=== PATIENT | female | born 1950 ===

== ENCOUNTER 2020-01-08 14:31 | Outpatient (REF) | payer MEDICARE, SELFPAY ==
[2020-01-08 15:23] LABS: Hematocrit 37.5 % (37-47); Hemoglobin 12.3 g/dl (12.0-16.0); Mean Corpuscular HGB Conc 32.8 g/dl (31.0-35.0); Mean Corpuscular Hemoglobin 30.1 pg (27.0-33.0); Mean Corpuscular Volume 91.7 fL (80-98); Mean Platelet Volume 9.2 fL (9.4-12.3); Platelet Count 333 X10*3/uL (160-400); Red Blood Count 4.09 X10*6/uL (4.20-5.50); Red Cell Distribution Width 14.6 % (11.0-16.0); White Blood Count 6.4 X10*3/uL (4.8-10.8)
[2020-01-08 15:57] LABS: Iron 125 mcg/dL (30-160); Percent Iron Saturation 33 % (15-50); Total Iron Binding Capacity 376 mcg/dL (228-428); Unsaturated Iron Binding 251 ug/dL
[2020-01-08 16:17] LABS: Thyroid Stimulating Hormone 1.57 mIU/mL (0.32-4.0)
== END 2020-01-08 14:32 | disposition home or self-care (01) ==
LOC: HO.LAB 14:31
PROVIDERS: PCP Physician Assistant; Visit Provider Physician Assistant
DX: R31.0 Gross hematuria (principal); E07.9 Disorder of thyroid, unspecified
CPT/HCPCS: 36415; 83540; 84443; 85027

== ENCOUNTER 2020-02-23 11:13 | Outpatient (REF) | payer MEDICARE, SELFPAY ==
[2020-02-23 12:36] LABS: Anion Gap 14 (12-20); Blood Urea Nitrogen 10 mg/dL (9-16); Calcium 9.3 mg/dL (8.4-10.2); Carbon Dioxide 24 mmol/L (22-29); Chloride 107 mmol/L (96-108); Estimated Glomerular Filt Rate > 60; Glucose Random 126 mg/dL (60-115); Potassium 4.1 mmol/l (3.3-5.1); Sodium 141 mmol/L (135-145)
== END 2020-02-23 11:14 | disposition home or self-care (01) ==
LOC: HO.LAB 11:13
PROVIDERS: PCP Physician Assistant; Visit Provider Physician Assistant
DX: I10 Essential (primary) hypertension (principal)
CPT/HCPCS: 80048

== ENCOUNTER 2020-09-15 13:32 | Outpatient (REF) | payer MEDICARE, SELFPAY ==
[2020-09-15 14:18] LABS: Estimated Average Glucose 123 mg/dL; Hemoglobin A1c % 5.9 %
[2020-09-15 14:44] LABS: Creatinine Urine 221.05 mg/dL; Microalbum/Creatinine Ratio Ur 8.1 ug/mg cr
[2020-09-15 14:47] LABS: Anion Gap 12 (12-20); Blood Urea Nitrogen 11 mg/dL (9-16); Calcium 9.2 mg/dL (8.4-10.2); Carbon Dioxide 21 mmol/L (22-29); Chloride 111 mmol/L (96-108); Cholesterol 230 mg/dL; Estimated Glomerular Filt Rate > 60; Glucose Random 119 mg/dL (60-115); HDL Cholesterol 56 mg/dL; LDL Cholesterol Calculated 143 mg/dl; Potassium 4.3 mmol/L (3.3-5.1); Sodium 140 mmol/L (135-145); Triglycerides 156 mg/dL
[2020-09-15 14:59] LABS: Thyroid Stimulating Hormone 1.09 uIU/mL (0.32-4.0)
== END 2020-09-15 13:33 | disposition home or self-care (01) ==
LOC: HO.LABR 13:32
PROVIDERS: PCP Physician Assistant; Visit Provider Physician Assistant
DX: E11.9 Type 2 diabetes mellitus without complications (principal); E03.9 Hypothyroidism, unspecified
CPT/HCPCS: 36415; 80048; 80061; 82043; 83036; 84443

== ENCOUNTER → 2020-11-10 07:48 | Outpatient (REF) | payer MEDICARE, SELFPAY ==
--- NOTE | 2020-11-10 07:52 | CA_ITS ---
Acquisition Time: 2020-11-10 07:58:08 Total Exercise Time: 00:03:14 Test Indications: Chest Pain Medications: ASA CLONAZAPAM CLOPIDOGREL EZITIMIBE METFORMIN LAMOTRIGINE PROPANOLOL IRON VENLAFAXINE Protocol: KENYON Max HR: 150 BPM 98% of Pred: 152 BPM Max BP: 162/080 mmHG Max Work Load: 4.7 METS Exercise stress test with exercise 3 min 14 sec of Kenyon protocol, without moderate shortness of breath, anterior chest tightness and report of dizziness, without arrythmia, with normotensive response to exercise, without EKG changes meeting criteria for ischemia however suboptimal exerise time, goal 5 min. In recovery her symptoms, improved and resolved. There was borderline ST changes inferiorly and V6 noted during recovery. Test reviewed with Dr Reyes Call placed to [facility] office, report given and recommended pharm nuclear stress test for further evaluation. Referred By: Lexy Betancur Overread By: JEISON LACEY
== END ==
LOC: HO.CARD 07:48
PROVIDERS: PCP Physician Assistant; Visit Provider Physician Assistant
DX: R06.09 Other forms of dyspnea (principal)
CPT/HCPCS: 93017

== ENCOUNTER → 2020-11-24 08:43 | Outpatient (REF) | payer MEDICARE, SELFPAY ==
--- NOTE | ~2020-11-24 | NM_ITS ---
Myocardial perfusion study Indication: Shortness of breath evaluate for myocardial ischemia Technique: The patient was brought in for a Lexiscan perfusion study on 11/24/2020. Patient performed low-level exercise and was injected 0.4 mg of Lexiscan intravenously. Within a minute of injection, 30 mCi of sestamibi was given intravenously. Images were obtained using the SPECT gamma camera interlaced with the gating device. Images were obtained in supine position. Resting perfusion study was performed on 11/25/2020. Patient was administered 30 mCi of sestamibi intravenously at rest. Images were then obtained in supine position. Images obtained with and without CT attenuation. Total DLP 111 mGy-cm. Images were processed with the software and compared side to side in short axis, horizontal long axis and vertical long axis views. Findings: The stress perfusion study showed nonattenuated images show minimal thinning of the distal lateral wall of the LV myocardium otherwise normal uptake in all other segments. Attenuation corrected images show normal uptake of radiotracer in all segments of LV myocardium.. The gated study shows normal LV systolic function with calculated LVEF of greater than 70 %. LV cavity is normal in size. The gated study shows normal systolic wall thickening and contraction of segments. Resting study shows no change in perfusion pattern compared to stress perfusion study. Gating at rest reveals normal systolic wall motion with ejection fraction at 58%. The findings are consistent with normal myocardial perfusion. NM/NM sawyer perf SPECT rest & str Impression: 1. Myocardial perfusion imaging study shows normal myocardial perfusion 2. Gated LVEF is greater than 70% 3. Transient ischemic dilatation not present EKG is nondiagnostic for ischemia
--- NOTE | 2020-11-24 09:00 | CA_ITS ---
Acquisition Time: 2020-11-24 08:54:35 Total Exercise Time: 00:02:00 Test Indications: Abnormal Treadmill Test Medications: PRAVASTATIN ASA CLONAZAPAM LAMOTRIGNE PROPANOLOL VENLAFAXINE Protocol: LEXISCAN Max HR: 109 BPM 71% of Pred: 152 BPM Max BP: 128/082 mmHG Max Work Load: 1.0 METS Pharmacological stress test with Lexiscan injection, while sitting and kicking her legs, without anginal symptoms, without arrythmia, with normotensive response to injection, with nondiagnostic EKG for ischemia. Nuclear images pending. Test reviewed with Dr Reyes. Referred By: Caitlin Carl Overread By: JEISON LACEY
== END ==
LOC: HO.CARD 08:43
PROVIDERS: Visit Provider Nurse Practitioner Family
DX: R06.09 Other forms of dyspnea (principal)
CPT/HCPCS: 78452; 93017; A9500; J0280; J2785

== ENCOUNTER → 2020-12-12 19:15 | Outpatient (REF) | payer MEDICARE, SELFPAY | LOC: HO.SL 19:15 | PROVIDERS: PCP Physician Assistant; Visit Provider Physician Assistant | DX: G47.00 Insomnia, unspecified (principal) | CPT/HCPCS: 95810 ==

== ENCOUNTER → 2021-03-13 08:21 | Outpatient (BNVA) | payer MEDICARE, SELFPAY | PROVIDERS: PCP Physician Assistant; Visit Provider Hospitalist | DX: G47.33 Obstructive sleep apnea (adult) (pediatric) (principal); R91.8 Other nonspecific abnormal finding of lung field; G47.00 Insomnia, unspecified; R06.00 Dyspnea, unspecified; J43.9 Emphysema, unspecified | CPT/HCPCS: 99202 ==

== ENCOUNTER 2021-05-02 13:24 | Outpatient (REF) | payer MEDICARE, SELFPAY ==
[2021-05-02 14:33] LABS: Estimated Average Glucose 126 mg/dL; Hemoglobin A1C 149.0958 umol/L
[2021-05-02 14:40] LABS: Anion Gap 14 (12-20); Blood Urea Nitrogen 14 mg/dL (9-16); Calcium 9.9 mg/dL (8.4-10.2); Carbon Dioxide 25 mmol/L (22-29); Chloride 109 mmol/L (96-108); Cholesterol 246 mg/dL; Estimated Glomerular Filt Rate > 60; Glucose Random 123 mg/dL (60-115); HDL Cholesterol 55 mg/dL; LDL Cholesterol Calculated 158 mg/dl; Potassium 4.5 mmol/L (3.3-5.1); Sodium 143 mmol/L (135-145); Triglycerides 167 mg/dL
[2021-05-02 15:02] LABS: Thyroid Stimulating Hormone 1.67 uIU/mL (0.32-4.0)
[2021-05-02 16:03] LABS: Creatinine Urine 269.17 mg/dL; Microalbum/Creatinine Ratio Ur 41.2 ug/mg cr
== END 2021-05-02 13:25 | disposition home or self-care (01) ==
LOC: HO.LAB 13:24
PROVIDERS: PCP Physician Assistant; Visit Provider Physician Assistant
DX: E11.9 Type 2 diabetes mellitus without complications (principal); E03.9 Hypothyroidism, unspecified
CPT/HCPCS: 36415; 80048; 80061; 82043; 83036; 84443

== ENCOUNTER 2021-05-31 13:21 | Outpatient (REF) | payer MEDICARE, SELFPAY ==
--- NOTE | ~2021-05-31 | MM_ITS ---
EXAMINATION: BONE DENSITOMETRY CLINICAL INDICATION: Osteoporosis. COMPARISON: Baseline BD dated 05/31/2006. TECHNIQUE: Using a TopLog DXA System (software version: 13.1) manufactured by [employer], dual-energy x-ray absorptiometry was performed of the lumbar spine and left hip. The images are of good technical quality. Summary results are attached. FINDINGS: AP SPINE L1-L2 (excluding L3 and L4): The data of L1-L4 has been changed to exclude the L3 and L4 vertebral bodies, because degenerative changes at these levels may cause overestimation of lumbar spine density. Current: BMD 1.095 g/cm2, Z-score 0.4, T-score -0.6, normal, 6.4% decrease from baseline (<5% change is not significant). Baseline: BMD 1.170 g/cm2. LEFT FEMUR, NECK: Current: BMD 0.845 g/cm2, Z-score -0.2, T-score -1.4, osteopenia. Baseline: BMD 0.979 g/cm2. LEFT FEMUR, TOTAL: Current: BMD 0.878 g/cm2, Z-score -0.1, T-score -1.0, normal, 11.9% decrease from baseline (<5% change is not significant). Baseline: BMD 0.997 g/cm2. IDENTIFIED RISK FACTORS: Height loss, low calcium intake, menopause, hysterectomy, bilateral oophorectomy. HISTORY OF FRACTURE: None listed. MEDICATIONS: Calcium supplements or multivitamin, vitamin D. MM/XR DEXA axial skeleton IMPRESSION: 1. DIAGNOSIS: Osteopenia based on the lowest T-score value of -1.4 in the femoral neck applying World Health Organization criteria. 2. 10-YEAR FRACTURE RISK PREDICTION, FRAX: Major osteoporotic fracture (clinical spine, forearm, hip or shoulder) 9.2%. Hip fracture 1.1%. 3. Treatment Recommendations: NOF guidelines recommend consideration for treatment in postmenopausal women and men age 50 and older presenting with the following: -A hip or vertebral (clinical or morphometric) fracture. -T-score less than or equal to -2.5 at the femoral neck or spine after appropriate evaluation to exclude secondary causes. -Low bone mass at the hip or spine and a 10-year fracture probability by FRAX of greater than or equal to 3% for hip fracture or greater than or equal to 20% for major osteoporotic fracture based on the [place] adapted WHO algorithm. 4. Other Recommendations: All treatment decisions require clinical judgment and consideration of individual patient factors, including patient preferences, comorbidities, previous drug use, risk factors not captured in the FRAX model (e.g. frailty, falls, vitamin D deficiency, increased bone turnover, interval significant decline in bone density) and possible under or overestimation of fracture risk by FRAX. Additional medical evaluation for secondary cause of low bone mineral density may be appropriate. FUTURE SCAN RECOMMENDATION: People with diagnosed cases of osteoporosis or at high risk for fracture should have regular bone mineral density tests. For patients eligible for Medicare, routine testing is allowed once every 2 years. The testing frequency can be increased to one year for patients who have rapidly progressing disease, those who are receiving or discontinuing medical therapy to restore bone mass, or have additional risk factors.
== END 2021-05-31 13:22 | disposition home or self-care (01) ==
LOC: HO.MAMMO 13:21
PROVIDERS: Visit Provider Physician Assistant
DX: Z13.820 Encounter for screening for osteoporosis (principal); R29.890 Loss of height; Z90.710 Acquired absence of both cervix and uterus; Z90.722 Acquired absence of ovaries, bilateral; Z78.0 Asymptomatic menopausal state
CPT/HCPCS: 77080

== ENCOUNTER → 2021-06-12 13:36 | Outpatient (BNVA) | payer MEDICARE, SELFPAY | PROVIDERS: PCP Physician Assistant; Visit Provider Hospitalist | DX: R91.8 Other nonspecific abnormal finding of lung field (principal); J43.9 Emphysema, unspecified; G47.33 Obstructive sleep apnea (adult) (pediatric); G47.00 Insomnia, unspecified; R06.00 Dyspnea, unspecified | CPT/HCPCS: 99212 ==

== ENCOUNTER 2021-09-26 12:14 | Outpatient (REF) | payer MEDICARE, SELFPAY ==
[2021-09-26 13:33] LABS: MANUAL DIFF FLAG NO
[2021-09-26 13:43] LABS: Basophils Percent Auto 0.3 % (0-2); Eosinophils Absolute Auto 0.3 X10*3/uL (0.0-0.4); Eosinophils Percent Auto 4.3 % (0-4); Hematocrit 45.9 % (37.0-47.0); Hemoglobin 15.4 g/dl (12.0-16.0); Imm Gran Abs Auto 0.02 X10*3/uL (0.00-0.03); Imm Gran Pct Auto 0.3 % (0.0-0.4); Lymphocytes Percent Auto 28.8 % (20-40); Mean Corpuscular HGB Conc 33.6 g/dl (31.0-35.0); Mean Corpuscular Volume 92.4 fL (80.0-98.0); Mean Platelet Volume 9.4 fL (9.4-12.3); Monocytes Absolute Auto 0.6 X10*3/uL (0.1-1.2); Monocytes Percent Auto 8.7 % (2-11); Neutrophils Absolute Auto 3.9 x10*3/uL (2.0-8.3); Neutrophils Percent Auto 57.6 % (45-73); Platelet Count 375 X10*3/uL (160-400); Red Blood Count 4.97 X10*6/uL (4.20-5.50); Red Cell Distribution Width 13.5 % (11.0-16.0); White Blood Count 6.8 X10*3/uL (4.8-10.8)
[2021-09-26 14:08] LABS: Creatinine Urine 151.04 mg/dL; Microalbum/Creatinine Ratio Ur 13.9 ug/mg cr
[2021-09-26 14:11] LABS: Alanine Aminotransferase 42 U/L (0-31); Anion Gap 14 (12-20); Aspartate Amino Transferase 30 U/L (5-31); Blood Urea Nitrogen 18 mg/dL (9-16); Calcium 10.5 mg/dL (8.4-10.2); Carbon Dioxide 25 mmol/L (22-29); Chloride 105 mmol/L (96-108); Cholesterol 238 mg/dL; Estimated Glomerular Filt Rate > 60; Glucose Fasting 120 mg/dL (60-99); HDL Cholesterol 47 mg/dL; LDL Cholesterol Calculated 168 mg/dl; Potassium 4.4 mmol/L (3.3-5.1); Sodium 140 mmol/L (135-145); Triglycerides 116 mg/dL
[2021-09-26 14:19] LABS: Estimated Average Glucose 120 mg/dL; Hemoglobin A1c % 5.8 %
[2021-09-26 14:34] LABS: Free T4 (Free Thyroxine) 0.89 ng/dL (0.71-1.85); Vitamin D 25-OH Total 112.4 ng/mL (>30)
== END 2021-09-26 12:15 | disposition home or self-care (01) ==
LOC: HO.HMGCLDS 12:14
PROVIDERS: PCP Internal Medicine; Visit Provider Internal Medicine
DX: D32.9 Benign neoplasm of meninges, unspecified (principal); E03.9 Hypothyroidism, unspecified; E11.9 Type 2 diabetes mellitus without complications; E78.2 Mixed hyperlipidemia; I10 Essential (primary) hypertension; Z78.0 Asymptomatic menopausal state
CPT/HCPCS: 36415; 80048; 80061; 82043; 82306; 83036; 84439; 84443; 84450; 84460; 85025

== ENCOUNTER 2021-09-28 16:03 | Outpatient (REF) | payer MEDICARE, SELFPAY ==
[2021-10-04 16:30] LABS: Lamotrigine Lamictal 3.5 mcg/mL (4.0-18.0)
== END 2021-09-28 16:04 | disposition home or self-care (01) ==
LOC: HO.LAB 16:03
PROVIDERS: Absent Provider Psychiatry & Neurology Neurology; PCP Internal Medicine; Visit Provider Psychiatry & Neurology Psychiatry
DX: F31.9 Bipolar disorder, unspecified (principal); Z79.899 Other long term (current) drug therapy
CPT/HCPCS: 36415; 80175

== ENCOUNTER 2021-10-05 16:15 | Emergency (ER) | payer MEDICARE, SELFPAY ==
--- NOTE | ~2021-10-05 | CT_ITS ---
EXAMINATION: CT LUMBAR SPINE WITHOUT CONTRAST CLINICAL INFORMATION: Lower back pain. COMPARISON: None available. TECHNIQUE: Multidetector helical imaging of the lumbar spine was obtained without intravenous contrast. Multiple axial reformats and coronal/sagittal reconstructions were created the technologist workstation for review. This CT examination was performed using dose optimization techniques as appropriate, variously including the following: *Automated exposure control. *Adjustment of mA and/or kV according to patient size (this includes techniques or standardized protocols for targeted exams where dose is matched to indication/reason for exam; i.e. extremities or head). *Use of iterative reconstruction technique. DLP: 607 mGy-cm FINDINGS: Minimal left convex curvature of the lumbar spine. Minimal degenerative retrolisthesis of L4 on L5. Otherwise, normal anatomic alignment. Normal anatomic alignment. No evidence of acute fracture or traumatic subluxation. Advanced degenerative disc disease at L4-L5 and L5-S1. Moderate degenerative disc disease at L3-L4. Mild degenerative disc disease at all additional levels. Small Schmorl's nodes at L4-L5 and L5-S1. Otherwise, the vertebral body heights are well-maintained. No suspicious lytic or sclerotic osseous lesions. No significant abnormalities of the paraspinal musculature. Limited evaluation of the intra-abdominal structures without significant abnormalities. The abdominal aorta is of normal contour and caliber with moderate calcific atherosclerotic disease. AXIAL SPINAL LEVELS: L1-L2: Normal annular contour. There is moderate right and mild left facet joint arthropathy. There is no neural foraminal stenosis. There is no demonstrated spinal canal stenosis. L2-L3: Moderate diffuse disc bulge. There is severe right worse than left facet joint arthropathy. There is moderate bilateral neural foraminal stenosis. There appears to be severe spinal canal stenosis. L3-L4: Moderate diffuse disc bulge. There is severe left worse than right facet joint arthropathy. There is moderate to severe bilateral neural foraminal stenosis. There appears to be moderate to severe spinal canal stenosis. L4-L5: Moderate diffuse disc bulge with posterior osseous ridging. There appears to be a superimposed, partially calcified right subarticular disc extrusion with inferior migration. There is severe right and moderate left facet joint arthropathy. There is severe bilateral neural foraminal stenosis. There appears to be moderate to severe spinal canal stenosis. L5-S1: Moderate diffuse disc bulge. There is moderate bilateral facet joint arthropathy. There is severe bilateral neural foraminal stenosis. There is no demonstrated spinal canal stenosis. CT/CT lumbar spine wo con IMPRESSION: 1. No evidence of acute fracture or traumatic subluxation of the lumbar spine. 2. 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 Most notably, there appears to be moderate to severe spinal canal stenosis from L2-L5. Moderate to severe neural foraminal stenoses from L2-S1.
[2021-10-05 16:44] VITALS: BP 164/68; PULSE 78; RESP 22; TEMP 36.4; O2SAT 96; BMI 31.1
--- NOTE | 2021-10-05 19:34 | ED_ITS ---
HPI - Back Pain/Injury General Chief Complaint: Back Pain/Injury Stated Complaint: doc sent over to do CT scan Time Seen by Provider: 10/05/21 18:57 Source: patient Mode of arrival: ambulatory Limitations: no limitations History of Present Illness HPI Narrative: This is a 71-year-old past medical history significant for chronic back pain, currently being followed by her PCP and chiropractor for this presenting to the emergency department with bilateral lower back pain that radiates to above both knees, pain is worse with ambulation. Patient tells me that this pain has been going on for 3 and half months, She tells me that pain has been worsening over the past week. However, patient tells me the quality the pain is the same. Patient has not had any previous imaging. Denies weakness, urinary/bowel incontinence/ retention, nausea, vomiting, loss of sensation, numbness, tingling, fevers, chills, chest pain, shortness of breath. No history of IV drug abuse or back surgeries. Patient has not had imaging on her back before however she was told by her PCP that she has a history of a bulging disc. Patient tells me that her PCP is requesting a CT of the lower back. MD elicited complaint: back pain Pertinent past history: prior back pain Onset (ago): month(s) (3) Timing: intermittent Severity: moderate Similar Symptoms Previously: Yes Quality: aching Location: lumbar spine Radiation: none Exacerbating factors: none Relieving factors: none Associated symptoms: denies other symptoms Related Data Home Medications Medication Instructions Recorded Confirmed cholecalciferol (vitamin D3) 50 50 mcg PO DAILY 03/13/21 09/29/21 mcg (2,000 unit) capsule clopidogrel 75 mg tablet 75 mg PO DAILY 03/13/21 09/29/21 coenzyme Q10 75 mg capsule 75 mg PO DAILY 03/13/21 09/29/21 lamotrigine 200 mg tablet 200 mg PO DAILY 03/13/21 09/29/21 propranolol 60 mg capsule,24 60 mg PO DAILY 03/13/21 09/29/21 hr,extended release vit C 250 mg-vit E 90 mg-zinc 40 1 tab PO BID 03/13/21 09/29/21 mg-copper 1 [id number] capsule (PreserVision AREDS-2) nicotine (polacrilex) 4 mg buccal mg PO 06/12/21 09/29/21 mini lozenge ascorbic acid (vitamin C) 500 mg 500 mg PO DAILY 09/26/21 09/29/21 tablet ferrous fumarate 325 mg (106 mg 325 mg PO DAILY 09/26/21 09/29/21 iron) tablet omega-3-dha 120 mg-epa 180 mg-fish cap PO 09/26/21 09/29/21 oil-vitamin D3 1,000 unit capsule venlafaxine 37.5 mg 37.5 mg PO DAILY 09/26/21 09/29/21 capsule,extended release 24 hr Previous Rx's Medication Instructions Recorded aspirin 81 mg tablet,delayed 81 mg PO DAILY #90 tabs 09/29/21 release clotrimazole 1 % topical cream 1 appl topical BID #45 grams 09/29/21 estradiol 10 mcg vaginal tablet 10 mcg vaginal 2XW 90 days #26 tabs 09/29/21 (Yuvafem) ezetimibe 10 mg tablet 10 mg PO DAILY #90 tabs 09/29/21 metformin 500 mg tablet,extended 500 mg PO DAILY #90 tabs 09/29/21 release 24 hr pravastatin 40 mg tablet 40 mg PO DAILY #90 tabs 09/29/21 cyclobenzaprine 5 mg tablet 5 mg PO BEDTIME PRN muscle spasm 10/05/21 #10 tabs lidocaine 5 % topical patch 1 patch topical DAILY PRN pain #15 10/05/21 ea Allergies Allergy/AdvReac Type Severity Reaction Status Date / Time bee pollen [BEE STINGS] Allergy Severe ANAPHYLAXIS Unverified 10/05/21 10:18 Review of Systems Review of Systems: Constitutional : No Weight loss, No Fever, No Chills, No Fatigue, No Malaise ENT/Mouth : No sore throat, No Rhinorrhea Eyes: No Eye Pain, No Swelling, No Redness Cardiovascular : No Chest Pain, No SOB, No Dyspnea on Exertion, No Orthopnea, No Edema, No Palpitations Respiratory : No Cough, No Sputum, No Wheezing Gastrointestinal : No Nausea, No Vomiting, No Diarrhea, No Constipation, No abdominal Pain, No Hematochezia, No Melena Genitourinary : No Dysuria, No Urinary Frequency, No Hematuria, Musculoskeletal : + joint pain, No Myalgias, No Joint Swelling Skin : No Skin Lesions, No rash Neuro : No Weakness, No Numbness, No Dizziness, No Headache All other systems reviewed and are negative Yes all other systems are reviewed and are negative [facility] Past Medical History Attestation statement: The following information was validated with the patient. Source: old records reviewed and nursing notes reviewed Medical History Acquired hypothyroidism Bipolar disorder Carotid artery stenosis Dyspnea Emphysema of lung Essential hypertension Insomnia Meningioma Mixed hyperlipidemia MACIEJ (obstructive sleep apnea) Pulmonary nodules Type 2 diabetes mellitus without complication, with no history of insulin use Surgical History History of thyroid surgery Family History Family History Father Substance use disorder Brother Mental health disorder Maternal Grandmother Mental health disorder Paternal Aunt No problems noted. Mother Mental health disorder Social History [facility] Patient Tobacco Use Status: Former Tobacco user Tobacco use type: Cigarette Years Smoked: 20 years e-Cigarette/Vaping Use: Never Used Advance Directives: No Advance Directives Information Provided: No service: No Current occupational status: retired Cognitive needs: No Hearing needs: No Vision needs: Yes Physical Exam Vital Signs: Vital Signs: Last Vital Signs Temp 97.3 F 10/05/21 20:25 Pulse 74 10/05/21 20:25 Resp 18 10/05/21 20:25 BP 149/63 H 10/05/21 20:25 Pulse Ox 96 10/05/21 20:25 O2 Del Method 10/05/21 20:25 BMI result Body Mass Index 31.1 vital signs stable Appearance: Alert.? Oriented X3.? No acute distress.? Head: Normocephalic, atraumatic, no step-offs or deformities Eyes: Pupils equal, round and reactive to light.? CVS: Normal heart rate and rhythm.? Pulses normal.? Respiratory: No respiratory distress.? Breath sounds normal.? Abdomen: Soft and nontender.? Skin: Skin warm and dry.? Normal skin color.? Normal skin turgor.? Extremities: No lower extremity edema.? No calf ttp. 5/5 strength to bilateral upper and lower extremities Back: No midline tenderness, no C-spine tenderness, full range of motion, no CVA tenderness bilaterally + back pain that radiates to knees bilaterally with ambulation. 2+ patellar reflexes equal bilateral. Neuro: Oriented X 3.? No motor deficit.? No sensory deficit. CN 2-12 intact Ambulating with steady gait. No saddle paresthesias. Course Reevaluation(s) Reevaluation #1: Patient is ambulating to the bathroom, complaining of pain however does not want anything for pain. Patient tells me she lot patches from the pharmacy that have been helping a little. Patient is upset that there was a long wait however a took the time to explain to patient that we are very busy and the emergency department is based off of acuity. CT scan results were attached to patient's discharge. Advised her to follow up with her PCP and fine and sport. This time patient will be discharged home with prompt PCP and Spine and Sport follow-up. Comfortable discharge home. I will start patient on cyclobenzaprine 5 mg p.o. at bedtime, advised her to not drive while taking this as this can make her drowsy. Patient verbalized understanding, questions were answered. Time: 21:32 MDM - Back Pain/Injury MDM Narrative Medical decision making narrative: 1897 71-year-old female presents with atraumatic back pain x3 months, currently being followed by her PCP for this as well as a chiropractor, patient states that the pain has been increasing and her PCP advised her to come in today to be evaluated. No red flag symptoms. Physical examination with normal strength upper and lower extremities, no midline tenderness, back pain is not reproducible with palpation. Patient ambulating with steady gait however she tells me that her back hurts and it radiates to bilateral knees with ambulation. 2+ patellar reflexes equal bilateral. No saddle paresthesias. Sensory and motor intact. Neuro exam nonfocal. Regular rate and rhythm. Lungs clear. Abdomen soft nontender nondistended. Vital signs stable Likely sciatica, unlikely epidural abscess, cauda equina. patient telling me that her PCP requested a CT scan of the lumbar spine. For this reason a CT has been ordered. Medical Records Attestation: I reviewed the patient's medical records. Lab Data Attestation: I reviewed the patient's lab results. Critical Care Time Critical Care Time Critical Care Time: No Discharge Plan Discharge Clinical Impression: Low back pain potentially associated with radiculopathy Patient Disposition: Home, Self-Care Instructions: Sciatica (ED), Acute Low Back Pain (ED), Back Pain (ED) Additional Instructions: Take your medications as prescribed. If you were prescribed antibiotics today, it is important that you take your medication to their entirety, do not skip any doses, do not finish them early. Follow-up with your primary care provider this week. Return to the emergency department with new or worsening symptoms. Such as fevers, chills, chest pain, shortness of breath, nausea, vomiting, dizziness, headache, vision changes, lethargy, urinary/ bowel incontinence / retention, weakness In case of emergency call 911 ?CT/CT lumbar spine wo con IMPRESSION: 1. No evidence of acute fracture or traumatic subluxation of the lumbar spine. ? 2. 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 Most notably, there appears to be moderate to severe spinal canal stenosis from L2-L5. Moderate to severe neural foraminal stenoses from L2-S1. ? Prescriptions: New lidocaine 5 % adhesive patch,medicated 1 patch topical DAILY PRN (Reason: pain) Qty: 15 0RF Rx Instructions: leave on most painful area for up to 12 hrs cyclobenzaprine 5 mg tablet 5 mg PO BEDTIME PRN (Reason: muscle spasm) Qty: 10 0RF No Action aspirin 81 mg tablet,delayed release (DR/EC) 81 mg PO DAILY Qty: 90 0RF clotrimazole 1 % cream 1 appl topical BID Qty: 45 0RF estradiol [Yuvafem] 10 mcg tablet 10 mcg vaginal 2XW 90 Days Qty: 26 0RF ezetimibe 10 mg tablet 10 mg PO DAILY Qty: 90 0RF metformin 500 mg tablet extended release 24 hr 500 mg PO DAILY Qty: 90 1RF pravastatin 40 mg tablet 40 mg PO DAILY Qty: 90 1RF venlafaxine 37.5 mg capsule,extended release 24hr 37.5 mg PO DAILY [id number] oil-vit D3 120 mg-180 mg -1,000 unit capsule PO ferrous fumarate 325 mg (106 mg iron) tablet 325 mg PO DAILY ascorbic acid (vitamin C) 500 mg tablet 500 mg PO DAILY nicotine (polacrilex) 4 mg mini lozenge PO propranolol 60 mg capsule,extended release 24 hr 60 mg PO DAILY lamotrigine 200 mg tablet 200 mg PO DAILY clopidogrel 75 mg tablet 75 mg PO DAILY PreserVision AREDS-2 250-90-40-1 mg capsule 1 tab PO BID cholecalciferol (vitamin D3) 50 mcg (2,000 unit) capsule 50 mcg PO DAILY coenzyme Q10 75 mg capsule 75 mg PO DAILY Referrals: [facility] [Provider Group] - 1 week Darlene Negro MD [Primary Care Provider] - 2 days Stand Alone Forms: Work/School Release
[2021-10-05 20:25] VITALS: BP 149/63; PULSE 74; RESP 18; TEMP 36.3; O2SAT 96
== END 2021-10-05 21:42 | disposition home or self-care (01) ==
PROVIDERS: Emergency Provider Internal Medicine; PCP Internal Medicine
DX: M54.16 Radiculopathy, lumbar region (principal); M54.50 Low back pain, unspecified; Z87.891 Personal history of nicotine dependence; Z79.899 Other long term (current) drug therapy
CPT/HCPCS: 72131; 99283

== ENCOUNTER 2021-10-16 12:56 | Outpatient (REF) | payer MEDICARE, SELFPAY ==
--- NOTE | ~2021-10-16 | MM_ITS ---
EXAMINATION: MM SCREENING DIGITAL BREAST TOMOSYNTHESIS, BILATERAL CLINICAL INFORMATION: Screening. Asymptomatic. Remote prior mammography 2007 purged. The lifetime risk of breast cancer based on the Tyrer-Cuzick Model is 6%. COMPARISON: None (current study represents new baseline exam). TECHNIQUE: Digital breast tomosynthesis is performed in both the craniocaudal and mediolateral oblique views along with computer-aided detection (CAD). Synthesized 2D images are generated from the tomosynthesis. FINDINGS: There are scattered areas of fibroglandular density (ACR BI-RADS breast composition Category b). There are no significant masses, abnormal calcifications, or other abnormalities. Incidental small low right axillary tail node present on right MLO view. The axilla are unremarkable. The skin contours are smooth. MM/MM tomosynthesis screening BI IMPRESSION: No mammographic evidence of malignancy. ASSESSMENT: BI-RADS 2: Benign RECOMMENDATION: Routine annual mammography screening. This patient's information was entered into a reminder system with a target due date for their next mammogram.
== END 2021-10-16 12:57 | disposition home or self-care (01) ==
LOC: HO.MAMMO 12:56
PROVIDERS: Visit Provider Internal Medicine
DX: Z12.31 Encounter for screening mammogram for malignant neoplasm of breast (principal)
CPT/HCPCS: 77063; 77067

== ENCOUNTER → 2021-12-12 13:29 | Outpatient (BNVA) | payer MEDICARE, SELFPAY | PROVIDERS: PCP Internal Medicine; Visit Provider Hospitalist | DX: R06.09 Other forms of dyspnea (principal); R91.8 Other nonspecific abnormal finding of lung field; G47.33 Obstructive sleep apnea (adult) (pediatric); J43.2 Centrilobular emphysema; F51.01 Primary insomnia | CPT/HCPCS: 99212 ==

== ENCOUNTER → 2022-01-01 12:27 | Outpatient (BNVA) | payer MEDICARE, SELFPAY | PROVIDERS: PCP Internal Medicine; Visit Provider Psychiatry & Neurology Psychiatry | DX: F31.81 Bipolar II disorder (principal); E11.9 Type 2 diabetes mellitus without complications; G47.33 Obstructive sleep apnea (adult) (pediatric); D32.9 Benign neoplasm of meninges, unspecified | CPT/HCPCS: 90833; 99212 ==

== ENCOUNTER 2022-04-17 10:32 | Outpatient (REF) | payer MEDICARE, SELFPAY ==
[2022-04-17 14:35] LABS: Creatinine Urine 84.75 mg/dL; Microalbum/Creatinine Ratio Ur 81.4 ug/mg cr
[2022-04-17 14:46] LABS: Alanine Aminotransferase 73 U/L (0-31); Anion Gap 15 (12-20); Aspartate Amino Transferase 34 U/L (5-31); Blood Urea Nitrogen 12 mg/dL (9-16); Calcium 9.4 mg/dL (8.4-10.2); Carbon Dioxide 23 mmol/L (22-29); Chloride 109 mmol/L (96-108); Cholesterol 229 mg/dL; Estimated Glomerular Filt Rate > 60; Glucose Fasting 163 mg/dL (60-99); HDL Cholesterol 53 mg/dL; LDL Cholesterol Calculated 150 mg/dl; Sodium 143 mmol/L (135-145); Triglycerides 132 mg/dL
[2022-04-17 14:48] LABS: Free T4 (Free Thyroxine) 0.78 ng/dL (0.71-1.85); Thyroid Stimulating Hormone 2.47 uIU/mL (0.32-4.0); Vitamin D 25-OH Total 75.6 ng/mL (>30)
[2022-04-17 15:14] LABS: Estimated Average Glucose 143 mg/dL; Hemoglobin A1c % 6.6 %
[2022-04-18 11:39] LABS: Calcium (PTHI) 9.7 mg/dL (8.6-10.4); PTHI 44 pg/mL (16-77)
[2022-04-19 14:48] LABS: Calcium, Ionized 5.1 mg/dL (4.8-5.6)
== END 2022-04-17 10:33 | disposition home or self-care (01) ==
LOC: HO.HMGCLDS 10:32
PROVIDERS: PCP Internal Medicine; Visit Provider Internal Medicine
DX: E03.9 Hypothyroidism, unspecified (principal); E11.9 Type 2 diabetes mellitus without complications; E83.52 Hypercalcemia; N95.9 Unspecified menopausal and perimenopausal disorder; E78.2 Mixed hyperlipidemia
CPT/HCPCS: 36415; 80048; 80061; 82043; 82306; 82330; 83036; 83970; 84439; 84443; 84450; 84460

== ENCOUNTER → 2022-06-14 14:19 | Outpatient (BNVA) | payer MEDICARE, SELFPAY | PROVIDERS: PCP Internal Medicine; Visit Provider Hospitalist | DX: J43.2 Centrilobular emphysema (principal); R06.09 Other forms of dyspnea; R91.8 Other nonspecific abnormal finding of lung field; G47.33 Obstructive sleep apnea (adult) (pediatric); F51.01 Primary insomnia; Z99.89 Dependence on other enabling machines and devices | CPT/HCPCS: 99212 ==

== ENCOUNTER → 2022-06-21 13:50 | Outpatient (BNVA) | payer MEDICARE, SELFPAY | PROVIDERS: PCP Internal Medicine; Visit Provider Psychiatry & Neurology Psychiatry | DX: F43.10 Post-traumatic stress disorder, unspecified (principal); F31.81 Bipolar II disorder; E11.9 Type 2 diabetes mellitus without complications; D32.9 Benign neoplasm of meninges, unspecified | CPT/HCPCS: 99212 ==

== ENCOUNTER 2022-10-09 13:57 | Outpatient (REF) | payer MEDICARE, SELFPAY ==
[2022-10-09 18:30] LABS: TSH reflex Free T4 2.24 uIU/mL (0.32-4.0)
[2022-10-09 19:08] LABS: Vitamin B12 1077 pg/mL (200-900)
[2022-10-19 01:44] LABS: Lamotrigine Lamictal 2.6 mcg/mL (2.5-15.0)
== END 2022-10-09 13:58 | disposition home or self-care (01) ==
LOC: HO.LAB 13:57
PROVIDERS: PCP Internal Medicine; Visit Provider Psychiatry & Neurology Psychiatry
DX: F31.81 Bipolar II disorder (principal); F43.10 Post-traumatic stress disorder, unspecified; D32.9 Benign neoplasm of meninges, unspecified; I10 Essential (primary) hypertension; E11.9 Type 2 diabetes mellitus without complications; G47.33 Obstructive sleep apnea (adult) (pediatric)
CPT/HCPCS: 36415; 80175; 82607; 82746; 84443

== ENCOUNTER 2022-10-09 13:57 | Outpatient (AMB) | payer OTHER, SELFPAY ==
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
== END 2022-10-09 14:55 | disposition home or self-care (01) ==
LOC: HO.HOP 13:57
PROVIDERS: PCP Internal Medicine; Visit Provider Psychiatry & Neurology Psychiatry
DX: F31.81 Bipolar II disorder (principal); F43.10 Post-traumatic stress disorder, unspecified; D32.9 Benign neoplasm of meninges, unspecified; I10 Essential (primary) hypertension; E11.9 Type 2 diabetes mellitus without complications; G47.33 Obstructive sleep apnea (adult) (pediatric)
CPT/HCPCS: 90833; 99213

== ENCOUNTER 2022-10-22 12:32 | Outpatient (REF) | payer MEDICARE, SELFPAY ==
--- NOTE | ~2022-10-22 | MM_ITS ---
EXAMINATION: MM SCREENING DIGITAL BREAST TOMOSYNTHESIS, BILATERAL CLINICAL INFORMATION: Screening. Asymptomatic. The lifetime risk of breast cancer based on the Tyrer-Cuzick Model is 5.6%. COMPARISON: Mammography: This study is compared with prior exams dating back to 2021. TECHNIQUE: Digital breast tomosynthesis is performed in both the craniocaudal and mediolateral oblique views along with computer-aided detection (CAD). Synthesized 2D images are generated from the tomosynthesis. FINDINGS: There are scattered areas of fibroglandular density (ACR BI-RADS breast composition Category b). There are no significant masses, abnormal calcifications, or other abnormalities. MM/MM tomosynthesis screening BI IMPRESSION: No mammographic evidence of malignancy. ASSESSMENT: BI-RADS BI-RADS 1 - Negative RECOMMENDATION: Routine annual mammography screening. 1 year F/U This examination should not preclude the clinical evaluation of a suspicious palpable abnormality. This patient's information was entered into a reminder system with a target due date for their next mammogram.
== END 2022-10-22 12:33 | disposition home or self-care (01) ==
LOC: HO.MAMMO 12:32
PROVIDERS: PCP Internal Medicine; Visit Provider Internal Medicine
DX: Z12.31 Encounter for screening mammogram for malignant neoplasm of breast (principal)
CPT/HCPCS: 77063; 77067

== ENCOUNTER → 2022-10-22 13:00 | Outpatient (BNV) | payer MEDICARE, SELFPAY | PROVIDERS: PCP Internal Medicine; Visit Provider Radiology Diagnostic Radiology | DX: Z12.31 Encounter for screening mammogram for malignant neoplasm of breast (principal) | CPT/HCPCS: 77063; 77067 ==

== ENCOUNTER 2022-10-23 12:49 | Outpatient (REF) | payer MEDICARE, SELFPAY ==
[2022-10-23 16:31] LABS: Estimated Average Glucose 108 mg/dL; Hemoglobin A1C 130.9305 umol/L; Hemoglobin A1c % 5.4 %
[2022-10-23 16:57] LABS: Alanine Aminotransferase 47 U/L (0-31); Anion Gap 13 (12-20); Aspartate Amino Transferase 30 U/L (5-31); Blood Urea Nitrogen 11 mg/dL (9-16); Calcium 9.7 mg/dL (8.4-10.2); Carbon Dioxide 24 mmol/L (22-29); Chloride 110 mmol/L (96-108); Cholesterol 179 mg/dL; Estimated Glomerular Filt Rate > 60; Glucose Fasting 127 mg/dL (60-99); HDL Cholesterol 51 mg/dL; LDL Cholesterol Calculated 104 mg/dl; Potassium 4.1 mmol/L (3.3-5.1); Sodium 143 mmol/L (135-145); Triglycerides 123 mg/dL
[2022-10-23 17:15] LABS: Vitamin D 25-OH Total 123.5 ng/mL (>30)
[2022-10-26 14:17] LABS: Calcium, Ionized 5.1 mg/dL (4.7-5.5)
== END 2022-10-23 12:50 | disposition home or self-care (01) ==
LOC: HO.HMGCLDS 12:49
PROVIDERS: PCP Internal Medicine; Visit Provider Internal Medicine
DX: E03.9 Hypothyroidism, unspecified (principal); E11.9 Type 2 diabetes mellitus without complications; N95.9 Unspecified menopausal and perimenopausal disorder; E83.52 Hypercalcemia; E78.2 Mixed hyperlipidemia
CPT/HCPCS: 36415; 80048; 80061; 82306; 82330; 82550; 83036; 84450; 84460

== ENCOUNTER 2022-10-30 11:31 | Outpatient (AMB) | payer MEDICARE, SELFPAY ==
--- NOTE | 2022-10-30 11:58 | A.OFFPC_ITS ---
Vital Signs 10/30/22 12:00 Height 5 ft 6 in Weight 183 lb BMI 29.5 BP 140/70 H Blood Pressure Location Rt brachial Position Sitting Pulse 79 Pulse Source Pulse Oximeter Pulse Oximetry (%) 97 Oxygen Delivery Method Room Air Intake Visit Reasons: 6 months f/u Intake Note: Pt is here today for her 6 months f/u Allergies bee pollen [BEE STINGS] Allergy (Severe, Unverified 10/30/22 12:22) ANAPHYLAXIS Medication List - Last Reconciled 10/30/22 by Darlene Negro MD ascorbic acid (vitamin C) 500 mg PO DAILY aspirin 81 mg PO DAILY cholecalciferol (vitamin D3) 50 mcg PO DAILY clotrimazole 1% 1 appl topical BID coenzyme Q10 75 mg PO DAILY epinephrine 0.3 mL IM ONCE PRN estradiol 0.01%(0.1mg/gram) 1 g vaginal 2XW ezetimibe 10 mg PO DAILY ferrous fumarate 325 mg PO DAILY FreeStyle Lite Meter (blood-glucose meter) As directed NS FreeStyle Lite Strips (blood sugar diagnostic) check fasting blood sugar once a day NS lamotrigine 150 mg PO DAILY 90 days lancets (FreeStyle Lancets) As directed once a day metformin ER 500 mg PO DAILY gi-0-pcy-epa-fish oil-vit D3 120 mg-180 mg -1,000 unit caps PO propranolol ER 60 mg PO DAILY rosuvastatin 5 mg PO DAILY venlafaxine ER 75 mg PO DAILY vit C,I-Yi-njhkh-lutein-zeaxan 250-90-40-1 mg (PreserVision AREDS-2) 1 tab PO BID zolpidem (Ambien) 10 mg PO BEDTIME 30 days Tobacco use date assessed: 10/30/22 Fall risk assessment: No Falls in past year Last assessed Fall Risk: 10/30/22 Dental Screening Dental Screen Date: 10/30/22 Did you have a dental visit in the last 12 months?: Yes Did you have a dental problem in the last 6 months where you did not have access to dental care?: No Was dental information given to patient?: Patient has dentist HPI 6 months f/u HPI Details 72-year-old lady with history of obstruc tive sleep apnea on CPAP, with pulmonary nodules followed by instructional technology specialist, has insomnia, osteopenia and history of bipolar disorder in full remission, here today for follow-up on her diabetes mellitus, dyslipidemia, acquired hypothyroidism and hypertension. She has been fully compliant taking medications and has been trying to follow recommended diet. Has been feeling well with no complaints at present time [facility] Medical History Osteopenia Postmenopausal Personal history of nicotine dependence Stenosis of right carotid artery greater than 50% Post traumatic stress disorder (PTSD) Bipolar II disorder in full remission Essential hypertension Mixed hyperlipidemia Type 2 diabetes mellitus without complication, with no history of insulin use Acquired hypothyroidism Insomnia Meningioma (~2019) Emphysema of lung Pulmonary nodules MACIEJ (obstructive sleep apnea) Surgical History History of partial thyroidectomy History of hysterectomy History of appendectomy History of tonsillectomy History of colonoscopy Family History Father Substance use disorder Lung cancer Brother Mental health disorder Maternal Grandmother Mental health disorder Paternal Aunt No problems noted. Mother Mental health disorder Social History [facility] Patient Tobacco Use Status: Former Tobacco user Quit Date: 2016 Tobacco use type: Cigarette Years Smoked: (onset 15yo, 1ppd x 51yrs, 40+PYH - quit 2017) e-Cigarette/Vaping Use: Never Used service: No Current occupational status: retired Cognitive needs: No Hearing needs: No Vision needs: Yes Questionnaire PHQ-9 Over the last 2 weeks, how often have you been bothered by any of the following problems? 1. Little interest or pleasure in doing things: not at all 2. Feeling down, depressed, or hopeless: not at all 3. Trouble falling or staying asleep, or sleeping too much: several days 4. Feeling tired or having little energy: several days 5. Poor appetite or overeating: not at all 6. Feeling bad about yourself - or that you are a failure or have let yourself or your family down: not at all 7. Trouble concentrating on things, such as reading the newspaper or watching television: not at all 8. Moving or speaking so slowly that other people could have noticed. Or the opposite - being so fidgety or restless that you have been moving around a lot more than usual: not at all 9. Thoughts that you would be better off or of hurting yourself in some way: not at all Total score: 2 Depression Screening Interpretation: Negative 95757 - PHQ-9 Billing: Yes Source: Developed by Drs. Tyshawn Fajardo, Rahel Rdz, Jose Sparrow and colleagues, with an educational aguilar from [employer]. Thrive Questionnaire Date Thrive assessed: 09/26/21 AUDIT C Alcohol Use Questionnaire (AUDIT-C) 1. How often do you have a drink containing alcohol?: Never Total Score: 0 IDALIA-7 AMB Questionnaire IDALIA-7 Date IDALIA - 7 assessed: 09/26/21 Source: Developed by Drs. Tyshawn Fajardo, Rahel Rdz, Jose Sparrow and colleagues, with an educational aguilar from [employer]. Review of Systems Const Denies fatigue, Denies headache(s) and Reports weight loss Eyes Details: She sees Dr. Booker for her routine eye exam currently up-to-date Reports no additional complaints ENT Denies dizziness, Denies headache(s), Denies mouth pain, Denies nasal congestion, Denies disequilibrium and Denies post nasal drip Card Denies chest pain, Denies rapid heart rate, Denies irregular heart rhythm and Denies lightheadedness Resp Denies chest congestion, Denies cough and Denies pain on inspiration GI Denies abdominal pain, Denies melena, Denies bloating, Denies hematochezia and Denies change in stool character Denies urinary frequency, Denies urinary incontinence and Denies urinary urgency Musc Denies no additional complaints Skin/Breast Reports rash (Recurrent under breasts and inguinal areas) Neuro Denies Neuro-related abnormal movements, Denies dizziness, Denies headache(s) and Denies disequilibrium Psych Details: Currently being followed by Dr. Sosa Denies no additional complaints Endo Denies fatigue, Denies polyphagia, Denies polydipsia and Denies polyuria Ez/Lymph Denies easy bleeding and Denies lymphadenopathy Aller/Immun Reports no additional complaints Physical exam (Primary Care) Vital Signs: Last Vital Signs Pulse 79 10/30/22 12:00 BP 140/70 H 10/30/22 12:00 Pulse Ox 97 10/30/22 12:00 Oxygen Delivery Method Room Air 10/30/22 12:00 BMI result Body Mass Index 29.5 BMI Assessment/Plan discussion: High BMI High, discussed plan: lifestyle, weight reduction and dietary Tobacco/Smoking Status: Tobacco use Status Tobacco use date assessed 10/30/22 10/30/22 12:04 Patient Tobacco Use Status Former Tobacco user 10/30/22 12:04 Tobacco use type Cigarette 10/30/22 12:04 e-Cigarette/Vaping Use Never Used 10/30/22 12:04 Depression Screening Interpretation: Negative Thrive Assessment: Date of Thrive Assessment Date Thrive assessed 09/26/21 10/30/22 12:04 Const Other: Alert oriented x3, no acute distress, ambulatory with normal gait Orientation/consciousness: patient oriented x3 HENMT Head: Yes atraumatic Ears: TM's normal bilaterally and EAC's normal General nose exam: Normal external nose present and No nasal discharge present Mouth: Normal oral and palatal mucosa present and moist mucous membranes Eyes General: appearance normal, both eyes and all related structures Neck Neck: Yes full ROM, Yes no lymphadenopathy and Yes supple Thyroid: Thyroid normal Resp Effort & Inspection: normal respiratory effort and able to speak in complete sentences Auscultation: clear to auscultation bilaterally Cardio Other: S1-S2 present regular rate and rhythm GI Other: Normal, bowel sounds, soft, nontender, no mass palpated Back/Spine/Pelvis Back: No back tenderness Neuro General: patient oriented x3, moves all extremities, no focal motor deficits and CN's II-XI intact bilaterally Extrem General: Yes full ROM, Yes no joint enlargement, Yes no pedal edema and Yes no calf tenderness Psych Appearance: grossly normal and well kempt Mental Status: mental status grossly normal Speech and movement: Normal speech and movement present Affect: normal affect Attitude: cooperative Immunizations pneumoc 20-jude conj-dip cr(PF) 0.5 mL IM syringe Performing Provider: Darlene Negro MD Performing Location: [facility] Administered by: Stephy Pineda CMA on 10/30/22 12:52 Dose Route Admin Location Dispensed Lot Number Expiration Date [employer] Att[employer] 0.5 mL IM Right Deltoid 0.5 mL [id number] 12/30/23 [employer] VIS Given Date VIS Provided VIS Publication Date 10/30/22 Single Vaccine 21 Eligibility Eligibility Date Funding Source Not VFC Eligible 10/30/22 Private Results Reviewed Results Reviewed: ENTERED: 10/23/22-1253 AHMET BELL: ORDERED: Met Prof Fast, AST, ALT, CK Total, Lipid Panel, Vitamin D 25-OH Test Result Flag Reference Site Sodium 143 135-145 mmol/L Potassium 4.1 3.3-5.1 mmol/L CL 110 H 96-108 mmol/L CO2 24 22-29 mmol/L Gap 13 12-20 BUN 11 9-16 mg/dL Creat 0.80 0.5-1.4 mg/dL EGFR > 60 NOTE: For [place] individuals, multiply the result by 1.210. Chronic Kidney Disease: Estimated GFR < 60 mL/min/1 .73m2 Severe Kidney Disease: Estimated GFR < 15 mL/min/1.73m2 FBS 127 H 60-99 mg/dL A fasting glucose of 126 mg/dl or greater on more than one occasion is considered diagnostic of diabetes. CA 9.7 8.4-10.2 mg/dL AST (GOT) 30 5-31 U/L ALT (GPT) 47 H 0-31 U/L CK Total 250 H 26-140 U/L Triglyceride 123 mg/dL Desirable Triglyceride: less than 150 mg/dL Borderline High Triglyceride 150-199 mg/dL High Triglyceride: 200-499 mg/dL Very High Triglyceride: greater than or equal to 5OO mg/dL Chol 179 mg/dL Desirable Cholesterol: less than 200 mg/dL Borderline High Cholesterol: 200-239 mg/dL High Cholesterol: greater than 239 mg/dL LDL Calculated 104 mg/dl Desirable LDL: less than 100 mg/dL Near Optimal/Above Optimal LDL: 110-129 mg/dL Borderline High LDL: 130-159 mg/dL High LDL: 160-189 mg/dL Very High LDL: greater than or equal to 190 mg/dL HDL 51 mg/dL Desirable HDL: greater than 40 mg/dL Note: This HDL assay may give artificially low results in patients with liver disease. Vit D 25-OH Tot 123.5 >30 ng/mL Health Based Reference Values* < 20 ng/mL Deficient 20-30 ng/mL Insufficient > 30 ng/mL Sufficient Laboratory Tests 10/23/22 12:55 Estimat Average Glucose 108 Hemoglobin A1c % 5.4 ENTERED: 10/09/22-[address]: Darlene Negro MD ORDERED: TSH Rflx Test Result Flag Reference Site TSH 2.24 0.32-4.0 uIU/mL Assessment and Plan Assessment & Plan (1) Essential hypertension: Code(s): I10 - Essential (primary) hypertension Plan: Blood pressure at goal of less than 130/80. Continue with current medication. Reinforced importance of following a low sodium diet, getting regular exercise, and lowering stress levels. (2) Mixed hyperlipidemia: Code(s): E78.2 - Mixed hyperlipidemia Plan: Reviewed recent fasting lipid profile with patient with levels within normal limits except for LDL cholesterol still mildly elevated at 104 mg/dL . Continue with rosuvastatin 5 mg daily , in addition to adherence to low-cholesterol diet and regular exercise, at least 30 minutes 3 to 4 times a week. Advised patient to make healthy food choices, eat more fruits, vegetables, whole grains, wild caught fish and low-fat dairy. Limit amount of meat and fried or fatty food products, as well as processed foods and fast foods. Follow-up scheduled with repeat fasting lipid panel in 6 months. (3) Type 2 diabetes mellitus without complication, with no history of insulin use: Code(s): E11.9 - Type 2 diabetes mellitus without complications Plan: Recent lab results reviewed with patient, with sugar and hemoglobin A1c stable and at goal continue to check fasting blood sugar at home, maintain log and bring to next appointment for review. Reinforced diabetic diet and regular exercise with patient. Counseled regarding importance of yearly diabetes retinopathy screening, see [facility] in [place]. Patient advised to inspect feet daily, for any signs of injury, callus or infection. Compliance with diet and regular exercise again stressed. Blood pressure goal is less than 130/80, goal LDL is less than 100 and goal hemoglobin A1c is less than 7% follow-up appointment made in-6-months, after fasting labs done. Declines to get COVID booster, gets yearly flu shots, Prevnar 20 given today (4) Acquired hypothyroidism: Comment: (s/p partial thyroidectomy for Graves) Code(s): E03.9 - Hypothyroidism, unspecified Plan: Thyroid levels currently stable controlled without any medication at present time Orders: Orders Pneumococcal 20 Immunization 10/30/22 Z23 - Encounter for immunization Lipid Panel 6 Months I10 - Essential (primary) hypertension, E78.2 - Mixed hyperlipidemia, E11.9 - Type 2 diabetes mellitus without complications, E03.9 - Hypothyroidism, unspecified, E67.3 - Hypervitaminosis D Alanine Aminotransferase 6 Months I10 - Essential (primary) hypertension, E78.2 - Mixed hyperlipidemia, E11.9 - Type 2 diabetes mellitus without complications, E03.9 - Hypothyroidism, unspecified, E67.3 - Hypervitaminosis D Aspartate Amino Transferase 6 Months I10 - Essential (primary) hypertension, E78.2 - Mixed hyperlipidemia, E11.9 - Type 2 diabetes mellitus without complications, E03.9 - Hypothyroidism, unspecified, E67.3 - Hypervitaminosis D Vitamin B12 and Folate 6 Months I10 - Essential (primary) hypertension, E78.2 - Mixed hyperlipidemia, E11.9 - Type 2 diabetes mellitus without complications, E03.9 - Hypothyroidism, unspecified, E67.3 - Hypervitaminosis D Basic Metabolic Panel Fasting 6 Months I10 - Essential (primary) hypertension, E78.2 - Mixed hyperlipidemia, E11.9 - Type 2 diabetes mellitus without complications, E03.9 - Hypothyroidism, unspecified, E67.3 - Hypervitaminosis D Thyroid Stimulating Hormone 6 Months I10 - Essential (primary) hypertension, E78.2 - Mixed hyperlipidemia, E11.9 - Type 2 diabetes mellitus without complications, E03.9 - Hypothyroidism, unspecified, E67.3 - Hypervitaminosis D Free T4 (Free Thyroxine) 6 Months E03.9 - Hypothyroidism, unspecified, I10 - Essential (primary) hypertension, E78.2 - Mixed hyperlipidemia, E11.9 - Type 2 diabetes mellitus without complications, E67.3 - Hypervitaminosis D Hemoglobin A1c 6 Months I10 - Essential (primary) hypertension, E78.2 - Mixed hyperlipidemia, E11.9 - Type 2 diabetes mellitus without complications, E03.9 - Hypothyroidism, unspecified, E67.3 - Hypervitaminosis D Microalbumin, Random (w Creat) 6 Months I10 - Essential (primary) hypertension, E78.2 - Mixed hyperlipidemia, E11.9 - Type 2 diabetes mellitus without complications, E03.9 - Hypothyroidism, unspecified, E67.3 - Hypervitaminosis D Vitamin D 25-OH Total 6 Months I10 - Essential (primary) hypertension, E78.2 - Mixed hyperlipidemia, E11.9 - Type 2 diabetes mellitus without complications, E03.9 - Hypothyroidism, unspecified, E67.3 - Hypervitaminosis D Coding Level of Care Code Est Pt Level 4 (61475) Diagnoses Essential hypertension I10 Mixed hyperlipidemia E78.2 Type 2 diabetes mellitus without complication, with no history of insulin use E11.9 Acquired hypothyroidism E03.9
[2022-10-30 12:00] VITALS: BP 140/70; PULSE 79; O2SAT 97; BMI 29.5
== END 2022-10-30 12:59 | disposition home or self-care (01) ==
PROVIDERS: Visit Provider Internal Medicine
DX: I10 Essential (primary) hypertension (principal); E78.2 Mixed hyperlipidemia; E11.9 Type 2 diabetes mellitus without complications; E03.9 Hypothyroidism, unspecified
CPT/HCPCS: 90471; 90677; 99214

== ENCOUNTER 2022-11-23 13:03 | Outpatient (AMB) | payer MEDICARE, SELFPAY ==
--- NOTE | 2022-11-23 09:40 | MHC.OFFVIS ---
Intake Intake Visit Reasons: LDCT SD Allergies bee pollen [BEE STINGS] Allergy (Severe, Unverified 10/30/22 12:22) ANAPHYLAXIS HPI LDCT SD HPI Details Initial visit for this 72yo former smoker with a 40+PYH. Patient has been smoking since age 15 for 51 years at 1ppd. She quit 6 years ago in 2017. . Denies marijuana use. Denies second hand smoke exposure. Denies exposure to chemicals or substances like asbestos. . Reports family history of lung cancer. Dad passed at 60yo. Denies personal history of cancers. Did undergo brain radiation in 2019 for mengioma. . Denies chest CT in last year. She has had prior LDCT screening at [facility] 10/31/21 LDCT was a Lung RADS 2. . Denies recent travel outside the [place]. Has been to [place]. Denies recent respiratory illness or recent hospitalization for respiratory issues. Denies testing positive for COVID. Admits receiving COVID Vaccine. x 4. . She has MACIEJ on cpap. Denies fever, chills, new/worsening cough, hemoptysis, hoarseness or dysphagia. Denies significant chest pain, significant dyspnea or unintentional weight loss. Patient Lung Cancer Screening Questionnaire reviewed with patient by provider. . Shared Decision Making Completed. Patient meets criteria. Discussed in detail with patient, the risk vs benefit of LDCT screening. Patient consents to proceed with scan. Discussed and encouraged continued smoking cessation. [facility] Medical History (Updated 11/23/22 @ 13:25 by Jovanna Renteria PA-C) Acquired hypothyroidism Bipolar II disorder in full remission Emphysema of lung Essential hypertension Insomnia Meningioma (~2019) Mixed hyperlipidemia MACIEJ (obstructive sleep apnea) Osteopenia Personal history of nicotine dependence Post traumatic stress disorder (PTSD) Postmenopausal Pulmonary nodules Stenosis of right carotid artery greater than 50% Type 2 diabetes mellitus without complication, with no history of insulin use Surgical History (Updated 11/23/22 @ 13:24 by Jovanna Renteria PA-C) History of appendectomy History of colonoscopy History of hysterectomy History of partial thyroidectomy History of tonsillectomy Family History (Updated 11/23/22 @ 13:22 by Jovanna Renteria PA-C) Father Substance use disorder Lung cancer Brother Mental health disorder Maternal Grandmother Mental health disorder Paternal Aunt No problems noted. Mother Mental health disorder Social History (Updated 11/23/22 @ 13:22 by Jovanna Renteria PA-C) Housing: Condominium Patient Tobacco Use Status: Former Tobacco user Quit Date: 2016 Tobacco use type: Cigarette Years Smoked: (onset 15yo, 1ppd x 51yrs, 40+PYH - quit 2017) e-Cigarette/Vaping Use: Never Used service: No Current occupational status: retired Cognitive needs: No Hearing needs: No Vision needs: Yes Assessment & Plan Assessment & Plan (1) Personal history of nicotine dependence: Comment: (former smoker - onset 15yo, 1ppd x 51yrs, 40+PYH - quit 2017, +fam hx lung ca) Code(s): Z87.891 - Personal history of nicotine dependence Plan: - SDM visit completed today in office. - Patient meets criteria for LDCT for lung cancer screening purposes and is asymptomatic. - Smoking cessation counseling offered. Patients can always call [phone]. - Will arrange for a LDCT scan of the chest for screening purposes at [facility]. - Risks, benefits, and alternatives were discussed in detail and the patient agrees to proceed. - Risks discussed include but are not limited to: radiation exposure, anxiety during testing and while awaiting results, false negatives, false positives and possibility of additional intervention such as further imaging or surgical procedures for benign disease. - Benefits are obviously detection of lung cancer at an early stage which can lead to improved outcomes. - Discussed the importance of screening program compliance with adherence to yearly LDCT scan as scheduled - or sooner interval scans for personalized screening regimen. - Discussed follow up plan. Our office will send a letter discussing results and if needed set up phone call and office visit based on CT findings. - Patient educated on results categorization and the management decisions for suspicious findings potentially found on the screening LDCT scan. Any patient with a Lung RADS score of 3 or 4 will be reviewed by a multidisciplinary team at [facility] to form a plan of action in regards to scan findings. - If further work up is warranted for a suspicious lung finding this will be followed by the Lung Cancer Screening program in conjunction with the Thoracic Surgery Department at [facility]. - A copy of the office note and LDCT will be sent to the patient's PCP - as well as documentation on any associated further plans of care. - Incidental findings on LDCT are the PCP's responsibility. These findings are indicated with an S finding on the LDCT Assessment. A note discussing the findings will be sent to the PCP who is then responsible for further management. - All questions answered.? Coding Level of Care Code Lung Cancer Screening G0296 Diagnoses Personal history of nicotine dependence Z87.891
== END 2022-11-23 13:20 | disposition home or self-care (01) ==
PROVIDERS: PCP Internal Medicine; Visit Provider Physician Assistant Medical
DX: Z87.891 Personal history of nicotine dependence (principal)
CPT/HCPCS: G0296

== ENCOUNTER 2022-11-23 13:22 | Outpatient (REF) | payer MEDICARE, SELFPAY ==
--- NOTE | ~2022-11-23 | CT_ITS ---
EXAMINATION: CT CHEST SCREENING CLINICAL INFORMATION: 50 pack year smoking history; former smoker. COMPARISON: Chest radiographs dated 03/19/2007. TECHNIQUE: Multidetector volumetric CT imaging of the chest is performed without contrast using low dose technique. Additional 2D coronal and sagittal reformatted images and axial 3D maximum intensity projection (MIP) images are generated on the CT workstation. This CT examination was performed using dose optimization techniques as appropriate, variously including the following: *Automated exposure control *Adjustment of mA and/or kV according to patient size (this includes techniques or standardized protocols for targeted exams where dose is matched to indication/reason for exam; i.e. extremities or head) *Use of iterative reconstruction technique DLP: 96 mGy-cm FINDINGS: LUNGS: There is mild biapical paraseptal emphysematous change. At the anterior right apex (4:86), an 8 mm groundglass nodule is seen. At the medial left apex (4:91), a tiny benign, calcified granuloma is seen. Abutting the upper left major fissure (4:103), a 4 mm benign fissural lymph node is seen. Within the apicoposterior segment of the left upper lobe (4:160), a 9 mm groundglass nodule is seen. Within the anteromedial basal segment of the left lower lobe (4:259), a benign, calcified granuloma is seen. At the medial left base (4:342), an 8 mm noncalcified nodule is seen. There is no mass or infiltrate. No small airways thickening is seen. The central airways appear patent. MEDIASTINUM: The left thyroid lobe is diminutive or surgically absent. There is no mediastinal or hilar lymphadenopathy. No thoracic aortic aneurysm is seen. There are atherosclerotic calcifications of the great vessel origins and thoracic aorta. CORONARY ARTERY CALCIFICATION: Very mild. PLEURA: There is no pleural effusion. No pleural mass or thickening. AXILLA: No lymphadenopathy. UPPER ABDOMEN: Unremarkable OSSEOUS STRUCTURES: There is multi-level thoracic degenerative disc disease and spondylosis. No acute or aggressive osseous abnormality is seen. CT/CT lung screening IMPRESSION: 1. An 8 mm groundglass nodule seen at the anterior right apex, and a 9 mm groundglass nodule is seen within the apicoposterior segment of the left upper lobe. 2. At the medial left base, an 8 mm noncalcified solid nodule is seen. 3. There is no thoracic lymphadenopathy or pleural effusion. 4. There are degenerative changes of the spine. No aggressive osseous lesion is seen. ASSESSMENT: Lung-RADS category 4A: Suspicious RECOMMENDATION: Short interval 3 month follow up low dose CT chest.
== END 2022-11-23 13:23 | disposition home or self-care (01) ==
LOC: HO.CT 13:22
PROVIDERS: PCP Internal Medicine; Visit Provider Physician Assistant Medical
DX: Z12.2 Encounter for screening for malignant neoplasm of respiratory organs (principal); Z87.891 Personal history of nicotine dependence
CPT/HCPCS: 71271; G0296

== ENCOUNTER 2023-01-17 12:50 | Outpatient (AMB) | payer MEDICARE, SELFPAY ==
[2023-01-17 12:59] VITALS: BP 118/60; PULSE 78; O2SAT 95; BMI 28.1
--- NOTE | 2023-01-17 12:59 | A.OFFVIS_ITS ---
Intake Vital Signs 01/17/23 12:59 Height 5 ft 6 in Weight 174 lb BMI 28.1 BP 118/60 Blood Pressure Location Rt brachial Position Sitting Pulse 78 Pulse Source Pulse Oximeter Pulse Oximetry (%) 95 Oxygen Delivery Method Room Air Intake Visit Reasons: dyspnea Shading Painter Required: No Allergies bee pollen [BEE STINGS] Allergy (Severe, Unverified 01/17/23 13:02) ANAPHYLAXIS HPI HPI Comments History of Present Illness Details The patient is a 73-year-old woman with a history of pulmonary nodules and sleep apnea. The patient had CPAP many years ago, however, she could not tolerate it and she returned the machine. She ultimately was diagnosed with meningioma which she received brain radiation. Afterwards, she continued to have significant difficulties with concentration and brain fog. She has also had difficulty with her sleep. She has significant insomnia. When she does sleep she still wakes up very tired. Her R[place]el score is elevated 16/24. The patient did have a repeat sleep study which I personally reviewed demonstrating severe sleep apnea with an AHI greater than a 38 events per hour. We did talk about the findings the patient understands she needs to start PAP at this time. Will make arrangements for her to start APAP with local [employer] company. In the meantime she also has history of dyspnea on exertion over the summer. At this point is gotten better. She does not use any rescue or respiratory therapy. The patient has not had pulmonary function studies. The patient also is taking part of the lung cancer screening program. She has multiple pulmonary nodules. She is scheduled for repeat CT scan in September 2021. 06/12/2021 the patient is here for a pulmonary follow-up visit. She did get her APAP. She did bring it in. The therapy has been affecting beneficial. She does use it for more than 4 hours a night. The current APAP settings are 4 to 16. Her average pressure is around 7 and with a maximum pressure of 12 cm. She does have a nasal mass which appears to be helpful although she does not like the fact that it pressures her nose. I did have some nasal pillows available that I did provide her she will try to see if this is more effective for her. p10. If it is a helpful I will send a script to [facility] with the new mask request. In the meantime she is scheduled to have a CT scan of the chest as part of the lung cancer screening program in September 2021 at [facility]. Hopefully after that plan to transfer her over to our program. The patient also needs to undergo pulmonary function studies. However, will hold off until after her CT scan specially since she is doing well this time. 12/12/2021 the patient is here for a pulmonary follow-up visit. Overall the patient appears to be doing well. She still struggling with her sleep. She did start the CPAP therapy. The CPAP therapy has been affecting beneficial. She does use it more than 4 hours a night. Sometimes however she goes to bed at 23:00 and she states to wait till about 2 or 03:00 o'clock in the morning to she finally falls asleep. the patient is not interested in taking any medication or prescribed sleep aids. I did talk to her about holistic approaches or natural approaches with the use of velarian root and melatonin. the patient also underwent a CT scan of the chest likely [place] as part of the lung cancer screening program. This is done over the summer 2021. She has multiple pulmonary nodules some other consider ground-glass. For the most part most of the nodules were stable without any increase in solid component. Although, there was a small 2 mm ground-glass nodular density that appeared to be slightly increased to 3 mm. She should get a repeat CT scan in a year's time. Closer to the day will schedule her to with the lung cancer screening program at [facility]. 06/15/2022 the patient is here for a pulm onary follow-up visit. Overall she is doing about the same. Still struggling with her sleep. Her circadian rhythm is very off. She typically falls asleep around 03:00 o'clock in the morning and then gets up in the late morning early afternoon. She typically sleeps about 8 hours a night. She did try the [id number] herbal therapies including melatonin and valerian root along with other herbal therapies. No significant improving however. She has been reluctant to use medications but at this point between her behavioral sleep therapies and her herbal therapies the only other option is to try medication. I did recommend she can try Ambien just for approximately 2-4 weeks to try to get her circadian rhythm back at an earlier time. When she does sleep she does use her CPAP in the CPAP therapy has been affecting beneficial. She does use it for more than 4 hours a night. In addition to that the patient is a former smoker and she is participating in the lung cancer screening program. She was that at another hospital. Now she is going to be switching over to our hospital and her next CT scan should be in louise of this year. I will go ahead and put a referral in to the program now in order for her to be status in the lung cancer screening program. 01/17/2023 the patient is here for a pulmonary follow-up visit. Overall the patient has been doing well. She has been using her CPAP at nighttime which has been affecting beneficial. She does use it for more than 4 hours a night. The patient has been using the Ambien which has been helpful. We did talk about making sure she has medication holidays where she does not take the medication and also monitoring closely for any adverse effects. We did talk about amnesia. She does have some episodes of in nature but will continue to monitor closely. If she does have any worsening amnesia then need to consider stopping hypnotic. The patient also had a CT scan of the chest. We did personally reviewed in the office. The patient be part of the lung cancer screening program. Initially was read as of rad 3 but then after the [facility] CT scan was reviewed it appeared that a lot of the nodular densities were actually stable. Therefore it was changed to a rads 2 and the patient will have a repeat CT scan in 1 year's time. COUNTS INCLUDE 234 BEDS AT THE [facility] Medical History Osteopenia Postmenopausal Personal history of nicotine dependence Stenosis of right carotid artery greater than 50% Post traumatic stress disorder (PTSD) Bipolar II disorder in full remission Essential hypertension Mixed hyperlipidemia Type 2 diabetes mellitus without complication, with no history of insulin use Acquired hypothyroidism Insomnia Meningioma (~2019) Emphysema of lung Pulmonary nodules MACIEJ (obstructive sleep apnea) Surgical History History of partial thyroidectomy History of hysterectomy History of appendectomy History of tonsillectomy History of colonoscopy Family History Father Substance use disorder Lung cancer Brother Mental health disorder Maternal Grandmother Mental health disorder Paternal Aunt No problems noted. Mother Mental health disorder Social History Housing: Condominium Patient Tobacco Use Status: Former Tobacco user Quit Date: 2016 Tobacco use type: Cigarette Years Smoked: (onset 15yo, 1ppd x 51yrs, 40+PYH - quit 2017) e-Cigarette/Vaping Use: Never Used service: No Current occupational status: retired Cognitive needs: No Hearing needs: No Vision needs: Yes Review of Systems Const Reports daytime sleepiness, Reports difficulty sleeping, Denies headache(s) and Denies night sweats ENT Denies change in voice, Denies headache(s), Denies lip swelling, Denies mouth pain, Reports nasal congestion, Reports nasal discharge and Denies tongue swelling Card Denies chest pain and Reports dyspnea on exertion Resp Reports cough and Reports dyspnea on exertion GI Denies abdominal pain Musc Denies no additional complaints Neuro Denies Neuro-related abnormal movements and Denies headache(s) Psych Denies no additional complaints Ez/Lymph Denies easy bleeding and Denies lymphadenopathy Aller/Immun Denies lip swelling and Denies tongue swelling Physical Exam Vital Signs: Last Vital Signs Pulse 78 01/17/23 12:59 BP 118/60 01/17/23 12:59 Pulse Ox 95 01/17/23 12:59 Oxygen Delivery Method Room Air 01/17/23 12:59 BMI result Body Mass Index 28.1 Const General: alert Neck Neck: Yes normal visual inspection, Yes full ROM and Yes no lymphadenopathy Chest Chest palpation & inspection: normal inspection of the chest Resp Auscultation: diminished lung sounds Cardio Rate: regular rate Rhythm: regular rhythm Heart sounds: S1 normal heart sound present and S2 normal heart sound present GI Palpation (GI): Soft to palpation and nontender Auscultation: normal bowel sounds Skin General skin exam: rashes and/or lesions noted Assessment & Plan Assessment & Plan (1) MACIEJ (obstructive sleep apnea): Comment: (MACIEJ on CPAP) Code(s): G47.33 - Obstructive sleep apnea (adult) (pediatric) (2) Dyspnea: Code(s): R06.00 - Dyspnea, unspecified Qualifiers: Dyspnea type: dyspnea on exertion Qualified Code(s): R06.09 - Other forms of dyspnea (3) Pulmonary nodules: Code(s): R91.8 - Other nonspecific abnormal finding of lung field (4) Emphysema of lung: Code(s): J43.9 - Emphysema, unspecified Qualifiers: Emphysema type: centrilobular Qualified Code(s): J43.2 - Centrilobular emphysema (5) Insomnia: Code(s): G47.00 - Insomnia, unspecified Qualifiers: Insomnia type: primary Qualified Code(s): F51.01 - Primary insomnia Plan Continue CPAP therapy. continue ambien continue with behavioral sleep therapies lung cancer screening program in the summer F/U 6 months Medications: Changed From zolpidem (Ambien) 10 mg PO BEDTIME 30 days 30 tabs 3RF To zolpidem (Ambien) 10 mg PO BEDTIME 90 days 90 tabs 0RF Coding Level of Care Code Est Pt Level 4 (23454) Diagnoses MACIEJ (obstructive sleep apnea) G47.33 Dyspnea on exertion R06.09 Dyspnea type: dyspnea on exertion Pulmonary nodules R91.8 Centrilobular emphysema J43.2 Emphysema type: centrilobular Primary insomnia F51.01 Insomnia type: primary Time Spent (min) 17
== END 2023-01-17 13:15 | disposition home or self-care (01) ==
PROVIDERS: PCP Internal Medicine; Visit Provider Hospitalist
DX: G47.33 Obstructive sleep apnea (adult) (pediatric) (principal); R06.09 Other forms of dyspnea; R91.8 Other nonspecific abnormal finding of lung field; J43.2 Centrilobular emphysema; F51.01 Primary insomnia
CPT/HCPCS: 99214

== ENCOUNTER → 2023-01-17 12:50 | Outpatient (BNVA) | payer MEDICARE, SELFPAY | PROVIDERS: Visit Provider Hospitalist | DX: R06.09 Other forms of dyspnea (principal); G47.33 Obstructive sleep apnea (adult) (pediatric); R91.8 Other nonspecific abnormal finding of lung field; J43.2 Centrilobular emphysema; F51.01 Primary insomnia | CPT/HCPCS: 99212 ==

== ENCOUNTER 2023-01-21 11:57 | Outpatient (AMB) | payer OTHER, SELFPAY ==
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
== END 2023-01-21 13:52 | disposition home or self-care (01) ==
LOC: HO.HOP 11:57
PROVIDERS: PCP Internal Medicine; Visit Provider Psychiatry & Neurology Psychiatry
DX: G47.19 Other hypersomnia (principal); D32.9 Benign neoplasm of meninges, unspecified; E11.9 Type 2 diabetes mellitus without complications; G47.33 Obstructive sleep apnea (adult) (pediatric); F31.81 Bipolar II disorder; F41.1 Generalized anxiety disorder
CPT/HCPCS: 99214

== ENCOUNTER → 2023-01-21 11:57 | Outpatient (REF) | payer MEDICARE, SELFPAY ==
--- NOTE | 2023-01-21 13:04 | ECG_ITS ---
Test Reason : htn Blood Pressure : / mmHG Vent. Rate : 076 BPM Atrial Rate : 076 BPM P-R Int : 166 ms QRS Dur : 082 ms QT Int : 372 ms P-R-T Axes : 073 057 060 degrees QTc Int : 418 ms Normal sinus rhythm Normal ECG When compared with ECG of 22-OCT-2017 18:59, Minimal criteria for Anterior infarct are no longer Present Referred By: Marko Sosa Electronically Signed By:ERWIN ARELLANO MD
== END ==
LOC: HO.CARD 11:57
PROVIDERS: PCP Internal Medicine; Visit Provider Psychiatry & Neurology Psychiatry
DX: I10 Essential (primary) hypertension (principal)
CPT/HCPCS: 93005

== ENCOUNTER 2023-02-25 13:28 | Outpatient (AMB) | payer OTHER, SELFPAY ==
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
== END 2023-02-25 15:44 | disposition home or self-care (01) ==
LOC: HO.HOP 13:28
PROVIDERS: PCP Internal Medicine; Visit Provider Psychiatry & Neurology Psychiatry
DX: F41.1 Generalized anxiety disorder (principal); G47.19 Other hypersomnia; D32.9 Benign neoplasm of meninges, unspecified
CPT/HCPCS: 90833; 99213

== ENCOUNTER → 2023-02-25 13:28 | Outpatient (BNVA) | payer MEDICARE, SELFPAY | PROVIDERS: PCP Internal Medicine; Visit Provider Psychiatry & Neurology Psychiatry ==

== ENCOUNTER 2023-04-29 11:25 | Outpatient (REF) | payer OTHER, SELFPAY ==
[2023-04-29 13:44] LABS: Estimated Average Glucose 114 mg/dL; Hemoglobin A1c % 5.6 % (<6.0)
[2023-04-29 14:04] LABS: Creatinine Urine 50.08 mg/dL; Microalbum/Creatinine Ratio Ur 29.9 ug/mg cr (<30)
[2023-04-29 14:12] LABS: Alanine Aminotransferase 37 U/L (0-31); Anion Gap 13 (12-20); Aspartate Amino Transferase 29 U/L (5-31); Blood Urea Nitrogen 12 mg/dL (9-16); Calcium 9.6 mg/dL (8.4-10.2); Carbon Dioxide 26 mmol/L (22-29); Chloride 110 mmol/L (96-108); Cholesterol 196 mg/dL (<200); Estimated Glomerular Filt Rate > 60; Glucose Fasting 138 mg/dL (60-99); HDL Cholesterol 64 mg/dL (>40); LDL Cholesterol Calculated 115 mg/dL (<100); Potassium 4.6 mmol/L (3.3-5.1); Sodium 144 mmol/L (135-145); Triglycerides 88 mg/dL (<150)
[2023-04-29 14:20] LABS: Free T4 (Free Thyroxine) 0.72 ng/dL (0.71-1.85); Thyroid Stimulating Hormone 2.47 uIU/mL (0.32-4.0); Vitamin D 25-OH Total 94.9 ng/mL (>30)
[2023-04-29 14:27] LABS: Folate 14.9 ng/mL (> or = 4.0); Vitamin B12 792 pg/mL (200-900)
== END 2023-04-29 11:26 | disposition home or self-care (01) ==
LOC: HO.HMGCLDS 11:25
PROVIDERS: PCP Internal Medicine; Visit Provider Internal Medicine
DX: E78.2 Mixed hyperlipidemia (principal); E11.9 Type 2 diabetes mellitus without complications; E03.9 Hypothyroidism, unspecified; E67.3 Hypervitaminosis D; R74.8 Abnormal levels of other serum enzymes; I10 Essential (primary) hypertension
CPT/HCPCS: 36415; 80048; 80061; 82043; 82306; 82570; 82607; 82746; 83036; 84439; 84443; 84450; 84460

== ENCOUNTER 2023-05-02 17:04 | Outpatient (AMB) | payer OTHER, SELFPAY ==
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
== END 2023-05-02 17:04 | disposition home or self-care (01) ==
LOC: HO.HOP 17:04
PROVIDERS: PCP Internal Medicine; Visit Provider Psychiatry & Neurology Psychiatry
DX: F41.1 Generalized anxiety disorder (principal); G47.19 Other hypersomnia; D32.9 Benign neoplasm of meninges, unspecified; I10 Essential (primary) hypertension; G47.33 Obstructive sleep apnea (adult) (pediatric)
CPT/HCPCS: 90833; 99213

== ENCOUNTER → 2023-05-02 17:04 | Outpatient (BNVA) | payer OTHER, SELFPAY | PROVIDERS: PCP Internal Medicine; Visit Provider Psychiatry & Neurology Psychiatry | DX: F41.1 Generalized anxiety disorder (principal); G47.19 Other hypersomnia; D32.9 Benign neoplasm of meninges, unspecified; I10 Essential (primary) hypertension; G47.33 Obstructive sleep apnea (adult) (pediatric) ==

== ENCOUNTER 2023-05-07 13:13 | Outpatient (AMB) | payer MEDICARE, SELFPAY ==
[2023-05-07 13:24] VITALS: BP 128/68; PULSE 76; O2SAT 97; BMI 29.0
--- NOTE | 2023-05-07 13:24 | A.OFFPC_ITS ---
Vital Signs 05/07/23 13:24 Height 5 ft 6 in Weight 180 lb BMI 29.0 BP 128/68 Blood Pressure Location Rt brachial Position Sitting Pulse 76 Pulse Source Pulse Oximeter Pulse Oximetry (%) 97 Oxygen Delivery Method Room Air Intake Visit Reasons: Annual PE/overdue Intake Note: Pt is here today for her PE: Last mammogram 10/22/22, bone density scan 05/31/21 Allergies bee pollen [BEE STINGS] Allergy (Severe, Unverified 05/07/23 14:01) ANAPHYLAXIS Medication List - Last Reconciled 05/07/23 by Darlene Negro MD armodafinil 150 mg PO QAM ascorbic acid (vitamin C) 500 mg PO DAILY aspirin 81 mg PO DAILY cholecalciferol (vitamin D3) 50 mcg PO DAILY clotrimazole 1% 1 appl topical BID coenzyme Q10 75 mg PO DAILY epinephrine 0.3 mL IM ONCE PRN estradiol 0.01%(0.1mg/gram) 1 g vaginal 2XW ezetimibe 10 mg PO DAILY ferrous fumarate 325 mg PO DAILY FreeStyle Lite Meter (blood-glucose meter) As directed NS FreeStyle Lite Strips (blood sugar diagnostic) check fasting blood sugar once a day NS lamotrigine 150 mg PO DAILY 90 days lancets (FreeStyle Lancets) As directed once a day metformin ER 500 mg PO DAILY ig-8-vvv-epa-fish oil-vit D3 120 mg-180 mg -1,000 unit caps PO propranolol ER 60 mg PO DAILY rosuvastatin 5 mg PO DAILY venlafaxine ER 75 mg PO DAILY vit C,E-Gg-nofat-lutein-zeaxan 250-90-40-1 mg (PreserVision AREDS-2) 1 tab PO BID Tobacco use date assessed: 05/07/23 Fall risk assessment: 2 + Falls in past year Last assessed Fall Risk: 05/07/23 Dental Screening Dental Screen Date: 05/07/23 Did you have a dental visit in the last 12 months?: Yes Did you have a dental problem in the last 6 months where you did not have access to dental care?: No Was dental information given to patient?: Patient has dentist HPI Annual PE/overdue HPI Details 73-year-old lady here today for her phys ical exam. She is up-to-date with her screening mammogram done September 2022 with negative findings, and had a bone density scan which showed presence of beginning osteopenia in left femoral neck, normal in left femur and lumbar spine done in 2021. She is a former smoker , has Emphysema and pulmonary nodule being followed by Dr. Long and gets LDCT . Has hx of Grave's disease s/p partial thyroidectomy, now has hypothyroidism, has type 2 diabetes mellitus, controlled on metformin ER. She has carotid artery stenosis, hypertension, mixed hyperlipidemia, stable controlled present treatmen Has obstructive sleep apnea on CPAP. She has a meningioma diagnosed in 2019 status post radiation, inoperable, followed by Dr. Poon and Dr. Portillo. Currently sees Dr. Klever Sosa for treatment of bipolar disorder and PTSD. Has had colonoscopy in the past by Dr. Govea, negative per patient, does not want to do further testing Complains of recurrent pruritic rash under both breasts and vulvar area, treated with clotrimazole in the past , which has not afforded much improvement. She would like a referral to see an OBGYN, as she also has been feeling a mass inside vaginal canal , nontender with no abnormal vaginal discharge, which she would like to checked. [facility] Medical History (Updated 05/08/23 @ 06:33 by Darlene Negro MD) Benign essential tremor Macular degeneration Vulvar rash Osteopenia Postmenopausal Personal history of nicotine dependence Stenosis of right carotid artery greater than 50% Post traumatic stress disorder (PTSD) Bipolar II disorder in full remission Essential hypertension Mixed hyperlipidemia Type 2 diabetes mellitus without complication, with no history of insulin use Acquired hypothyroidism Insomnia Meningioma (~2018) Emphysema of lung Pulmonary nodules MACIEJ (obstructive sleep apnea) Surgical History History of partial thyroidectomy History of hysterectomy History of appendectomy History of tonsillectomy History of colonoscopy Family History Father Substance use disorder Lung cancer Brother Mental health disorder Maternal Grandmother Mental health disorder Paternal Aunt No problems noted. Mother Mental health disorder Social History Housing: Condominium Patient Tobacco Use Status: Former Tobacco user Quit Date: 2016 Tobacco use type: Cigarette Years Smoked: (onset 15yo, 1ppd x 51yrs, 40+PYH - quit 2017) e-Cigarette/Vaping Use: Never Used service: No Current occupational status: retired Cognitive needs: No Hearing needs: No Vision needs: Yes Questionnaire PHQ-9 Over the last 2 weeks, how often have you been bothered by any of the following problems? 1. Little interest or pleasure in doing things: not at all 2. Feeling down, depressed, or hopeless: not at all 3. Trouble falling or staying asleep, or sleeping too much: nearly every day 4. Feeling tired or having little energy: not at all 5. Poor appetite or overeating: not at all 6. Feeling bad about yourself - or that you are a failure or have let yourself or your family down: not at all 7. Trouble concentrating on things, such as reading the newspaper or watching television: not at all 8. Moving or speaking so slowly that other people could have noticed. Or the opposite - being so fidgety or restless that you have been moving around a lot more than usual: not at all 9. Thoughts that you would be better off or of hurting yourself in some way: not at all Total score: 3 Depression Screening Interpretation: Positive Depression Screening Follow-up: Existing condition and In treatment (Currently sees Dr. Sosa) Depression Screening Done: Yes 02871 - PHQ-9 Billing: Yes Source: Developed by Drs. Tyshawn Fajardo, Rahel Rdz, Jose Sparrow and colleagues, with an educational aguilar from [employer]. Thrive Questionnaire Date Thrive assessed: 09/26/21 AUDIT C Alcohol Use Questionnaire (AUDIT-C) 1. How often do you have a drink containing alcohol?: Never Total Score: 0 IDALIA-7 AMB Questionnaire IDALIA-7 Date IDALIA - 7 assessed: 05/07/23 Feeling nervous, anxious, or on edge: 1 = Several days Not being able to stop or control worryin = Several days Worrying too much about different things: 1 = Several days Trouble relaxin = Not at all Being so restless that it is hard to sit still: 0 = Not at all Becoming easily annoyed or irritable: 0 = Not at all Feeling afraid as if something awful might happen: 1 = Several days Total IDALIA-7 score (0-4 normal; 5-9 mild; 10-14 moderate; 15-21 severe): 4 Source: Developed by Drs. Tyshawn Fajardo, Rahel Rdz, Jose Sparrow and colleagues, with an educational aguilar from [employer]. IDALIA-7 Assessment Billing IDALIA-7 Assessment Tool: IDALIA-7 Assessment 13455 Review of Systems Const Reports difficulty sleeping, Denies frequent falls, Denies headache(s) and Denies night sweats Eyes Denies change in vision and Reports requires corrective lenses ENT Denies change in voice, Denies dizziness, Denies headache(s), Denies mouth pain and Denies disequilibrium Card Denies chest pain, Denies rapid heart rate, Denies irregular heart rhythm, Denies lightheadedness and Denies dyspnea Resp Denies cough, Denies dyspnea and Denies wheezing GI Denies abdominal pain, Denies melena, Denies hematochezia, Denies change in stool character, Denies heartburn and Denies nausea Reports no additional complaints and Reports as per HPI Musc Denies no additional complaints Skin/Breast Reports as per HPI Neuro Denies dizziness, Denies frequent falls, Denies headache(s) and Denies disequilibrium Psych Denies no additional complaints Endo Reports no additional complaints Ez/Lymph Denies easy bleeding and Denies lymphadenopathy Aller/Immun Denies seasonal rhinorrhea and Denies wheezing Physical exam (Primary Care) Vital Signs: Last Vital Signs Pulse 76 05/07/23 13:24 BP 128/68 05/07/23 13:24 Pulse Ox 97 05/07/23 13:24 Oxygen Delivery Method Room Air 05/07/23 13:24 BMI result Body Mass Index 29.0 BMI Assessment/Plan discussion: High BMI High, discussed plan: lifestyle, weight reduction and dietary Tobacco/Smoking Status: Tobacco use Status Tobacco use date assessed 05/07/23 05/07/23 13:33 Patient Tobacco Use Status Former Tobacco user 05/07/23 13:25 Tobacco use type Cigarette 05/07/23 13:25 e-Cigarette/Vaping Use Never Used 05/07/23 13:25 PHQ-9: PHQ-9 Score PHQ-9: Total score 3 05/08/23 06:34 Depression Screening Interpretation: Positive Depression Screening Follow-up: Existing condition and In treatment (Currently sees Dr. Sosa) Thrive Assessment: Date of Thrive Assessment Date Thrive assessed 09/26/21 05/07/23 13:25 Const Other: Alert oriented x3, no acute distress, ambulatory with normal gait Orientation/consciousness: patient oriented x3 HENAZ Head: Yes atraumatic Ears: TM's normal bilaterally and EAC's normal General nose exam: Normal external nose present and No nasal discharge present Mouth: Normal oral and palatal mucosa present and moist mucous membranes Eyes General: appearance normal, both eyes and all related structures Neck Neck: Yes full ROM, Yes no lymphadenopathy and Yes supple Chest Breast/axilla palpation: normal palpation of the breasts Resp Effort & Inspection: normal respiratory effort and able to speak in complete sentences Auscultation: clear to auscultation bilaterally Cardio Other: S1-S2 present regular rate and rhythm GI Other: Normal, bowel sounds, soft, nontender, no mass palpated Other: Dry vaginal mucosa, ill-defined mass palpated inside vaginal canal External Female Exam: other (Mild erythematous patch on vulvar area) Back/Spine/Pelvis Back: No back tenderness Skin Other: No rash noted under breasts Neuro General: patient oriented x3, gait normal, tone normal, moves all extremities, no focal motor deficits, CN's II-XI intact bilaterally and other (mild tremors in hands) Extrem General: Yes full ROM, Yes no joint enlargement and Yes no pedal edema Psych Appearance: grossly normal and well kempt Mental Status: mental status grossly normal Speech and movement: Normal speech and movement present Affect: normal affect Attitude: cooperative Results Reviewed Results Reviewed: Laboratory Tests 04/29/23 11:29 Estimat Average Glucose 114 Hemoglobin A1c % 5.6 Name: Ritu Nicholson Age/Sex: 73/F : 1950 Unit#: [id number] Attend Dr: Darlene Negro MD Re04/29/23 Status: DEP [facility] Disch: SPEC : [id number] BARBARA: 04/29/23 STATUS: COMP REQ : [id number] RECD: 04/29/23-[address]: Darlene Negro MD COMP: 04/29/23 ENTERED: 04/29/[address] [facility] [address]: ORDERED: Met Prof Fast, AST, ALT, Lipid Panel, Vitamin D 25-OH, Free T4, TSH Test Result Flag Reference Sodium 144 135-145 mmol/L Potassium 4.6 3.3-5.1 mmol/L CL 110 H 96-108 mmol/L CO2 26 22-29 mmol/L Gap 13 12-20 BUN 12 9-16 mg/dL Creat 0.84 0.5-1.4 mg/dL EGFR > 60 NOTE: For -Honduran individuals, multiply the result by 1.210. Chronic Kidney Disease: Estimated GFR < 60 mL/min/1.73m2 Severe Kidney Disease: Estimated GFR < 15 mL/min/1.73m2 FBS 138 H 60-99 mg/dL A fasting glucose of 126 mg/dl or greater on more than one occasion is considered diagnostic of diabetes. CA 9.6 8.4-10.2 mg/dL AST (GOT) 29 5-31 U/L ALT (GPT) 37 H 0-31 U/L Triglyceride 88 <150 mg/dL Desirable Triglyceride: less than 150 mg/dL Borderline High Triglyceride 150-199 mg/dL High Triglyceride: 200-499 mg/dL Very High Triglyceride: greater than or equal to 5OO mg/dL Cholesterol 196 <200 mg/dL Desirable Cholesterol: less than 200 mg/dL Borderline High Cholesterol: 200-239 mg/dL High Cholesterol: greater than 239 mg/dL LDL Calculated 115 H <100 mg/dL Desirable LDL: less than 100 mg/dL Near Optimal/Above Optimal LDL: 110-129 mg/dL Borderline High LDL: 130-159 mg/dL High LDL: 160-189 mg/dL Very High LDL: greater than or equal to 190 mg/dL HDL 64 >40 mg/dL Desirable HDL: greater than 40 mg/dL Note: This HDL assay may give artificially low results in patients with liver disease. Vit D 25-OH Tot 94.9 >30 ng/mL Health Based Reference Values* < 20 ng/mL Deficient 20-30 ng/mL Insufficient > 30 ng/mL Sufficient *Candida TORO. N Engl J Med. 2007;357:266-280 Care must be taken in interpreting Vitamin D results from different laboratories and methodologies. Published data demonstrated that results from patients undergoing hemodialysis may show a negative bias when tested with various automated 25-OH vitamin D assays when compared to LC-MS/MS. When testing samples from patients whose predominant form of Vitamin D is Vitamin D2, such as patients receiving Vitamin D2 supplementation, results that are subtherapeutic should be confirmed with another method such as LC-MS/MS. Free T4 0.72 0.71-1.85 ng/dL TSH 3rd Gen. 2.47 0.32-4.0 uIU/mL Assessment and Plan Assessment & Plan (1) Annual visit for general adult medical examination with abnormal findings: Code(s): Z00.01 - Encounter for general adult medical examination with abnormal findings Plan: Discuss recent fasting lab results with patient. s. Recommended dental visit every 6 months and regular eye exams, goes to [facility] yearly.. Take adequate calcium in diet and vitamin-D 3 at 2000 IU per cap once a day, in addition to weight-bearing exercises to help maintain good muscle tone and weight control. Instructed to do self-breast exam, and continue with yearly mammogram, patient is due now for her bone density scan, but would like to have it done next year together with next year's mammogram. Up-to-date with all her vaccines. Has had colonoscopies in the past which were benign per patient, done by Dr. Govea, does not want to get any further testing (2) Vaginal mass: Code(s): N89.8 - Other specified noninflammatory disorders of vagina Plan: referred to [facility] for further evaluation (3) Essential hypertension: Code(s): I10 - Essential (primary) hypertension Plan: Blood pressure at goal of less than 130/80. Continue with current medication. Reinforced importance of following a low sodium diet, getting regular exercise, and lowering stress levels. (4) Mixed hyperlipidemia: Code(s): E78.2 - Mixed hyperlipidemia Plan: Reviewed recent fasting labs with patient, LDL not at goal of less than 100 mg/dL. Will continue on rosuvastatin 5 mg daily and ezetimibe 10 mg daily, continue with adherence to healthy eating habits and getting regular exercise, will repeat another fasting lipid panel and six-month (5) Type 2 diabetes mellitus without complication, with no history of insulin use: Code(s): E11.9 - Type 2 diabetes mellitus without complications Plan: Diabetes mellitus stable controlled on current dose of metformin ER 500 mg once a day. Sees [facility] for her routine eye exam and follow-up on her macular degeneration (6) Osteopenia: Comment: (Bone Dexa Femoral T-score: -1.4 on 05/31/21) Code(s): M85.80 - Other specified disorders of bone density and structure, unspecified site Qualifiers: Laterality: left Osteopenia location: femoral neck Qualified Code(s): M85.852 - Other specified disorders of bone density and structure, left thigh Plan: Continue with regular exercise, taking adequate calcium from dietary sources and take vitamin-D 3 supplements at least 2000 units daily (7) Macular degeneration: Code(s): H35.30 - Unspecified macular degeneration Qualifiers: Eye laterality: unspecified Macular degeneration type: unspecified type Qualified Code(s): H35.30 - Unspecified macular degeneration Plan: Currently on PreserVision, followed by [facility] (8) Bipolar II disorder in full remission: Code(s): F31.81 - Bipolar II disorder Plan: Stable controlled present treatment, sees Dr. Sosa (9) Post traumatic stress disorder (PTSD): Code(s): F43.10 - Post-traumatic stress disorder, unspecified Plan: Followed by psych (10) Pulmonary nodules: Code(s): R91.8 - Other nonspecific abnormal finding of lung field Plan: Gets yearly LDCT, followed by thoracic surgery (11) MACIEJ (obstructive sleep apnea): Comment: (MACIEJ on CPAP) Code(s): G47.33 - Obstructive sleep apnea (adult) (pediatric) Plan: Currently on CPAP (12) Meningioma: Onset Date: ~2018 Comment: (onset 10/08/2018 - s/p brain radiation) Code(s): D32.9 - Benign neoplasm of meninges, unspecified Plan: Followed by Dr. Poon and Dr. Portillo (13) Vulvar rash: Code(s): R21 - Rash and other nonspecific skin eruption Plan: Prescription sent for clotrimazole-betamethasone to use as directed, referred to [facility] (14) Emphysema of lung: Code(s): J43.9 - Emphysema, unspecified Qualifiers: Emphysema type: centrilobular Qualified Code(s): J43.2 - Centrilobular emphysema Plan: Followed by Pulmonary (15) Benign essential tremor: Code(s): G25.0 - Essential tremor Plan: Currently on propranolol , followed by Dr. Poon (16) Acquired hypothyroidism: Comment: (s/p partial thyroidectomy for Graves) Code(s): E03.9 - Hypothyroidism, unspecified Plan: Thyroid levels are within normal limits,, will repeat another TSH and free T4 on next visit Orders: Orders Aspartate Amino Transferase 09/30/23 E11.9 - Type 2 diabetes mellitus without complications, E78.2 - Mixed hyperlipidemia, I10 - Essential (primary) hypertension, M85.80 - Other specified disorders of bone density and structure, unspecified site, Z78.0 - Asymptomatic menopausal state Basic Metabolic Panel Fasting 09/30/23 E11.9 - Type 2 diabetes mellitus without complications, E78.2 - Mixed hyperlipidemia, I10 - Essential (primary) hypertension, M85.80 - Other specified disorders of bone density and structure, unspecified site, Z78.0 - Asymptomatic menopausal state Microalbumin, Random (w Creat) 09/30/23 E11.9 - Type 2 diabetes mellitus without complications, E78.2 - Mixed hyperlipidemia, I10 - Essential (primary) hypertension, M85.80 - Other specified disorders of bone density and structure, unspecified site, Z78.0 - Asymptomatic menopausal state Thyroid Stimulating Hormone 09/30/23 E03.9 - Hypothyroidism, unspecified Hemoglobin A1c 09/30/23 E11.9 - Type 2 diabetes mellitus without complications, E78.2 - Mixed hyperlipidemia, I10 - Essential (primary) hypertension, M85.80 - Other specified disorders of bone density and structure, unspecified site, Z78.0 - Asymptomatic menopausal state Lipid Panel 09/30/23 E11.9 - Type 2 diabetes mellitus without complications, E78.2 - Mixed hyperlipidemia, I10 - Essential (primary) hypertension, M85.80 - Other specified disorders of bone density and structure, unspecified site, Z78.0 - Asymptomatic menopausal state Alanine Aminotransferase 09/30/23 E11.9 - Type 2 diabetes mellitus without complications, E78.2 - Mixed hyperlipidemia, I10 - Essential (primary) hypertension, M85.80 - Other specified disorders of bone density and structure, unspecified site, Z78.0 - Asymptomatic menopausal state Vitamin D 25-OH Total 09/30/23 E11.9 - Type 2 diabetes mellitus without complications, E78.2 - Mixed hyperlipidemia, I10 - Essential (primary) hypertension, M85.80 - Other specified disorders of bone density and structure, unspecified site, Z78.0 - Asymptomatic menopausal state Free T4 (Free Thyroxine) 09/30/23 E03.9 - Hypothyroidism, unspecified Referrals PAPER CONTROL CLERK Referral N89.8 - Other specified noninflammatory disorders of vagina, R21 - Rash and other nonspecific skin eruption Medications: New clotrimazole-betamethasone 1-0.05 % 1 appl topical BID 10 days 45 grams 0RF Discontinued clotrimazole 1% Discontinued Reason: Doctor's Order 1 appl topical BID 45 grams 0RF Coding Level of Care Code Est Pt Prev Care >65y(70880) Diagnoses Annual visit for general adult medical examination with abnormal findings Z00.01 Vaginal mass N89.8 Essential hypertension I10 Mixed hyperlipidemia E78.2 Type 2 diabetes mellitus without complication, with no history of insulin use E11.9 Osteopenia of neck of left femur M85.852 Laterality: left Osteopenia location: femoral neck Macular degeneration, unspecified laterality, unspecified type H35.30 Eye laterality: unspecified Macular degeneration type: unspecified type Bipolar II disorder in full remission F31.81 Post traumatic stress disorder (PTSD) F43.10 Pulmonary nodules R91.8 MACIEJ (obstructive sleep apnea) G47.33 Meningioma D32.9 Vulvar rash R21 Centrilobular emphysema J43.2 Emphysema type: centrilobular Benign essential tremor G25.0 Acquired hypothyroidism E03.9 Additional Codes IDALIA-7 Assessment Billing - IDALIA-7 Assessment Tool: IDALIA-7 Assessment 99242 ([id number])
== END 2023-05-07 14:40 | disposition home or self-care (01) ==
PROVIDERS: PCP Internal Medicine; Visit Provider Internal Medicine
DX: Z00.01 Encounter for general adult medical examination with abnormal findings (principal); E11.9 Type 2 diabetes mellitus without complications; F31.81 Bipolar II disorder; D32.9 Benign neoplasm of meninges, unspecified; J43.2 Centrilobular emphysema; N89.8 Other specified noninflammatory disorders of vagina; I10 Essential (primary) hypertension; E78.2 Mixed hyperlipidemia; M85.852 Other specified disorders of bone density and structure, left thigh; H35.30 Unspecified macular degeneration; F43.10 Post-traumatic stress disorder, unspecified; R91.8 Other nonspecific abnormal finding of lung field
CPT/HCPCS: 99213; 99397

== ENCOUNTER 2023-06-13 14:06 | Outpatient (AMB) | payer OTHER, SELFPAY ==
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
== END 2023-06-13 14:47 | disposition home or self-care (01) ==
LOC: HO.HOP 14:06
PROVIDERS: PCP Internal Medicine; Visit Provider Psychiatry & Neurology Psychiatry
DX: G25.0 Essential tremor (principal); F41.1 Generalized anxiety disorder; D32.9 Benign neoplasm of meninges, unspecified
CPT/HCPCS: 90833; 99213

== ENCOUNTER → 2023-06-13 14:06 | Outpatient (BNVA) | payer OTHER, SELFPAY | PROVIDERS: PCP Internal Medicine; Visit Provider Psychiatry & Neurology Psychiatry ==

== ENCOUNTER 2023-07-25 14:40 | Outpatient (AMB) | payer MEDICARE, SELFPAY ==
[2023-07-25 14:46] VITALS: BP 132/70; PULSE 87; O2SAT 97; BMI 29.5
--- NOTE | 2023-07-25 14:46 | A.OFFVIS_ITS ---
Vital Signs 07/25/23 14:46 Height 5 ft 6 in Weight 182 lb 15.739 oz BMI 29.5 BP 132/70 Blood Pressure Location Lt brachial Position Sitting Pulse 87 Pulse Source Pulse Oximeter Pulse Oximetry (%) 97 Oxygen Delivery Method Room Air Intake Visit Reasons: dyspnea Clinical Research Nurse Required: No Allergies bee pollen [BEE STINGS] Allergy (Severe, Unverified 07/25/23 14:49) ANAPHYLAXIS HPI Comments Details: The patient is a 73-year-old woman with a history of pulmonary nodules and sleep apnea. The patient had CPAP many years ago, however, she could not tolerate it and she returned the machine. She ultimately was diagnosed with meningioma which she received brain radiation. Afterwards, she continued to have significant difficulties with concentration and brain fog. She has also had difficulty with her sleep. She has significant insomnia. When she does sleep she still wakes up very tired. Her [place] score is elevated 16/24. The patient did have a repeat sleep study which I personally reviewed demonstrating severe sleep apnea with an AHI greater than a 38 events per hour. We did talk a bout the findings the patient understands she needs to start PAP at this time. Will make arrangements for her to start APAP with local [employer] company. In the meantime she also has history of dyspnea on exertion over the summer. At this point is gotten better. She does not use any rescue or respiratory therapy. The patient has not had pulmonary function studies. The patient also is taking part of the lung cancer screening program. She has multiple pulmonary nodules. She is scheduled for repeat CT scan in September 2021. 01/17/2023 the patient is here for a pulmonary follow-up visit. Overall the patient has been doing well. She has been using her CPAP at nighttime which has been affecting beneficial. She does use it for more than 4 hours a night. The patient has been using the Ambien which has been helpful. We did talk about making sure she has medication holidays where she does not take the medication and also monitoring closely for any adverse effects. We did talk about amnesia. She does have some episodes of in nature but will continue to monitor closely. If she does have any worsening amnesia then need to consider stopping hypnotic. The patient also had a CT scan of the chest. We did personally reviewed in the office. The patient be part of the lung cancer screening program. Initially was read as of rad 3 but then after the [facility] scan was reviewed it appeared that a lot of the nodular densities were actually stable. Therefore it was changed to a rads 2 and the patient will have a repeat CT scan in 1 year's time. 07/25/2023 the patient is here for a pulmonary follow-up visit. She has been doing very well. She has been using the CPAP every night. CPAP therapy continues to be affecting beneficial. She does use it for more than 4 hours a night. She started using the visual prescribed by her psychiatrist and appears to have improved her sleep-wake cycle significantly. She feels a lot better. In addition to that the patient is participating in the lung cancer screening program. Her last CT scan was back in October 2023. It was read as a rads 4. However, we did compared to her previous CT scans from [facility] it was reassuring. Therefore her next CT scans scheduled for October 2023. The patient also has been followed closely by Oncology regarding her brain tumor. Overall though she is doing very good from a respiratory status and overall health. The patient will plan to follow-up in a year's time. [facility] Medical History (Updated 05/08/23 @ 06:33 by Darlene Negro MD) Benign essential tremor Macular degeneration Vulvar rash Osteopenia Postmenopausal Personal history of nicotine dependence Stenosis of right carotid artery greater than 50% Post traumatic stress disorder (PTSD) Bipolar II disorder in full remission Essential hypertension Mixed hyperlipidemia Type 2 diabetes mellitus without complication, with no history of insulin use Acquired hypothyroidism Insomnia Meningioma (~2019) Emphysema of lung Pulmonary nodules MACIEJ (obstructive sleep apnea) Surgical History History of partial thyroidectomy History of hysterectomy History of appendectomy History of tonsillectomy History of colonoscopy Family History Father Substance use disorder Lung cancer Brother Mental health disorder Maternal Grandmother Mental health disorder Paternal Aunt No problems noted. Mother Mental health disorder [facility] Patient Tobacco Use Status: Former Tobacco user Quit Date: 2016 Tobacco use type: Cigarette Years Smoked: (onset 15yo, 1ppd x 51yrs, 40+PYH - quit 2017) e-Cigarette/Vaping Use: Never Used service: No Current occupational status: retired Cognitive needs: No Hearing needs: No Vision needs: Yes Review of Systems Const Denies daytime sleepiness, Reports difficulty sleeping, Denies headache(s) and Denies night sweats ENT Denies change in voice, Denies headache(s), Denies lip swelling, Denies mouth pain, Reports nasal congestion, Reports nasal discharge and Denies tongue swelling Card Denies chest pain and Reports dyspnea on exertion Resp Reports cough and Reports dyspnea on exertion GI Denies abdominal pain Musc Denies no additional complaints Neuro Denies Neuro-related abnormal movements and Denies headache(s) Psych Denies no additional complaints Ez/Lymph Denies easy bleeding and Denies lymphadenopathy Aller/Immun Denies lip swelling and Denies tongue swelling Physical Exam Vital Signs: Last Vital Signs Pulse 87 07/25/23 14:46 BP 132/70 07/25/23 14:46 Pulse Ox 97 07/25/23 14:46 Oxygen Delivery Method Room Air 07/25/23 14:46 BMI result Body Mass Index 29.5 Const General: alert Neck Neck: Yes normal visual inspection, Yes full ROM and Yes no lymphadenopathy Chest Chest palpation & inspection: normal inspection of the chest Resp Auscultation: diminished lung sounds Cardio Rate: regular rate Rhythm: regular rhythm Heart sounds: S1 normal heart sound present and S2 normal heart sound present GI Palpation (GI): Soft to palpation and nontender Auscultation: normal bowel sounds Skin General skin exam: rashes and/or lesions noted Assessment & Plan Assessment & Plan (1) MACIEJ (obstructive sleep apnea): Comment: (MACIEJ on CPAP) Code(s): G47.33 - Obstructive sleep apnea (adult) (pediatric) Category: Medical (2) Dyspnea: Code(s): R06.00 - Dyspnea, unspecified Category: Medical Qualifiers: Dyspnea type: dyspnea on exertion Qualified Code(s): R06.09 - Other forms of dyspnea (3) Pulmonary nodules: Code(s): R91.8 - Other nonspecific abnormal finding of lung field Category: Medical (4) Emphysema of lung: Code(s): J43.9 - Emphysema, unspecified Category: Medical Qualifiers: Emphysema type: centrilobular Qualified Code(s): J43.2 - Centrilobular emphysema (5) Insomnia: Code(s): G47.00 - Insomnia, unspecified Category: Medical Qualifiers: Insomnia type: primary Qualified Code(s): F51.01 - Primary insomnia Plan Continue CPAP therapy. continue with behavioral sleep therapies lung cancer screening program in the summer F/U 10-12 months Coding Level of Care Code Est Pt Level 4 (81504) Diagnoses MACIEJ (obstructive sleep apnea) G47.33 Dyspnea on exertion R06.09 Dyspnea type: dyspnea on exertion Pulmonary nodules R91.8 Centrilobular emphysema J43.2 Emphysema type: centrilobular Primary insomnia F51.01 Insomnia type: primary Time Spent (min) 17
== END 2023-07-25 15:04 | disposition home or self-care (01) ==
PROVIDERS: PCP Internal Medicine; Visit Provider Hospitalist
DX: G47.33 Obstructive sleep apnea (adult) (pediatric) (principal); R06.09 Other forms of dyspnea; R91.8 Other nonspecific abnormal finding of lung field; J43.2 Centrilobular emphysema; F51.01 Primary insomnia
CPT/HCPCS: 99214

== ENCOUNTER → 2023-07-25 14:40 | Outpatient (BNVA) | payer MEDICARE, SELFPAY | PROVIDERS: PCP Internal Medicine; Visit Provider Hospitalist | DX: G47.33 Obstructive sleep apnea (adult) (pediatric) (principal); R06.09 Other forms of dyspnea; R91.8 Other nonspecific abnormal finding of lung field; J43.2 Centrilobular emphysema; F51.01 Primary insomnia; Z99.89 Dependence on other enabling machines and devices | CPT/HCPCS: 99212 ==

== ENCOUNTER 2023-08-28 13:19 | Outpatient (AMB) | payer MEDICARE, SELFPAY ==
--- NOTE | 2023-08-28 13:35 | MHC.OFFVIS ---
Vital Signs 08/28/23 13:38 Height 5 ft 6 in Weight 185 lb BMI 29.9 BP 150/78 H Intake Visit Reasons: noninflammatory disorders of vagina/PCP referral Intake Note: found a cyst on her labia and now it's gone. Was having blood in her urine but was told that it was from her vaginal piña and has been having some itching Building Insulation Installer Required: No Information Interpreted: non-clinical & clinical Retail Merchandiser: Retail Merchandiser Present (Jaydon) Allergies bee pollen [BEE STINGS] Allergy (Severe, Verified 08/28/23 13:43) ANAPHYLAXIS Is last menstrual period known: No Post menopausal: Yes Patient : No HPI Comments Details: Patient is here today with concerns that she had a nodule on the labia at the time of referral but has since resolved. Also chronic itching of the vulvar area from the clitoris down to the perianal region, uses a topical antifungal anti-itch cream prescribed by her PCP she said it does help and has used it several times a week. She reports at times she will have yeast under the breast and navel region also, more so in warmer weather. She uses topical estrogen in the vulvar area externally only. She has not intimate with her , and has no plans to be at this time. She denies any vaginal odors or abnormal discharge. She reports using a mild soap. [facility] Medical History Benign essential tremor Macular degeneration Vulvar rash Osteopenia Postmenopausal Personal history of nicotine dependence Stenosis of right carotid artery greater than 50% Post traumatic stress disorder (PTSD) Bipolar II disorder in full remission Essential hypertension Mixed hyperlipidemia Type 2 diabetes mellitus without complication, with no history of insulin use Acquired hypothyroidism Insomnia Meningioma (~2019) Emphysema of lung Pulmonary nodules MACIEJ (obstructive sleep apnea) Surgical History (Updated 08/28/23 @ 13:56 by Juana Sanchez CNM) Hx of endoscopy History of partial thyroidectomy History of hysterectomy History of appendectomy History of tonsillectomy History of colonoscopy Family History Father Substance use disorder Lung cancer Brother Mental health disorder Maternal Grandmother Mental health disorder Paternal Aunt No problems noted. Mother Mental health disorder Social History Housing: Condominium Patient Tobacco Use Status: Former Tobacco user Quit Date: 2016 Tobacco use type: Cigarette Years Smoked: (onset 15yo, 1ppd x 51yrs, 40+PYH - quit 2017) e-Cigarette/Vaping Use: Never Used service: No Current occupational status: retired Cognitive needs: No Hearing needs: No Vision needs: Yes Female Reproductive History Menstrual Age of Menarche: 12 control method: permanent sterilization Total pregnancies: 1 Ab induced: 1 Date of last pap smear: 09/03/07 (negative) Date of Mammogram: 10/22/22 Review of Systems Const All systems reviewed & are unremarkable except as noted in HPI and below Physical Exam Vital Signs: Last Vital Signs BP 150/78 H 08/28/23 13:38 BMI result Body Mass Index 29.9 Const General: cooperative, healthy appearing and no acute distress Orientation/consciousness: patient oriented x3 GI Inspection: Yes normal to inspection Palpation (GI): Soft to palpation and Other GI palpation findings present (Nontender) Rectal Exam - Female: visual inspection normal (No lesions, erythema, rashes, fissures or other unusual findings) Other: No erythema, lesions, fissures, rashes, erythema, or other unusual findings General: Yes bladder normal to palpation External Female Exam: normal appearance of the urethra Speculum Exam - Vagina: normal appearance of the vagina, normal palpation, normal vaginal discharge and vagina atrophic Speculum Exam - Cervix: normal appearance of the cervix and normal palpation Bimanual exam- vagina & uterus: normal bimanual exam, normal palpation, uterine size normal, bladder normal to palpation, normal palpation, uterine shape normal and non-tender Bimanual Exam- Adnexa, other: normal adnexae Neuro General: patient oriented x3 Results AMB Urinalysis, Automated UA Leukoctes 0.5 Ketan/uL Last Edit by DEEDEE Roldan on 08/28/23 13:53 UA Nitrite Negative Last Edit by DEEDEE Roldan on 08/28/23 13:53 UA Urobilinogen 0 mg/dL Last Edit by DEEDEE Roldan on 08/28/23 13:53 UA Protein 0 mg/dL Last Edit by DEEDEE Roldan on 08/28/23 13:53 UA pH 8 Last Edit by Jaydon Riversdro DEEDEE on 08/28/23 13:53 UA Blood 0 Juvencio/uL Last Edit by Jaydon Riversdro DEEDEE on 08/28/23 13:53 UA Specific [place] 1.010 Last Edit by Jaydon Miller EFRAÍNA on 08/28/23 13:53 UA Ketone Negative Last Edit by Jaydon Riversdro EFRAÍNCande on 08/28/23 13:53 UA Bilirubin 0 mg/dL Last Edit by Jaydon Riversdro A on 08/28/23 13:53 UA Glucose 0 mg/dL Last Edit by Jaydon Riverscorrina EFRAÍNA on 08/28/23 13:53 Results Reviewed Results Reviewed: Laboratory Last Values Urine pH (Auto) 8 08/28/23 13:52 Specific [place] (Auto) 1.010 08/28/23 13:52 Urine Protein (Auto) 0 mg/dL 08/28/23 13:52 Glucose (UA)(Auto) 0 mg/dL 08/28/23 13:52 Urine Ketones (Auto) Negative 08/28/23 13:52 Urine Blood (Auto) 0 Juvencio/uL 08/28/23 13:52 Urine Nitrite (Auto) Negative 08/28/23 13:52 Urine Bilirubin (Auto) 0 mg/dL 08/28/23 13:52 Urine Urobilinogen (Auto) 0 mg/dL 08/28/23 13:52 Leukocyte Esterase (Auto) 0.5 Ketan/uL 08/28/23 13:52 Assessment & Plan Assessment & Plan (1) Vulvar itching: Code(s): L29.2 - Pruritus vulvae (2) Vaginal atrophy: Code(s): N95.2 - Postmenopausal atrophic vaginitis Plan Discussed: Physical findings today were normal appearing healthy tissue externally, internally atrophic changes consistent with aging. Continuing using intermittent topical cream as needed and avoiding overuse. If she were to become sexually active she could use or consider treating vaginal tissue at this time it is not a concern. Reviewed use for topical Estrace with a diagram picture. Reviewed skin care try switching her soap to a baby soap unscented, continue use of cotton underwear, loose closing, cleaning practices for undergarments particularly bras, use of an alternative treatment free fungal infections or preventative in the summertime heat considered. If any further changes, rashes, or other concerns that she needs to be evaluated she may call and request an appointment. Plan annual exam to be scheduled. All of her questions and concerns were addressed to the best of my ability and shared decision making. She is agreeable to the plan of care. This note is constructed using voice recognition software. While every effort has been made to ensure accuracy, cash shortage investigator errors may have been included. Orders: Orders AMB Urinalysis Automated Today N93.9 - Abnormal uterine and vaginal bleeding, unspecified Coding Level of Care Code New Pt Level 4 (16546) Diagnoses Vulvar itching L29.2 Vaginal atrophy N95.2
[2023-08-28 13:38] VITALS: BP 150/78; BMI 29.9
== END 2023-08-28 14:26 | disposition home or self-care (01) ==
PROVIDERS: PCP Internal Medicine; Visit Provider Advanced Practice Midwife
DX: L29.2 Pruritus vulvae (principal); N95.2 Postmenopausal atrophic vaginitis; N93.9 Abnormal uterine and vaginal bleeding, unspecified
CPT/HCPCS: 99204

== ENCOUNTER → 2023-08-28 13:19 | Outpatient (BNVA) | payer OTHER, SELFPAY | PROVIDERS: PCP Internal Medicine; Visit Provider Advanced Practice Midwife | DX: L29.2 Pruritus vulvae (principal); N95.2 Postmenopausal atrophic vaginitis; N93.9 Abnormal uterine and vaginal bleeding, unspecified | CPT/HCPCS: 81003; 99202 ==

== ENCOUNTER 2023-09-16 14:34 | Outpatient (AMB) | payer OTHER, SELFPAY ==
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
== END 2023-09-16 18:45 | disposition home or self-care (01) ==
LOC: HO.HOP 14:34
PROVIDERS: PCP Internal Medicine; Visit Provider Psychiatry & Neurology Psychiatry
DX: F41.1 Generalized anxiety disorder (principal); F43.10 Post-traumatic stress disorder, unspecified; F31.81 Bipolar II disorder; G47.11 Idiopathic hypersomnia with long sleep time
CPT/HCPCS: 90833; 99213

== ENCOUNTER → 2023-09-16 14:34 | Outpatient (BNVA) | payer MEDICARE, SELFPAY | PROVIDERS: PCP Internal Medicine; Visit Provider Psychiatry & Neurology Psychiatry ==

== ENCOUNTER 2023-11-25 12:46 | Outpatient (REF) | payer MEDICARE, SELFPAY ==
--- NOTE | ~2023-11-25 | CT_ITS ---
EXAMINATION: CT CHEST LOW-DOSE SCREENING WITHOUT CONTRAST CLINICAL INFORMATION: Asymptomatic patient meeting criteria for lung screening. Personal history of nicotine dependence. PATIENT PACK-YEAR HISTORY: 52. Current Smoker: Yes. If former smoker, years since quitting: Not applicable. COMPARISON: CT lung screening 11/23/2022. TECHNIQUE: Multidetector volumetric non-contrast CT imaging of the chest was obtained on a [employer] Perspective scanner using low-dose screening CT technique. Axial thin section 0.625 mm reformations in soft tissue and lung windows were obtained. Sagittal and coronal reformations were obtained. Axial MIP images were also created and reviewed. RECONSTRUCTED WIDTH: 1.25 mm x 1.[address] examination was performed using dose optimization techniques as appropriate, variously including the following: *Automated exposure control. *Adjustment of mA and/or kV according to patient size (this includes techniques or standardized protocols for targeted exams where dose is matched to indication/reason for exam; i.e. extremities or head). *Use of iterative reconstruction technique. TOTAL EXAM DLP: 105 mGy-cm CTDIvol: 2.63 mGy FINDINGS: PULMONARY NODULES: Right upper lobe ground-glass nodule has increased from 8 to 9 mm (5:81 compare prior 4:86). 4 mm left upper lobe perifissural posterior nodule unchanged (5:90 compare prior 4:102). 9 mm ground-glass left upper lobe nodule is unchanged in size but there is a new 2 mm peripheral solid nodular component (5:144 and 5:146 compare prior 4:160). 7 mm right upper lobe ground-glass nodule has increased from 6 mm (5:151 compare prior 4:151). 8 mm solid nodule left lower lobe is unchanged (5:335 compare prior 4:343). LUNGS: Lungs bilaterally symmetrically expanded. Mild emphysematous changes along with diffuse bronchial thickening without bronchiectasis. No effusion or pneumothorax. Central airways patent. LYMPHATIC STRUCTURES: No mediastinal, hilar or axillary adenopathy or free fluid collection. THYROID GLAND: Unremarkable to the extent seen. CARDIOVASCULAR STRUCTURES: Aortic and heart size normal. Mild coronary artery calcifications. No pericardial effusion. UPPER ABDOMEN: There is a tiny hiatal hernia. There is a coarse calcification seen in the medial limb of the left adrenal gland with a small 6.7 mm rim-calcified nodule. Included portions of the solid organs in the upper abdomen unremarkable on noncontrast imaging. OSSEOUS STRUCTURES: No suspicious focal findings. Degenerative changes are noted throughout the thoracic spine. SPINAL COMPRESSION: Absent. CT/CT lung screening IMPRESSION: The 8 mm left lower lobe solid nodule is stable for one year. Some ground-glass opacities have increased in size minimally but are well under 30 mm in size. One ground-glass opacity has developed a 2 mm peripheral solid nodular component. This latter finding is probably benign. LUNG-RADS CATEGORY ASSESSMENT: 3: Probably Benign. INCIDENTAL FINDINGS (S CATEGORY): Finding: No incidental findings. Significance Category: Normal or normal variant. RECOMMENDATION: Low dose lung CT. overall in 6 months. Visual estimate of coronary calcified plaque burden: Mild. However, this exam cannot replace a dedicated cardiac CT calcium score for accurate assessment. Electronically signed by: Scar Hernandez MD 12/21/2023 02:58 PM EDT
== END 2023-11-25 12:47 | disposition home or self-care (01) ==
LOC: HO.CT 12:46
PROVIDERS: PCP Internal Medicine; Visit Provider Physician Assistant Medical
DX: Z12.2 Encounter for screening for malignant neoplasm of respiratory organs (principal); Z87.891 Personal history of nicotine dependence
CPT/HCPCS: 71271

== ENCOUNTER 2023-12-06 10:40 | Outpatient (REF) | payer MEDICARE, SELFPAY ==
[2023-12-06 14:25] LABS: Estimated Average Glucose 120 mg/dL; Hemoglobin A1c % 5.8 % (<6.0)
[2023-12-06 14:34] LABS: Alanine Aminotransferase 40 U/L (0-31); Anion Gap 12 (12-20); Aspartate Amino Transferase 28 U/L (5-31); Blood Urea Nitrogen 10 mg/dL (9-16); Calcium 9.2 mg/dL (8.4-10.2); Carbon Dioxide 23 mmol/L (22-29); Chloride 109 mmol/L (96-108); Cholesterol 194 mg/dL (<200); Estimated Glomerular Filt Rate > 60; Free T4 (Free Thyroxine) 0.56 ng/dL (0.71-1.85); Glucose Fasting 154 mg/dL (60-99); HDL Cholesterol 56 mg/dL (>40); LDL Cholesterol Calculated 107 mg/dL (<100); Sodium 140 mmol/L (135-145); Thyroid Stimulating Hormone 2.42 uIU/mL (0.32-4.0); Triglycerides 155 mg/dL (<150)
[2023-12-06 14:37] LABS: Creatinine Urine 70.23 mg/dL; Microalbum/Creatinine Ratio Ur 38.4 ug/mg cr (<30)
== END 2023-12-06 10:41 | disposition home or self-care (01) ==
LOC: HO.HMGCLDS 10:40
PROVIDERS: PCP Internal Medicine; Visit Provider Internal Medicine
DX: I10 Essential (primary) hypertension (principal); E78.2 Mixed hyperlipidemia; E11.9 Type 2 diabetes mellitus without complications; Z78.0 Asymptomatic menopausal state; M85.80 Other specified disorders of bone density and structure, unspecified site; E03.9 Hypothyroidism, unspecified
CPT/HCPCS: 36415; 80048; 80061; 82043; 82306; 82570; 83036; 84439; 84443; 84450; 84460

== ENCOUNTER 2023-12-13 10:36 | Outpatient (AMB) | payer MEDICARE, SELFPAY ==
--- NOTE | 2023-12-13 10:34 | A.OFFPC_ITS ---
Intake Visit Reasons: f/u labs Iphone [phone] Allergies bee pollen [BEE STINGS] Allergy (Severe, Verified 12/13/23 10:40) ANAPHYLAXIS Medication List - Last Reconciled 12/13/23 by Darlene Negro MD armodafinil 150 mg PO QAM ascorbic acid (vitamin C) 500 mg PO DAILY aspirin 81 mg PO DAILY cholecalciferol (vitamin D3) 50 mcg PO DAILY clotrimazole-betamethasone 1-0.05 % 1 appl topical BID 10 days coenzyme Q10 75 mg PO DAILY estradiol 0.01%(0.1mg/gram) 1 g vaginal 2XW ezetimibe 10 mg PO DAILY ferrous fumarate 325 mg PO DAILY FreeStyle Lite Meter (blood-glucose meter) As directed NS FreeStyle Lite Strips (blood sugar diagnostic) check fasting blood sugar once a day NS lamotrigine 150 mg PO DAILY 90 days lancets (FreeStyle Lancets) As directed once a day metformin ER 500 mg PO DAILY cd-2-zvb-epa-fish oil-vit D3 120 mg-180 mg -1,000 unit caps PO pravastatin 20 mg PO BEDTIME propranolol ER 60 mg PO DAILY rosuvastatin 5 mg PO DAILY venlafaxine ER 75 mg PO DAILY vit C,E-Ru-eshzw-lutein-zeaxan 250-90-40-1 mg (PreserVision AREDS-2) 1 tab PO BID Tobacco use date assessed: 12/13/23 Fall risk assessment: No Falls in past year Last assessed Fall Risk: 12/13/23 Dental Screening Dental Screen Date: 12/13/23 Did you have a dental visit in the last 12 months?: Yes Did you have a dental problem in the last 6 months where you did not have access to dental care?: No Was dental information given to patient?: Patient has dentist HPI f/u labs Iphone [phone] HPI Details 73-year-old lady with past medical histo ry of Emphysema and pulmonary nodule being followed by Dr. Long and gets LDCT, has hx of Grave's disease s/p partial thyroidectomy, now has hypothyroidism, has type 2 diabetes mellitus, controlled on metformin ER, has carotid artery stenosis, hypertension, mixed hyperlipidemia, obstructive sleep apnea on CPAP, has a meningioma diagnosed in 2019 status post radiation, inoperable, followed by Dr. Poon and Dr. Portillo, sees Dr. Klever Sosa for treatment of bipolar disorder and PTSD, here today via telehealth for follow-up on her diabetes mellitus and mixed hyperlipidemia. She has been compliant with her taking her medications and has been following recommended diet. Has been feeling well with no complaints at present time. Had recent fasting labs done showed normal electrolytes, renal function, lipids, thyroid levels, and vitamin D level, with hemoglobin A1c now at 5.6% [facility] Medical History Benign essential tremor Macular degeneration Vulvar rash Osteopenia Postmenopausal Personal history of nicotine dependence Stenosis of right carotid artery greater than 50% Post traumatic stress disorder (PTSD) Bipolar II disorder in full remission Essential hypertension Mixed hyperlipidemia Type 2 diabetes mellitus without complication, with no history of insulin use Acquired hypothyroidism Insomnia Meningioma (~2019) Emphysema of lung Pulmonary nodules MACIEJ (obstructive sleep apnea) Surgical History Hx of endoscopy History of partial thyroidectomy History of hysterectomy History of appendectomy History of tonsillectomy History of colonoscopy Family History Father Substance use disorder Lung cancer Brother Mental health disorder Maternal Grandmother Mental health disorder Paternal Aunt No problems noted. Mother Mental health disorder Social History Housing: Condominium Patient Tobacco Use Status: Former Tobacco user Tobacco use type: Cigarette Years Smoked: (onset 15yo, 1ppd x 51yrs, 40+PYH - quit 2017) e-Cigarette/Vaping Use: Never Used service: No Current occupational status: retired Cognitive needs: No Hearing needs: No Vision needs: Yes Female Reproductive History Menstrual Age of Menarche: 12 Questionnaire Thrive Questionnaire Date Thrive assessed: 09/26/21 AUDIT C Alcohol Use Questionnaire (AUDIT-C) 3. How often do you have six or more drinks on one occasion?: Never Total Score: 0 IDALIA-7 AMB Questionnaire IDALIA-7 Date IDALIA - 7 assessed: 05/07/23 Source: Developed by Drs. Tyshawn Fajardo, Rahel Rdz, Jose Sparrow and colleagues, with an educational aguilar from [employer]. Review of Systems Const Denies frequent falls, Denies headache(s) and Denies night sweats Eyes Denies change in vision and Reports requires corrective lenses ENT Denies change in voice, Denies dizziness, Denies headache(s), Denies mouth pain and Denies disequilibrium Card Denies chest pain, Denies rapid heart rate, Denies irregular heart rhythm, Denies lightheadedness and Denies dyspnea Resp Denies cough, Denies dyspnea and Denies wheezing GI Denies abdominal pain, Denies melena, Denies hematochezia, Denies heartburn and Denies nausea Reports no additional complaints Musc Denies no additional complaints Neuro Denies dizziness, Denies frequent falls, Denies headache(s) and Denies disequilibrium Psych Denies no additional complaints Endo Reports no additional complaints Ez/Lymph Denies easy bleeding and Denies lymphadenopathy Aller/Immun Denies seasonal rhinorrhea and Denies wheezing Physical exam (Primary Care) Tobacco/Smoking Status: Tobacco use Status Tobacco use date assessed 12/13/23 12/13/23 10:36 Patient Tobacco Use Status Former Tobacco user 12/13/23 10:36 Tobacco use type Cigarette 12/13/23 10:36 e-Cigarette/Vaping Use Never Used 12/13/23 10:36 Thrive Assessment: Date of Thrive Assessment Date Thrive assessed 09/26/21 12/13/23 10:36 Telehealth Telehealth Telehealth Platform: [facility] Location of provider rendering services: practice address Location of patient: address on file Patient Identification confirmed using: Name, : Yes Telehealth method: video Patient verbally consented to treatment: Yes Patient verbally consented to billing insurance company: Yes Patient informed of any privacy concerns related to visit: Yes Minutes spent on Phone/Video with Pt.: 15 Results Reviewed Results Reviewed: Name: Ritu Nicholson Age/Sex: 73/F : 1950 Unit#: [id number] Attend Dr: Darlene Negro MD Re12/06/23 Status: DEP REF Location: [facility] Disch: SPEC : [id number] BARBARA: 12/06/23-1049 STATUS: COMP REQ : [id number] RECD: 12/06/23-[address]: Darlene Negro MD COMP: 12/06/23-1434 ENTERED: 12/06/23-1049 [facility] DR: ORDERED: Met Prof Fast, AST, ALT, Lipid Panel, Vitamin D 25-OH, Free T4, TSH Test Result Flag Reference Sodium 140 135-145 mmol/L Potassium 4.0 3.3-5.1 mmol/L CL 109 H 96-108 mmol/L CO2 23 22-29 mmol/L Gap 12 12-20 BUN 10 9-16 mg/dL Creat 0.79 0.5-1.4 mg/dL EGFR > 60 NOTE: For -[place]ij[place] individuals, multiply the result by 1.210. Chronic Kidney Disease: Estimated GFR < 60 mL/min/1.73m2 Severe Kidney Disease: Estimated GFR < 15 mL/min/1.73m2 FBS 154 H 60-99 mg/dL A fasting glucose of 126 mg/dl or greater on more than one occasion is considered diagnostic of diabetes. CA 9.2 8.4-10.2 mg/dL AST (GOT) 28 5-31 U/L ALT (GPT) 40 H 0-31 U/L Triglyceride 155 H <150 mg/dL Desirable Triglyceride: less than 150 mg/dL Borderline High Triglyceride 150-199 mg/dL High Triglyceride: 200-499 mg/dL Very High Triglyceride: greater than or equal to 5OO mg/dL Cholesterol 194 <200 mg/dL Desirable Cholesterol: less than 200 mg/dL Borderline High Cholesterol: 200-239 mg/dL High Cholesterol: greater than 239 mg/dL LDL Calculated 107 H <100 mg/dL Desirable LDL: less than 100 mg/dL Near Optimal/Above Optimal LDL: 110-129 mg/dL Borderline High LDL: 130-159 mg/dL High LDL: 160-189 mg/dL Very High LDL: greater than or equal to 190 mg/dL HDL 56 >40 mg/dL Desirable HDL: greater than 40 mg/dL Note: This HDL assay may give artificially low results in patients with liver disease. Vit D 25-OH Tot 75.0 >30 ng/mL Health Based Reference Values* < 20 ng/mL Deficient 20-30 ng/mL Insufficient > 30 ng/mL Sufficient *Candida TORO. N Engl J Med. 2007;357:266-280 Care must be taken in interpreting Vitamin D results from different laboratories and methodologies. Published data demonstrated that results from patients undergoing hemodialysis may show a negative bias when tested with various automated 25-OH vitamin D assays when compared to LC-MS/MS. When testing samples from patients whose predominant form of Vitamin D is Vitamin D2, such as patients receiving Vitamin D2 supplementation, results that are subtherapeutic should be confirmed with another method such as LC-MS/MS. Free T4 0.56 L 0.71-1.85 ng/dL TSH 3rd Gen. 2.42 0.32-4.0 uIU/mL TSH 3rd Generation ([facility]) Laboratory Tests 12/06/23 12/06/23 10:50 10:55 Estimat Average Glucose 120 Hemoglobin A1c % 5.8 Urine Creatinine 70.23 Urine Microalbumin 27.0 Microalb/Creat Ratio 38.4 H Assessment and Plan Assessment & Plan (1) Type 2 diabetes mellitus without complication, with no history of insulin use: Code(s): E11.9 - Type 2 diabetes mellitus without complications Plan: Diabetes well controlled with hemoglobin A1c now at 5.6%, continue with metformin ER 500 mg once a day, in addition to adhering to healthy eating habits and regular exercise. (2) Mixed hyperlipidemia: Code(s): E78.2 - Mixed hyperlipidemia Plan: Reviewed recent fasting lipid profile with patient with levels at acceptable range . Continue pravastatin 20 mg at bedtime together with ezetimibe 10 mg daily , in addition to adherence to low-cholesterol diet and regular exercise, at least 30 minutes 3 to 4 times a week. Advised patient to make healthy food choices, eat more fruits, vegetables, whole grains, wild caught fish and low- fat dairy. Limit amount of meat and fried or fatty food products, as well as processed foods and fast foods. Follow-up scheduled with repeat fasting lipid panel in 5 months. Orders: Orders Complete Blood Count Auto Diff 05/02/24 E11.9 - Type 2 diabetes mellitus without complications, E78.2 - Mixed hyperlipidemia, I10 - Essential (primary) hypertension, M85.852 - Other specified disorders of bone density and structure, left thigh, Z78.0 - Asymptomatic menopausal state IRON PROFILE 05/02/24 E11.9 - Type 2 diabetes mellitus without complications, E78.2 - Mixed hyperlipidemia, I10 - Essential (primary) hypertension, M85.852 - Other specified disorders of bone density and structure, left thigh, Z78.0 - Asymptomatic menopausal state Lipid Panel 05/02/24 E11.9 - Type 2 diabetes mellitus without complications, E78.2 - Mixed hyperlipidemia, I10 - Essential (primary) hypertension, M85.852 - Other specified disorders of bone density and structure, left thigh, Z78.0 - As ymptomatic menopausal state Aspartate Amino Transferase 05/02/24 E11.9 - Type 2 diabetes mellitus without complications, E78.2 - Mixed hyperlipidemia, I10 - Essential (primary) hypertension, M85.852 - Other specified disorders of bone density and structure, left thigh, Z78.0 - Asymptomatic menopausal state Hemoglobin A1c 05/02/24 E11.9 - Type 2 diabetes mellitus without complications, E78.2 - Mixed hyperlipidemia, I10 - Essential (primary) hypertension, M85.852 - Other specified disorders of bone density and structure, left thigh, Z78.0 - A symptomatic menopausal state Alanine Aminotransferase 05/02/24 E11.9 - Type 2 diabetes mellitus without complications, E78.2 - Mixed hyperlipidemia, I10 - Essential (primary) hypertension, M85.852 - Other specified disorders of bone density and structure, left thigh, Z78.0 - Asymptomatic menopausal state Vitamin D 25-OH Total 05/02/24 E11.9 - Type 2 diabetes mellitus without complications, E78.2 - Mixed hyperlipidemia, I10 - Essential (primary) hypertension, M85.852 - Other specified disorders of bone density and structure, left thigh, Z78.0 - Asymptomatic menopausal state Basic Metabolic Panel Fasting 05/02/24 E11.9 - Type 2 diabetes mellitus without complications, E78.2 - Mixed hyperlipidemia, I10 - Essential (primary) hypertension, M85.852 - Other specified disorders of bone density and structure, left thigh, Z78.0 - Asymptomatic menopausal state Coding Level of Care Code Tele Est Pt Level 4 (68815) Complex EM visit Add On G2211 Diagnoses Type 2 diabetes mellitus without complication, with no history of insulin use E11.9 Mixed hyperlipidemia E78.2
== END 2023-12-13 12:23 | disposition home or self-care (01) ==
LOC: HO.HMGC 10:36
PROVIDERS: PCP Internal Medicine; Visit Provider Internal Medicine
DX: E11.9 Type 2 diabetes mellitus without complications (principal); E78.2 Mixed hyperlipidemia
CPT/HCPCS: 99214; G2211

== ENCOUNTER 2023-12-19 13:51 | Outpatient (AMB) | payer OTHER, SELFPAY ==
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
== END 2023-12-19 15:37 | disposition home or self-care (01) ==
LOC: HO.HOP 13:51
PROVIDERS: PCP Internal Medicine; Visit Provider Clinical Nurse Specialist Psychiatric/Mental Health
DX: F41.1 Generalized anxiety disorder (principal); F31.81 Bipolar II disorder
CPT/HCPCS: 99214

== ENCOUNTER → 2023-12-19 13:51 | Outpatient (BNVA) | payer MEDICARE, SELFPAY | PROVIDERS: PCP Internal Medicine; Visit Provider Clinical Nurse Specialist Psychiatric/Mental Health ==

== ENCOUNTER 2024-01-28 14:13 | Outpatient (AMB) | payer OTHER, SELFPAY ==
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
== END 2024-01-28 15:00 | disposition home or self-care (01) ==
LOC: HO.HOP 14:13
PROVIDERS: PCP Internal Medicine; Visit Provider Psychiatry & Neurology Psychiatry
DX: F31.81 Bipolar II disorder (principal); F41.1 Generalized anxiety disorder; F43.10 Post-traumatic stress disorder, unspecified
CPT/HCPCS: 99214

== ENCOUNTER → 2024-01-28 14:13 | Outpatient (BNVA) | payer OTHER, SELFPAY | PROVIDERS: PCP Internal Medicine; Visit Provider Psychiatry & Neurology Psychiatry ==

== ENCOUNTER 2024-02-10 11:48 | Outpatient (AMB) | payer MEDICARE, SELFPAY ==
--- NOTE | 2024-02-10 11:50 | MHC.OFFWIV ---
Intake Vital Signs 02/10/24 11:55 Height 5 ft 6 in Weight 185 lb BMI 29.9 BP 138/70 Blood Pressure Location Rt brachial Position Sitting Pulse 80 Pulse Source Pulse Oximeter Pulse Oximetry (%) 97 Oxygen Delivery Method Room Air Intake Visit Reasons: EP BP high (140/88) no symptoms Intake Note: Patient here for elevated BP for the past two days. Patient Tobacco Use Status: Former Tobacco user Allergies bee pollen [BEE STINGS] Allergy (Severe, Verified 02/10/24 11:52) ANAPHYLAXIS Do you need a note to return to daycare/school/sports/work: No HPI EP BP high (140/88) no symptoms HPI Details This note is constructed using voice recognition software. While every effort has been made to ensure accuracy, receptionist nurse errors may have been included. The patient is a 74 year old female who presents to the clinic today with concern for elevated blood pressure. She notes that she decided to check her blood pressure yesterday as she saw the wrist cuff that she owns sitting on the table. She was not having any symptoms including no chest pain, palpitations, headaches, or any other feelings of unwell. When she checked her blood pressure they initial number was 180/110, which concerned her. She then checked her blood pressure with an arm cuff, which reflected a number in the 140s over 80s. When she looked online at what to do about the blood pressure, it advised that she be seen in the emergency room. She decided to come to the walk-in clinic as she is asymptomatic. She is treated on propanolol for essential tremors. [facility] Medical History Benign essential tremor Macular degeneration Vulvar rash Osteopenia Postmenopausal Personal history of nicotine dependence Stenosis of right carotid artery greater than 50% Post traumatic stress disorder (PTSD) Bipolar II disorder in full remission Essential hypertension Mixed hyperlipidemia Type 2 diabetes mellitus without complication, with no history of insulin use Acquired hypothyroidism Insomnia Meningioma (~2019) Emphysema of lung Pulmonary nodules MACIEJ (obstructive sleep apnea) Surgical History Hx of endoscopy History of partial thyroidectomy History of hysterectomy History of appendectomy History of tonsillectomy History of colonoscopy Family History Father Substance use disorder Lung cancer Brother Mental health disorder Maternal Grandmother Mental health disorder Paternal Aunt No problems noted. Mother Mental health disorder Social History Housing: Condominium Patient Tobacco Use Status: Former Tobacco user Tobacco use type: Cigarette Years Smoked: (onset 15yo, 1ppd x 51yrs, 40+PYH - quit 2017) e-Cigarette/Vaping Use: Never Used service: No Current occupational status: retired Cognitive needs: No Hearing needs: No Vision needs: Yes Female Reproductive History Menstrual Age of Menarche: 12 Review of Systems Const All systems reviewed & are unremarkable except as noted in HPI and below Physical Exam Vital Signs: Last Vital Signs Pulse 80 02/10/24 11:55 BP 138/70 02/10/24 11:55 Pulse Ox 97 02/10/24 11:55 Oxygen Delivery Method Room Air 02/10/24 11:55 BMI result Body Mass Index 29.9 Const General: cooperative, healthy appearing, comfortable, no acute distress and well developed Orientation/consciousness: patient oriented x3 Limitations: no limitations Resp Effort & Inspection: normal respiratory effort and able to speak in complete sentences Auscultation: clear to auscultation bilaterally Cardio Rate: regular rate Rhythm: regular rhythm Heart sounds: normal S1 and S2 Skin General skin exam: no rashes or lesions noted Neuro General: patient oriented x3 Extrem General: Yes normal to inspection Assessment & Plan Assessment & Plan (1) Essential hypertension: Code(s): I10 - Essential (primary) hypertension Plan: Stable in office readings. Advised patient to continue to monitor these readings periodically, but reviewed appropriate cuffed selection. It is likely that her isolated number when she was asymptomatic was not a true reflexion of her blood pressure. Advised follow up as needed with ongoing elevation. Advised ER with chest pain, palpitations, or new onset headaches. Coding Level of Care Code Est Pt Level 3 (79838) Diagnoses Essential hypertension I10
[2024-02-10 11:55] VITALS: BP 138/70; PULSE 80; O2SAT 97; BMI 29.9
== END 2024-02-10 12:34 | disposition home or self-care (01) ==
PROVIDERS: PCP Internal Medicine; Visit Provider Registered Nurse
DX: I10 Essential (primary) hypertension (principal)

== ENCOUNTER → 2024-02-10 11:48 | Outpatient (BNVA) | payer OTHER, SELFPAY | PROVIDERS: PCP Internal Medicine; Visit Provider Registered Nurse | DX: I10 Essential (primary) hypertension (principal) | CPT/HCPCS: 99212 ==

== ENCOUNTER 2024-05-11 13:20 | Outpatient (REF) | payer MEDICARE, SELFPAY ==
[2024-05-11 16:09] LABS: MANUAL DIFF FLAG NO
[2024-05-11 16:14] LABS: Basophils Percent Auto 0.4 % (0-2); Eosinophils Absolute Auto 0.3 X10*3/uL (0.0-0.4); Eosinophils Percent Auto 5.8 % (0-4); Hemoglobin 14.5 g/dl (12.0-16.0); Imm Gran Abs Auto 0.02 X10*3/uL (0.00-0.03); Imm Gran Pct Auto 0.4 % (0.0-0.4); Lymphocytes Absolute Auto 1.7 X10*3/uL (1.2-4.9); Lymphocytes Percent Auto 29.9 % (20-40); Mean Corpuscular HGB Conc 33.7 g/dl (31.0-35.0); Mean Corpuscular Hemoglobin 31.7 pg (27.0-33.0); Mean Corpuscular Volume 93.9 fL (80.0-98.0); Mean Platelet Volume 9.2 fL (9.4-12.3); Monocytes Absolute Auto 0.5 X10*3/uL (0.1-1.2); Monocytes Percent Auto 8.1 % (2-11); Neutrophils Absolute Auto 3.1 x10*3/uL (2.0-8.3); Neutrophils Percent Auto 55.4 % (45-73); Platelet Count 344 X10*3/uL (160-400); Red Blood Count 4.58 X10*6/uL (4.20-5.50); Red Cell Distribution Width 13.6 % (11.0-16.0); White Blood Count 5.6 X10*3/uL (4.8-10.8)
[2024-05-11 16:30] LABS: Estimated Average Glucose 126 mg/dL; Hemoglobin A1C 159.4279 umol/L; Total Hemoglobin (HGBA1C) 3830.2115 umol/L
[2024-05-11 16:45] LABS: Anion Gap 15 (12-20); Aspartate Amino Transferase 40 U/L (5-31); Blood Urea Nitrogen 9 mg/dL (9-16); Calcium 9.4 mg/dL (8.4-10.2); Carbon Dioxide 22 mmol/L (22-29); Chloride 108 mmol/L (96-108); Cholesterol 384 mg/dL (<200); Estimated Glomerular Filt Rate > 60; Glucose Fasting 153 mg/dL (60-99); HDL Cholesterol 61 mg/dL (>40); Iron 109 mcg/dL (30-160); LDL Cholesterol Calculated 286 mg/dL (<100); Percent Iron Saturation 38 % (15-50); Potassium 4.2 mmol/L (3.3-5.1); Sodium 141 mmol/L (135-145); Total Iron Binding Capacity 290 mcg/dL (228-428); Triglycerides 186 mg/dL (<150); Unsaturated Iron Binding 181 ug/dL
[2024-05-11 16:58] LABS: Vitamin D 25-OH Total 114.3 ng/mL (>30)
[2024-05-11 17:24] LABS: Alanine Aminotransferase 57 U/L (0-31)
== END 2024-05-11 13:21 | disposition home or self-care (01) ==
LOC: HO.HMGCLDS 13:20
PROVIDERS: PCP Internal Medicine; Visit Provider Internal Medicine
DX: I10 Essential (primary) hypertension (principal); E78.2 Mixed hyperlipidemia; E11.9 Type 2 diabetes mellitus without complications; M85.852 Other specified disorders of bone density and structure, left thigh; Z78.0 Asymptomatic menopausal state
CPT/HCPCS: 36415; 80048; 80061; 82306; 83036; 83540; 84450; 84460; 85025

== ENCOUNTER 2024-05-13 13:51 | Outpatient (AMB) | payer OTHER, SELFPAY ==
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
--- OUTSIDE RECORDS SUMMARY | 2024-05-13 15:14 | XMS_ITS | Data Portability ---
Author Organization [facility], [facility] Address [address] [place] [address] Care Team Providers Care Stamp Machine Servicer Name Role Phone JOMAR BETANCUR Primary Care Provider SAMMIE PATEL Foreman Or Supervisor And Operator HAZEL BRENNAN Radiation Oncologist [phone] JASMINE CASTILLO Brass Buffer [phone] DAYLIN CHEN Foreman Or Supervisor And Operator KORIN SHARPE Vascular Surgeon CORY HUGO Tariff Supervisor Assessment Encounter Date Assessment Date Assessment LastModified by Organization Details LastModified Time 01/04/2020 01/04/2020 Patient agreed t o this visit via phone due to the COVID -19 pandemic. Patient understands this is a scheduled visit and the usual procedures with regard to billing and confidentiality apply. Patient was notified that the provider location is . Patient location: home During the visit the patient? s medical history and medical record were reviewed. The patient was notified to call our office for worsening or urgent symptoms. magaly Not available 01/04/2020 13:52:44 03/02/2020 03/02/2020 Patient agreed t o this visit via phone due to the COVID -19 pandemic. Patient understands this is a scheduled visit and the usual procedures with regard to billing and confidentiality apply. Patient was notified that the provider location is . Patient location: home During the visit the patient? s medical history and medical record were reviewed. The patient was notified to call our office for worsening or urgent symptoms. The patient's COPD Assessment score is . The patient feels COPD is . Patient is currently as gold stage . [email or web address] Not available 03/02/2020 16:16:16 Plan of Treatment Reminders Order Date Submit Date Provider Last Modified By Organization Details Last Modified Time Details Appointments None recorded. Lab TSH, serum or plasma 2019 [facility], [address] [place] [address], [address], 0 08:21:04 CBC 2019 [facility], [address] [place] [address], [address], 0 08:21:04 iron, serum 2019 [facility], [address] [place] [address], [address], 0 08:21:04 Referral urologist referral - hematuria x 2 in pmh, cytologies x 3 attached 2019 [facility], [address] [place] [address], [address], 0 12:54:43 Procedures None recorded. Surgeries None recorded. Imaging XR, chest - 70 yo ex smoker- dyspnea x 6 months- [address] (Imaging), [address], [place], [address], 1 11:36:51 electrocard iogram [address], [address] [place], [address], 1 11:36:52 MAMMO, screening, tomosynthes is, bilateral 2021 022 [facility] (Imaging), [address], [place], [address], 3 15:14:05 bone density 2021 022 [facility], [address] [facility], [place], [address], 2 08:00:43 LDCT, chest, for lung cancer screening - due in 10/20, last scan 10/26/2020, former smoker, 30+ pack years 2021 022 [email or web address] [facility], [address] [place], [address], 2 11:52:09 Medication Orders nystatin 100,000 unit/gram topical cream 2019 020 [id number], [address] [place], [address], 1 14:17:53 nystatin 100,000 unit/gram topical cream 2020 021 [facility] #[id number], [address] [place], [address], 1 18:50:22 pravastatin 40 mg tablet 2020 021 [facility]acy #[id number], [address] [place], [address], 1 15:01:19 fluconazole 150 mg tablet 2021 022 magaly [facility]/Pharmacy #[id number], [address] [place], [address], 2 11:53:04 estradiol 0.01% (0.1 mg/gram) vaginal cream 2021 022 [facility], [address] [facility], [place], [address], 2 12:20:13 aspirin 81 mg tablet,nicol yed release 2021 022 [facility] [facility], [address] [facility] [place], [address], 12:20:14 clotrimazol e 1 % topical cream 2021 022 PAULA [employer] [facility], [facility] [place], [address], 12:24:36 Patient TargetsNo targets recorded. Patient Instructions Encounter Date Encounter Id Patient Instructions Last Modified By Organization Details Last Modified Time 01/04/2020 [id number] After a discussion of treatment options, which included consideration of best practices, patient preferences, and the patient? s individual lifestyle and treatment goals, as well as consideration and attempted mitigation of any barriers to meeting the patient? s goals, the following treatment plan and objectives were adopted: as above [email or web address] Not available 01/05/2020 20:19:54 03/02/2020 [id number] advance directives: care instructions [email or web address] Not available 03/02/2020 16:20:20 preventing falls : care instructions aesrick Not available 03/02/2020 16:20:20 hearing loss: care instructions aesrick Not available 03/02/2020 16:20:20 well visit, over 65: care instructions aesrick Not available 03/02/2020 16:20:20 After a discussion of treatment options, which included consideration of best practices and patient preferences, the following treatment plan and objectives were adopted: Vitamin D 1000 IUs, Calcium rich diet, exercise daily, resistance training twice per week, Mediterranean diet reviewed. aesrick Not available 03/02/2020 16:20:31 Counseling done {{Patient not ready to quit Contemplatin g quitting Tapering Cigarettes signed up for support prescript ion for stop smoking medication given}} {{Patient not ready to quit Contemplatin g quitting Tapering Cigarettes signed up for support prescript ion for stop smoking medication given}} Goal for follow up visit {{adding exercise regular meals stress management improv ing sleep therapist identifying sponsor}} {{adding exercise regular meals stress management improv ing sleep therapist identifying sponsor}} {{adding exercise regular meals stress management improv ing sleep therapist identifying sponsor}}My Health To Do List {{go to [address] [employer] www[employer] or call si gn up for shilo text 2 quit or other stop smoking shilo contact [employer]}} {{go to [employer] or call si gn up for shilo text 2 quit or other stop smoking shilo contact [employer]}} {{go to [employer] or call si gn up for shilo text 2 quit or other stop smoking shilo contact [employer]}} madison Not available 03/02/2020 12:04:38 09/22/2020 [id number] After a discussion of treatment options, which included consideration of best practices, patient preferences, and the patient? s individual lifestyle and treatment goals, as well as consideration and attempted mitigation of any barriers to meeting the patient? s goals, the following treatment plan and objectives were adopted: as above [email or web address] Not available 10/09/2020 18:54:34 05/08/2021 [id number] high cholesterol lifestyle changes aesrick Not available 05/08/2021 11:27:31 advance directives: care instructions aesrick Not available 05/08/2021 11:27:31 preventing falls : care instructions aesrick Not available 05/08/2021 11:27:32 hearing loss: care instructions aesrick Not available 05/08/2021 11:27:31 well visit, over 65: care instructions aesrick Not available 05/08/2021 11:27:32 After a discussion of treatment options, which included consideration of best practices and patient preferences, the following treatment plan and objectives were adopted: Vitamin D 1000 IUs, Calcium rich diet, exercise daily, resistance training twice per week, Mediterranean diet reviewed. aesrick Not available 05/08/2021 11:27:41 06/21/2021 [id number] After a discussion of treatment options, which included consideration of best practices, patient preferences, and the patient? s individual lifestyle and treatment goals, as well as consideration and attempted mitigation of any barriers to meeting the patient? s goals, the following treatment plan and objectives were adopted: as above aesrick Not available 06/30/2021 20:23:54 Reason for Referral Urologist Referral for Salo hematuria hematuria x 2 in pmh, cytologies x 3 attached Referring Physician: Jomar Hallsophia, Family Medicine, Encounter Date: 01/04/2020 Results Created Date Observation Date Name Description Value Unit Range Abnormal Flag Note LastModifiedBy Organization Detail LastModifiedTime 09/23/19 21 09/23/2020 elect rocar diogr am No observ ation record ed. [facility] [address] [facility], [place], [address], 10/12/2020 20:10:24 09/23/19 21 elect rocar diogr am No observ ation record ed. devante Not Available 2020 19:38:18 09/24/19 21 09/23/2020 XR, chest OBSERV ATION: CLINIC AL HISTOR Y: Cough. TECHNI QUE: Fronta l view and latera l view of the chest obtain ed. COMPAR KIRBY: 018, 018, 2010, 2010 FINDIN GS: The heart is normal in size and config uratio n.Ther e is no hilar or medias tinal enlarg ement. There is no focal lung consol idatio n or infilt rate. The bony thorax is intact . IMPRES RUPESH: No acute diseas e. Electr onical ly signed Readlorene g Physic miguel angel: Jason Hampton ms [facility] (Imaging) [address], [place], [address], 09/24/2020 16:26:26 10/27/19 21 10/26/2020 CT chest lung cance r scree nathan siddiqi TECHNI QUE: Diagno stic CT CHEST LUNG CANCER SCREEN ING ANNUAL COMPAR KIRBY: Chest CT on Dece er 2018 FINDIN GS: Lines/ tubes: None. Lungs and Airway s: Centra l airway s are patent . Minima l periph eral bulla or parase ptal emphys ashley in bilate ral upper lobes are unchan ged. Pulmon jermain nodule s as follow s: -Right upper lobe anteri or 0.9 cm ground glass nodule (4:68) , unchan ged -Left upper lobe along the fissur e 0.4 cm (4:69) , unchan ged -Left upper lobe ground glass nodule 0.2 cm (4:128 ), new -Right middle lobe along the fissur e 0.2 cm (4:176 ), new -Left lower lobe medial 0.8 x 0.6 cm (4:203 ), unchan ged Pleura : The pleura l spaces are clear. Heart and medias tinum: The thyroi d gland is normal . No signif icant medias tinal, hilar or axilla ry lympha denopa thy is seen. The heart and perica rdium are within normal limits . Scatte red calcif icatio ns along the normal calibe r thorac ic aorta. Soft tissue s: Normal . Abdome n: This study was perfor med withou t contra st and with lower than standa rd dose. These factor s reduce the sensit ivity for detect ion of small lesion s in the upper abdome n. Given these techni erick limita tions, no focal lesion is seen within the visual ized liver, spleen , pancre as, kidney s and right adrena l gland. Calcif icatio n of the left adrena l gland is unchan ged. Bones: The visual ized bony thorax is within normal limits . IMPRES RUPESH: Pulmon jermain nodule s as above, includ ing new nodule s. Benign appear ance or behavi or. Contin ue annual screen ing with LDCT in 12 months Lung-R ADS Catego ry: 2 Explan ation of the Lung-R ADS catego dat can be found at: https: //www. acr.or g/Qual ity-Sa fety/R [facility]/Luis gRADS This report has been forwar ded to an automa [employer] icatio n system which will electr onical ly notify approp riate provid ers of potent ially import ant findin gs. Electr onical ly Signed by: Hang garcia on 021 3:04 PM Interp reted by: Hang garcia MD Signed by: Hang garcia MD 1 CC Recipi ents: Jomar Betancur , [place] - Fax Final result JOMAR BETANCUR [facility] [address] [facility], [place], [address], 10/26/2020 19:23:20 10/27/19 21 10/26/2020 CT, chest No observ ation record ed. [facility] [address], [place], [address], 10/26/2020 18:11:57 11/11/19 21 11/10/2020 exerc ise stres s test No observ ation record ed. [facility] (Medical Records) [address] [place], [address], 11/19/2020 11:02:13 11/25/19 21 11/24/2020 exerc ise stres s test No observ ation record ed. [facility] (Medical Records) [address] [place], [address], 11/30/2020 13:52:10 11/26/19 21 11/24/2020 NM, myoca rdial perfu rupesh scan, w/ stres s No observ ation record ed. [facility] (Medical Records) [address] [place], [address], 11/30/2020 13:52:10 01/17/20 21 12/12/2020 polys omnog kathy * No observ ation record ed. [facility] [address] [place], [address], 01/22/2021 14:55:12 06/02/19 22 05/31/2021 bone densi ty No observ ation record ed. [facility] [address] [place], [address], 06/04/2021 15:15:01 11/01/19 22 10/30/2021 CT chest lung josé luis siddiqi CT CHEST LUNG CANCER SCREEN ING ANNUAL TECHNI QUE: Low dose multid etecto r CT of the chest was perfor med withou t intrav enous contra st using tailor ed dose modula tion techni ques. COMPAR KIRBY: CT lung cancer screen ing 021 FINDIN GS: Device s/Tube s/Line s: None. Lungs: Simila r 8 mm right upper lobe ground glass nodule (image 67). Simila r fermín-f issura l nodule at the left upper lobe (image 62) with decrea sed conspi cuity of the previo usly demons trated right middle lobe. Fissur al nodule . Left lower lobe calcif ied granul omas. Redemo nstrat ion of a 7 mm left lower lobe pulmon jermain nodule (image 213). Minima l interv al increa se in size of the previo usly demons trated left upper lobe ground glass nodule now measur ing 3 mm (2 mm previo usly) (image 126). No defini te new pulmon jermain nodule s demons trated . The centra l airway s are clear. Pleura : No pleura l effusi on or pneumo thorax . Medias tinum: Athero sclero tic calcif icatio n of the aorta and major aortic branch vessel s. No thyroi d nodule s. The heart is normal in size. There is no perica rdial effusi on. Mild amount of rust ry calcif icatio ns. Lymph Nodes: Normal . No enlarg ed suprac lavicu lar, axilla ry, medias tinal, or hilar lymph nodes. Upper Abdome n: Absenc e of intrav enous contra st and low dose techni que limits sensit ivity for detect ing small lesion s, solid organ and vascul ar findin gs. Small hiatal hernia . Redemo nstrat ion of left adrena l gland calcif icatio n. Chest Wall: No chest wall mass. Bones: Multil evel degene rative change s of the thorac ic spine. No suspic ious lytic or blasti c lesion s. IMPRES RUPESH: Multip le pulmon jermain nodule s are simila r, as above. Minima l interv al increa se in size of a ground glass nodule of the left upper lobe now measur ing 3 mm. Lung-R ADS Catego ry: 2. Multip le pulmon jermain nodule s. The catego ry-det ermini ng non-so lid nodule has a very low likeli lim of becomi ng a clinic ally active cancer , due to size or lack of growth . RECOMM ENDATI ONS: Contin ue CT Chest Lung Screen ing Annual exam if patien t meets eligib ility criter ia. To order, please type CT CHEST SCREEN ING (CT.TH .CHEST SCR) and select ANNUAL for patien t progra m status . Explan ation of the Lung-R ADS catego dat can be found at: [email or web address]/ rads.[email or web address] df Electr onical ly Signed by: Amparo Crawley on 11/01/19 3:52 PM Interp reted by: Amparo Crawley MD Signed by: Amparo Crawley MD 10/31/21 Final result JOMAR BETANCUR [facility] [address] [place] [address], [address], 11/03/2021 22:04:11 11/01/19 22 10/30/2021 CT, chest No observ ation record ed. [facility] (Mammo) [address] [place] [address], [address], 11/03/2021 22:04:11 Result Notes None recorded. Problems Name Problem SNOMED Code Status Onset Date Resolution Date Notes Provider Name and Address Organization Details Recorded Time Mixed hyperlip idemia 244765993 Active Not Available [employer] 12:15:30 Essentia l hyperten rupesh 96381670 Active Not Available [employer] 12:15:30 Chest swelling 800300254 Completed 02/18/2013 Not Available [employer] 3 02:04:24 Disorder of carbohyd rate metaboli sm 38441363 Completed 11/04/2020 Removal Reason: end AL Tian [address] [place] [address], [phone] , [facility] 16:31:34 On examinat ion - a rash Completed 02/18/2013 Not Available [employer] 3 02:00:50 Benign essentia l hyperten rupesh 3357671 Active Not Available [employer] 12:15:30 Hyperlip idemia 55229566 Active Not Available [employer] 12:15:30 Flatulen ce, eructati on and gas pain 746817632 Completed 02/18/2013 Not Available [facility] 3 02:04:10 Tobacco user 028954279 Completed 11/04/2020 Removal Reason: stopped AL Tian [address] [place] [address], [phone] , [facility] 16:30:18 Impaired fasting glycemia 649542935 Completed 11/04/2020 Removal Reason: end AL Tian [address] [place] [address], [phone] , [facility] 16:30:46 Glucose level outside referenc e range 997163712 Active Not Available [facility] 12:15:30 Malaise and fatigue 856764977 Completed 02/18/2013 Not Available [facility] 3 02:00:21 Diabetes mellitus 09137461 Active Not Available [facility] 12:15:30 Depressi ve disorder 65637004 Active 2018 Not Available [facility] 12:15:30 Bipolar disorder 35621688 Active 2018 Not Available [employer] 12:15:30 Carotid artery stenosis 35814283 Active 2018 Not Available [facility] 12:15:30 Intracra nial meningio fl 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 Procedures Surgical History Date Name Laterality Status Provider Name and Address Organization Details Recorded Time 05/08/19 Medicare Wellness Visit completed Guillaume Abad MA [facility] 05/08/2021 10:25:13 02/07/20 22 Alcohol use screening completed Guillaume Abad MA [facility] 05/08/2021 10:25:13 05/08/19 22 Cardiovascular disease risk reduction counseling completed Guillaume Abad MA [facility] 05/08/2021 10:25:13 03/02/20 20 Medicare Wellness Visit completed Nhi Stanton MA [facility] 03/02/2020 12:02:02 03/02/20 20 COPD Screening completed AL Tian [address] [place] [address], [phone], [facility] 03/02/2020 16:17:24 03/02/20 20 prevention-cardiov ascular risk reduction counseling completed Nhi Stanton MA [facility] 03/02/2020 12:02:02 03/02/20 20 prevention-annual alcohol misuse screening completed Nhi Stanton MA [facility] 03/02/2020 12:02:02 03/02/20 20 Telephonic Visit completed Nhi Stanton MA [facility] 03/02/2020 15:43:39 01/04/20 20 Telephonic Visit completed Erinn Modi MA [facility] 01/04/2020 13:52:44 02/19/20 19 Medicare Wellness Visit completed DEEDEE Nichole [facility] 02/18/2019 10:08:48 02/19/20 19 POC Urinalysis Testing completed DEEDEE Nichole [facility] 02/18/2019 11:01:50 02/19/20 19 Hearing Test completed DEEDEE Nichole [facility] 02/18/2019 11:20:58 10/09/19 19 POC Urinalysis Testing completed Meagan Mayorga [facility] 10/08/2018 11:53:49 01/17/20 18 Medicare Wellness Visit completed Erinn Modi MA [facility] 01/16/2018 14:31:16 01/15/20 17 Smoking cessation counseling completed Erinn Modi MA [facility] 01/14/2017 11:47:46 01/15/20 17 Medicare Wellness Visit completed Erinn Modi MA [facility] 01/14/2017 11:46:37 01/15/20 17 Carbon Monoxide Testing completed Erinn Modi MA [facility] 01/14/2017 11:47:46 09/11/19 17 Smoking cessation counseling completed Maryanne Tanner MA [facility] 09/10/2016 13:24:35 09/11/19 17 Carbon Monoxide Testing completed Maryanne Tanner MA [facility] 09/10/2016 13:24:35 07/31/19 17 Smoking cessation counseling completed Erinn Modi [facility] 07/30/2016 16:26:53 01/11/20 16 Smoking cessation counseling completed Erinn Modi [facility] 01/11/2016 15:50:31 01/11/20 16 Carbon Monoxide Testing completed Erinnluís Modi [facility] 01/11/2016 16:02:44 09/09/19 15 Smoking cessation counseling completed Erinnluís Mdoi [facility] 09/08/2014 16:33:45 01/22/20 14 Smoking cessation counseling completed Guillaume Abad [facility] 01/21/2014 16:34:19 07/03/19 14 Smoking cessation counseling completed Nicki Dumont [facility] 07/02/2013 14:53:13 06/27/19 13 Smoking cessation counseling completed AL Tian [address] [place] [address], [phone], [facility] 06/27/2012 23:20:37 04/08/19 13 Smoking cessation counseling completed AL Tian [address] [place] [address], [phone], [facility] 04/08/2012 19:17:40 Imaging Results Imaging Date Name Status LastModified by Organization Details LastModified Time 09/23/[address] [facility] [address] [place], [address], 10/12/2020 20:10:24 09/22/2020 electrocardiogram completed devante dumont not available 09/23/2020 19:38:18 09/23/2020 XR, chest completed [facility] (Imaging) [address], [place], [address], 09/24/2020 16:26:26 10/26/2020 CT chest lung cancer screening annual completed [facility] [address] [place], [address], 10/26/2020 19:23:20 10/26/2020 CT, chest completed [facility] [address] [place], [address], 10/26/2020 18:11:57 11/10/2020 exercise stress test completed [facility] (Medical Records) [address] [place], [address], 11/19/2020 11:02:13 11/24/2020 exercise stress test completed [facility] (Medical Records) [address] [place], [address], 11/30/2020 13:52:10 11/24/2020 NM, myocardial perfusion scan, w/ stress completed [facility] (Medical Records) [address] [place], [address], 11/30/2020 13:52:10 12/12/2020 polysomnography* completed [facility] [address] [place] [address], [address], 01/22/2021 14:55:12 05/31/2021 bone density completed [facility] [address] [place] [address] [place], [address], 06/04/2021 15:15:01 10/30/2021 CT chest lung cancer screening annual completed [facility] [address] [place], [address], 11/03/2021 22:04:11 10/30/2021 CT, chest completed [facility] (Mammo) [address] [place], [address], 11/03/2021 22:04:11 Procedure Notes None recorded. Medical Equipment None Reported. Allergies Allergen ID Allergen Name Allergen Category Reaction Reaction Severity Criticality Documentation Date Start Date Code Code System Note Provider Name and Address Organization Details Recorded Time 165436 atorvasta tin medicatio n Not available Not available Not available 06/26/2012 20836 RxNorm muscl e aches AL Tian [address] [place], [place] [address], [phone], [facility] 3 16:49:53 067599 wasp venoms environme nt Not available Not available Not available 07/02/[address] [facility] 4 14:53:13 802514 pravastat in medicatio n arthralgi a (joint pain) Not available Not available 05/08/2021 46835 RxNorm AL Tian [address] [place], [place] [address] [place], [address], [facility] 2 11:04:56 3956 codeine medicatio n Not available Not available Not available 05/27/2008 2670 RxNorm Not Available [facility] 1 06:05:20 Medications Name Sig Start Date Stop Date Status Note LastModified by Organization Details LastModified Time amoxicill in 500 mg capsule TAKE 1 CAPSULE BY MOUTH 3 TIMES A DAY 06/21 completed Not Available Not Available Not Available lamotrigi ne 150 mg tablet Take one tablet daily active Not Available Not Available No t Available atorvasta tin 80 mg tablet 01/16 completed Not Available Not Available Not Available venlafaxi ne ER 37.5 mg capsule,e xtended release 24 hr take 1 tab daily 06/21 completed dose increase d Not Available Not Available Not Available acetamino phen 325 mg tablet TAKE 2 TABLETS BY MOUTH EVERY 4 HOURS NEEDED FOR PAIN 02/18 completed not taking 02/18/19 MS Not Available Not Available Not Available venlafaxi ne ER 75 mg capsule,e xtended release 24 hr take 1 tab daily active Not Available Not Available No t Available lamotrigi ne 200 mg tablet Take 1 tablet every day by oral route as directed for 90 days. active Not Available Not Available No t Available clindamyc in HCl 300 mg capsule TAKE 1 CAPSULE( S) EVERY 6 HOURS BY ORAL ROUTE. 12/13 completed Not Available Not Available Not Available atorvasta tin 10 mg tablet Take 1 tablet every day by oral route. 10/08 completed Not taking 4.1.19 AAS Not Available Not Available Not Available Stool Softener 100 mg capsule TAKE 1 CAPSULE BY MOUTH TWO TIMES A DAY FOR 10 DAYS NEEDED FOR CONSTIPA TION 05/28 completed not taking 02/18/19 MS Not Available Not Available Not Available azithromy velma 250 mg tablet Take 2 tablets (500 mg) by oral route once daily for 1 day then 1 tablet (250 mg) by oral route once daily for 4 days 07/15 completed Not Available Not Available Not Available pravastat in 40 mg tablet TAKE 1 TABLET BY MOUTH EVERY DAY active Not Available Not Available No t Available ibuprofen 800 mg tablet 02/18 completed Not Available Not Available Not Available fluconazo le 150 mg tablet TAKE 1 TABLET BY MOUTH NOW AND THEN REPEAT IN 1 WEEK 06/21 completed Not Available Not Available Not Available liothyron ine 25 mcg tablet Take 1 tablet every day by oral route. active Not Available Not Available No t Available valacyclo vir 1 gram tablet TAKE 1 TABLET BY MOUTH 3 TIMES A DAY FOR 7 DAYS 01/10 completed Not Available Not Available Not Available senna 8.6 mg tablet TAKE 2 TABLETS BY MOUTH EVERY DAY AT BEDTIME NEEDED FOR CONSTIPA TION 05/28 completed not taking 02/18/19 MS Not Available Not Available Not Available lisinopri l 20 mg tablet TAKE 1 TABLET DAILY 06/30 completed On hold 3. AAS Not Available Not Available Not Available prednison e 20 mg tablet active Not Available Not Available Not Available clonazepa m 0.5 mg tablet Take 1 tablet every day by oral route as needed for 90 days. active PRN Not Available Not Available No t Available propranol ol ER 60 mg capsule,2 4 hr,extend ed release 1 tab daily active Not Available Not Available No t Available simvastat in 10 mg tablet Take 1 tablet every day by oral route for 90 days. 2009 active Not Available Not Available Not Avai lable clopidogr el 75 mg tablet TAKE 1 TABLET DAILY active Not Available Not Available No t Available doxepin 10 mg capsule 06/21 completed 05/08/21- pt is no longer taking Not Available Not Available Not Available aspirin 81 mg tablet,de layed release TAKE 1 TABLET BY MOUTH EVERY DAY active Not Available Not Available No t Available Wellbutri n SR 100 mg tablet, 12 hr sustained -release Take 1 tablet every day by oral route. active Not Available Not Available No t Available Nicotrol 10 mg inhalatio n cartridge USE DIRECTED EVERY 1 TO 2 HOURS NEEDED 06/18 completed Not Available Not Available Not Available triamcino lone acetonide 0.1 % topical cream active Not Available Not Available Not Available simvastat in 40 mg tablet TAKE 1 TABLET DAILY 2012 active Not Available Not Available Not Avai lable pravastat in 80 mg tablet 01/10 completed Not Available Not Available Not Available prednisol one acetate 1 % eye drops,maria ines pension INSTILL 1 DROP INTO THE AFFECTED EYE THREE TIMES A DAY 01/14 completed Not Available Not Available Not Available cephalexi n 500 mg capsule TAKE ONE CAPSULE BY MOUTH 3 TIMES A DAY FOR 7 DAYS 07/30 completed Not Available Not Available Not Available simvastat in 20 mg tablet Take 1 tablet every day by oral route. 02/25 completed Not Available Not Available Not Available nystatin 100,000 unit/gram topical cream APPLY TO THE AFFECTED AREA TOPICALL Y 2 TIMES PER DAY FOR 3 WEEKS active Not Available Not Available No t Available Lamictal 100 mg tablet active 2 daily Not Available Not Available Not Available indometha velma 25 mg capsule TAKE ONE CAPSULE BY MOUTH 3 TIMES A DAY NEEDED FOR PAIN FOR 5 DAYS 07/30 completed Not Available Not Available Not Available nicotine 21 mg/24 hr daily transderm al patch APPLY 1 PATCH(ES ) EVERY DAY BY TRANSDER MAL ROUTE FOR 30 DAYS. 06/18 completed Not Available Not Available Not Available simethico ne 125 mg chewable tablet CHEW 1 TABLET BY MOUTH THREE TIMES A DAY AFTER MEALS FOR 10 DAYS NEEDED FOR GAS 02/18 completed Not Available Not Available Not Available bisacodyl 5 mg tablet,de layed release 10/08 completed Not Available Not Available Not Available pravastat in 20 mg tablet TAKE 1 TABLET DAILY 12/15 completed Not Available Not Available Not Available zolpidem 5 mg tablet take 1 tab at bedtime active PRN Not Available Not Available No t Available nystatin 100,000 unit/gram topical powder APPLY TO AFFECTED AREAS ON GROIN AND BREASTS ONCE DAILY OR NEEDED FOR MAINTENA NCE. active Not Available Not Available No t Available epinephri ne 0.3 mg/0.3 mL injection , auto-inje ctor INJECT 0.3 ML INTRAMUS CULARLY ONCE NEEDED FOR ANAPHYLA XIS active Not Available Not Available No t Available estradiol 0.01% (0.1 mg/gram) vaginal cream INSERT/A PPLY 1 GRAM TO VAGINAL AREA 2 X A WK active Not Available Not Available No t Available propranol ol 20 mg tablet Take one tablet BID 11/04 completed taking 60 mg 09/22/20 am Not Available Not Available Not Available metformin ER 500 mg tablet,ex tended release 24 hr TAKE 1 TABLET DAILY active Not Available Not Available No t Available clotrimaz ole 1 % topical cream APPLY TO THE AFFECTED AND SURROUND ING AREAS OF SKIN TOPICALL Y TWICE A DAY IN THE MORNING AND IN THE EVENING FOR 2 WEEKS 2021 active Not Available Not Available Not Avai lable oxycodone 5 mg tablet 05/28 completed not taking 02/18/19 MS Not Available Not Available Not Available ezetimibe 10 mg tablet TAKE 1 TABLET DAILY active Not Available Not Available No t Available nicotine (polacril ex) 4 mg buccal lozenge USE 1 LOZENGE EVERY 2 HOURS NEEDED DIRECTED active Not Available Not Available No t Available Vigamox 0.5 % eye drops INSTILL 1 DROP 3 TIMES A DAY FOR 2 DAYS PRIOR TO SURGERY IN SURGICAL EYE,TAPE R DIRECTED 01/14 completed Not Available Not Available Not Available Crestor 20 mg tablet 1 tab qd with evening meal active Not Available Not Available No t Available bupropion HCl XL 300 mg 24 hr tablet, extended release 12/13 completed Not Available Not Available Not Available bupropion HCl XL 150 mg 24 hr tablet, extended release Take 1 tablet every day by oral route as directed for 90 days. 06/04 completed Not taking 05/21/18 Not Available Not Available Not Available metformin ER 500 mg 24 hr tablet,ex tended release (gastric retention ) 1 tab in am x 5-7 days, then 2 tabs in AM x 5-7 days, then 3 tabs in AM x 5-7 days then 4 tabs continui ng 05/27 completed Taking four tablets daily 5.1.17 Not Available Not Available Not Available Athlete's Foot (terbinaf ine) 1 % topical cream APPLY TOPICALL Y TO THE AFFFECTE D AREA TWICE A DAY FOR 14 DAYS 07/30 completed Not Available Not Available Not Available GaviLyte- G 236 gram-22.7 4 gram-6.74 gram-5.86 gram oral solution USE DIRECTED 10/08 completed Not Available Not Available Not Available doxepin 3 mg tablet TAKE 1 TABLET BY MOUTH EVERYDAY AT BEDTIME 04/12 completed PULMONOL OGIST CONSULT NOTE 03/13/[address] ALEX Buck Not Available Not Available Not Available Slow Release Iron 168 mg (50 mg iron) tablet,ex tended release Take 1 tablet twice a day by oral route. 11/04 completed taking once daily 01/04/20 AAS Not Available Not Available Not Available Ilevro 0.3 % eye drops,maria ines pension INSTILL 1 DROP INTO THE SURGICAL EYE ONCE DAILY 2 DAYS PRIOR TO SURGERY. THEN TAPER DIRECTED 01/14 completed Not Available Not Available Not Available Yuvafem 10 mcg vaginal tablet INSERT 1 TABLET VAGINALL Y 2 TIMES A WEEK active Not using 06/21/21 AAS Not Available Not Available Not Available nicotine (polacril ex) 4 mg buccal mini lozenge USE 1 LOZENGE EVERY 2 HOURS NEEDED DIRECTED active Not Available Not Available No t Available Shingrix (PF) 50 mcg/0.5 mL intramusc ular suspensio n, kit INJECT 0.5 ML BY INTRAMUS CULAR ROUTE 06/04 completed Not Available Not Available Not Available COVID-19 test specimen collectio n TEST DIRECTED 09/22 completed Not Available Not Available Not Available Fluzone High-Dose Quad 2020- (PF) 240 mcg/0.7 mL IM syringe PHARMACY ADMINIST ERED 03/02 completed Not Available Not Available Not Available Vitals Date Recorded Body height Heart rate Body mass index (BMI) Body weight Systolic blood pressure Diastolic blood pressure Provider Name and Address Organization Details Last Updated DateTime 0 167.64 cm 80 /min 30.3 kg/m2 30312.3 7 g 129 mm[Hg] 80 mm[Hg] Erinn Modi [facility] 0 13:47:11 Date Recorded Body height Body mass index (BMI) Body weight Provider Name and Address Organization Details Last Updated DateTime 03/02/2020 167.64 cm 30.3 kg/m2 67493.37 g Nhi Stanton [facility] 03/02/2020 15:46:14 Date Recorded Heart rate Systolic blood pressure Diastolic blood pressure Provider Name and Address Organization Details Last Updated DateTime 03/02/2020 82 /min 130 mm[Hg] 86 mm[Hg] AL Tian [address] [place] [address], [phone] 03/02/2020 16:12:37 Date Recorded Body height Body mass index (BMI) Body weight Heart rate Systolic blood pressure Diastolic blood pressure Provider Name and Address Organization Details Last Updated DateTime 1 167.64 cm 30.5 kg/m2 01250.9 6 g 84 /min 144 mm[Hg] 70 mm[Hg] Tiana Lynn [facility] 1 14:11:27 Date Recorded Systolic blood pressure Diastolic blood pressure Provider Name and Address Organization Details Last Updated DateTime 09/22/2020 130 mm[Hg] 59 mm[Hg] AL Tian [address] [place] [address], [phone], [facility] 09/22/2020 15:27:35 Date Recorded Body height Body mass index (BMI) Body weight Systolic blood pressure Diastolic blood pressure Systolic blood pressure Diastolic blood pressure Provider Name and Address Organization Details Last Updated DateTime 2 165.1 cm 31.7 kg/m2 13648.9 5 g 140 mm[Hg] 68 mm[Hg] 129 mm[Hg] 70 mm[Hg] Guillaume Abad [facility] 2 11:36:06 Date Recorded Systolic blood pressure Diastolic blood pressure Provider Name and Address Organization Details Last Updated DateTime 05/08/2021 130 mm[Hg] 80 mm[Hg] AL Tian [address] [place] [address], [phone], [facility] 05/08/2021 11:14:28 Date Recorded Body height Heart rate Body temperature Body mass index (BMI) Body weight Systolic blood pressure Diastolic blood pressure Provider Name and Address Organization Details Last Updated DateTime 2 165.1 cm 84 /min 97.8 [degF] 32 kg/m2 91324.7 4 g 126 mm[Hg] 84 mm[Hg] [facility] 11:56:56 Social History Question Answer Notes LastModified by Organizat ion Details LastModified Time Tobacco Smoking Status Former Smoker 3/ ppd, Smoking 1/2 ppd 12/14/15 , 1 PPD 10.12.16 , 04/04 ppd 07/30/16 , Quit- 2 days since last cigg 01/14/17 , States last cigg was October 2016 2.26.18 , Still not smoking- since October 2016 07/15/17 AAS, Still not smoking 8.17.18 AAS. Not smoking 06/04/18 AAS, Not smoking 3.20.19 AAS, quit 3 years ago 02/18/19MS Not Available [employer] 08/24/2010 02:07:31 Do You Have An Advance Directive? No Information not available 03/13/2011 What Is Your Level Of Alcohol Consumption? None ETOH DEPENDENCY IN REMISSION X 11 YRS- CONTS PROGRAMS. Information not available 05/28/2008 What Is Your Level Of Caffeine Consumption? Occasional 1 Cups Daily Information not available 05/08/2021 How Much Tobacco Do You Chew? None Information not available 01/03/2015 Are You Currently Employed? No Information not available 05/08/2021 What Type Of Diet Are You Following? REGULAR Low Sugar Intake Information not available 05/08/2021 Which Illicit Or Recreational Drugs Have You Used? No [email or web address] Information not available 05/21/2018 Do You Or Have You Ever Used E-cigarettes Or Vape? Never Used Electronic Cigarettes Information not available 02/18/2019 Education 4 Year College Information not available 01/03/2015 What Is The Highest Grade Or Level Of School You Have Completed Or The Highest Degree You Have Received? 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 No Information not available 05/08/2021 When Did You Quit Smoking? 6-10yearssinc elastcigarett e Information not available 05/08/2021 Are There Any Guns Present In Your Home? No Information not available 03/13/2011 Do You Use Insect Repellent Routinely? Yes Information not available 05/08/2021 Live Alone Or With Others? With Others [email or web address] Information not available 02/15/2011 CCM Consent Discussion 07/15/2017 Information not available 07/15/2017 Marital Status Informatio n not available 01/14/2017 Mosquito Repellent Used Routinely Yes Information not available 03/13/2011 What Was The Date Of Your Most Recent Tobacco Screening? 06/21/2021 Information not available 06/21/2021 How Many Children Do You Have? 0 [email or web address] Information not available 02/15/2011 What Is Your Current Pack Years? 30ormorepacky ears 37.5 Pack Yrs Information not available 01/03/2015 What Is Your Relationship Status? Information not available 05/08/2021 Do You Use Your Seat Belt Or Car Seat Routinely? Yes Information not available 05/08/2021 Seat Belts Used Routinely Yes Information not available 03/09/2011 Smoke Alarm In Home Yes Information not available 03/09/2011 At What Age Did You Start Smoking Tobacco? 14 Information not available 05/08/2021 Are You Passively Exposed To Smoke? No Information not available 05/08/2021 Do You Or Have You Ever Used Smokeless Tobacco? Never Used Smokeless Tobacco Information not available 02/18/2019 How Much Tobacco Do You Smoke? No Information not available 05/28/2019 General Stress Level Low Information not available 02/18/2019 Do You Use Any Illicit Or Recreational Drugs? No Information not available 05/08/2021 Do You Use Sunscreen Routinely? Yes Not In Sun Much Information not available 05/08/2021 Do You Or Have You Ever Used Any Other Forms Of Tobacco Or Nicotine? No Information not available 05/08/2021 Sex: Unknown Functional Status Question Answer Note LastModified by Organization D etails LastModified Time What is your exercise level? None Information not available 05/08/2021 Mental Status None recorded. Family History Relationship Description Onset Age of this Age Resolved Age Notes LastModified by Organization Details LastModified Time Brother Diabetes mellitus previo usly record ed as Diabet es aesrick Not available 01/03/2015 16:15:47 Mother Disorder of thyroid gland previo usly record ed as Thyroi d Diseas e aesrick Not available 01/03/2015 16:15:47 Medical History Condition Response Diabetes Type II Hyperlipidemia Y Macular Degeneration Y Bipolar Disorder Y NEUROLOGIC Y Hypertension Y Alcoholism Y Gynecological History Statement/Question Response Menses Monthly N History of Abnormal Pap Y Obstetrics History GPAL:G 0 P 0 0 0 0 Immunizations Vaccine Type Date Status Note Provider Nam e and Address Organization Details Recorded Time Influenza, split virus, trivalent, preservative 1 completed Not Available [facility] 04/18/2019 02:31:14 Influenza, split virus, trivalent, PF 4 completed Not Available [facility] 04/18/2019 02:19:21 Influenza, split virus, quadrivalent, PF 5 completed Not Available [facility] 04/18/2019 02:19:49 pneumococcal polysaccharide PPV23 5 completed Not Available [facility] 04/18/2019 02:26:43 Tdap 5 completed Not Available [facility] 04/18/2019 02:38:05 Influenza, split virus, quadrivalent, PF 6 completed Not Available [facility] 04/18/2019 02:21:03 Influenza, high-dose, trivalent, PF 7 completed Not Available [facility] 04/18/2019 02:22:05 Pneumococcal conjugate PCV 13 8 completed Not Available [facility] 04/18/2019 02:22:34 zoster recombinant 8 completed Not Available [facility] 04/18/2019 02:29:21 Influenza, high-dose, trivalent, PF 8 completed Not Available [facility] 04/18/2019 02:39:36 Influenza, high-dose, trivalent, PF 9 completed Not Available [facility] 04/18/2019 02:39:37 influenza, unspecified formulation 0 [facility] 16:31:55 COVID-19, mRNA, LNP-S, PF, 30 mcg/0.3 mL dose 1 [facility] 14:09:35 COVID-19, mRNA, LNP-S, PF, 30 mcg/0.3 mL dose 1 completed [facility]/22/2020 14:22:24 COVID-19, mRNA, LNP-S, PF, 30 mcg/0.3 mL dose 1 completed [facility] 01/16/2021 09:58:41 Influenza, high-dose, quadrivalent, PF 1 [facility] 05/08/2021 10:32:06 Influenza, split virus, trivalent, preservative 0 completed Not Available [facility] 04/18/2019 02:17:50 Past Encounters Encounter ID Performer Location Encounter Start Date Encounter Closed Date Diagnosis/Indication Diagnosis SNOMED-CT Code Diagnosis ICD10 Code Diagnosis Note [id number] [facility], [address] [place] [address] 05/27/2008 14:44:39 05/31/2008 14:47:22 [id number] [facility], [address] [place] [address] 06/24/2008 16:44:33 06/28/2008 10:22:53 [id number] [facility], [address] [place] [address] 12/22/2009 15:33:16 12/26/2009 07:59:01 [id number] FP, [facility], [address] [place] [address] 03/02/2010 16:00:54 03/06/2010 13:45:04 [id number] Radiology , [facility] [address] [place] [address] 03/20/2010 15:01:45 03/21/2010 11:20:58 [id number] , [facility], [address] [place] [address] 01/26/2011 10:05:07 01/29/2011 13:22:46 [id number] Radiology , [facility] [address] [place] [address] 01/26/2011 10:35:57 01/30/2011 08:45:03 [id number] , [facility], [address] [place] [address] 02/09/2011 15:09:01 02/12/2011 12:03:49 [id number] , [facility], [address] [place] [address] 03/13/2011 15:05:21 03/13/2011 17:15:06 [id number] Radiology , [facility] [address] [place] [address] 03/13/2011 16:35:35 03/15/2011 12:04:48 [id number] Radiology , [facility] [address] [place] [address] 04/19/2011 15:26:55 04/20/2011 14:58:30 [id number] , [facility], [address] [place] [address] 05/15/2011 16:12:06 05/15/2011 17:15:12 [id number] FP, [facility], [address] [place] [address] 07/03/2011 15:00:30 07/06/2011 08:10:51 [id number] , [facility], [address] [place] [address] 08/09/2011 16:03:19 08/13/2011 09:42:10 [id number] Radiology , [facility] [address] [place] [address] 08/09/2011 17:09:51 08/09/2011 17:22:53 [id number] [facility], [address] [place] [address] 08/21/2011 16:35:18 08/21/2011 17:29:43 [id number] AL Tian , [facility], [address] [place] [address] 04/08/2012 15:09:46 04/08/2012 17:16:15 [id number] AL Tian , [facility], [address] [place] [address] 06/26/2012 16:21:08 06/26/2012 17:21:18 [id number] [facility], [address] [place] [address] 07/02/2013 14:07:11 07/03/2013 09:00:18 Benign essential hypertension 6207059 Blood pressure at goal . Mixed hyperlipidemia 809753917 Cholestero l is at goal Cholestero l is not at goal Continue to work on diet and exercise as discussed [facility] [id number] see Risk Assessment and Lifestyle Change Counseling section above Tobacco user [id number] d iscussed that smoking - nicotin and other chemicals adversely effect BH illnesses and do not support efforts of recovery- reiiterate d that pt is in charge of her health decisions- moving to new house- stress mgt reviewed [id number] Erinn Modi MA , [facility], [address] [place] [address] 01/21/2014 16:20:29 01/21/2014 17:19:26 Tobacco user 183608737 reviewed adv's of nicotine patch/loze nge along with wellbutrti n to decrease smoking. Hyperlipidemia 73940375 Influenza vaccine needed [id number] 106 Benign ess ential hypertension 8026476 Blood pressure at goal . Diabetes mellitus 35576086 [id number] Ignacia Valerio , [facility], [address] [place] [address] 09/08/2014 16:21:01 09/08/2014 17:29:57 Benign essential hypertension 7036833 Blood pressure at goal Blood pressure NOT at goal. Tobacco user [id number] r eviewed adv's of nicotine patch/loze nge along with wellbutrti n to decrease smoking. Hyperlipidemia 33358622 [id number] Veronica Kim , [facility], [address] [place] [address] 01/03/2015 15:18:42 01/04/2015 10:44:00 Adult health examination 213661555 Z00.00 see Risk Assessment and Lifestyle Change Counseling section above Screening for disorder 030290738 Z72.89 Screening for malignant neoplasm of colon 215756887 Z12.11 Tobacco user 795271249 Z 72.0 reviewed adv's of nicotine patch/loze nge along with wellbutrti n to decrease smoking. Influenza vaccine needed 7820158139 106 Z28.3 Administra tion of pneumococcal vaccine 63063054 Z23 Administra tion of diphtheria, pertussis, and tetanus vaccine 260826324 Z23 Diabetes mellitus 442135 09 E13.9 controlled with diet Hyperlipidemia 17664092 E78.5 not at goal- intolerant of all statins, taking natruopath - thinks red rice yeast- high fiber- recheck in 3 -6 months Benign ess ential hypertension 4189069 I10 Blood pressure at goal Injury of mouth 13686097 S09.93XA by hx due to extreme temp change in mouth- hx has ramos in past and resolves- f/u if not resolving in coming month- sooner any worse [id number] Chacha Macdonald , [facility], [address] [place] [address] 01/13/2015 16:35:04 01/18/2015 15:08:13 Gingival disease 52135704 K06.9 buchal infection , [id number] Stefanie Sanchez NP , [facility], [address] [place] [address] 12/14/2015 09:37:51 12/15/2015 14:54:34 Herpes zoster 1509863 B02.9 Left uper breast with one small area of tiny vesicular lesions, and one satellite lesion on her back. Pt not experienci ng pain, but has some itchiness. Recommende d calamine lotion [id number] LA Tian , [facility], [address] [place] [address] 01/11/2016 15:16:09 01/11/2016 17:02:20 Adult health examination 236434881 Z00.00 see Risk Assessment and Lifestyle Change Counseling section above Cigarette smoker 0958078 7 F17.210 Tobacco user 451683318 Z 72.0 reviewed adv's of nicotine patch/loze nge along with wellbutrti n to decrease smoking. Screening for malignant neoplasm of cervix 739639864 Z12.4 Screening for malignant neoplasm of respiratory tract 682239451 Z12.2 Diabetes mellitus 764398 09 E13.9 controlled with diet Essential hypertension 67772206 I10 increase today, patient reports bp's < 140/90 in the grocery store- increase stressors now with up coming move.= recheck in 3 months when able Hyperlipidemia 64322629 E78.5 not at goal- intolerant of all statins, taking natruopath - thinks red rice yeast- high fiber- recheck in 3 -6 months Active or passive immunization 568086101 Z23 [id number] AL Tian, [facility], [address] [place] [address] 07/30/2016 16:18:45 07/30/2016 17:21:16 Benign essential hypertension 1844038 I10 Blood pressure at goal Mixed hyperlipidemia 267 802762 E78.2 not at goal- had s/e stain- consider red yeast rice Cigarette smoker 8425395 7 F17.210 Tobacco user 229726732 Z 72.0 reviewed adv's of nicotine patch/loze nge along with wellbutrti n to decrease smoking. Screening for malignant neoplasm of lung 657215719 Z12.2 Hip pain 95990149 M25.55 2 [id number] AL Tian, [facility], [address] [place] [address] 09/10/2016 13:04:28 09/10/2016 13:49:16 Cigarette smoker 21303385 F17.210 plan to d/c smoking prior to surgery Tobacco user 943755057 Z 72.0 will be stopping smoking prior to surgery - iusing stop smoking aides Pre-surger y evaluation [id number] Z01.818 pt cleared for surgery Cataract 223505268 H26.9 [id number] AL Tian, [facility], [address] [place] [address] 01/14/2017 11:32:34 01/14/2017 13:11:03 Adult health examination 908471269 Z00.00 see Risk Assessment and Lifestyle Change Counseling section above Counseling 833617838 Z71 .9 Mixed hyperlipidemia 267 043172 E78.2 Cholestero l is not at goal Continue to work on diet and exercise as discussed- ADD [employer]YLLIUM- intolerant to statins Benign ess ential hypertension 7880937 I10 Blood pressure at goal , continue present mgtm Cigarette smoker 4889592 7 F17.210 Tobacco user 793749962 Z 72.0 reviewed adv's of nicotine patch/loze nge along with wellbutrti n to decrease smoking. Active or passive immunization 546315277 Z23 Imaging of lung abnormal 191405650 R91.8 DUE IN 03/17 Hearing loss 60936004 H9 1.93 audioogy referral [id number] AL Tian, [facility], [address] [place] [address] 05/27/2017 13:02:35 05/27/2017 15:38:58 Acute upper respiratory infection 14466132 J06.9 Educated patient that URI is a viral illness of the upper airways. It is not bacterial and does not benefit from antibiotic s. Average duration of URI is 7-10 days but in a recent trial, treatment at 7-10 days of illness with antibiotic s, intranasal steroids, or placebo did not alter natural history at 3 weeks. Recommende d symptomati c treatments including NSAIDS, semi-uprig ht sleep position, antihistam dylon at HS, limited course of nasal sympathomi metics and/or cough syrups, and nasal saline rinses with soft squeeze bottle or Neti pot. Return for fevers > 101 for 3 days, worsening sinus pain, or failure to resolve in 2-4 weeks. Cough 82827473 R05 Pneumonia 856109242 J18. 9 Type 2 monik betes mellitus without complication 196233922 E13.9 controlled with diet and exercise [id number] AL Tian, [facility], [address] [place] [address] 07/15/2017 10:27:21 07/15/2017 11:38:34 Benign essential hypertension 8309399 I10 Blood pressure at goal Mixed hyperlipidemia 267 321704 E78.2 Cholestero l is not at goal Continue to work on diet and exercise as discussed- increase [employer]IUM- intolerant to statins Active or passive immunization 548323049 Z23 Nicotine dependence 5629 4008 F17.200 Allergy to bee venom 424 764083 Z91.030 Pneumonia 039547782 J18. 9 Diabetes mellitus 706973 09 E11.9 well COntrolled with diet and exercise, restart ASA 81 MG [id number] AL Tian, [facility], [address] [place] [address] 11/15/2017 11:47:27 11/15/2017 13:01:54 Mixed hyperlipidemia 090078736 E78.2 Cholestero l is not at goal TRIAL WITH ATORVASTAT IN 80 TRY QOD FIRST. Intracrani al meningioma 173109562 D32.0 to schedule neuro surgery Carotid ar dayana occlusion 556212093 I65.29 vascular surgeon referral bree wilson [id number] AL Tian , [facility], [address] [place] [address] 01/16/2018 14:03:24 01/16/2018 16:18:57 Adult health examination 374901885 Z00.00 see Risk Assessment and Lifestyle Change Counseling section above Counseling 340420415 Z71 .9 Depression screening 171 808675 Z13.89 depression screening tool administer ed, entered into emr, scored and discussed, time greater than 7.5 minutes Mixed hyperlipidemia 267 366884 E78.2 Cholestero l is not at goal TRIAL WITH ATORVASTAT IN 80 TRY QOD FIRST. Benign ess ential hypertension 5668136 I10 Blood pressure at goal Postmenopausal state 764 05708 Z78.0 Active or passive immunization 549028657 Z23 Solitary n odule of lung 744968045 R91.1 Dizziness 840948848 R42 [id number] Marti Abreu MD , [facility], [address] [place] [address] 05/21/2018 14:29:33 05/21/2018 15:54:19 Tachycardia 1524618 R00.0 mildly tachyshaki ng, SOB with exertion? 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 Dizziness 447998159 R42 worsening sx over weeksassoc iated with shaking and exertional SOBtachy on exampeak flows okay, VS Other espinoza stableenc hydrationt aram it easylab work up and close f/u [id number] Marti Abreu MD FP, [facility], [address] [place] [address] 05/28/2018 10:07:19 05/29/2018 11:41:11 Microcytic anemia 721988100 D50.9 she is going to GI nowshe likely needs to go to hospital for labs and txshe is quite sx with her anemiashe is normotensi ve, but low for hershe is only tachy to 104 on ascultatio nshe is paleDr Henson called to inform of sxclose f/u plan/ hospitaliz ation if necessary [id number] AL Tian, [facility], [address] [place] [address] 06/04/2018 08:10:39 06/04/2018 10:02:50 Dyspnea 568229561 R06.00 with dizziness- overtx HTN- stop lisinopril , check cbc- f/u 1 wk Anemia 278652641 D64.9 Diabetes mellitus 759166 09 E11.9 well COntrolled with diet and exercise, restart ASA 81 MG [id number] AL Tian, [facility], [address] [place] [address] 06/18/2018 16:18:46 06/19/2018 08:14:54 Benign essential hypertension 9776245 I10 stopped lisinopril - hypotensiv e- TO ER Diabetes mellitus 253894 09 E11.9 over controlled . Taper metformin down to 2 tablets daily Anemia 546428955 D64.9 Bipolar disorder 2582722 4 F31.9 Gastrointe stinal hemorrhage 66173728 K92.2 heme pos stool, hypotensiv e, tachycardi c- to ER Hypotensive episode 6776 3001 I95.9 [id number] AL Tian, [facility], [address] [place] [address] 06/30/2018 12:03:52 07/01/2018 09:19:30 Mixed hyperlipidemia 851872193 E78.2 Cholestero l is not at goal TRIAL WITH ATORVASTAT IN 80 TRY QOD FIRST. Carotid ar dayana stenosis 10657159 I65.29 cont plavix Bipolar disorder 8445449 4 F31.9 continue f/u with Dr Cintron Anemia 466845555 D64.9 GI eval in progress [id number] Imani Torres , [facility], [address] [place] [address] 10/08/2018 11:24:54 10/08/2018 15:32:55 Cigarette smoker 43603546 F17.210 Abnormal v aginal bleeding 237791034 N93.9 Fatigue 30541149 R53.83 Screening for malignant neoplasm of cervix 293230149 Z12.4 [id number] AL Tian, [facility], [address] [place] [address] 10/29/2018 13:53:42 10/29/2018 14:58:48 Pre-surgery evaluation 354513060 Z01.818 pt cleared for surgery Carotid ar dayana stenosis 82265223 I65.29 R carotid artery stenosed 50-79%, LEFT CAROTID < 50%, will hold asa and plavix 5 days prior to surgery. consulted with pts vascular surgeon, Dr Sharpe and agrees with plan Mass of ovary 277440879 R19.09 cleared for surgery Intracrani al meningioma 985661873 D32.0 pmh- Bipolar disorder 8118858 4 F31.9 stable, continue f/u with Dr Ward Diabetes mellitus 445510 09 E11.9 stable- tx with diet and exercise. Hypothyroidism 63073171 E03.9 stable Hyperlipidemia 22693191 E78.5 [id number] DEEDEE Cook , [facility], [address] [place] [address] 01/21/2019 14:04:56 01/23/2019 09:29:41 Active or passive immunization 721694957 Z23 [id number] AL Tian, [facility], [address] [place] [address] 02/18/2019 09:39:42 02/18/2019 11:40:30 Adult health examination 300491886 Z00.00 see Risk Assessment and Lifestyle Change Counseling section above Counseling 931242649 Z71 .9 Depression screening 171 136758 Z13.89 depression screening tool administer ed, entered into emr, scored and discussed, time greater than 7.5 minutes Mixed hyperlipidemia 267 578756 E78.2 Ex-smoker 1205827 Z87.89 1 Screening mammography 24 340070 Z12.31 Fatigue 53300213 R53.83 Hearing loss 03298258 H9 1.93 reviewed test- showing b/l hearing loss- prefers to not f/u with audiologis t at this time Salo hematuria 35843567 5 R31.0 suspecting /hx- UA negative today- f/u ctologies. - [employer] f/u planned [id number] AL Tian, [facility], [address] [place] [address] 05/28/2019 15:16:46 05/28/2019 16:45:07 Diabetes mellitus 20111997 E11.9 may decrease metfomin 1tab/day Essential hypertension 20689277 I10 At goal, continue current medication s. Mixed hyperlipidemia 267 335294 E78.2 Increase pravastati n to 20mg BID, Recheck lipids in 1 month Postmenopausal state 764 55086 Z78.0 declined despite knowing risk of contractin g disease and potential from disease, would like to discuss at next visit [id number] AL Tian, [facility], [address] [place] [address] 03/02/2020 15:28:56 03/02/2020 16:22:35 Bipolar disorder 94634405 F31.9 stable, continue f/u with [facility] examination 224746729 Z00.00 see Risk Assessment and Lifestyle Change Counseling section above Counseling 113137110 Z71 .9 including cardiovasc ular risk reduction counseling Depression screening 171 641740 Z13.89 depression screening tool administer ed, entered into emr, scored and discussed, time greater than 7.5 minutes Screening for alcohol abuse 467601311 Z13.39 Essential hypertension 56340945 I10 At goal, continue current medication s. Hyperlipidemia 12765656 E78.5 Hypothyroidism 96641272 E03.9 stable Eruption 807025456 R21 skin lesion- unchanged since summer- derm referral [id number] AL Tian, [facility], [address] [place] [address] 11/18/2019 13:48:59 11/19/2019 12:52:31 Essential hypertension 43722802 I10 At goal, continue current medication s. Mixed hyperlipidemia 267 978205 E78.2 continue Increase pravastati n to 20mg BID, - condider increase to 40 mg- has had muscle aches with statin use in past Dizziness 909160859 R42 check labs, keep diary- f/u with results in coming 1-2 wks Intracrani al meningioma 680711418 D32.0 continue f/u withoncolo gist [id number] AL Tian, [facility], [address] [place] [address] 01/04/2020 13:42:55 01/07/2020 13:31:01 Salo hematuria 830785426 R31.0 suspecting /hx- UA negative today-cyto logies neg.- urology f/u for hematuria Disorder o f thyroid gland 55583363 E07.9 [id number] AL Tian, [facility], [address] [place] [address] 09/22/2020 13:47:01 10/10/2020 11:36:51 Essential hypertension 03466195 I10 At goal, continue current medication s. Hyperlipidemia 09469410 E78.5 LDL- 140's with vascular disease- goal is 70, intolerant to atorvastat in- will increase to 40 mg pravastati n. Peripheral vascular disease 003828910 I73.9 Carotid ar dayana stenosis 74096286 I65.29 R carotid artery stenosed 50-79%, LEFT CAROTID < 50%, Dyspnea 661597970 R06.00 chest xray , ekg negative- further eval- stress test- tcx 2 to reach pt- PFT/pulmon jermain to do with smoking hx, left message to make f/u appt/call back . Eruption 192015042 R21 skin lesion- unchanged since summer- derm referral [id number] AL Tian, [facility], [address] [place] [address] 05/08/2021 10:08:25 05/08/2021 11:37:52 Adult health examination 694054492 Z00.00 see Risk Assessment and Lifestyle Change Counseling section above Counseling 052881731 Z71 .9 including cardiovasc ular risk reduction counseling Depression screening 171 656328 Z13.31 depression screening tool administer ed, entered into emr, scored and discussed, time greater than 7.5 minutes Screening for alcohol abuse 011653947 Z13.39 Hyperthyroidism 82857788 E05.90 Essential hypertension 32247848 I10 not At goal, continue current medication s. Mixed hyperlipidemia 267 076449 E78.2 Cholestero l is at goalContin ue to work on diet and exercise as discussed Screening mammography 24 614158 Z12.31 Screening for osteoporosis 600927890 Z13.820 Candidiasis of vagina 72 533831 B37.3 Multiple n odules of lung 529623781 R91.8 Diabetes mellitus 199735 09 E11.9 cont decrease metfomin 1tab/day- well cotnrolled with nutrition and exercise Bipolar disorder 8696246 4 F31.9 stable, continue f/u with Dr Ward Peripheral vascular disease 750433816 I73.9 carotid vascular disease- LDL- decreasing , asa and clopidogre l daily [id number] AL Tian FP, [facility], [address] [place] [address] 06/21/2021 11:45:12 07/11/2021 13:10:57 Mixed hyperlipidemia 128942146 E78.2 Cholestero l is at goalContin ue to work on diet and exercise as discussed Atrophic vaginitis 39952 000 N95.2 Candidiasis of skin 4988 3006 B37.2 rash localized- no signs of bacterial infection, puritus is localized to areas where rash is and not generalize d- if itching worsening- further eval- checking labs and allergies indicated Health Concerns Section Related Observation LastModified by Organization Detai ls LastModified Time None Recorded Concern Status LastModified by Organization Details LastModified Time None Recorded Advance Directives Directive N: Payers Encounter Date Sequence Insurance Name Policy Number Policy Georges Covered Member ID Georges Member ID Guarantor Name 01/04/[address] [facility] (MEDICARE REPLACEMENT/A DVANTAGE - PPO) [id number] Ritu Nicholson [id number] Ritu Nicholson 03/02/[address] [facility] (MEDICARE REPLACEMENT/A DVANTAGE - PPO) [id number] Ritu Nicholson [id number] Ritu Nicholson 09/22/[address] [facility] (MEDICARE REPLACEMENT/A DVANTAGE - PPO) [id number] Ritu Nicholson [id number] Ritu Nicholson 05/08/[address] [facility] (MEDICARE REPLACEMENT/A DVANTAGE - PPO) [id number] Ritu Nicholson [id number] Ritu Nicholson 06/21/[address] [facility] (MEDICARE REPLACEMENT/A DVANTAGE - PPO) [id number] Ritu Nicholson [id number] Ritu Nicholson Notes Date Note Type Note Provider Name and Address Organization Details Recorded Time 0 text/html F/U labs- specifically microalbumin. States levels were elevated and is concerned that this may be the reason why she's had blood in her urine in the past. Pt reports no current sx other than feeling fatigued. Would like to discuss possibility of being anemic due to extreme fatigue. pt has had episodes of blood with urinating. fatigue- continues Declined video chat- requesting c/b at Time for intake: {{1 2 3 4 5 6 7 8* 9 10 11 12 13 14 15 16 17 18 19 20 21 22 23 24 25}} minutes. AL Tian [address] [place] [address], [address], [facility] 01/05/2020 20:20:32 0 text/html Physical Exam/FemaleReported bypatient.PHAPatient is here for a Wellness Visit. She describes her health status as good. Patient's health is the same as last year.Risk Assessment and Lifestyle Change Counseling 50-64Reported bypatient.Coronary Artery Disease Risk Assessment:No Family history of coronary artery disease;Personal history of diabetes; No history of peripheral vascular disease, AAA, or carotid disease; No personal history of coronary artery disease Breast Cancer Risk Assessment:No family history of breast cancer Colon Cancer Risk Assessment:No family history of colon polyps or cancer Lung Cancer Risk Assessment:Has used cigarettes; No asbestos exposure Fracture Risk Assessment:No unexplained fracture Cognitive/Behavioral Risk Assessment:Personal history of mental illnes;Family history of mental illness Safety Risk Assessment:No evidence of abuse/neglect Diet:Counseled about appropriate portion size; Counseled about eating a diet low in trans and saturated fats and high in fiber, fruits and vegetables; Counseled about appropriate calcium intake and good dietary sources of calcium.; Counseled about the importance of maintaining a positive calcium balance and taking 1000 iu Vitamin D daily.; Counseled about decreasing carbohydrates; Counseled about decreasing salt in diet; Discussed the value of a Mediterranean diet , and eating more fruits and vegetables Exercise counseling:Discussed the importance of daily physical activity; Discussed the importance of weight bearing exercise Safety:Counseled about protecting skin from the sun and lowering the risk of skin cancerRisk Assessment and Lifestyle Change Counseling 65+ (Medicare)Reported bypatient.Coronary Artery Disease Risk Assessment:Family History of Coronary Artery Disease;Personal history of diabetes; No history of peripheral vascular disease, AAA, or carotid disease; No personal history of coronary artery disease Breast Cancer Risk Assessment:No family history of breast cancer; No history of breast cancer or dcis Colon Cancer Risk Assessment:No family history of pre cancerous colon polyps or cancer Lung Cancer Risk Assessment:Current smoker Fracture Risk Assessment:No unexplained fracture; No use of corticosteroids; No anti-seizure medication; Normal bone density; Has adequate calcium intake; Taking Vitamin D supplement; No chronic use of proton pump inhibitors Cognitive/Behavioral Risk Assessment:Personal history of mental illness Safety Risk Assessment:Has grab bars in bathroom; Has rails on steps;History of falls; No evidence of abuse/neglect Functional Status:Patient has trouble hearing the television or radio when others do not.;Patient has to strain or struggle to hear/understand conversations.; Patient does not need help with preparing meals, transportation, shopping, taking medicine, managing finances, or other activities of daily living.; Patient does not have visual loss that interferes with daily activities; Does not live alone; Patient was not unsteady and did not take longer than 30 seconds during the timed get up and go test. Exercise counseling:Discussed the importance of daily physical activity; Discussed the importance of weight bearing exerciseRisk Assessment and Lifestyle Change Counseling-female 60-64Reported bypatient.Coronary Artery Disease Risk Assesment:No Family history of coronary artery disease;Does not participate in regular exercise program; Eats a diet low in fats and high in fiber;Personal history of hypertension;Lipids in undesirable range Breast Cancer Risk Assessment:No family history of breast cancer Colon Cancer Risk Assessment:No family history of colon polyps or cancer Fracture Risk Assessment:No falls; No use of corticosteroids; No anti-seizure medication;Does not have adequate calcium intake;Not taking Vitamin D Risk for Sexually transmitted disease Assessment:No history of sexually transmitted disease Cognitive/Behavioral Risk Assessment:Personal history of depression Safety Risk Assessment:uses seat belts; Concerns about abuse/neglect (not presently) Diet:Counseled about appropriate portion size; Counseled about eating a diet low in trans and saturated fats and high in fiber, fruits and vegetables; Counseled about appropriate calcium intake and good dietary sources of calcium.; Counseled about the importance of maintaining a positive calcium balance and taking 1000 iu Vitamin D daily.; Counseled about decreasing carbohydrates; Counceled about decreasing salt in diet; Discussed the value of a Mediterranean diet , and eating more fruits and vegetables Exercise counseling:Discussed the importance of daily physical activity; Discussed the importance of weight bearing exercise Safety:Counseled about protecting skin from the sun and lowering the risk of skin cancer Advanced DirectivesDiscussed the importance of a health care proxy and advanced directives Emergerncy Department and Urgent Care:Counseled about appropriate use of the emergency room and availability of urgent care at [facility] HyperlipidemiaReported bypatient.Duration:chronic Control:poorly controlled Barriers to CareAllergy/intolerance to statinsG HypertensionReported bypatient.Context:No ischemic heart disease; No kidney disease; No history of CVA; No congestive heart failure; No history of transient ischemic attacks; No peripheral vascular disease; No history of diabetes Compliance:Compliant with medications; Compliant with diet;Noncompliant with exercise(taking yoga) Associated Symptoms:No shortness of breath; No edema; No fatigue; No palpitations; No decline in exercise capacity; No snoring;Chest pain(assoc with anxiety- no assoc with exercise)a/[facility] [place]-Smoking CessationReported bypatient.Readiness to quit smokingPatient is not considering stopping smoking in the next 6 months. Duration:Currently smoking 20 cigarettes per day Barriers to Quittingunder stress Patient is here for wellness visit, Patient reports saw bleeding from urethra saturday, hadnt had that before. Had hysterectomy on November. C/o fatigue. Reports eating good . sleeping till 1 in noon. Using nicotine 4 mg buccal lozenge regularly. Reports feeling anxious when skip dosage. Reports sensitive to statin. 50-70 % blockage or artery per specialist. SOB when walk for long Time for intake: {{1 2 3 4 5 6 7 8 9 10 11 1 2 13 14 15 16 17 18 19 20 2 1 22 23 24 25}} minutes. AL Tian [address] [place], [address], [facility] 03/02/2020 16:22:33 1 text/html VMG DiabetesReported bypatient.Duration:chronic Control:Hemoglobin A1C has been less than 7; Hemoglobin A1C goal is less than 7; Moderate dose statin; BP goal is less than 120/80 Compliance:compliant with medications; Patient understands medications are to reduce blood sugar and control diabetesVMG HyperlipidemiaReported bypatient.Duration:chronic Control:poorly controlled Barriers to CareAllergy/intolerance to statinsVMG HypertensionReported bypatient.Context:No ischemic heart disease; No kidney disease; No history of CVA; No congestive heart failure; No history of transient ischemic attacks; No peripheral vascular disease; No history of diabetes Compliance:Compliant with medications; Compliant with diet;Noncompliant with exercise(taking yoga) Associated Symptoms:No shortness of breath; No edema; No fatigue; No palpitations; No decline in exercise capacity; No snoring;Chest pain(assoc with anxiety- no assoc with exercise)a/[facility]-Smoking CessationReported bypatient.Readiness to quit smokingPatient is not considering stopping smoking in the next 6 months. Duration:Currently smoking 20 cigarettes per day Barriers to Quittingunder stress pt c/o dyspnea x months- no chest pain, palpitations. agg with acitivity PMH > 30 pack yr- AL Tian [address] [place], [address], [facility] 11/02/2020 11:08:29 2 text/html Physical Exam/FemaleReported bypatient.PHAPatient is here for a Wellness Visit. She describes her health status as fair. Patient's health is the same as last year.Risk Assessment and Lifestyle Change Counseling 50-64Reported bypatient.Coronary Artery Disease Risk Assessment:No Family history of coronary artery disease;Personal history of diabetes; No history of peripheral vascular disease, AAA, or carotid disease; No personal history of coronary artery disease Breast Cancer Risk Assessment:No family history of breast cancer Colon Cancer Risk Assessment:No family history of colon polyps or cancer Lung Cancer Risk Assessment:Has used cigarettes; No asbestos exposure Fracture Risk Assessment:No unexplained fracture Cognitive/Behavioral Risk Assessment:Personal history of mental illnes;Family history of mental illness Safety Risk Assessment:No evidence of abuse/neglect Diet:Counseled about appropriate portion size; Counseled about eating a diet low in trans and saturated fats and high in fiber, fruits and vegetables; Counseled about appropriate calcium intake and good dietary sources of calcium.; Counseled about the importance of maintaining a positive calcium balance and taking 1000 iu Vitamin D daily.; Counseled about decreasing carbohydrates; Counseled about decreasing salt in diet; Discussed the value of a Mediterranean diet , and eating more fruits and vegetables Exercise counseling:Discussed the importance of daily physical activity; Discussed the importance of weight bearing exercise Safety:Counseled about protecting skin from the sun and lowering the risk of skin cancerRisk Assessment and Lifestyle Change Counseling 65+ (Medicare)Reported bypatient.Coronary Artery Disease Risk Assessment:Family History of Coronary Artery Disease;Personal history of diabetes; No history of peripheral vascular disease, AAA, or carotid disease; No personal history of coronary artery disease Breast Cancer Risk Assessment:No family history of breast cancer; No history of breast cancer or dcis Colon Cancer Risk Assessment:No family history of pre cancerous colon polyps or cancer Lung Cancer Risk Assessment:Current smoker Fracture Risk Assessment:No unexplained fracture; No use of corticosteroids; No anti-seizure medication; Normal bone density; Has adequate calcium intake; Taking Vitamin D supplement; No chronic use of proton pump inhibitors Cognitive/Behavioral Risk Assessment:Personal history of mental illness Safety Risk Assessment:Has grab bars in bathroom; Has rails on steps (no stairs in the home); No falls; No evidence of abuse/neglect Functional Status:Patient has trouble hearing the television or radio when others do not.;Patient has to strain or struggle to hear/understand conversations.; Patient does not need help with preparing meals, transportation, shopping, taking medicine, managing finances, or other activities of daily living.;Patient has visual loss that interfers with daily activities(hard time reading small print & eyes get blurry); Does not live alone; Patient was not unsteady and did not take longer than 30 seconds during the timed get up and go test. Exercise counseling:Discussed the importance of daily physical activity; Discussed the importance of weight bearing exerciseRisk Assessment and Lifestyle Change Counseling-female 60-64Reported bypatient.Coronary Artery Disease Risk Assesment:No Family history of coronary artery disease;Does not participate in regular exercise program; Eats a diet low in fats and high in fiber;Personal history of hypertension;Lipids in undesirable range Breast Cancer Risk Assessment:No family history of breast cancer Colon Cancer Risk Assessment:No family history of colon polyps or cancer Fracture Risk Assessment:No falls; No use of corticosteroids; No anti-seizure medication;Does not have adequate calcium intake;Not taking Vitamin D Risk for Sexually transmitted disease Assessment:No history of sexually transmitted disease Cognitive/Behavioral Risk Assessment:Personal history of depression Safety Risk Assessment:uses seat belts; Concerns about abuse/neglect (not presently) Diet:Counseled about appropriate portion size; Counseled about eating a diet low in trans and saturated fats and high in fiber, fruits and vegetables; Counseled about appropriate calcium intake and good dietary sources of calcium.; Counseled about the importance of maintaining a positive calcium balance and taking 1000 iu Vitamin D daily.; Counseled about decreasing carbohydrates; Counceled about decreasing salt in diet; Discussed the value of a Mediterranean diet , and eating more fruits and vegetables Exercise counseling:Discussed the importance of daily physical activity; Discussed the importance of weight bearing exercise Safety:Counseled about protecting skin from the sun and lowering the risk of skin cancer Advanced DirectivesDiscussed the importance of a health care proxy and advanced directives Emergerncy Department and Urgent Care:Counseled about appropriate use of the emergency room and availability of urgent care at [facility] HyperlipidemiaReported bypatient.Duration:chronic Control:poorly controlled Barriers to CareAllergy/intolerance to statinsG HypertensionReported bypatient.Context:No ischemic heart disease; No kidney disease; No history of CVA; No congestive heart failure; No history of transient ischemic attacks; No peripheral vascular disease; No history of diabetes Compliance:Compliant with medications; Compliant with diet;Noncompliant with exercise(taking yoga) Associated Symptoms:No shortness of breath; No edema; No fatigue; No palpitations; No decline in exercise capacity; No snoring;Chest pain(assoc with anxiety- no assoc with exercise)a/[facility] [place]-Smoking CessationReported bypatient.Readiness to quit smokingPatient is not considering stopping smoking in the next 6 months. Duration:Currently smoking 20 cigarettes per day Barriers to Quittingunder stress Patient is here today for Annual WellnessFatigue- was put on a Cpap & feeling betterHas been having rashes under her breast, vaginal area, buttock & belly button. doing yrly neurology- Dr Poon- neuropsych. Patient is here for wellness visit, Patient reports saw bleeding from urethra saturday, hadnt had that before. Had hysterectomy on November. C/o fatigue. Reports eating good . sleeping till 1 in noon. Using nicotine 4 mg buccal lozenge regularly. Reports feeling anxious when skip dosage. Reports sensitive to statin. 50-70 % blockage or artery per specialist. SOB when walk for long AL Tian [address] [place] [address], [id number], [facility] 05/14/2021 19:56:41 2 text/html Pt reports rash all over body ongoing since summer time- started under breasts. Fluconazole has not helped. Rash is painful and itching and worsening over time- rash on axilla, labia, under breasts. . no fever or nausea. AL Tian [address] [place] [address], [phone], [facility] 06/30/2021 20:25:49 OBGyn Episode No OBEpisode recorded.
== END 2024-05-13 15:16 | disposition home or self-care (01) ==
LOC: HO.HOP 13:51
PROVIDERS: PCP Internal Medicine; Visit Provider Psychiatry & Neurology Psychiatry
DX: F31.81 Bipolar II disorder (principal); F43.10 Post-traumatic stress disorder, unspecified; F41.1 Generalized anxiety disorder
CPT/HCPCS: 90833; 99213

== ENCOUNTER → 2024-05-13 13:51 | Outpatient (BNVA) | payer MEDICARE, SELFPAY | PROVIDERS: PCP Internal Medicine; Visit Provider Psychiatry & Neurology Psychiatry ==

== ENCOUNTER 2024-05-28 15:12 | Outpatient (REF) | payer MEDICARE, SELFPAY ==
--- NOTE | ~2024-05-28 | CT_ITS ---
CLINICAL HISTORY: Z87.891 - Personal history of nicotine dependence CT lung cancer screening (LDCT) Comparison: 11/25/2023 Technique: Axial CT images of the chest using low-dose technique. Referring provider counseled the patient on shared decision-making for LDCT screening. Additional counseling was provided on smoking cessation. Effective radiation dose total: DLP 50 mGycm, CTDIvol 1.4 mGy. Findings: Lung: Solid left lower lobe lesion measures 0.8 x 0.6 cm, previously 0.6 x 0.6 cm. No new solid or semi solid lesion Coronary artery calcifications: Moderate Limited upper abdomen: Unremarkable Other: None Impression: Category 3: Probably benign, and six-month CT recommended Category 1: Normal; continue annual screening Category 2: Benign appearance or behavior, continue annual screening Category 3: Probably benign, [address] recommended Category 4A: Suspicious, [address] recommended; may consider PET/CT Category 4B: Suspicious, Additional diagnostics and/or tissue sampling recommended Category 4X: Suspicious, Additional diagnostics and/or tissue sampling recommended Category 0: Recalls (incomplete screen due to Incomplete coverage, Noise, Respiratory motion, Expiration, Obscured by acute abnormality) This document has been electronically signed by: Hernan Salter MD on 05/29/2024 08:40:54
--- OUTSIDE RECORDS SUMMARY | 2024-05-28 18:34 | XMS_ITS | Data Portability ---
Author Organization [facility], [facility] Address [address] [place] [address] Care Team Providers Care Customer Trainer Name Role Phone JOMAR BETANCUR Primary Care Provider [phone] SAMMIE PATEL Ambulatory Analyst HAZEL BRENNAN Radiation Oncologist JASMINE CASTILLO Merry Go Round Operator DAYLIN CHEN Ambulatory Analyst KORIN SHARPE Vascular Surgeon CORY HUGO Complaint Analyst Assessment Encounter Date Assessment Date Assessment LastModified [...] recorded. Lab TSH, serum or plasma 2019 [facility], [address] [place] [address], [address], 0 08:21:04 CBC 2019 [facility], [address] [place] [address], [address], 0 08:21:04 iron, serum 2019 [facility], [address] [place] [address], [address], 0 08:21:04 Referral urologist referral - hematuria x 2 in pmh, cytologies x 3 attached 2019 [facility], [address] [facility], [place], [address], 0 12:54:43 Procedures None recorded. Surgeries None recorded. Imaging MAMMO, screening, tomosynthes is, bilateral 2021 [facility] (Imaging), [address], [place], [address], 3 15:14:05 bone density 2021 [facility] Central Scheduling, [address] [place], [address], 2 08:00:43 LDCT, chest, for lung cancer screening - due in 10/20, last scan 10/26/2020, former smoker, 30+ pack years 2021 [email or web address] [facility], [address] [place], [address], 11:52:09 XR, chest - 70 yo ex smoker- dyspnea x 6 months- [address] (Imaging), [address] , [place], [address], 11:36:51 electrocard iogram [address], [address] [place] [address], [place], [address], 11:36:52 Medication Orders estradiol 0.01% (0.1 mg/gram) vaginal cream 2021 [facility], [address] [place] [address], [address], 12:20:13 aspirin 81 mg tablet,nicol yed release 2021 [facility], [address] [place] [address], [address], 12:20:14 clotrimazol e 1 % topical cream 2021 [facility], [address] [place] [address], [address], 12:24:36 fluconazole 150 mg tablet 2021 022 magaly [facility]/Pharmacy #[id number], [address] [place], [address], 11:53:04 nystatin 100,000 unit/gram topical cream 2020 021 [facility]Pharmacy #[id number], [address] [place], [address], 18:50:22 pravastatin 40 mg tablet 2020 021 [facility]/Pharmacy #[id number], [address] [place], [address], 1 15:01:19 nystatin 100,000 unit/gram topical cream 2019 020 [email or web address] [facility]/Pharmacy #[id number], [address] [place], [address], 14:17:53 Patient TargetsNo targets recorded. Patient Instructions Encounter Date Encounter Id Patient Instructions Last Modified By Organization Details Last Modified Time 01/04/2020 [id number] After a discussion of treatment options, which included consideration of best practices, patient preferences, and the patient? s individual lifestyle and treatment goals, as well as consideration and attempted mitigation of any barriers to meeting the patient? s goals, the following treatment plan and objectives were adopted: as above aesrick Not available 01/05/2020 20:19:54 03/02/2020 [id number] advance directives: care instructions aesrick Not available [...] sponsor}}My Health To Do List {{go to [employer] [email or web address].[email or web address] or call si gn up for shilo text 2 quit or other stop smoking shilo contact [employer]}} {{go to [employer] or call si gn up for shilo text 2 quit or other stop smoking shilo contact [employer]}} {{go to [employer] or call si gn up for shilo text 2 quit or other stop smoking shilo contact [employer]}} madison Not available 03/02/2020 12:04:38 09/22/2020 [id number] After a discussion of treatment options, which included consideration of best practices, patient preferences, and the patient? s individual lifestyle and treatment goals, as well as consideration and attempted mitigation of any barriers to meeting the patient? s goals, the following treatment plan and objectives were adopted: as above aesrick Not available 10/09/2020 18:54:34 05/08/2021 [id number] high cholesterol lifestyle changes aesrick Not available [...] reviewed. aesrick Not available 05/08/2021 11:27:41 06/21/2021 [id number] After a discussion of treatment options, which [...] diogr am No observ ation record ed. [facility] [address] [facility], [place], [address], 10/12/2020 20:10:24 09/23/19 21 elect rocar diogr [...] g Physic miguel angel: Jason Hampton ms [facility] (Imaging) [address], [place], [address], 09/24/2020 16:26:26 10/27/19 21 10/26/2020 CT chest [...] at: https: //[email or web address]. [email or web address] g/Qual ity-Sa fety/[facility] es/Luis gRADS This report has been forwar ded to an automa All[employer] icatio n system which will electr onical ly notify approp riate provid ers of potent ially import ant findin gs. Electr onical ly Signed by: Hang garcia on 021 3:04 PM Interp reted by: Hang garcia MD Signed by: Hang garcia MD 1 CC Recipi ents: Jomar Betancur , [place] - Fax Final result JOMAR BETANCUR [facility] [address] [facility], [place], [address], 10/26/2020 19:23:20 10/27/19 21 10/26/2020 CT, chest No observ ation record ed. [facility] [address], [place], [address], 10/26/2020 18:11:57 11/11/19 21 11/10/2020 exerc ise stres s test No observ ation record ed. [facility] (Medical Records) [address] [place], [address], 11/19/2020 11:02:13 11/25/19 21 11/24/2020 exerc ise stres s test No observ ation record ed. [facility] (Medical Records) [address] [place], [address], 11/30/2020 13:52:10 11/26/19 21 11/24/2020 NM, myoca rdial perfu rupesh scan, w/ stres s No observ ation record ed. [facility] (Medical Records) [address] [place], [address], 11/30/2020 13:52:10 01/17/20 21 12/12/2020 polys omnog kathy * No observ ation record ed. [facility] [address] [place], [address], 01/22/2021 14:55:12 06/02/19 22 05/31/2021 bone densi ty No observ ation record ed. [facility] [address] [place], [address], 06/04/2021 15:15:01 11/01/19 22 10/30/2021 CT chest [...] Crawley MD 10/31/21 Final result JOMAR BETANCUR [facility] [address] [place] [address], [address], 11/03/2021 22:04:11 11/01/19 22 10/30/2021 CT, chest No observ ation record ed. [facility] (Mammo) [address] [place] [address], [address], 11/03/2021 22:04:11 Result Notes None recorded. Problems Name Problem SNOMED Code Status Onset Date Resolution Date Notes Provider Name and Address Organization Details Recorded Time Mixed hyperlip idemia 291732441 Active Not Available [employer] 12:15:30 Essentia l hyperten rupesh 38740459 Active Not Available [facility] 12:15:30 Chest swelling 782409521 Completed 02/18/2013 Not Available [facility] 3 02:04:24 Disorder of carbohyd rate metaboli sm 83203067 Completed 11/04/2020 Removal Reason: end AL Tian [address] [place] [address], [address] , [facility] 16:31:34 On examinat ion - a rash Completed 02/18/2013 Not Available [facility] 3 02:00:50 Benign essentia l hyperten rupesh 2876579 Active Not Available [facility] 12:15:30 Hyperlip idemia 66909334 Active Not Available [facility] 12:15:30 Flatulen ce, eructati on and gas pain 912075455 Completed 02/18/2013 Not Available [facility] 3 02:04:10 Tobacco user 849334522 Completed 11/04/2020 Removal Reason: stopped AL Tian [address] [place] [address], [address] , [facility] 16:30:18 Impaired fasting glycemia 852700377 Completed 11/04/2020 Removal Reason: end AL Tian [address] [place] [address], [address] , [facility] 16:30:46 Glucose level outside referenc e range 232456933 Active Not Available [facility] 12:15:30 Malaise and fatigue 747259272 Completed 02/18/2013 Not Available [facility] 3 02:00:21 Diabetes mellitus 24041672 Active Not Available [facility] 12:15:30 Depressi ve disorder 16289530 Active 2018 Not Available [facility] 12:15:30 Bipolar disorder 03167789 Active 2018 Not Available [facility] 12:15:30 Carotid artery stenosis 07268394 Active 2018 Not Available [facility] 12:15:30 Intracra nial meningio wy 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 Procedures Surgical History Date Name Laterality Status Provider Name and Address Organization Details Recorded Time 05/08/19 Medicare Wellness Visit completed Guillaume Abad MA [facility] 05/08/2021 10:25:13 02/07/20 22 Alcohol use screening completed Guillaume Abad MA [facility] 05/08/2021 10:25:13 05/08/19 22 Cardiovascular disease risk reduction counseling completed Guillaume Abad MA [facility] 05/08/2021 10:25:13 03/02/20 20 Medicare Wellness Visit completed Nhi Satnton MA [facility] 03/02/2020 12:02:02 03/02/20 20 COPD Screening completed AL Tian [address] [place] [address], [address], [facility] 03/02/2020 16:17:24 03/02/20 20 prevention-cardiov ascular risk reduction counseling completed Nhi Stanton MA [facility] 03/02/2020 12:02:02 03/02/20 20 prevention-annual alcohol misuse screening completed Nhi Stanton MA [facility] 03/02/2020 12:02:02 03/02/20 20 Telephonic Visit completed Nhi Stanton MA [facility] 03/02/2020 15:43:39 01/04/20 20 Telephonic Visit completed Erinn Modi MA [facility] 01/04/2020 13:52:44 02/19/20 19 Medicare Wellness Visit completed DEEDEE Nichole [facility] 02/18/2019 10:08:48 02/19/20 19 POC Urinalysis Testing completed DEEDEE Nichole [facility] 02/18/2019 11:01:50 02/19/20 19 Hearing Test completed DEEDEE Nichole [facility] 02/18/2019 11:20:58 10/09/19 19 POC Urinalysis Testing completed Meagan Mayorga [facility] 10/08/2018 11:53:49 01/17/20 18 Medicare Wellness Visit completed Erinn Modi MA [facility] 01/16/2018 14:31:16 01/15/20 17 Smoking cessation counseling completed Erinn Modi MA [facility] 01/14/2017 11:47:46 01/15/20 17 Medicare Wellness Visit completed Erinn Modi MA [facility] 01/14/2017 11:46:37 01/15/20 17 Carbon Monoxide Testing completed Erinn Modi MA [facility] 01/14/2017 11:47:46 09/11/19 17 Smoking cessation counseling completed Maryanne Tanner MA [facility] 09/10/2016 13:24:35 09/11/19 17 Carbon Monoxide Testing completed Maryanne Tanner MA [facility] 09/10/2016 13:24:35 07/31/19 17 Smoking cessation counseling completed Erinn Modi [facility] 07/30/2016 16:26:53 01/11/20 16 Smoking cessation counseling completed Erinn Modi [facility] 01/11/2016 15:50:31 01/11/20 16 Carbon Monoxide Testing completed Erinnluís Modi [facility] 01/11/2016 16:02:44 09/09/19 15 Smoking cessation counseling completed Erinnluís Modi [facility] 09/08/2014 16:33:45 01/22/20 14 Smoking cessation counseling completed Guillaume Abad [facility] 01/21/2014 16:34:19 07/03/19 14 Smoking cessation counseling completed Nicki Dumont [facility] 07/02/2013 14:53:13 06/27/19 13 Smoking cessation counseling completed AL Tian [address] [place] [address], [address], [facility] 06/27/2012 23:20:37 04/08/19 13 Smoking cessation counseling completed AL Tian [address] [place] [address], [address], [facility] 04/08/2012 19:17:40 Imaging Results Imaging Date Name Status LastModified by Organization Details LastModified Time 09/23/2020 electrocardiogram completed [facility] [address] [place], [address], 10/12/2020 20:10:24 09/22/2020 electrocardiogram completed devante dumont not available 09/23/2020 19:38:18 09/23/2020 XR, chest completed [facility] (Imaging) [address], [place], [address], 09/24/2020 16:26:26 10/26/2020 CT chest lung cancer screening annual completed [facility] [address] [place], [address], 10/26/2020 19:23:20 10/26/2020 CT, chest completed [facility] [address] [place], [address], 10/26/2020 18:11:57 11/10/2020 exercise stress test completed [facility] (Medical Records) [address] [place], [address], 11/19/2020 11:02:13 11/24/2020 exercise stress test completed [facility] (Medical Records) [address] [place], [address], 11/30/2020 13:52:10 11/24/2020 NM, myocardial perfusion scan, w/ stress completed [facility] (Medical Records) [address] [place], [address], 11/30/2020 13:52:10 12/12/2020 polysomnography* completed [facility] [address] [place] [address], [address], 01/22/2021 14:55:12 05/31/2021 bone density completed [facility] [address] [place] [address] [place], [address], 06/04/2021 15:15:01 10/30/2021 CT chest lung cancer screening annual completed [facility] [address] [place], [address], 11/03/2021 22:04:11 10/30/2021 CT, chest completed [facility] (Mammo) [address] [place], [address], 11/03/2021 22:04:11 Procedure Notes None recorded. Medical Equipment None Reported. Allergies Allergen ID Allergen Name Allergen Category Reaction Reaction Severity Criticality Documentation Date Start Date Code Code System Note Provider Name and Address Organization Details Recorded Time 725276 atorvasta tin medicatio n Not available Not available Not available 06/26/2012 96158 RxNorm muscl e aches AL Tian [address] [place], [place] [address] [place], [address], [facility] 3 16:49:53 041442 wasp venoms environme nt Not available Not available Not available 07/02/2013 30857 RxNorm Nicki Dumont [facility] 4 14:53:13 975358 pravastat in medicatio n arthralgi a (joint pain) Not available Not available 05/08/2021 17509 RxNorm AL Tian [address] [place], [place] [address] [place], [address], [facility] 2 11:04:56 3956 codeine medicatio n Not available Not available Not available 05/27/2008 2670 RxNorm Not Available [facility] 1 06:05:20 Medications Name Sig Start Date [...] 0 167.64 cm 80 /min 30.3 kg/m2 38846.3 7 g 129 mm[Hg] 80 mm[Hg] Erinn Modi [facility] 0 13:47:11 Date Recorded Body height Body mass index (BMI) Body weight Provider Name and Address Organization Details Last Updated DateTime 03/02/2020 167.64 cm 30.3 kg/m2 55050.37 g Nhi Stanton [facility] 03/02/2020 15:46:14 Date Recorded Heart rate Systolic blood pressure Diastolic blood pressure Provider Name and Address Organization Details Last Updated DateTime 03/02/2020 82 /min 130 mm[Hg] 86 mm[Hg] AL Tian [address] [place] [address], [address] 03/02/2020 16:12:37 Date Recorded Body height Body mass index (BMI) Body weight Heart rate Systolic blood pressure Diastolic blood pressure Provider Name and Address Organization Details Last Updated DateTime 1 167.64 cm 30.5 kg/m2 77891.9 6 g 84 /min 144 mm[Hg] 70 mm[Hg] Tiana Lynn [facility] 1 14:11:27 Date Recorded Systolic blood pressure Diastolic blood pressure Provider Name and Address Organization Details Last Updated DateTime 09/22/2020 130 mm[Hg] 59 mm[Hg] LA Tian [address] [place] [address], [address], [facility] 09/22/2020 15:27:35 Date Recorded Body height Body mass index (BMI) Body weight Systolic blood pressure Diastolic blood pressure Systolic blood pressure Diastolic blood pressure Provider Name and Address Organization Details Last Updated DateTime 2 165.1 cm 31.7 kg/m2 25994.9 5 g 140 mm[Hg] 68 mm[Hg] 129 mm[Hg] 70 mm[Hg] Guillaume Abad [facility] 2 11:36:06 Date Recorded Systolic blood pressure Diastolic blood pressure Provider Name and Address Organization Details Last Updated DateTime 05/08/2021 130 mm[Hg] 80 mm[Hg] AL Tian [address] [place] [address], [address], [facility] 05/08/2021 11:14:28 Date Recorded Body height Heart rate Body temperature Body mass index (BMI) Body weight Systolic blood pressure Diastolic blood pressure Provider Name and Address Organization Details Last Updated DateTime 2 165.1 cm 84 /min 97.8 [degF] 32 kg/m2 47585.7 4 g 126 mm[Hg] 84 mm[Hg] [facility] 2 11:56:56 Social History Question Answer Notes [...] Or The Highest Degree You Have Received? 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 04/18/2019 02:38:05 Influenza, split virus, quadrivalent, PF 6 completed Not Available [facility] 04/18/2019 02:21:03 Influenza, high-dose, trivalent, PF 7 completed Not Available [facility] 04/18/2019 02:22:05 Pneumococcal conjugate PCV 13 8 completed Not Available [facility] 04/18/2019 02:22:34 zoster recombinant 8 completed Not Available [facility] 04/18/2019 02:29:21 Influenza, high-dose, trivalent, PF 8 completed Not Available [facility] 04/18/2019 02:39:36 Influenza, high-dose, trivalent, PF 9 completed Not Available [facility] 04/18/2019 02:39:37 influenza, unspecified formulation 0 [facility] 01/06/2020 16:31:55 COVID-19, mRNA, LNP-S, PF, 30 mcg/0.3 mL dose 1 completed [facility] 09/22/2020 14:09:35 COVID-19, mRNA, LNP-S, PF, 30 mcg/0.3 mL dose 1 completed [facility] 09/22/2020 14:22:24 COVID-19, mRNA, LNP-S, PF, 30 mcg/0.3 mL dose 1 completed [facility] 01/16/2021 09:58:41 Influenza, high-dose, quadrivalent, PF 1 completed [facility] 05/08/2021 10:32:06 Influenza, split virus, trivalent, preservative 0 completed Not Available [facility] 04/18/2019 02:17:50 Past Encounters Encounter ID Performer Location Encounter Start Date Encounter Closed Date Diagnosis/Indication Diagnosis SNOMED-CT Code Diagnosis ICD10 Code Diagnosis Note [id number] [facility], OFFICE [address] [place] [address] 05/27/2008 14:44:39 05/31/2008 14:47:22 [id number] [facility], OFFICE [address] [place] [address] 06/24/2008 16:44:33 06/28/2008 10:22:53 [id number] [facility], OFFICE [address] [place] [address] 12/22/2009 15:33:16 12/26/2009 07:59:01 [id number] FP, [facility], OFFICE [address] [place] [address] 03/02/2010 16:00:54 03/06/2010 13:45:04 [id number] Radiology , [facility] [address] [place] [address] 03/20/2010 15:01:45 03/21/2010 11:20:58 [id number] , [facility], OFFICE [address] [place] [address] 01/26/2011 10:05:07 01/29/2011 13:22:46 [id number] Radiology , [facility] [address] [place] [address] 01/26/2011 10:35:57 01/30/2011 08:45:03 [id number] , [facility], OFFICE [address] [place] [address] 02/09/2011 15:09:01 02/12/2011 12:03:49 [id number] , [facility], OFFICE [address] [place] [address] 03/13/2011 15:05:21 03/13/2011 17:15:06 [id number] Radiology , [facility] [address] [place] [address] 03/13/2011 16:35:35 03/15/2011 12:04:48 [id number] Radiology , [facility] [address] [place] [address] 04/19/2011 15:26:55 04/20/2011 14:58:30 [id number] , [facility], OFFICE [address] [place] [address] 05/15/2011 16:12:06 05/15/2011 17:15:12 [id number] FP, [facility], OFF[address] [place] [address] 07/03/2011 15:00:30 07/06/2011 08:10:51 [id number] , [facility], OFF[address] [place] [address] 08/09/2011 16:03:19 08/13/2011 09:42:10 [id number] Radiology , [facility] [address] [place] [address] 08/09/2011 17:09:51 08/09/2011 17:22:53 [id number] [facility], OFF[address] [place] [address] 08/21/2011 16:35:18 08/21/2011 17:29:43 [id number] AL Tian , [facility], OFF[address] [place] [address] 04/08/2012 15:09:46 04/08/2012 17:16:15 [id number] AL Tian , [facility], OFF[address] [place] [address] 06/26/2012 16:21:08 06/26/2012 17:21:18 [id number] [facility], OFF[address] [place] [address] 07/02/2013 14:07:11 07/03/2013 09:00:18 Benign essential hypertension 9087197 Blood pressure at goal . Mixed hyperlipidemia 726157095 Cholestero l is at goal Cholestero l is not at goal Continue to work on diet and exercise as discussed Adult [facility] th examination 896805641 see Risk Assessment and Lifestyle Change Counseling section above Tobacco user 409635724 d iscussed that smoking - nicotin and other chemicals adversely effect BH illnesses and do not support efforts of recovery- reiiterate d that pt is in charge of her health decisions- moving to new house- stress mgt reviewed [id number] Erinn Modi MA , [facility], OFFICE [address] [place] [address] 01/21/2014 16:20:29 01/21/2014 17:19:26 Tobacco user 893108639 reviewed adv's of nicotine patch/loze nge along with wellbutrti n to decrease smoking. Hyperlipidemia 39092902 Influenza vaccine needed 8049600490 106 Benign ess ential hypertension 2632670 Blood pressure at goal . Diabetes mellitus 38702117 [id number] Ignacia Valerio , [facility], OFF[address] [place] [address] 09/08/2014 16:21:01 09/08/2014 17:29:57 Benign essential hypertension 1867851 Blood pressure at goal Blood pressure NOT at goal. Tobacco user 809873476 r eviewed adv's of nicotine patch/loze nge along with wellbutrti n to decrease smoking. Hyperlipidemia 92204293 [id number] Veronica Kim , [facility], OFF[address] [place] [address] 01/03/2015 15:18:42 01/04/2015 10:44:00 Adult health examination 609324501 Z00.00 see Risk Assessment and Lifestyle Change Counseling section above Screening for disorder 358170561 Z72.89 Screening for malignant neoplasm of colon 611415606 Z12.11 Tobacco user 304484821 Z 72.0 reviewed adv's of nicotine patch/loze nge along with wellbutrti n to decrease smoking. Influenza vaccine needed 8524214724 106 Z28.3 Administra tion of pneumococcal vaccine 78049400 Z23 Administra tion of diphtheria, pertussis, and tetanus vaccine 611482704 Z23 Diabetes mellitus 468516 09 E13.9 controlled with diet Hyperlipidemia 96904566 E78.5 not at goal- intolerant of all statins, taking natruopath - thinks red rice yeast- high fiber- recheck in 3 -6 months Benign ess ential hypertension 9786469 I10 Blood pressure at goal Injury of mouth 97361330 S09.93XA by hx due to extreme temp change in mouth- hx has ramos in past and resolves- f/u if not resolving in coming month- sooner any worse [id number] Chacha Macdonald , [facility], [address] [place] [address] 01/13/2015 16:35:04 01/18/2015 15:08:13 Gingival disease 84147856 K06.9 buchal infection , [id number] Stefanie Sanchez NP , [facility], [address] [place] [address] 12/14/2015 09:37:51 12/15/2015 14:54:34 Herpes zoster 4950342 B02.9 Left uper breast with one small area of tiny vesicular lesions, and one satellite lesion on her back. Pt not experienci ng pain, but has some itchiness. Recommende d calamine lotion [id number] AL Tian , [facility], [address] [place] [address] 01/11/2016 15:16:09 01/11/2016 17:02:20 Adult health examination 399998058 Z00.00 see Risk Assessment and Lifestyle Change Counseling section above Cigarette smoker 5904754 7 F17.210 Tobacco user 859421670 Z 72.0 reviewed adv's of nicotine patch/loze nge along with wellbutrti n to decrease smoking. Screening for malignant neoplasm of cervix 663974905 Z12.4 Screening for malignant neoplasm of respiratory tract 370825319 Z12.2 Diabetes mellitus 992029 09 E13.9 controlled with diet Essential hypertension 28473726 I10 increase today, patient reports bp's < 140/90 in the grocery store- increase stressors now with up coming move.= recheck in 3 months when able Hyperlipidemia 07603959 E78.5 not at goal- intolerant of all statins, taking natruopath - thinks red rice yeast- high fiber- recheck in 3 -6 months Active or passive immunization 615685438 Z23 [id number] AL Tian, [facility], [address] [place] [address] 07/30/2016 16:18:45 07/30/2016 17:21:16 Benign essential hypertension 1326418 I10 Blood pressure at goal Mixed hyperlipidemia 267 207357 E78.2 not at goal- had s/e stain- consider red yeast rice Cigarette smoker 2089511 7 F17.210 Tobacco user 479474278 Z 72.0 reviewed adv's of nicotine patch/loze nge along with wellbutrti n to decrease smoking. Screening for malignant neoplasm of lung 310570474 Z12.2 Hip pain 22412770 M25.55 2 [id number] AL Tian, [facility], [address] [place] [address] 09/10/2016 13:04:28 09/10/2016 13:49:16 Cigarette smoker 50027028 F17.210 plan to d/c smoking prior to surgery Tobacco user 032016654 Z 72.0 will be stopping smoking prior to surgery - iusing stop smoking aides Pre-surger y evaluation 161583227 Z01.818 pt cleared for surgery Cataract 172423620 H26.9 [id number] AL Tian, [facility], [address] [place] [address] 01/14/2017 11:32:34 01/14/2017 13:11:03 Adult health examination 672361068 Z00.00 see Risk Assessment and Lifestyle Change Counseling section above Counseling 247435231 Z71 .9 Mixed hyperlipidemia 267 849827 E78.2 Cholestero l is not at goal Continue to work on diet and exercise as discussed- ADD [employer] PSYLLIUM- intolerant to statins Benign ess ential hypertension 7604309 I10 Blood pressure at goal , continue present mgtm Cigarette smoker 5637910 7 F17.210 Tobacco user 484331553 Z 72.0 reviewed adv's of nicotine patch/loze nge along with wellbutrti n to decrease smoking. Active or passive immunization 520412398 Z23 Imaging of lung abnormal 580442030 R91.8 DUE IN 03/17 Hearing loss 82424560 H9 1.93 audioogy referral [id number] AL Tian, [facility], [address] [place] [address] 05/27/2017 13:02:35 05/27/2017 15:38:58 Acute upper respiratory infection 44011610 J06.9 Educated patient that URI is a [...] failure to resolve in 2-4 weeks. Cough 34412749 R05 Pneumonia 880617227 J18. 9 Type 2 monik betes mellitus without complication 797367813 E13.9 controlled with diet and exercise [id number] AL Tian, [facility], [address] [place] [address] 07/15/2017 10:27:21 07/15/2017 11:38:34 Benign essential hypertension 8287724 I10 Blood pressure at goal Mixed hyperlipidemia 267 079213 E78.2 Cholestero l is not at goal Continue to work on diet and exercise as discussed- increase [employer]IUM- intolerant to statins Active or passive immunization 795652200 Z23 Nicotine dependence 5629 4008 F17.200 Allergy to bee venom 424 412333 Z91.030 Pneumonia 358014181 J18. 9 Diabetes mellitus 238918 09 E11.9 well COntrolled with diet and exercise, restart ASA 81 MG [id number] AL Tian, [facility], [address] [place] [address] 11/15/2017 11:47:27 11/15/2017 13:01:54 Mixed hyperlipidemia 070363279 E78.2 Cholestero l is not at goal TRIAL WITH ATORVASTAT IN 80 TRY QOD FIRST. Intracrani al meningioma 521355515 D32.0 to schedule neuro surgery Carotid ar dayana occlusion 007845356 I65.29 vascular surgeon referral bree wilson [id number] AL Tian , [facility], [address] [place] [address] 01/16/2018 14:03:24 01/16/2018 16:18:57 Adult health examination 716727013 Z00.00 see Risk Assessment and Lifestyle Change Counseling section above Counseling 503932650 Z71 .9 Depression screening 171 200053 Z13.89 depression screening tool administer ed, entered into emr, scored and discussed, time greater than 7.5 minutes Mixed hyperlipidemia 267 960402 E78.2 Cholestero l is not at goal TRIAL WITH ATORVASTAT IN 80 TRY QOD FIRST. Benign ess ential hypertension 9630340 I10 Blood pressure at goal Postmenopausal state 764 20535 Z78.0 Active or passive immunization 967239299 Z23 Solitary n odule of lung 073300181 R91.1 Dizziness 757375056 R42 [id number] Marti Abreu MD , [facility], [address] [place] [address] 05/21/2018 14:29:33 05/21/2018 15:54:19 Tachycardia 3287403 R00.0 mildly tachyshaki ng, SOB with exertion? anemicrece nt meningioma txhas f/u oncology tomorrowsx ECG overall reassuring check labshydrat ionclose f/u Intracrani al meningioma 646535004 D32.0 Dizziness 388989506 R42 worsening sx over weeksassoc iated with shaking and exertional SOBtachy on exampeak flows okay, VS Other espinoza stableenc hydrationt aram it easylab work up and close f/u [id number] Marti Abreu MD FP, [facility], [address] [place] [address] 05/28/2018 10:07:19 05/29/2018 11:41:11 Microcytic anemia 290738873 D50.9 she is going to GI nowshe likely needs to go to hospital for labs and txshe is quite sx with her anemiashe is normotensi ve, but low for hershe is only tachy to 104 on ascultatio nshe is paleDr Henson called to inform of sxclose f/u plan/ hospitaliz ation if necessary [id number] AL Tian, [facility], [address] [place] [address] 06/04/2018 08:10:39 06/04/2018 10:02:50 Dyspnea 274166393 R06.00 with dizziness- overtx HTN- stop lisinopril , check cbc- f/u 1 wk Anemia 217771376 D64.9 Diabetes mellitus 868772 09 E11.9 well COntrolled with diet and exercise, restart ASA 81 MG [id number] AL Tian, [facility], [address] [place] [address] 06/18/2018 16:18:46 06/19/2018 08:14:54 Benign essential hypertension 7712391 I10 stopped lisinopril - hypotensiv e- TO ER Diabetes mellitus 879665 09 E11.9 over controlled . Taper metformin down to 2 tablets daily Anemia 367878960 D64.9 Bipolar disorder 4932207 4 F31.9 Gastrointe stinal hemorrhage 78393233 K92.2 heme pos stool, hypotensiv e, tachycardi c- to ER Hypotensive episode 6776 3001 I95.9 [id number] AL Tian, [facility], [address] [place] [address] 06/30/2018 12:03:52 07/01/2018 09:19:30 Mixed hyperlipidemia 424581679 E78.2 Cholestero l is not at goal TRIAL WITH ATORVASTAT IN 80 TRY QOD FIRST. Carotid ar dayana stenosis 08054343 I65.29 cont plavix Bipolar disorder 0318576 4 F31.9 continue f/u with Dr Cintron Anemia 326883147 D64.9 GI eval in progress [id number] Imani Torres , [facility], [address] [place] [address] 10/08/2018 11:24:54 10/08/2018 15:32:55 Cigarette smoker 12043567 F17.210 Abnormal v aginal bleeding 564480222 N93.9 Fatigue 66200650 R53.83 Screening for malignant neoplasm of cervix 571319391 Z12.4 [id number] AL Tian, [facility], [address] [place] [address] 10/29/2018 13:53:42 10/29/2018 14:58:48 Pre-surgery evaluation 635691906 Z01.818 pt cleared for surgery Carotid ar dayana stenosis 08375686 I65.29 R carotid artery stenosed 50-79%, LEFT CAROTID < 50%, will hold asa and plavix 5 days prior to surgery. consulted with pts vascular surgeon, Dr Sharpe and agrees with plan Mass of ovary 815642639 R19.09 cleared for surgery Intracrani al meningioma 499256983 D32.0 pmh- Bipolar disorder 1709931 4 F31.9 stable, continue f/u with Dr Ward Diabetes mellitus 602195 09 E11.9 stable- tx with diet and exercise. Hypothyroidism 69528150 E03.9 stable Hyperlipidemia 71254490 E78.5 [id number] DEEDEE Cook , [facility], [address] [place] [address] 01/21/2019 14:04:56 01/23/2019 09:29:41 Active or passive immunization 234670781 Z23 [id number] AL Tian, [facility], [address] [place] [address] 02/18/2019 09:39:42 02/18/2019 11:40:30 Adult health examination 279522794 Z00.00 see Risk Assessment and Lifestyle Change Counseling section above Counseling 915559075 Z71 .9 Depression screening 171 446344 Z13.89 depression screening tool administer ed, entered into emr, scored and discussed, time greater than 7.5 minutes Mixed hyperlipidemia 267 635986 E78.2 Ex-smoker 5660758 Z87.89 1 Screening mammography 24 377070 Z12.31 Fatigue 98578601 R53.83 Hearing loss 60955795 H9 1.93 reviewed test- showing b/l hearing loss- prefers to not f/u with audiologis t at this time Salo hematuria 96536957 5 R31.0 suspecting /hx- UA negative today- f/u ctologies. - MANAGER OB f/u planned [id number] AL Tian, [facility], [address] [place] [address] 05/28/2019 15:16:46 05/28/2019 16:45:07 Diabetes mellitus 69449146 E11.9 may decrease metfomin 1tab/day Essential hypertension 38784246 I10 At goal, continue current medication s. Mixed hyperlipidemia 267 705960 E78.2 Increase pravastati n to 20mg BID, Recheck lipids in 1 month Postmenopausal state 764 77519 Z78.0 declined despite knowing risk of contractin g disease and potential from disease, would like to discuss at next visit [id number] AL Tian, [facility], [address] [place] [address] 03/02/2020 15:28:56 03/02/2020 16:22:35 Bipolar disorder 27676584 F31.9 stable, continue f/u with Dr Ward Adult [facility] th examination 047974620 Z00.00 see Risk Assessment and Lifestyle Change Counseling section above Counseling 503924316 Z71 .9 including cardiovasc ular risk reduction counseling Depression screening 171 089992 Z13.89 depression screening tool administer ed, entered into emr, scored and discussed, time greater than 7.5 minutes Screening for alcohol abuse 176822476 Z13.39 Essential hypertension 32633919 I10 At goal, continue current medication s. Hyperlipidemia 75884160 E78.5 Hypothyroidism 84055259 E03.9 stable Eruption 270359452 R21 skin lesion- unchanged since summer- derm referral [id number] AL iTan, [facility], [address] [place] [address] 11/18/2019 13:48:59 11/19/2019 12:52:31 Essential hypertension 52291055 I10 At goal, continue current medication s. Mixed hyperlipidemia 267 787632 E78.2 continue Increase pravastati n to 20mg BID, - condider increase to 40 mg- has had muscle aches with statin use in past Dizziness 278968095 R42 check labs, keep diary- f/u with results in coming 1-2 wks Intracrani al meningioma 074550363 D32.0 continue f/u withoncolo gist [id number] AL Tian, [facility], [address] [place] [address] 01/04/2020 13:42:55 01/07/2020 13:31:01 Salo hematuria 924816941 R31.0 suspecting /hx- UA negative today-cyto logies neg.- urology f/u for hematuria Disorder o f thyroid gland 37013629 E07.9 [id number] AL Tian, [facility], [address] [place] [address] 09/22/2020 13:47:01 10/10/2020 11:36:51 Essential hypertension 21707109 I10 At goal, continue current medication s. Hyperlipidemia 03807733 E78.5 LDL- 140's with vascular disease- goal is 70, intolerant to atorvastat in- will increase to 40 mg pravastati n. Peripheral vascular disease 037659896 I73.9 Carotid ar dayana stenosis 64811089 I65.29 R carotid artery stenosed 50-79%, LEFT CAROTID < 50%, Dyspnea 511166308 R06.00 chest xray , ekg negative- further eval- stress test- tcx 2 to reach pt- PFT/pulmon jermain to do with smoking hx, left message to make f/u appt/call back . Eruption 546053220 R21 skin lesion- unchanged since summer- derm referral [id number] AL Tian, [facility], [address] [place] [address] 05/08/2021 10:08:25 05/08/2021 11:37:52 Adult health examination 505696185 Z00.00 see Risk Assessment and Lifestyle Change Counseling section above Counseling 901025096 Z71 .9 including cardiovasc ular risk reduction counseling Depression screening 171 446046 Z13.31 depression screening tool administer ed, entered into emr, scored and discussed, time greater than 7.5 minutes Screening for alcohol abuse 253356799 Z13.39 Hyperthyroidism 05843545 E05.90 Essential hypertension 14449346 I10 not At goal, continue current medication s. Mixed hyperlipidemia 267 151714 E78.2 Cholestero l is at goalContin ue to work on diet and exercise as discussed Screening mammography 24 438674 Z12.31 Screening for osteoporosis 641746292 Z13.820 Candidiasis of vagina 72 526128 B37.3 Multiple n odules of lung 194649028 R91.8 Diabetes mellitus 843684 09 E11.9 cont decrease metfomin 1tab/day- well cotnrolled with nutrition and exercise Bipolar disorder 4805588 4 F31.9 stable, continue f/u with Dr Ward Peripheral vascular disease 208939011 I73.9 carotid vascular disease- LDL- decreasing , asa and clopidogre l daily [id number] AL Tian FP, [facility], [address] [place] [address] 06/21/2021 11:45:12 07/11/2021 13:10:57 Mixed hyperlipidemia 037410387 E78.2 Cholestero l is at goalContin ue to work on diet and exercise as discussed Atrophic vaginitis 71248 000 N95.2 Candidiasis of skin 4988 3006 [...] Georges Member ID Guarantor Name 01/04/2020 1 [facility] (MEDICARE REPLACEMENT/A DVANTAGE - PPO) [id number] Ritu Nicholson [id number] Ritu Nicholson 03/02/2020 1 [facility] (MEDICARE REPLACEMENT/A DVANTAGE - PPO) [id number] Ritu Nicholson [id number] Ritu Nicholson 09/22/2020 1 [facility] (MEDICARE REPLACEMENT/A DVANTAGE - PPO) [id number] Ritu Nicholson [id number] Ritu Nicholson 05/08/2021 1 [facility] (MEDICARE REPLACEMENT/A DVANTAGE - PPO) [id number] Ritu Nicholson [id number] Ritu Nicholson 06/21/2021 1 [facility] (MEDICARE REPLACEMENT/A DVANTAGE - PPO) [id number] Ritu Nicholson [id number] Ritu Nicholson Notes Date Note Type Note [...] 22 23 24 25}} minutes. AL Tian [address] [place] [address], [phone], [facility] 01/05/2020 20:20:32 0 text/html Physical Exam/FemaleReported bypatient.PHAPatient [...] room and availability of urgent care at [facility] HyperlipidemiaReported bypatient.Duration:chronic Control:poorly controlled Barriers to CareAllergy/intolerance [...] snoring;Chest pain(assoc with anxiety- no assoc with exercise)a/[facility]-Smoking CessationReported bypatient.Readiness to quit smokingPatient is not [...] 23 24 25}} minutes. AL Tian [address] [place], [address], [facility] 03/02/2020 16:22:33 1 text/html VMG DiabetesReported bypatient.Duration:chronic [...] > 30 pack yr- AL Tian [address] [place], [address], [facility] 11/02/2020 11:08:29 2 text/html Physical Exam/FemaleReported bypatient.PHAPatient [...] room and availability of urgent care at [facility] HyperlipidemiaReported bypatient.Duration:chronic Control:poorly controlled Barriers to CareAllergy/intolerance [...] snoring;Chest pain(assoc with anxiety- no assoc with exercise)a/[facility]-Smoking CessationReported bypatient.Readiness to quit smokingPatient is not [...] SOB when walk for long AL Tian [address] [place] [address], [address], [facility] 05/14/2021 19:56:41 2 text/html Pt reports rash all over body ongoing since summer time- started under breasts. Fluconazole has not helped. Rash is painful and itching and worsening over time- rash on axilla, labia, under breasts. . no fever or nausea. AL Tian [address] [place] [address], [phone], [facility] 06/30/2021 20:25:49 OBGyn Episode No OBEpisode recorded.
== END 2024-05-28 15:13 | disposition home or self-care (01) ==
LOC: HO.CT 15:12
PROVIDERS: PCP Internal Medicine; Visit Provider Physician Assistant Medical
DX: R91.8 Other nonspecific abnormal finding of lung field (principal); Z87.891 Personal history of nicotine dependence
CPT/HCPCS: 71250

== ENCOUNTER → 2024-05-28 15:14 | Outpatient (BNV) | payer MEDICARE, SELFPAY | PROVIDERS: PCP Internal Medicine; Visit Provider Specialist | DX: Z12.2 Encounter for screening for malignant neoplasm of respiratory organs (principal); Z87.891 Personal history of nicotine dependence | CPT/HCPCS: 71250 ==

== ENCOUNTER 2024-07-29 10:13 | Outpatient (AMB) | payer MEDICARE, SELFPAY ==
--- OUTSIDE RECORDS SUMMARY | 2024-07-29 11:24 | XMS_ITS | Data Portability ---
Author Organization [facility], [facility] Address [address] [place] [address] Care Team Providers Care Corporate Lawyer Name Role Phone PRABHU JOMAR Primary Care Provider SAMMIE PATEL Agent [employer] HAZEL BRENNAN Radiation Oncologist DAYLIN CHEN Agent [employer] KORIN SHARPE Vascular Surgeon CORY HUGO President [employer] [phone] Assessment Encounter Date Assessment Date Assessment LastModified [...] recorded. Lab TSH, serum or plasma 2019 [facility], [address] [place] [address], [address], 0 08:21:04 CBC 2019 [facility], [address] [place] [address], [address], 0 08:21:04 iron, serum 2019 [facility], [address] [place] [address], [address], 0 08:21:04 Referral urologist referral - hematuria x 2 in h, cytologies x 3 attached 2019 [facility], [address] [place], [address], 0 12:54:43 Procedures None recorded. Surgeries None recorded. Imaging MAMMO, screening, tomosynthes is, bilateral 2021 [facility] (Imaging), [address], [place], [address], 3 15:14:05 bone density 2021 022 [facility], [address] [place] [address], [address], 2 08:00:43 LDCT, chest, for lung cancer screening - due in 10/20, last scan 10/26/2020, former smoker, 30+ pack years 2021 022 [email or web address] [facility], [address] [place], [address], 2 11:52:09 XR, chest - 70 yo ex smoker- dyspnea x 6 months- [address] (Imaging), [address] [place], [address], 11:36:51 electrocard iogram [address], [address] [facility], [place], [address], 11:36:52 Medication Orders estradiol 0.01% (0.1 mg/gram) vaginal cream 2021 [facility], [address] [place] [address], [address], 2 12:20:13 aspirin 81 mg tablet,nicol yed release 2021 [facility], [address] [place] [address], [address], 2 12:20:14 clotrimazol e 1 % topical cream 2021 [facility], [address] [place] [address], [address], 2 12:24:36 fluconazole 150 mg tablet 2021 022 magaly [id number], [address] [place], [address], 2 11:53:04 nystatin 100,000 unit/gram topical cream 2020 021 [facility][id number], [address] [place], [address], 18:50:22 pravastatin 40 mg tablet 2020 021 [id number], [address] [place], [address], 1 15:01:19 nystatin 100,000 unit/gram topical cream 2019 020 [email or web address] [facility][id number], [address] [facility] [place], [address], 1 14:17:53 Patient TargetsNo targets recorded. Patient Instructions Encounter Date Encounter Id Patient Instructions Last Modified By Organization Details Last Modified Time 01/04/2020 [id number] After a discussion of treatment options, which included consideration of best practices, patient preferences, and the patient? s individual lifestyle and treatment goals, as well as consideration and attempted mitigation of any barriers to meeting the patient? s goals, the following treatment plan and objectives were adopted: as above aesrick Not available 01/05/2020 20:19:54 03/02/2020 [id number] advance directives: care instructions aesrick Not available [...] sponsor}}My Health To Do List {{go to [facility] www.Stukent or call si gn up for shilo text 2 quit or other stop smoking shilo contact Eko.gov}} {{go to placespourtous.com or call si gn up for shilo text 2 quit or other stop smoking shilo contact Eko.Welocalize}} {{go to placespourtous.com or call si gn up for shilo text 2 quit or other stop smoking shilo contact Eko.Welocalize}} madison Not available 03/02/2020 12:04:38 09/22/2020 [id number] After a discussion of treatment options, which included consideration of best practices, patient preferences, and the patient? s individual lifestyle and treatment goals, as well as consideration and attempted mitigation of any barriers to meeting the patient? s goals, the following treatment plan and objectives were adopted: as above aesrick Not available 10/09/2020 18:54:34 05/08/2021 [id number] high cholesterol lifestyle changes aesrick Not available [...] reviewed. aesrick Not available 05/08/2021 11:27:41 06/21/2021 [id number] After a discussion of treatment options, which [...] cytologies x 3 attached Referring Physician: Jomar Betancur, Family Medicine, Encounter Date: 01/04/2020 Results Created Date Observation Date Name Description Value Unit Range Abnormal Flag Note LastModifiedBy Organization Detail LastModifiedTime 09/23/19 21 09/23/2020 elect rocgerald diogr am No observ ation record ed. [facility] [address] [facility], [place], [address], 10/12/2020 20:10:24 09/23/19 21 elect rocar diogr [...] acute diseas e. Electr onical ly signed Janel jaimes Physic miguel angel: Jason Hampton [facility] ([facility]) [address], [place], [address], 09/24/2020 16:26:26 10/27/19 21 10/26/2020 CT chest lung cance r andressa siddiqi TECHNI QUE: Diagno stic CT CHEST [...] at: https: //www. acr.or g/Qual ity-Sa fety/R esour es/Luis gRADS This report has been forwar ded to an automa nathaniel commun icatio n system which will electr onical ly notify approp riate provid ers of potent ially import ant findin gs. Electr onical ly Signed by: Hang garcia on 021 3:04 PM Interp reted by: Hang garcia MD Signed by: Hang garcia MD 1 CC Recipi ents: Jomar Betancur , [place] - Fax Final result JOMAR BETANCUR [facility] [address] [place], [address], 10/26/2020 19:23:20 10/27/19 21 10/26/2020 CT, chest No observ ation record ed. [facility] [address], [place], [address], 10/26/2020 18:11:57 11/11/19 21 11/10/2020 exerc ise stres s test No observ ation record ed. [facility] ([facility] Records) [address] [place], [address], 11/19/2020 11:02:13 11/25/19 21 11/24/2020 exerc ise stres s test No observ ation record ed. [facility] (Medical Records) [address] [place], [address], 11/30/2020 13:52:10 11/26/19 21 11/24/2020 NM, myoca rdial perfu rupesh scan, w/ stres s No observ ation record ed. [facility] (Medical Records) [address] [place], [address], 11/30/2020 13:52:10 01/17/20 21 12/12/2020 polys omnog kathy * No observ ation record ed. [facility] [address] [place], [address], 01/22/2021 14:55:12 06/02/19 22 05/31/2021 bone densi ty No observ ation record ed. [facility] [address] [facility] [place], [address], 06/04/2021 15:15:01 11/01/19 22 10/30/2021 CT chest lung cance r andressa siddiqi CT CHEST LUNG CANCER SCREEN ING [...] by: Amparo Crawley MD Signed by: Amparo Crwaley MD 10/31/21 Final result JOMAR BETANCUR [facility] [address] [place] [address], [address], 11/03/2021 22:04:11 11/01/19 22 10/30/2021 CT, chest No observ ation record ed. [facility] (Mammo) [address] [place] [address], [address], 11/03/2021 22:04:11 Result Notes None recorded. Problems Name Problem SNOMED Code Status Onset Date Resolution Date Notes Provider Name and Address Organization Details Recorded Time Mixed hyperlip idemia 863689003 Active Not Available [facility] 1 12:15:30 Essentia l hyperten rupesh 60466028 Active Not Available [facility] 1 12:15:30 Chest swelling 739735847 Completed 02/18/2013 Not Available [facility] 3 02:04:24 Disorder of carbohyd rate metaboli sm 07186660 Completed 11/04/2020 Removal Reason: end Jomar Betancur[place] [address] [place] [address], [address] , [facility] 1 16:31:34 On examinat ion - a rash Completed 02/18/2013 Not Available [facility] 3 02:00:50 Benign essentia l hyperten rupesh 7908462 Active Not Available [facility] 1 12:15:30 Hyperlip idemia 17063479 Active Not Available [facility] 12:15:30 Flatulen ce, eructati on and gas pain 905805416 Completed 02/18/2013 Not Available [facility] 3 02:04:10 Tobacco user 753542420 Completed 11/04/2020 Removal Reason: stopped AL Tian [address] [place] [address], [address] , [facility] 1 16:30:18 Impaired fasting glycemia 705174585 Completed 11/04/2020 Removal Reason: end AL Tian [address] [place] [address], [address] , [facility] 1 16:30:46 Glucose level outside referenc e range 084234518 Active Not Available [facility] 12:15:30 Malaise and fatigue 908654028 Completed 02/18/2013 Not Available [facility] 3 02:00:21 Diabetes mellitus 29780841 Active Not Available [facility] 1 12:15:30 Depressi ve disorder 56341161 Active 2018 Not Available [facility] 12:15:30 Bipolar disorder 31732040 Active 2018 Not Available [facility] 1 12:15:30 Carotid artery stenosis 66534280 Active 2018 Not Available [facility] 1 12:15:30 Intracra nial meningio or 046630582 Active 2018 Not Available [facility] 1 12:15:30 Hyperthy roidism 88656809 Active 2020 Not Available [facility] 12:15:30 Problem Notes None recorded. Procedures Surgical History Date Name Laterality Status Provider Name and Address Organization Details Recorded Time 05/08/19 22 Medicare Wellness Visit completed Guillaume Abad MA [facility] 05/08/2021 10:25:13 05/08/19 22 Alcohol use screening completed Guillaume Abad MA [facility] 05/08/2021 10:25:13 05/08/19 22 Cardiovascular disease risk reduction counseling completed Guillaume Abad MA [facility] 05/08/2021 10:25:13 03/02/20 20 Medicare Wellness Visit completed Nhi Stanton MA [facility] 03/02/2020 12:02:02 03/02/20 20 COPD Screening completed AL Tian [address] [place] [address], [address], [facility] 03/02/2020 16:17:24 03/02/20 20 prevention-cardiov ascular risk reduction counseling completed Nhi Stanton MA [facility] 03/02/2020 12:02:02 03/02/20 20 prevention-annual alcohol misuse screening completed Nhi Stanton MA [facility] 03/02/2020 12:02:02 03/02/20 20 Telephonic Visit completed Nhi Stanton MA [facility] 03/02/2020 15:43:39 01/04/20 20 Telephonic Visit completed Erinn Modi MA [facility] 01/04/2020 13:52:44 02/19/20 19 Medicare Wellness Visit completed DEEDEE Nichole [facility] 02/18/2019 10:08:48 02/19/20 19 POC Urinalysis Testing completed DEEDEE Nichole [facility] 02/18/2019 11:01:50 02/19/20 19 Hearing Test completed DEEDEE Nichole [facility] 02/18/2019 11:20:58 10/09/19 19 POC Urinalysis Testing completed Meagan Mayorga [facility] 10/08/2018 11:53:49 01/17/20 18 Medicare Wellness Visit completed Erinn Modi MA [facility] 01/16/2018 14:31:16 01/15/20 17 Smoking cessation counseling completed Erinn Modi MA [facility] 01/14/2017 11:47:46 01/15/20 17 Medicare Wellness Visit completed Erinn Modi MA [facility] 01/14/2017 11:46:37 01/15/20 17 Carbon Monoxide Testing completed Erinn Modi MA [facility] 01/14/2017 11:47:46 09/11/19 17 Smoking cessation counseling completed Maryanne Tanner MA [facility] 09/10/2016 13:24:35 09/11/19 17 Carbon Monoxide Testing completed Maryanne Tanner MA [facility] 09/10/2016 13:24:35 07/31/19 17 Smoking cessation counseling completed Erinn Modi MA [facility] 07/30/2016 16:26:53 01/11/20 16 Smoking cessation counseling completed Erinn Modi MA [facility] 01/11/2016 15:50:31 01/11/20 16 Carbon Monoxide Testing completed Erinn Modi MA [facility] 01/11/2016 16:02:44 09/09/19 15 Smoking cessation counseling completed Erinn Modi [facility] 09/08/2014 16:33:45 01/22/20 14 Smoking cessation counseling completed Guillaume Abad [facility] 01/21/2014 16:34:19 07/03/19 14 Smoking cessation counseling completed Nicki Dumont [facility] 07/02/2013 14:53:13 06/27/19 13 Smoking cessation counseling completed AL Tian [address] [place] [address], [address], [facility] 06/27/2012 23:20:37 04/08/19 13 Smoking cessation counseling completed AL Tian [address] [place] [address], [phone], [facility] 04/08/2012 19:17:40 Imaging Results Imaging Date Name Status LastModified by Organization Details LastModified Time 09/23/2020 electrocardiogram completed uriel [facility] [address] [place], [address], 10/12/2020 20:10:24 09/22/2020 electrocardiogram completed devante Arreagaa tion not available 09/23/2020 19:38:18 09/23/2020 XR[facility] [address] [place], [address], 09/24/2020 16:26:26 10/26/2020 CT chest lung cancer screening annual completed [facility] [address] [place], [address], 10/26/2020 19:23:20 10/26/2020 CT, chest completed [facility] [address] [place], [address], 10/26/2020 18:11:57 11/10/2020 exercise stress test completed [facility] (Medical Records) [address] [place], [address], 11/19/2020 11:02:13 11/24/2020 exercise stress test completed [facility] (Medical Records) [address] [place], [address], 11/30/2020 13:52:10 11/24/2020 NM, myocardial perfusion scan, w/ stress completed [facility] (Medical Records) [address] [place], [address], 11/30/2020 13:52:10 12/12/2020 polysomnography* completed [facility] [address] [place], [address], 01/22/2021 14:55:12 05/31/2021 bone density completed [facility] [address] [place] [address] [place], [address], 06/04/2021 15:15:01 10/30/2021 CT chest lung cancer screening annual completed [facility] [address] [place], [address], 11/03/2021 22:04:11 10/30/2021 CT, chest completed [facility] (Mammo) [address] [place], [address], 11/03/2021 22:04:11 Procedure Notes None recorded. Medical Equipment None Reported. Allergies Allergen ID Allergen Name Allergen Category Reaction Reaction Severity Criticality Documentation Date Start Date Code Code System Note Provider Name and Address Organization Details Recorded Time 242976 atorvasta tin medicatio n Not available Not available Not available 06/26/2012 85099 RxNorm muscl e aches AL Tian [address] [place] [address], [place], [address], [facility] 3 16:49:53 543758 wasp venoms environme nt Not available Not available Not available 07/02/2013 14000 RxNorm Nicki Tim [facility] 4 14:53:13 387013 pravastat in medicatio n arthralgi a (joint pain) Not available Not available 05/08/2021 34324 RxNorm [place] Tian [address] [place] [address], [place], [address], [facility] 2 11:04:56 3956 codeine medicatio n Not available Not available Not available 05/27/2008 2670 RxNorm Not Available [facility] 1 06:05:20 Medications Name Sig Start [...] by oral route. 10/08 completed Not taking 4..19 AAS Not Available Not Available Not Available [...] 1 TABLET DAILY 06/30 completed On hold 06.18.18 AAS Not Available Not Available Not Available [...] Not Available Not Available Fluzone High-Dose Quad 2020-21 (PF) 240 mcg/0.7 mL IM syringe PHARMACY ADMINIST ERED 03/02 completed Not Available Not Available Not Available Vitals Date Recorded Body height Heart rate Body mass index (BMI) Body weight Systolic blood pressure Diastolic blood pressure Provider Name and Address Organization Details Last Updated DateTime 0 167.64 cm 80 /min 30.3 kg/m2 66750.3 7 g 129 mm[Hg] 80 mm[Hg] Erinn Modi [facility] 0 13:47:11 Date Recorded Body height Body mass index (BMI) Body weight Provider Name and Address Organization Details Last Updated DateTime 03/02/2020 167.64 cm 30.3 kg/m2 45161.37 g Nhi Stanton [facility] 03/02/2020 15:46:14 Date Recorded Heart rate Systolic blood pressure Diastolic blood pressure Provider Name and Address Organization Details Last Updated DateTime 03/02/2020 82 /min 130 mm[Hg] 86 mm[Hg] AL Tian [address] [place] [address], [address], [facility] 03/02/2020 16:12:37 Date Recorded Body height Body mass index (BMI) Body weight Heart rate Systolic blood pressure Diastolic blood pressure Provider Name and Address Organization Details Last Updated DateTime 1 167.64 cm 30.5 kg/m2 12582.9 6 g 84 /min 144 mm[Hg] 70 mm[Hg] Tiana Lynn [facility] 1 14:11:27 Date Recorded Systolic blood pressure Diastolic blood pressure Provider Name and Address Organization Details Last Updated DateTime 09/22/2020 130 mm[Hg] 59 mm[Hg] AL Tian [address] [place] [address], [address], [facility] 09/22/2020 15:27:35 Date Recorded Body height Body mass index (BMI) Body weight Systolic blood pressure Diastolic blood pressure Systolic blood pressure Diastolic blood pressure Provider Name and Address Organization Details Last Updated DateTime 2 165.1 cm 31.7 kg/m2 64884.9 5 g 140 mm[Hg] 68 mm[Hg] 129 mm[Hg] 70 mm[Hg] Guillaume Abad [facility] 2 11:36:06 Date Recorded Systolic blood pressure Diastolic blood pressure Provider Name and Address Organization Details Last Updated DateTime 05/08/2021 130 mm[Hg] 80 mm[Hg] AL Tian [address] [place] [address], [phone] 05/08/2021 11:14:28 Date Recorded Body height Heart rate Body temperature Body mass index (BMI) Body weight Systolic blood pressure Diastolic blood pressure Provider Name and Address Organization Details Last Updated DateTime 2 165.1 cm 84 /min 97.8 [degF] 32 kg/m2 25009.7 4 g 126 mm[Hg] 84 mm[Hg] Erinn Modi [facility] 2 11:56:56 Social History Question Answer Notes LastModified by Organizat ion Details LastModified Time Tobacco Smoking Status Former Smoker 3/ ppd, Smoking 1/2 ppd 12/14/15 , / PPD 10.12.16 , 04/04 ppd 07/30/16 , [...] Or The Highest Degree You Have Received? 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 05/08/2021 Have There Been [...] 07/15/2017 Information not available 07/15/2017 Marital Status magaly Informatio n not available 01/14/2017 Mosquito Repellent [...] available 01/03/2015 16:15:47 Medical History Condition Response Macular Degeneration Y NEUROLOGIC Y Hyperlipidemia Y Diabetes Type II Bipolar Disorder Y Hypertension Y Alcoholism Y Gynecological History Statement/Question Response Menses Monthly N History of Abnormal Pap Y Obstetrics History GPAL:G 0 P 0 0 0 0 Immunizations Vaccine Type Date Status Note Provider Nam e and Address Organization Details Recorded Time Influenza, split virus, trivalent, preservative 1 completed Not Available [facility] 04/18/2019 02:31:14 Influenza, split virus, trivalent, PF 4 completed Not Available [facility] 04/18/2019 02:19:21 Influenza, split virus, quadrivalent, PF 5 completed Not Available [facility] 04/18/2019 02:19:49 pneumococcal polysaccharide PPV23 5 completed Not Available [facility] 04/18/2019 02:26:43 Tdap 5 completed Not Available [facility] 04/18/2019 02:38:05 Influenza, split virus, quadrivalent, PF 6 completed Not Available [facility] 04/18/2019 02:21:03 Influenza, high-dose, trivalent, PF 7 completed Not Available [facility] 04/18/2019 02:22:05 Pneumococcal conjugate PCV 13 8 completed Not Available [facility] 04/18/2019 02:22:34 zoster recombinant 8 completed Not Available [facility] 04/18/2019 02:29:21 Influenza, high-dose, trivalent, PF 8 completed Not Available [facility] 04/18/2019 02:39:36 Influenza, high-dose, trivalent, PF 9 completed Not Available [facility] 04/18/2019 02:39:37 influenza, unspecified formulation 0 completed Erinn Modi MA [facility] 01/06/2020 16:31:55 COVID-19, mRNA, LNP-S, PF, 30 mcg/0.3 mL dose 1 [facility] 14:09:35 COVID-19, mRNA, LNP-S, PF, 30 mcg/0.3 mL dose 1 completed Tiana Lynn MA [facility] 09/22/2020 14:22:24 COVID-19, mRNA, LNP-S, PF, 30 mcg/0.3 mL dose 1 completed Mona Mark MA [facility] 01/16/2021 09:58:41 Influenza, high-dose, quadrivalent, PF 1 [facility] 05/08/2021 10:32:06 Influenza, split virus, trivalent, preservative 0 completed Not Available [facility] 04/18/2019 02:17:50 Past Encounters Encounter ID Performer Location Encounter Start Date Encounter Closed Date Diagnosis/Indication Diagnosis SNOMED-CT Code Diagnosis ICD10 Code Diagnosis Note [id number] AL Tian, [facility], OFFICE [address] [place] [address] 05/27/2008 14:44:39 05/31/2008 14:47:22 [id number] AL Tian, [facility], [address]ICE [address] [place] [address] 06/24/2008 16:44:33 06/28/2008 10:22:53 [id number] AL Tian, [facility], [address]ICE [address] [place] [address] 12/22/2009 15:33:16 12/26/2009 07:59:01 [id number] AL Tian , [facility], [address]ICE [address] [place] [address] 03/02/2010 16:00:54 03/06/2010 13:45:04 [id number] [facility] , [facility] [address] [place] [address] 03/20/2010 15:01:45 03/21/2010 11:20:58 [id number] Arnaldo Ambrocio MD , [facility], [address] [place] [address] 01/26/2011 10:05:07 01/29/2011 13:22:46 [id number] [facility] , [address] [address] 01/26/2011 10:35:57 01/30/2011 08:45:03 [id number] Arnaldo Ambrocio MD , [facility], [address] [place] [address] 02/09/2011 15:09:01 02/12/2011 12:03:49 [id number] AL Tian , [facility], [address] [place] [address] 03/13/2011 15:05:21 03/13/2011 17:15:06 [id number] [facility] [address] [place] [address] 03/13/2011 16:35:35 03/15/2011 12:04:[id number] [facility] Radiology , [facility] [address] [place] [address] 04/19/2011 15:26:55 04/20/2011 14:58:30 [id number] AL Tian , [facility], OFFICE [address] [place] [address] 05/15/2011 16:12:06 05/15/2011 17:15:12 [id number] Scar Betancur MD , [facility], [address] [place] [address] 07/03/2011 15:00:30 07/06/2011 08:10:51 [id number] ZHANNA Goodrich, [facility], [address] [place] [address] 08/09/2011 16:03:19 08/13/2011 09:42:10 [id number] [facility] RADIOLOGY [employer] , [facility] [address] [place] [address] 08/09/2011 17:09:51 08/09/2011 17:22:53 [id number] AL Tian, [facility], OFFICE [address] [place] [address] 08/21/2011 16:35:18 08/21/2011 17:29:43 [id number] AL Tian, [facility], [address] [place] [address] 04/08/2012 15:09:46 04/08/2012 17:16:15 [id number] AL Tian, [facility], [address] [place] [address] 06/26/2012 16:21:08 06/26/2012 17:21:18 [id number] Scar Betancur MD , [facility], [address] [place] [address] 07/02/2013 14:07:11 07/03/2013 09:00:18 Benign essential hypertension 8122989 Blood pressure at goal . Mixed hyperlipidemia 693310332 Cholestero l is at goal Cholestero l is not at goal Continue to work on diet and exercise as discussed Adult [facility] examination [id number] see Risk Assessment and Lifestyle Change Counseling section above Tobacco user [id number] d iscussed that smoking - nicotin and other chemicals adversely effect BH illnesses and do not support efforts of recovery- reiiterate d that pt is in charge of her health decisions- moving [place]- stress mgt reviewed [id number] AL Tian, [facility], [address] [place] [address] 01/21/2014 16:20:29 01/21/2014 17:19:26 Tobacco user 205590912 reviewed adv's of nicotine patch/loze nge along with wellbutrti n to decrease smoking. Hyperlipidemia 57061148 Influenza vaccine needed [id number] 106 Benign ess ential hypertension 3715074 Blood pressure at goal . Diabetes mellitus 55915587 [id number] AL Tian, [facility], [address] [place] [address] 09/08/2014 16:21:01 09/08/2014 17:29:57 Benign essential hypertension 5746960 Blood pressure at goal Blood pressure NOT at goal. Tobacco user 063158525 r eviewed adv's of nicotine patch/loze nge along with wellbutrti n to decrease smoking. Hyperlipidemia 67211693 [id number] AL Tian , [facility], [address] [place] [address] 01/03/2015 15:18:42 01/04/2015 10:44:00 Adult health examination 224659135 Z00.00 see Risk Assessment and Lifestyle Change Counseling section above Screening for disorder 989674597 Z72.89 Screening for malignant neoplasm of colon 606201854 Z12.11 Tobacco user 560059733 Z 72.0 reviewed adv's of nicotine patch/loze nge along with wellbutrti n to decrease smoking. Influenza vaccine needed 2323270956 106 Z28.3 Administra tion of pneumococcal vaccine 57728507 Z23 Administra tion of diphtheria, pertussis, and tetanus vaccine 634440267 Z23 Diabetes mellitus 560494 09 E13.9 controlled with diet Hyperlipidemia 90294691 E78.5 not at goal- intolerant of all statins, taking natruopath - thinks red rice yeast- high fiber- recheck in 3 -6 months Benign ess ential hypertension 3041315 I10 Blood pressure at goal Injury of mouth 37033361 S09.93XA by hx due to extreme temp change in mouth- hx has ramos in past and resolves- f/u if not resolving in coming month- sooner any worse [id number] Scar Betancur MD , [facility], [address] [place] [address] 01/13/2015 16:35:04 01/18/2015 15:08:13 Gingival disease 05091683 K06.9 buchal infection , [id number] Praful Andrea MD , [facility], [address] [place] [address] 12/14/2015 09:37:51 12/15/2015 14:54:34 Herpes zoster 4653293 B02.9 Left uper breast with one small area of tiny vesicular lesions, and one satellite lesion on her back. Pt not experienci ng pain, but has some itchiness. Recommende d calamine lotion [id number] Scar Betancur MD FP, [facility], [address] [place] [address] 01/11/2016 15:16:09 01/11/2016 17:02:20 Adult health examination 058517228 Z00.00 see Risk Assessment and Lifestyle Change Counseling section above Cigarette smoker 9532538 7 F17.210 Tobacco user 644764436 Z 72.0 reviewed adv's of nicotine patch/loze nge along with wellbutrti n to decrease smoking. Screening for malignant neoplasm of cervix 392137648 Z12.4 Screening for malignant neoplasm of respiratory tract 398565956 Z12.2 Diabetes mellitus 430026 09 E13.9 controlled with diet Essential hypertension 78739905 I10 increase today, patient reports bp's < 140/90 in the grocery store- increase stressors now with up coming move.= recheck in 3 months when able Hyperlipidemia 84579095 E78.5 not at goal- intolerant of all statins, taking natruopath - thinks red rice yeast- high fiber- recheck in 3 -6 months Active or passive immunization 117041454 Z23 [id number] AL Tian, [facility], [address] [place] [address] 07/30/2016 16:18:45 07/30/2016 17:21:16 Benign essential hypertension 2374729 I10 Blood pressure at goal Mixed hyperlipidemia 267 026531 E78.2 not at goal- had s/e stain- consider red yeast rice Cigarette smoker 1630077 7 F17.210 Tobacco user 159862813 Z 72.0 reviewed adv's of nicotine patch/loze nge along with wellbutrti n to decrease smoking. Screening for malignant neoplasm of lung 543317757 Z12.2 Pain of hip region 88488 002 M25.281 [id number] AL Tian, [facility], [address] [place] [address] 09/10/2016 13:04:28 09/10/2016 13:49:16 Cigarette smoker 61027707 F17.210 plan to d/c smoking prior to surgery Tobacco user 584763378 Z 72.0 will be stopping smoking prior to surgery - iusing stop smoking aides Pre-surger y evaluation 774770443 Z01.818 pt cleared for surgery Cataract 691387631 H26.9 [id number] Scar Betancur MD , [facility], [address] [place] [address] 01/14/2017 11:32:34 01/14/2017 13:11:03 Adult health examination 440990039 Z00.00 see Risk Assessment and Lifestyle Change Counseling section above Counseling 898002480 Z71 .9 Mixed hyperlipidemia 267 967668 E78.2 Cholestero l is not at goal Continue to work on diet and exercise as discussed- ADD [employer]- intolerant to statins Benign ess ential hypertension 0370275 I10 Blood pressure at goal , continue present mgtm Cigarette smoker 5753575 7 F17.210 Tobacco user 219991291 Z 72.0 reviewed adv's of nicotine patch/loze nge along with wellbutrti n to decrease smoking. Active or passive immunization 496288717 Z23 Imaging of lung abnormal 700479633 R91.8 DUE IN 03/17 Hearing loss 20280244 H9 1.93 audioogy referral [id number] Scar Betancur MD , [facility], [address] [place] [address] 05/27/2017 13:02:35 05/27/2017 15:38:58 Acute upper respiratory infection 77752820 J06.9 Educated patient that URI is a [...] failure to resolve in 2-4 weeks. Cough 76561810 R05 Pneumonia 074603218 J18. 9 Type 2 monik betes mellitus without complication 398569832 E13.9 controlled with diet and exercise [id number] Scar Betancur MD , [facility], [address] [place] [address] 07/15/2017 10:27:21 07/15/2017 11:38:34 Benign essential hypertension 9503742 I10 Blood pressure at goal Mixed hyperlipidemia 267 374050 E78.2 Cholestero l is not at goal Continue to work on diet and exercise as discussed- increase [employer]- intolerant to statins Active or passive immunization 582735071 Z23 Nicotine dependence 5629 4008 F17.200 Allergy to bee venom 424 756427 Z91.030 Pneumonia 378234851 J18. 9 Diabetes mellitus 224200 09 E11.9 well COntrolled with diet and exercise, restart ASA 81 MG [id number] Scar Betancur MD , [facility], [address] [place] [address] 11/15/2017 11:47:27 11/15/2017 13:01:54 Mixed hyperlipidemia 062533108 E78.2 Cholestero l is not at goal TRIAL WITH ATORVASTAT IN 80 TRY QOD FIRST. Intracrani al meningioma 621192008 D32.0 to schedule neuro surgery Carotid ar dayana occlusion 254124762 I65.29 vascular surgeon referral tos ched [id number] Scar Betancur MD , [facility], [address] [place] [address] 01/16/2018 14:03:24 01/16/2018 16:18:57 Adult health examination 771006050 Z00.00 see Risk Assessment and Lifestyle Change Counseling section above Counseling 486809042 Z71 .9 Depression screening 171 937469 Z13.89 depression screening tool administer ed, entered into emr, scored and discussed, time greater than 7.5 minutes Mixed hyperlipidemia 267 974573 E78.2 Cholestero l is not at goal TRIAL WITH ATORVASTAT IN 80 TRY QOD FIRST. Benign ess ential hypertension 2077727 I10 Blood pressure at goal Postmenopausal state 764 84392 Z78.0 Active or passive immunization 508925761 Z23 Solitary n odule of lung 632951425 R91.1 Dizziness 366791644 R42 [id number] Scar Betancur MD , [facility], [address] [place] [address] 05/21/2018 14:29:33 05/21/2018 15:54:19 Tachycardia 4064242 R00.0 mildly tachyshaki ng, SOB with exertion? anemicrece nt meningioma txhas f/u oncology tomorrowsx ECG overall reassuring check labshydrat ionclose f/u Intracrani al meningioma 470167919 D32.0 Dizziness 491361340 R42 worsening sx over weeksassoc iated with shaking and exertional SOBtachy on exampeak flows okay, VS Other espinoza stableenc hydrationt aram it easylab work up and close f/u [id number] Marti Abreu MD FP, [facility], [address] [place] [address] 05/28/2018 10:07:19 05/29/2018 11:41:11 Microcytic anemia 434663699 D50.9 she is going to GI nowshe likely needs to go to hospital for labs and txshe is quite sx with her anemiashe is normotensi ve, but low for hershe is only tachy to 104 on ascultatio nshe is paleDr Natividad called to inform of sxclose f/u plan/ hospitaliz ation if necessary [id number] AL Tian FP, [facility], [address] [place] [address] 06/04/2018 08:10:39 06/04/2018 10:02:50 Dyspnea 063841291 R06.00 with dizziness- overtx HTN- stop lisinopril , check cbc- f/u 1 wk Anemia 160201753 D64.9 Diabetes mellitus 955215 09 E11.9 well COntrolled with diet and exercise, restart ASA 81 MG [id number] Scar Betancur MD FP, [facility], [address] [place] [address] 06/18/2018 16:18:46 06/19/2018 08:14:54 Benign essential hypertension 9892865 I10 stopped lisinopril - hypotensiv e- TO ER Diabetes mellitus 930691 09 E11.9 over controlled . Taper metformin down to 2 tablets daily Anemia 656979237 D64.9 Bipolar disorder 2199421 4 F31.9 Gastrointe stinal hemorrhage 54658761 K92.2 heme pos stool, hypotensiv e, tachycardi c- to ER Hypotensive episode 6776 3001 I95.9 [id number] Scar Betancur MD , [facility], [address] [place] [address] 06/30/2018 12:03:52 07/01/2018 09:19:30 Mixed hyperlipidemia 691218397 E78.2 Cholestero l is not at goal TRIAL WITH ATORVASTAT IN 80 TRY QOD FIRST. Carotid ar dayana stenosis 48865166 I65.29 cont plavix Bipolar disorder 8091698 4 F31.9 continue f/u with Dr Cintron Anemia 579394934 D64.9 GI eval in progress [id number] Scar Betancur MD , [facility], [address] [place] [address] 10/08/2018 11:24:54 10/08/2018 15:32:55 Cigarette smoker 17989673 F17.210 Abnormal v aginal bleeding 184125821 N93.9 Fatigue 03480106 R53.83 Screening for malignant neoplasm of cervix 475943505 Z12.4 [id number] Scar Betancur MD , [facility], [address] [place] [address] 10/29/2018 13:53:42 10/29/2018 14:58:48 Pre-surgery evaluation 906892401 Z01.818 pt cleared for surgery Carotid ar dayana stenosis 50103183 I65.29 R carotid artery stenosed 50-79%, LEFT CAROTID < 50%, will hold asa and plavix 5 days prior to surgery. consulted with pts vascular surgeon, Dr Sharpe and agrees with plan Mass of ovary 420518264 R19.09 cleared for surgery Intracrani al meningioma 358838291 D32.0 pmh- Bipolar disorder 6244805 4 F31.9 stable, continue f/u with Dr Ward Diabetes mellitus 081398 09 E11.9 stable- tx with diet and exercise. Hypothyroidism 90082131 E03.9 stable Hyperlipidemia 42946276 E78.5 [id number] Linh Vázquez MD , [facility], [address] [place] [address] 01/21/2019 14:04:56 01/23/2019 09:29:41 Active or passive immunization 067541719 Z23 [id number] AL Tian , [facility], [address] [place] [address] 02/18/2019 09:39:42 02/18/2019 11:40:30 Adult health examination 797260599 Z00.00 see Risk Assessment and Lifestyle Change Counseling section above Counseling 463939805 Z71 .9 Depression screening 171 Z13.89 depression screening tool administer ed, entered into emr, scored and discussed, time greater than 7.5 minutes Mixed hyperlipidemia 267 020173 E78.2 Ex-smoker 4625513 Z87.89 1 Screening mammography 24 511206 Z12.31 Fatigue 35888944 R53.83 Hearing loss 20925312 H9 1.93 reviewed test- showing b/l hearing loss- prefers to not f/u with audiologis t at this time [place] hematuria 99600356 5 R31.0 suspecting /hx- UA negative today- f/u ctologies. 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 Mixed hyperlipidemia 267 278824 E78.2 Increase pravastati n to 20mg BID, Recheck lipids in 1 month Postmenopausal state 764 65854 Z78.0 declined despite knowing risk of contractin g disease and potential from disease, would like to discuss at next visit [id number] Scar Betancur MD , [facility], [address] [place] [address] 03/02/2020 15:28:56 03/02/2020 16:22:35 Bipolar disorder 44910477 F31.9 stable, continue f/u with Dr Ward Adult [facility] th examination 039233596 Z00.00 see Risk Assessment and Lifestyle Change Counseling section above Counseling 530649842 Z71 .9 including cardiovasc ular risk reduction counseling Depression screening 171 Z13.89 depression screening tool administer ed, entered into emr, scored and discussed, time greater than 7.5 minutes Screening for alcohol abuse 899028325 Z13.39 Essential hypertension 59043631 I10 At goal, continue current medication s. Hyperlipidemia 36964904 E78.5 Hypothyroidism 16325283 E03.9 stable Eruption 562164267 R21 skin lesion- unchanged since summer- derm referral [id number] AL Tian , [facility], [address] [place] [address] 11/18/2019 13:48:59 11/19/2019 12:52:31 Essential hypertension 93590833 I10 At goal, continue current medication s. Mixed hyperlipidemia 267 596865 E78.2 continue Increase pravastati n to 20mg BID, - condider increase to 40 mg- has had muscle aches with statin use in past Dizziness 425473445 R42 check labs, keep diary- f/u with results in coming 1-2 wks Intracrani al meningioma 561001269 D32.0 continue f/u withoncolo gist [id number] Scar Betancur MD , [facility], [address] [place] [address] 01/04/2020 13:42:55 01/07/2020 13:31:01 [place] hematuria 396081309 R31.0 suspecting /hx- UA negative today-cyto logies neg.- urology f/u for hematuria Disorder o f thyroid gland 78144566 E07.9 [id number] Scar Betancur MD , [facility], [address] [place] [address] 09/22/2020 13:47:01 10/10/2020 11:36:51 Essential hypertension 96918382 I10 At goal, continue current medication s. Hyperlipidemia 34614220 E78.5 LDL- 140's with vascular disease- goal is 70, intolerant to atorvastat in- will increase to 40 mg pravastati n. Peripheral vascular disease 138771899 I73.9 Carotid ar dayana stenosis 55297628 I65.29 R carotid artery stenosed 50-79%, LEFT CAROTID < 50%, Dyspnea 866115518 R06.00 chest xray , ekg negative- further eval- stress test- tcx 2 to reach pt- PFT/pulmon jermain to do with smoking hx, left message to make f/u appt/call back . Eruption 972042425 R21 skin lesion- unchanged since summer- derm referral [id number] Scar Betancur MD , [facility], [address] [place] [address] 05/08/2021 10:08:25 05/08/2021 11:37:52 Adult health examination 584545942 Z00.00 see Risk Assessment and Lifestyle Change Counseling section above Counseling 039298798 Z71 .9 including cardiovasc ular risk reduction counseling Depression screening 171 582707 Z13.31 depression screening tool administer ed, entered into emr, scored and discussed, time greater than 7.5 minutes Screening for alcohol abuse 062092710 Z13.39 Hyperthyroidism 21467537 E05.90 Essential hypertension 87821782 I10 not At goal, continue current medication s. Mixed hyperlipidemia 267 635151 E78.2 Cholestero l is at goalContin ue to work on diet and exercise as discussed Screening mammography 24 955730 Z12.31 Screening for osteoporosis 164502331 Z13.820 Candidiasis of vagina 72 864440 B37.3 Multiple n odules of lung 736495487 R91.8 Diabetes mellitus 191124 09 E11.9 cont decrease metfomin 1tab/day- well cotnrolled with nutrition and exercise Bipolar disorder 8208345 4 F31.9 stable, continue f/u with Dr Ward Peripheral vascular disease 205671587 I73.9 carotid vascular disease- LDL- decreasing , asa and clopidogre l daily [id number] Scar Betancur MD , [facility], [address] [place] [address] 06/21/2021 11:45:12 07/11/2021 13:10:57 Mixed hyperlipidemia 791776384 E78.2 Cholestero l is at goalContin ue to work on diet and exercise as discussed Atrophic vaginitis 94586 000 N95.2 Candidiasis of skin 4988 3006 [...] Georges Member ID Guarantor Name 01/04/2020 1 [facility] (MEDICARE REPLACEMENT/A DVANTAGE - PPO) [id number] Ritu Dukes Bharat [id number] Ritu Molinater 03/02/2020 1 [facility] (MEDICARE REPLACEMENT/A DVANTAGE - PPO) [id number] Ritu Dukes Bharat [id number] Ritu Bharat 09/22/2020 1 [facility] (MEDICARE REPLACEMENT/A DVANTAGE - PPO) [id number] Ritu Dukes Bharat [id number] Ritu Bharat 05/08/2021 1 [facility] (MEDICARE REPLACEMENT/A DVANTAGE - PPO) [id number] Ritu Dukes Bharat [id number] Ritu Bharat 06/21/2021 1 [facility] (MEDICARE REPLACEMENT/A DVANTAGE - PPO) [id number] Ritu Dukes Bharat [id number] Ritu Nicholson Notes Date Note Type Note [...] 22 23 24 25}} minutes. AL Tian [address] [place] [address], [phone], [facility] 01/05/2020 20:20:32 0 text/html Physical Exam/FemaleReported bypatient.PHAPatient [...] room and availability of urgent care at [facility] HyperlipidemiaReported bypatient.Duration:chronic Control:poorly controlled Barriers to CareAllergy/int[facility] [place] [place] HypertensionReported bypatient.Context:No ischemic heart disease; No kidney disease; No history of CVA; No congestive heart failure; No history of transient ischemic attacks; No peripheral vascular disease; No history of diabetes Compliance:Compliant with medications; Compliant with diet;Noncompliant with exercise(taking yoga) Associated Symptoms:No shortness of breath; No edema; No fatigue; No palpitations; No decline in exercise capacity; No snoring;Chest pain(assoc with anxiety- no assoc with exercise)a/[facility] [place]-Smoking CessationReported bypatient.Readiness to quit smokingPatient is not [...] 22 23 24 25}} minutes. AL Tian [address] [place] [address], [phone], [facility] 03/02/2020 16:22:33 1 text/html [facility] DiabetesReported bypatient.Duration:chronic [...] PMH > 30 pack yr- AL Tian [address] [place] [address], [phone], [facility] 11/02/2020 11:08:29 2 text/html Physical Exam/FemaleReported bypatient.PHAPatient [...] room and availability of urgent care at [facility] HyperlipidemiaReported bypatient.Duration:chronic Control:poorly controlled Barriers to CareAllergy/intolerance to [facility] [place] HypertensionReported bypatient.Context:No ischemic heart disease; No kidney [...] SOB when walk for long AL Tian [address] [place] [address], [phone], [facility] 05/14/2021 19:56:41 2 text/html Pt reports rash all over body ongoing since summer time- started under breasts. Fluconazole has not helped. Rash is painful and itching and worsening over time- rash on axilla, labia, under breasts. . no fever or nausea. AL Tian [address] [place] [address], [phone], [facility] 06/30/2021 20:25:49 OBGyn Episode No OBEpisode recorded.
[2024-07-29 11:33] VITALS: BP 138/80; PULSE 87; RESP 16; TEMP 36.7; O2SAT 97; BMI 31.1
--- NOTE | 2024-07-29 11:33 | A.OFFPC_ITS ---
Vital Signs 07/29/24 11:33 Height 5 ft 6 in Weight 193 lb BMI 31.1 BP 138/80 Blood Pressure Location Rt brachial Position Sitting Respiration 16 Pulse 87 Pulse Source Pulse Oximeter Temp 98.0 F Temp Source Oral Pulse Oximetry (%) 97 Oxygen Delivery Method Room Air Intake Visit Reasons: Annual PE - see comments Intake Note: Pt is here today for her PE: last mammogram 10/22/22, bone density scan 05/31/21 Allergies bee pollen [BEE STINGS] Allergy (Severe, Verified 07/29/24 11:43) ANAPHYLAXIS Medication List - Last Reconciled 07/29/24 by Darlene Negro MD armodafinil 150 mg PO QAM ascorbic acid (vitamin C) 500 mg PO DAILY aspirin 81 mg PO DAILY cholecalciferol (vitamin D3) 50 mcg PO DAILY clotrimazole-betamethasone 1-0.05 % 1 appl topical BID 10 days coenzyme Q10 75 mg PO DAILY estradiol 0.01%(0.1mg/gram) 1 g vaginal 2XW ezetimibe 10 mg PO DAILY ferrous fumarate 325 mg PO DAILY FreeStyle Lite Meter (blood-glucose meter) As directed NS FreeStyle Lite Strips (blood sugar diagnostic) check fasting blood sugar once a day NS lamotrigine 150 mg PO DAILY 90 days lancets (FreeStyle Lancets) As directed once a day magnesium 250 mg PO DAILY metformin ER 500 mg PO DAILY ao-2-fuu-epa-fish oil-vit D3 120 mg-180 mg -1,000 unit caps PO pravastatin 20 mg PO BEDTIME propranolol ER 60 mg PO DAILY venlafaxine ER 75 mg PO DAILY vit C,Q-Fo-ynpdd-lutein-zeaxan 250-90-40-1 mg (PreserVision AREDS-2) 1 tab PO BID Tobacco use date assessed: 07/29/24 Fall risk assessment: No Falls in past year Last assessed Fall Risk: 07/29/24 Dental Screening Dental Screen Date: 07/29/24 Did you have a dental visit in the last 12 months?: Yes Did you have a dental problem in the last 6 months where you did not have access to dental care?: No Was dental information given to patient?: Patient has dentist HPI Annual PE - see comments HPI Details - The patient is a 74-year-old female pr esenting today for physical exam. - she is overdue to get her breast cance r screening, last mammogram was done 10/22/2022 and is overdue for bone density scan which was done last 05/31/2021 which showed normal bone density except for osteopenia in left femoral neck - complaining of intermittent shooting pain exacerbated by sitting, often relieved temporarily by leg exercises. - Imaging in 2021 showed advanced degene rative changes at the lumbar spine level, causing occasional nerve compression. - She has a history of meningioma with s table imaging findings on annual MRI surveillance done at [facility] 08/09/2023. - Dyslipidemia has been problematic with a significant rise in bad cholesterol despite pravastatin therapy. - Her diabetes shows a recent glucose in crease due to dietary factors. 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 Also complains of her recurrent rash under her breast and groin area during warm weather - Left elbow pain is recent and suspecte d to be tendinitis. - she does not want to get referred for colon cancer screening either by Cologuard or colonoscopy year -she has atherosclerosis of left carotid artery, followed by vascular surgery at [facility]. Last carotid duplex ultrasound done 12/27/2023 showed want to 49% stenosis in bilateral internal carotid artery . There was an ulcerated plaque seen in proximal ICA on the right side, she was advised to do take dual antiplatelet therapy. However she felt significantly fatigued while taking both Plavix and aspirin and was just advised to just continue with 81 mg aspirin at this time. She has been adviced to continue with statins and to return for follow-up in 1 year with repeat bilateral carotid duplex scan [facility] Medical History (Updated 07/29/24 @ 12:23 by Darlene Negro MD) Pruritic intertrigo Chronic left hip pain Benign essential tremor Macular degeneration Vulvar rash Osteopenia Postmenopausal Personal history of nicotine dependence Stenosis of right carotid artery greater than 50% Post traumatic stress disorder (PTSD) Bipolar II disorder in full remission Essential hypertension Mixed hyperlipidemia Type 2 diabetes mellitus without complication, with no history of insulin use Acquired hypothyroidism Insomnia Meningioma (~2019) Emphysema of lung Pulmonary nodules MACIEJ (obstructive sleep apnea) Surgical History Hx of endoscopy History of partial thyroidectomy History of hysterectomy History of appendectomy History of tonsillectomy History of colonoscopy Family History Father Substance use disorder Lung cancer Brother Mental health disorder Maternal Grandmother Mental health disorder Paternal Aunt No problems noted. Mother Mental health disorder Social History Housing: Condominium Patient Tobacco Use Status: Former Tobacco user Tobacco use type: Cigarette Years Smoked: (onset 15yo, 1ppd x 51yrs, 40+PYH - quit 2017) e-Cigarette/Vaping Use: Never Used service: No Current occupational status: retired Cognitive needs: No Hearing needs: No Vision needs: Yes Female Reproductive History Menstrual Age of Menarche: 12 Questionnaire PHQ-9 Over the last 2 weeks, how often have you been bothered by any of the following problems? 1. Little interest or pleasure in doing things: not at all 2. Feeling down, depressed, or hopeless: not at all 3. Trouble falling or staying asleep, or sleeping too much: not at all 4. Feeling tired or having little energy: not at all 5. Poor appetite or overeating: not at all 6. Feeling bad about yourself - or that you are a failure or have let yourself or your family down: not at all 7. Trouble concentrating on things, such as reading the newspaper or watching television: not at all 8. Moving or speaking so slowly that other people could have noticed. Or the opposite - being so fidgety or restless that you have been moving around a lot more than usual: not at all 9. Thoughts that you would be better off or of hurting yourself in some way: not at all Total score: 0 Depression Screening Interpretation: Negative Depression Screening Done: Yes 03303 - PHQ-9 Billing: Yes Source: Developed by Drs. Tyshawn Fajardo, Rahel Rdz, Jose Sparrow and colleagues, with an educational aguilar from [employer]. Thrive Questionnaire Date Thrive assessed: 05/11/24 I am a: Patient What is your living situation today?: I have a steady place to live Within the past 12 months, did the food you bought not last and you didn't have the money to get more?: Never true Within the past 12 months, did you worry whether your food would run out before you got money to buy more?: Never true Do you have trouble paying for medicines?: No Do you have trouble getting transportation to medical appointments?: No Do you have trouble paying your heating and electricity bill?: No Do you have trouble taking care of your child, family member or friend?: No Do you have trouble with day-to-day activities such as bathing, preparing meals, shopping, managing finances, etc.?: No Are you currently unemployed and looking for a job?: No Are you interested in more education?: No Please select the resources that you would like help with: None Currently or been in a relationship where the following occur: I choose not to answer THRIVE Score: 0 AUDIT C Alcohol Use Questionnaire (AUDIT-C) 1. How often do you have a drink containing alcohol?: Never Total Score: 0 IDALIA-7 AMB Questionnaire IDALIA-7 Date IDALIA - 7 assessed: 07/29/24 Feeling nervous, anxious, or on edge: 0 = Not at all Not being able to stop or control worryin = Not at all Worrying too much about different things: 0 = Not at all Trouble relaxin = Not at all Being so restless that it is hard to sit still: 0 = Not at all Becoming easily annoyed or irritable: 0 = Not at all Feeling afraid as if something awful might happen: 0 = Not at all Total IDALIA-7 score (0-4 normal; 5-9 mild; 10-14 moderate; 15-21 severe): 0 Source: Developed by Drs. Tyshawn Fajardo, Rahel Rdz, Jose Sparrow and colleagues, with an educational aguilar from [employer]. IDALIA-7 Assessment Billing IDALIA-7 Assessment Tool: IDALIA-7 Assessment 80375 Review of Systems Const Denies frequent falls, Denies headache(s) and Denies night sweats Eyes Details: Sees Eye [facility] Lasix, has beginning macular degeneration OU Denies change in vision and Reports requires corrective lenses ENT Details: Dental cleaning every 6 months Denies change in voice, Denies dizziness, Denies headache(s), Denies mouth pain and Denies disequilibrium Card Denies chest pain, Denies rapid heart rate, Denies irregular heart rhythm, Denies lightheadedness and Denies dyspnea Resp Denies cough, Denies dyspnea and Denies wheezing GI Denies abdominal pain, Denies melena, Denies hematochezia, Denies heartburn and Denies nausea Reports no additional complaints and Denies nipple discharge Musc Reports as per HPI Skin/Breast Denies breast pain, Denies breast mass, Denies nipple discharge and Denies rash Neuro Denies dizziness, Denies frequent falls, Denies headache(s) and Denies disequilibrium Psych Denies no additional complaints Endo Reports no additional complaints Ez/Lymph Denies easy bleeding and Denies lymphadenopathy Aller/Immun Denies seasonal rhinorrhea and Denies wheezing Physical exam (Primary Care) Vital Signs: Last Vital Signs Temp 98.0 F 07/29/24 11:33 Pulse 87 07/29/24 11:33 Resp 16 07/29/24 11:33 BP 138/80 07/29/24 11:33 Pulse Ox 97 07/29/24 11:33 Oxygen Delivery Method Room Air 07/29/24 11:33 BMI result Body Mass Index 31.1 BMI Assessment/Plan discussion: High BMI High, discussed plan: lifestyle, weight reduction and dietary Tobacco/Smoking Status: Tobacco use Status Tobacco use date assessed 07/29/24 07/29/24 11:37 Patient Tobacco Use Status Former Tobacco user 07/29/24 11:37 Tobacco use type Cigarette 07/29/24 11:37 e-Cigarette/Vaping Use Never Used 07/29/24 11:37 PHQ-9: PHQ-9 Score PHQ-9: Total score 0 08/03/24 00:14 Depression Screening Interpretation: Negative Thrive Assessment: Date of Thrive Assessment Date Thrive assessed 05/11/24 07/29/24 11:37 Currently or been in a relationship where the following occur: I choose not to answer Advance Care Planning discussion: Completed/Scanned Date of discussion: 07/29/24 Who was present: Patient Forms completed: Health Care Proxy and MOLST Time spent: 16-45 minutes Actual minutes spent: 10 Const Other: Alert oriented x3, no acute distress, ambulatory with normal gait Orientation/consciousness: patient oriented x3 HENMT Head: Yes atraumatic Ears: TM's normal bilaterally and EAC's normal General nose exam: Normal external nose present and No nasal discharge present Mouth: Normal oral and palatal mucosa present and moist mucous membranes Eyes General: appearance normal, both eyes and all related structures Neck Neck: Yes full ROM, Yes no lymphadenopathy and Yes supple Chest Breast/axilla palpation: normal palpation of the breasts Resp Effort & Inspection: normal respiratory effort and able to speak in complete sentences Auscultation: clear to auscultation bilaterally Cardio Other: S1-S2 present regular rate and rhythm GI Other: Normal, bowel sounds, soft, nontender, no mass palpated Back/Spine/Pelvis Back: No back tenderness Skin Other: No rash noted under breasts Neuro General: patient oriented x3, gait normal, tone normal, moves all extremities, no focal motor deficits, CN's II-XI intact bilaterally and other (mild tremors in hands) Extrem General: Yes full ROM, Yes no joint enlargement and Yes no pedal edema Psych Appearance: grossly normal and well kempt Mental Status: mental status grossly normal Speech and movement: Normal speech and movement present Affect: normal affect Attitude: cooperative Results Reviewed Results Reviewed: Name: Ritu Nicholson Age/Sex: 74/F : 1950 Unit#: [id number] Attend Dr: Darlene Negro MD Re05/11/24 Status: DEP REF Location: [facility] Disch: SPEC : [id number] BARBARA: 05/11/24 STATUS: COMP REQ : [id number] RECD: 05/11/[address]: Darlene Negro MD COMP: 05/11/24 ENTERED: 05/11/[address]: ORDERED: CBC Auto Diff Test Result Flag Reference WBC 5.6 4.8-10.8 X10*3/uL RBC 4.58 4.20-5.50 X10*6/uL HGB 14.5 12.0-16.0 g/dl HCT 43.0 37.0-47.0 % MCV 93.9 80.0-98.0 fL MCH 31.7 27.0-33.0 pg MCHC 33.7 31.0-35.0 g/dl RDW 13.6 11.0-16.0 % PLT 344 160-400 X10*3/uL MPV 9.2 L 9.4-12.3 fL Neut Pct Auto 55.4 45-73 % ImGran Pct Auto 0.4 0.0-0.4 % Lymp Pct Auto 29.9 20-40 % Marshall Pct Auto 8.1 2-11 % Eos Pct Auto 5.8 H 0-4 % Baso Pct Auto 0.4 0-2 % NRBC Pct Auto 0.0 0.0-0.2 /100WBC ANC Neut Abs # 3.1 2.0-8.3 x10*3/uL ImGran Abs Auto 0.02 0.00-0.03 X10*3/uL Lymph Abs Auto 1.7 1.2-4.9 X10*3/uL Marshall Abs Auto 0.5 0.1-1.2 X10*3/uL Eos Abs Auto 0.3 0.0-0.4 X10*3/uL Baso Abs Auto 0.0 0.0-0.2 X10*3/uL NRBC Abs Auto 0.000 0.0-0.012 X10*3/uL Name: Ritu Nicholson Age/Sex: 74/F : 1950 Unit#: [id number] Attend Dr: Darlene Negro MD Re05/11/24 Status: DEP REF Location: [facility] Disch: SPEC : [id number] BARBARA: 05/11/24 STATUS: COMP REQ : [id number] RECD: 05/11/24-[address]: Darlene Negro MD COMP: 05/11/24 ENTERED: 05/11/24-13[address] [facility] DR: ORDERED: Met Prof Fast, IRON PROF, AST, ALT, Lipid Panel, Vitamin D 25-OH Test Result Flag Reference Sodium 141 135-145 mmol/L Potassium 4.2 3.3-5.1 mmol/L CL 108 96-108 mmol/L CO2 22 22-29 mmol/L Gap 15 12-20 BUN 9 9-16 mg/dL Creat 0.82 0.5-1.4 mg/dL eGFR > 60 Chronic Kidney Disease: Estimated GFR < 60 mL/min/1.73m2 Severe Kidney Disease: Estimated GFR < 15 mL/min/1.73m2 FBS 153 H 60-99 mg/dL A fasting glucose of 126 mg/dl or greater on more than one occasion is considered diagnostic of diabetes. CA 9.4 8.4-10.2 mg/dL Iron 109 30-160 mcg/dL TIBC 290 228-428 mcg/dL Saturation 38 15-50 % UIBC 181 ug/dL AST (GOT) 40 H 5-31 U/L ALT (GPT) 57 H 0-31 U/L Triglyceride 186 H <150 mg/dL Desirable Triglyceride: less than 150 mg/dL Borderline High Triglyceride 150-199 mg/dL High Triglyceride: 200-499 mg/dL Very High Triglyceride: greater than or equal to 5OO mg/dL Cholesterol 384 H <200 mg/dL Desirable Cholesterol: less than 200 mg/dL Borderline High Cholesterol: 200-239 mg/dL High Cholesterol: greater than 239 mg/dL LDL Calculated 286 H <100 mg/dL Desirable LDL: less than 100 mg/dL Near Optimal/Above Optimal LDL: 110-129 mg/dL Borderline High LDL: 130-159 mg/dL High LDL: 160-189 mg/dL Very High LDL: greater than or equal to 190 mg/dL HDL 61 >40 mg/dL Desirable HDL: greater than 40 mg/dL Note: This HDL assay may give artificially low results in patients with liver disease. Vit D 25-OH Tot 114.3 >30 ng/mL Health Based Reference Values* < 20 ng/mL Deficient 20-30 ng/mL Insufficient > 30 ng/mL Sufficient Laboratory Tests 05/11/24 13:23 Estimat Average Glucose 126 Hemoglobin A1c % 6.0 Coding Level of Care Code Est Pt Prev Care >65y(09354) Diagnoses Annual visit for general adult medical examination with abnormal findings Z00.01 Chronic left hip pain M25.552; G89.29 Osteopenia of neck of left femur M85.852 Laterality: left Osteopenia location: femoral neck Mixed hyperlipidemia E78.2 Screening for Malignant Neoplasm of Skin Z12.83 Essential hypertension I10 Generalized anxiety disorder F41.1 Macular degeneration, unspecified laterality, unspecified type H35.30 Eye laterality: unspecified Macular degeneration type: unspecified type Scalp lesion L98.9 Pruritic intertrigo L30.4 Type 2 diabetes mellitus without complication, with no history of insulin use E11.9 Meningioma D32.9 Stenosis of right carotid artery greater than 50% I65.21 Advanced directives, counseling/discussion Z71.89 Additional Codes IDALIA-7 Assessment Billing - IDALIA-7 Assessment Tool: IDALIA-7 Assessment 88363 ([id number]) PHQ-9 - 66646 - PHQ-9 Billing: Yes ([id number]) Vital Signs *Quality* - Advance Care Planning discussion: Completed/Scanned ([id number]) Vital Signs *Quality* - Time spent: 16-45 minutes ([id number]) Assessment & Plan Assessment & Plan (1) Annual visit for general adult medical examination with abnormal findings: Code(s): Z00.01 - Encounter for general adult medical examination with abnormal findings Plan: Recent lab results reviewed with patient. Recommended dental visit every 6 months and regular eye exams,, followed by [facility] for [facility]. Take adequate calcium in diet and vitamin-D 3 at 2000 IU per cap once a day, in addition to weight-bearing exercises to help maintain good muscle tone and weight control. Instructed to do self-breast exam, and recommended to get yearly mammogram, patient declined colonoscopy or any colon cancer screening. Up-to-date with her pneumococcal vaccination and gets yearly flu shots, has had only 1 Shingrix vaccine, reminded to get a 2nd dose. Last Tdap was given 2014 (2) Chronic left hip pain: Code(s): M25.552 - Pain in left hip; G89.29 - Other chronic pain Category: Medical Plan: X-ray of left hip with pelvis ordered, advised to take Tylenol arthritis 650 mg per tablet to take 1 every 8 hours as needed for pain, apply moist heat to affected area (3) Osteopenia: Comment: (Bone Dexa Femoral T-score: -1.4 on 05/31/21) Code(s): M85.80 - Other specified disorders of bone density and structure, unspecified site Category: Medical Qualifiers: Laterality: left Osteopenia location: femoral neck Qualified Code(s): M85.852 - Other specified disorders of bone density and structure, left thigh Plan: Due for repeat bone density scan, ordered continue taking vitamin-D 3 at 2000 units daily, and stressed importance of doing regular weight-bearing exercise. (4) Mixed hyperlipidemia: Code(s): E78.2 - Mixed hyperlipidemia Category: Medical Plan: Recent fasting labs showed marked elevation in her LDL cholesterol. Will stop pravastatin and switched to rosuvastatin will started dose of 5 mg 1 tablet 3 ti mes a week, discussed possible side effects of medication which may include muscle weakness and pain. Call if experiencing any of these side effects. Continue ezetimibe 10 mg daily (5) Screening for Malignant Neoplasm of Skin: Code(s): Z12.83 - Encounter for screening for malignant neoplasm of skin Plan: Dermatology consult obtained with Dr. Robertson for skin cancer screening (6) Essential hypertension: Code(s): I10 - Essential (primary) hypertension Category: Medical Plan: Continue propranolol (7) Generalized anxiety disorder: Code(s): F41.1 - Generalized anxiety disorder Category: Medical Plan: Continued on venlafaxine ER 75 mg daily (8) Macular degeneration: Code(s): H35.30 - Unspecified macular degeneration Category: Medical Qualifiers: Eye laterality: unspecified Macular degeneration type: unspecified type Qualified Code(s): H35.30 - Unspecified macular degeneration Plan: Followed at [facility] (9) Scalp lesion: Code(s): L98.9 - Disorder of the skin and subcutaneous tissue, unspecified Category: Medical Plan: Dermatology consult ordered (10) Pruritic intertrigo: Code(s): L30.4 - Erythema intertrigo Category: Medical Plan: Dermatology consult ordered (11) Type 2 diabetes mellitus without complication, with no history of insulin use: Code(s): E11.9 - Type 2 diabetes mellitus without complications Category: Medical Plan: Diabetes mellitus controlled with hemoglobin A1c at 6%. Continued on metformin ER 500 mg taken once a day. (12) Meningioma: Onset Date: ~2018 Comment: (onset 10/08/2018 - s/p brain radiation), ff'd by Dr Satish Portillo at [facility], and sees Dr Poon Code(s): D32.9 - Benign neoplasm of meninges, unspecified Category: Medical Plan: Followed at [facility] neurology, recent MRI showed no change in lesion (13) Stenosis of right carotid artery greater than 50%: Comment: (stenosis 50-79% of Rt ICA on 01/14/18 dopler), ff'd at [facility] vascular surgery Code(s): I65.21 - Occlusion and stenosis of right carotid artery Category: Medical Plan: Followed by [facility] vascular surgery , continued on aspirin 81 mg daily (14) Advanced directives, counseling/discussion: Code(s): Z71.89 - Other specified counseling Plan: Initiated the conversation about Advanced Directives. Advanced Directives help patients prepare for current and future decisions about their medical treatment and place of care. Discussed with patient that it is a process where a patients current condition and prognosis are reviewed, their wishes for information regarding their illness are elicited, and likely medical dilemmas are presented and options discussed. Healthcare proxy and MOLST form completed today. These forms can be amended as needed, reviewed yearly and make changes as needed Orders: Orders Aspartate Amino Transferase 10/30/24 E03.9 - Hypothyroidism, unspecified, E11.9 - Type 2 diabetes mellitus without complications, E78.2 - Mixed hyperlipidemia, F41.1 - Generalized anxiety disorder, G25.0 - Essential tremor, H35.30 - Unspecified macular degeneration, I10 - Essential (primary) hypertension, L30.4 - Erythema intertrigo, L98.9 - Disorder of the skin and subcutaneous tissue, unspecified, M85.852 - Other specified disorders of bone density and structure, left thigh Alanine Aminotransferase 10/30/24 E03.9 - Hypothyroidism, unspecified, E11.9 - Type 2 diabetes mellitus without complications, E78.2 - Mixed hyperlipidemia, F41.1 - Generalized anxiety disorder, G25.0 - Essential tremor, H35.30 - Unspecified macular degeneration, I10 - Essential (primary) hypertension, L30.4 - Erythema intertrigo, L98.9 - Disorder of the skin and subcutaneous tissue, unspecified, M85.852 - Other specified disorders of bone density and structure, left thigh Creatine Kinase Total 10/30/24 E03.9 - Hypothyroidism, unspecified, E11.9 - Type 2 diabetes mellitus without complications, E78.2 - Mixed hyperlipidemia, F41.1 - Generalized anxiety disorder, G25.0 - Essential tremor, H35.30 - Unspecified macular degeneration, I10 - Essential (primary) hypertension, L30.4 - Erythema intertrigo, L98.9 - Disorder of the skin and subcutaneous tissue, unspecified, M85.852 - Other specified disorders of bone density and structure, left thigh Basic Metabolic Panel Fasting 10/30/24 E03.9 - Hypothyroidism, unspecified, E11.9 - Type 2 diabetes mellitus without complications, E78.2 - Mixed hyperlipidemia, F41.1 - Generalized anxiety disorder, G25.0 - Essential tremor, H35.30 - Unspecified macular degeneration, I10 - Essential (primary) hyperten fransico, L30.4 - Erythema intertrigo, L98.9 - Disorder of the skin and subcutaneous tissue, unspecified, M85.852 - Other specified disorders of bone density and structure, left thigh Lipid Panel 10/30/24 E03.9 - Hypothyroidism, unspecified, E11.9 - Type 2 diabetes mellitus without complications, E78.2 - Mixed hyperlipidemia, F41.1 - Generalized anxiety disorder, G25.0 - Essential tremor, H35.30 - Unspecified macular degeneration, I10 - Essential (primary) hypertension, L30.4 - Erythema intertrigo, L98.9 - Disorder of the skin and subcutaneous tissue, unspecified, M85.852 - Other specified disorders of bone density and structure, left thigh Thyroid Stimulating Hormone 10/30/24 E03.9 - Hypothyroidism, unspecified, E11.9 - Type 2 diabetes mellitus without complications, E78.2 - Mixed hyperlipidemia, F41.1 - Generalized anxiety disorder, G25.0 - Essential tremor, H35.30 - Unspecified macular degeneration, I10 - Essential (primary) hypertension, L30.4 - Erythema intertrigo, L98.9 - Disorder of the skin and subcutaneous tissue, unspecified, M85.852 - Other specified disorders of bone density and structure, left thigh XR hip LT w PEL1V 07/29/24 G89.29 - Other chronic pain, M25.552 - Pain in left hip XR DEXA axial skeleton 07/29/24 M85.852 - Other specified disorders of bone density and structure, left thigh Vitamin D 25-OH Total 10/30/24 E03.9 - Hypothyroidism, unspecified, E11.9 - Type 2 diabetes mellitus without complications, E78.2 - Mixed hyperlipidemia, F41.1 - Generalized anxiety disorder, G25.0 - Essential tremor, H35.30 - Unspecified macular degeneration, I10 - Essential (primary) hypertension, L30.4 - Erythema intertrigo, L98.9 - Disorder of the skin and subcutaneous tissue, unspecified, M85.852 - Other specified disorders of bone density and structure, left thigh Free T4 (Free Thyroxine) 10/30/24 E03.9 - Hypothyroidism, unspecified, E11.9 - Type 2 diabetes mellitus without complications, E78.2 - Mixed hyperlipidemia, F41.1 - Generalized anxiety disorder, G25.0 - Essential tremor, H35.30 - Unspecified macular degeneration, I10 - Essential (primary) hypertension, L30.4 - Erythema intertrigo, L98.9 - Disorder of the skin and subcutaneous tissue, unspecified, M85.852 - Other specified disorders of bone density and structure, left thigh Hemoglobin A1c 10/30/24 E03.9 - Hypothyroidism, unspecified, E11.9 - Type 2 diabetes mellitus without complications, E78.2 - Mixed hyperlipidemia, F41.1 - Generalized anxiety disorder, G25.0 - Essential tremor, H35.30 - Unspecified macular degeneration, I10 - Essential (primary) hypertension, L30.4 - Erythema intertrigo, L98.9 - Disorder of the skin and subcutaneous tissue, unspecified, M85.852 - Other specified disorders of bone density and structure, left thigh Microalbumin, Random (w Creat) 10/30/24 E03.9 - Hypothyroidism, unspecified, E11.9 - Type 2 diabetes mellitus without complications, E78.2 - Mixed hyperlipidemia, F41.1 - Generalized anxiety disorder, G25.0 - Essential tremor, H35.30 - Unspecified macular degeneration, I10 - Essential (primary) hypertension, L30.4 - Erythema intertrigo, L98.9 - Disorder of the skin and subcutaneous tissue, unspecified, M85.852 - Other specified disorders of bone density and structure, left thigh Referrals Dermatology Referral L30.4 - Erythema intertrigo, L98.9 - Disorder of the skin and subcutaneous tissue, unspecified, Z12.83 - Encounter for screening for malignant neoplasm of skin Medications: New rosuvastatin 5 mg PO 3XW 3 months 39 tabs 1RF E78.2 - Mixed hyperlipidemia
== END 2024-07-29 12:26 | disposition home or self-care (01) ==
LOC: HO.HMCC 10:14
PROVIDERS: PCP Internal Medicine; Visit Provider Internal Medicine
DX: Z00.00 Encounter for general adult medical examination without abnormal findings (principal); M25.552 Pain in left hip; E11.9 Type 2 diabetes mellitus without complications; D32.9 Benign neoplasm of meninges, unspecified; G89.29 Other chronic pain; M85.852 Other specified disorders of bone density and structure, left thigh; E78.2 Mixed hyperlipidemia; Z12.83 Encounter for screening for malignant neoplasm of skin; I10 Essential (primary) hypertension; F41.1 Generalized anxiety disorder; H35.30 Unspecified macular degeneration; L98.9 Disorder of the skin and subcutaneous tissue, unspecified

== ENCOUNTER → 2024-07-29 10:13 | Outpatient (BNVA) | payer MEDICARE, SELFPAY | PROVIDERS: PCP Internal Medicine; Visit Provider Internal Medicine | DX: Z00.01 Encounter for general adult medical examination with abnormal findings (principal); M25.552 Pain in left hip; G89.29 Other chronic pain; M85.852 Other specified disorders of bone density and structure, left thigh; E78.2 Mixed hyperlipidemia; I10 Essential (primary) hypertension; F41.1 Generalized anxiety disorder; H35.30 Unspecified macular degeneration; L98.9 Disorder of the skin and subcutaneous tissue, unspecified; L30.4 Erythema intertrigo; E11.9 Type 2 diabetes mellitus without complications; D32.9 Benign neoplasm of meninges, unspecified; I65.21 Occlusion and stenosis of right carotid artery; Z71.89 Other specified counseling | CPT/HCPCS: 96127; 99397 ==

== ENCOUNTER 2024-08-03 13:42 | Outpatient (REF) | payer MEDICARE, SELFPAY ==
--- NOTE | ~2024-08-03 | XR_ITS ---
CLINICAL HISTORY: M25.552 - Pain in left hip 3 views, pelvis and left hip Comparison: None Findings: No acute fracture or dislocation. Mild degenerative changes of the femoral-acetabular joints bilaterally. The soft tissues are unremarkable. IMPRESSION: No acute findings. Mild degenerative changes of the femoral-acetabular joints bilaterally. This document has been electronically signed by: Lavelle Bay MD on 08/04/2024 12:37:08
--- OUTSIDE RECORDS SUMMARY | 2024-08-03 15:14 | XMS_ITS | Data Portability ---
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 Lab TSH, serum or plasma 2019 [facility], [address] [place] [address], [address], 0 08:21:04 CBC 2019 [facility], [address] [place] [address], [address], 0 08:21:04 iron, serum 2019 [facility], [address] [place] [address], [address], 0 08:21:04 Referral urologist referral - hematuria x 2 in h, cytologies x 3 attached 2019 [facility], [address] [place], [address], 0 12:54:43 Procedures None recorded. Surgeries None recorded. Imaging MAMMO, screening, tomosynthes is, bilateral 2021 [facility] (Imaging), [address], [place], [address], 3 15:14:05 bone density 2021 022 [facility] Scheduling, [address] [place] [address], [address], 2 08:00:43 LDCT, chest, for lung cancer screening - due in 10/20, last scan 10/26/2020, former smoker, 30+ pack years 2021 022 [email or web address] [facility], [address] [place], [address], 2 11:52:09 XR, chest - 70 yo ex smoker- dyspnea x 6 months- [address] (Imaging), [address] [place], [address], 11:36:51 electrocard iogram [address], [address] [facility], [place], [address], 11:36:52 Medication Orders estradiol 0.01% (0.1 mg/gram) vaginal cream 2021 [facility], [address] [place] [address], [address], 2 12:20:13 aspirin 81 mg tablet,nicol yed release 2021 [facility], [address] [place] [address], [address], 2 12:20:14 clotrimazol e 1 % topical cream 2021 [facility], [address] [place] [address], [address], 2 12:24:36 fluconazole 150 mg tablet 2021 022 [facility] #[id number], [address] [place], [address], 2 11:53:04 nystatin 100,000 unit/gram topical cream 2020 021 [facility]acy #[id number], [address] [place], [address], 18:50:22 pravastatin 40 mg tablet 2020 021 [facility]/Ph[facility] #[id number], [address] [place], [address], 1 15:01:19 nystatin 100,000 unit/gram topical cream 2019 020 [email or web address] [facility] #[id number], [address] [facility] [place], [address], 1 14:17:53 Patient TargetsNo targets recorded. Patient Instructions Encounter Date Encounter Id Patient Instructions Last Modified By Organization Details Last Modified Time 01/04/2020 [id number] After a discussion of treatment options, which included consideration of best practices, patient preferences, and the patient? s individual lifestyle and treatment goals, as well as consideration and attempted mitigation of any barriers to meeting the patient? s goals, the following treatment plan and objectives were adopted: as above aesrick Not available 01/05/2020 20:19:54 03/02/2020 [id number] advance directives: care instructions aesrick Not available [...] sponsor}}My Health To Do List {{go to Lionical www.itzat or call si gn up for shilo text 2 quit or other stop smoking shilo contact [employer]gov}} {{go to Stream Tags or call si gn up for shilo text 2 quit or other stop smoking shilo contact [employer].AttorneyFee}} {{go to [employer] or call si gn up for shilo text 2 quit or other stop smoking shilo contact [employer]AttorneyFee}} madison Not available 03/02/2020 12:04:38 09/22/2020 [id number] After a discussion of treatment options, which included consideration of best practices, patient preferences, and the patient? s individual lifestyle and treatment goals, as well as consideration and attempted mitigation of any barriers to meeting the patient? s goals, the following treatment plan and objectives were adopted: as above aesrick Not available 10/09/2020 18:54:34 05/08/2021 [id number] high cholesterol lifestyle changes aesrick Not available [...] reviewed. aesrick Not available 05/08/2021 11:27:41 06/21/2021 [id number] After a discussion of treatment options, which [...] diogr am No observ ation record ed. [facility] [address] [facility], [place], [address], 10/12/2020 20:10:24 09/23/19 21 elect rocar diogr [...] jaimes Physic miguel angel: Jason Hampton ms [facility] (Imaging) [address], [place], [address], 09/24/2020 16:26:26 10/27/19 21 10/26/2020 CT chest lung cance r andressa siddqii TECHNI QUE: Diagno stic CT CHEST LUNG [...] PA - Fax Final result JOMAR BETANCUR [facility] [address] [facility] [place], [address], 10/26/2020 19:23:20 10/27/19 21 10/26/2020 CT, chest No observ ation record ed. [facility] [address], [place], [address], 10/26/2020 18:11:57 11/11/19 21 11/10/2020 exerc ise stres s test No observ ation record ed. [facility] (Medical Records) [address] [place], [address], 11/19/2020 11:02:13 11/25/19 21 11/24/2020 exerc ise stres s test No observ ation record ed. [facility] (Medical Records) [address] [place], [address], 11/30/2020 13:52:10 11/26/19 21 11/24/2020 NM, myoca rdial perfu rupesh scan, w/ stres s No observ ation record ed. [facility] (Medical Records) [address] [place], [address], 11/30/2020 13:52:10 01/17/20 21 12/12/2020 polys omnog kathy * No observ ation record ed. [facility] [address] [place], [address], 01/22/2021 14:55:12 06/02/19 22 05/31/2021 bone densi ty No observ ation record ed. [facility] [address] [place] [place], [address], 06/04/2021 15:15:01 11/01/19 22 10/30/2021 CT chest [...] Crawley MD 10/31/21 Final result JOMAR BETANCUR [facility] [address] [place] [address], [address], 11/03/2021 22:04:11 11/01/19 22 10/30/2021 CT, chest No observ ation record ed. [facility] (Mammo) [address] [place] [address], [address], 11/03/2021 22:04:11 Result Notes None recorded. Problems Name Problem SNOMED Code Status Onset Date Resolution Date Notes Provider Name and Address Organization Details Recorded Time Mixed hyperlip idemia 709690323 Active Not Available [facility] 1 12:15:30 Essentia l hyperten rupesh 90233869 Active Not Available [facility] 1 12:15:30 Chest swelling 679548569 Completed 02/18/2013 Not Available [facility] 3 02:04:24 Disorder of carbohyd rate metaboli sm 69479085 Completed 11/04/2020 Removal Reason: end Jomar Betancur[place] [address] [place] [address], [address] , [facility] 1 16:31:34 On examinat ion - a rash Completed 02/18/2013 Not Available [facility] 3 02:00:50 Benign essentia l hyperten rupesh 6695760 Active Not Available [facility] 1 12:15:30 Hyperlip idemia 32610597 Active Not Available [facility] 12:15:30 Flatulen ce, eructati on and gas pain 519332664 Completed 02/18/2013 Not Available [facility] 3 02:04:10 Tobacco user 441998553 Completed 11/04/2020 Removal Reason: stopped AL Tian [address] [place] [address], [address] , [facility] 1 16:30:18 Impaired fasting glycemia 206912997 Completed 11/04/2020 Removal Reason: end AL Tian [address] [place] [address], [address] , [facility] 1 16:30:46 Glucose level outside referenc e range 401907522 Active Not Available [facility] 12:15:30 Malaise and fatigue 247034750 Completed 02/18/2013 Not Available [facility] 3 02:00:21 Diabetes mellitus 15069141 Active Not Available [facility] 1 12:15:30 Depressi ve disorder 13902437 Active 2018 Not Available [facility] 12:15:30 Bipolar disorder 61535193 Active 2018 Not Available [facility] 1 12:15:30 Carotid artery stenosis 70699585 Active 2018 Not Available [facility] 1 12:15:30 Intracra nial meningio ok 487400801 Active 2018 Not Available [facility] 1 12:15:30 Hyperthy roidism 76180997 Active 2020 Not Available [facility] 12:15:30 Problem Notes None recorded. Procedures Surgical History Date Name Laterality Status Provider Name and Address Organization Details Recorded Time 05/08/19 22 Medicare Wellness Visit completed Guillaume Abad MA [facility] 05/08/2021 10:25:13 05/08/19 22 Alcohol use screening completed Guillaume Abad MA [facility] 05/08/2021 10:25:13 05/08/19 22 Cardiovascular disease risk reduction counseling completed Guillaume Abad MA [facility] 05/08/2021 10:25:13 03/02/20 20 Medicare Wellness Visit completed Nhi Stanton MA [facility] 03/02/2020 12:02:02 03/02/20 20 COPD Screening completed AL Tian [address] [place] [address], [address], [facility] 03/02/2020 16:17:24 03/02/20 20 prevention-cardiov ascular risk reduction counseling completed Nhi Stanton MA [facility] 03/02/2020 12:02:02 03/02/20 20 prevention-annual alcohol misuse screening completed Nhi Stanton MA [facility] 03/02/2020 12:02:02 03/02/20 20 Telephonic Visit completed Nhi Stanton MA [facility] 03/02/2020 15:43:39 01/04/20 20 Telephonic Visit completed Erinn Modi MA [facility] 01/04/2020 13:52:44 02/19/20 19 Medicare Wellness Visit completed DEEDEE Nichole [facility] 02/18/2019 10:08:48 02/19/20 19 POC Urinalysis Testing completed DEEDEE Nichole [facility] 02/18/2019 11:01:50 02/19/20 19 Hearing Test completed DEEDEE Nichole [facility] 02/18/2019 11:20:58 10/09/19 19 POC Urinalysis Testing completed Meagan Mayorga [facility] 10/08/2018 11:53:49 01/17/20 18 Medicare Wellness Visit completed Erinn Modi MA [facility] 01/16/2018 14:31:16 01/15/20 17 Smoking cessation counseling completed Erinn Modi MA [facility] 01/14/2017 11:47:46 01/15/20 17 Medicare Wellness Visit completed Erinn Modi MA [facility] 01/14/2017 11:46:37 01/15/20 17 Carbon Monoxide Testing completed Erinn Modi MA [facility] 01/14/2017 11:47:46 09/11/19 17 Smoking cessation counseling completed Maryanne Tanner MA [facility] 09/10/2016 13:24:35 09/11/19 17 Carbon Monoxide Testing completed Maryanne Tanner MA [facility] 09/10/2016 13:24:35 07/31/19 17 Smoking cessation counseling completed Erinn Modi MA [facility] 07/30/2016 16:26:53 01/11/20 16 Smoking cessation counseling completed Erinn Modi MA [facility] 01/11/2016 15:50:31 01/11/20 16 Carbon Monoxide Testing completed Erinn Modi MA [facility] 01/11/2016 16:02:44 09/09/19 15 Smoking cessation counseling completed Erinn Modi [facility] 09/08/2014 16:33:45 01/22/20 14 Smoking cessation counseling completed Guillaume Abad [facility] 01/21/2014 16:34:19 07/03/19 14 Smoking cessation counseling completed Nicki Dumont [facility] 07/02/2013 14:53:13 06/27/19 13 Smoking cessation counseling completed AL Tian [address] [place] [address], [address], [facility] 06/27/2012 23:20:37 04/08/19 13 Smoking cessation counseling completed AL Tian [address] [place] [address], [address], [facility] 04/08/2012 19:17:40 Imaging Results Imaging Date Name Status LastModified by Organization Details LastModified Time 09/23/2020 electrocardiogram completed uriel [facility] [address] [place], [address], 10/12/2020 20:10:24 09/22/2020 electrocardiogram completed devante Arreagaa tion not available 09/23/2020 19:38:18 09/23/2020 XR, chest completed [facility] (Imaging) [address] [place], [address], 09/24/2020 16:26:26 10/26/2020 CT chest lung cancer screening annual completed [facility] [address] [place], [address], 10/26/2020 19:23:20 10/26/2020 CT, chest completed [facility] [address] [place], [address], 10/26/2020 18:11:57 11/10/2020 exercise stress test completed [facility] (Medical Records) [address] [place], [address], 11/19/2020 11:02:13 11/24/2020 exercise stress test completed [facility] (Medical Records) [address] [place], [address], 11/30/2020 13:52:10 11/24/2020 NM, myocardial perfusion scan, w/ stress completed [facility] (Medical Records) [address] [place], [address], 11/30/2020 13:52:10 12/12/2020 polysomnography* completed [facility] [address] [place], [address], 01/22/2021 14:55:12 05/31/2021 bone density completed [facility] [address] [place] [address] [place], [address], 06/04/2021 15:15:01 10/30/2021 CT chest lung cancer screening annual completed [facility] [address] [place], [address], 11/03/2021 22:04:11 10/30/2021 CT, chest completed [facility] (Mammo) [address] [place], [address], 11/03/2021 22:04:11 Procedure Notes None recorded. Medical Equipment None Reported. Allergies Allergen ID Allergen Name Allergen Category Reaction Reaction Severity Criticality Documentation Date Start Date Code Code System Note Provider Name and Address Organization Details Recorded Time 899331 atorvasta tin medicatio n Not available Not available Not available 06/26/2012 80683 RxNorm muscl e aches AL Tian [address] [place] [address], [place], [address], [facility] 3 16:49:53 267583 wasp venoms environme nt Not available Not available Not available 07/02/2013 37232 RxNorm Nicki Tim [facility] 4 14:53:13 750999 pravastat in medicatio n arthralgi a (joint pain) Not available Not available 05/08/2021 59091 RxNorm AL Tian [address] [place] [address], [place], [address], [facility] 2 11:04:56 3956 codeine medicatio n Not available Not available Not available 05/27/2008 2670 RxNorm Not Available [facility] 1 06:05:20 Medications Name Sig Start [...] 0 167.64 cm 80 /min 30.3 kg/m2 89407.3 7 g 129 mm[Hg] 80 mm[Hg] Erinn Mdoi [facility] 0 13:47:11 Date Recorded Body height Body mass index (BMI) Body weight Provider Name and Address Organization Details Last Updated DateTime 03/02/2020 167.64 cm 30.3 kg/m2 40209.37 g Nhi Stanton [facility] 03/02/2020 15:46:14 Date Recorded Heart rate Systolic blood pressure Diastolic blood pressure Provider Name and Address Organization Details Last Updated DateTime 03/02/2020 82 /min 130 mm[Hg] 86 mm[Hg] AL Tian [address] [place] [address], [address], [facility] 03/02/2020 16:12:37 Date Recorded Body height Body mass index (BMI) Body weight Heart rate Systolic blood pressure Diastolic blood pressure Provider Name and Address Organization Details Last Updated DateTime 1 167.64 cm 30.5 kg/m2 06975.9 6 g 84 /min 144 mm[Hg] 70 mm[Hg] Tiana Lynn [facility] 1 14:11:27 Date Recorded Systolic blood pressure Diastolic blood pressure Provider Name and Address Organization Details Last Updated DateTime 09/22/2020 130 mm[Hg] 59 mm[Hg] AL Tian [address] [place] [address], [address], [facility] 09/22/2020 15:27:35 Date Recorded Body height Body mass index (BMI) Body weight Systolic blood pressure Diastolic blood pressure Systolic blood pressure Diastolic blood pressure Provider Name and Address Organization Details Last Updated DateTime 2 165.1 cm 31.7 kg/m2 03470.9 5 g 140 mm[Hg] 68 mm[Hg] 129 mm[Hg] 70 mm[Hg] Guillaume Abad [facility] 2 11:36:06 Date Recorded Systolic blood pressure Diastolic blood pressure Provider Name and Address Organization Details Last Updated DateTime 05/08/2021 130 mm[Hg] 80 mm[Hg] AL Tian [address] [place] [address], [address] 05/08/2021 11:14:28 Date Recorded Body height Heart rate Body temperature Body mass index (BMI) Body weight Systolic blood pressure Diastolic blood pressure Provider Name and Address Organization Details Last Updated DateTime 2 165.1 cm 84 /min 97.8 [degF] 32 kg/m2 62985.7 4 g 126 mm[Hg] 84 mm[Hg] Erinn Modi [facility] 2 11:56:56 Social History Question Answer Notes [...] Or The Highest Degree You Have Received? 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 05/08/2021 Have There Been [...] virus, trivalent, preservative 1 completed Not Available [facility] 04/18/2019 02:31:14 Influenza, split virus, trivalent, PF 4 completed Not Available [facility] 04/18/2019 02:19:21 Influenza, split virus, quadrivalent, PF 5 completed Not Available [facility] 04/18/2019 02:19:49 pneumococcal polysaccharide PPV23 5 completed Not Available [facility] 04/18/2019 02:26:43 Tdap 5 completed Not Available [facility] 04/18/2019 02:38:05 Influenza, split virus, quadrivalent, PF 6 completed Not Available [facility] 04/18/2019 02:21:03 Influenza, high-dose, trivalent, PF 7 completed Not Available [facility] 04/18/2019 02:22:05 Pneumococcal conjugate PCV 13 8 completed Not Available [facility] 04/18/2019 02:22:34 zoster recombinant 8 completed Not Available [facility] 04/18/2019 02:29:21 Influenza, high-dose, trivalent, PF 8 completed Not Available [facility] 04/18/2019 02:39:36 Influenza, high-dose, trivalent, PF 9 completed Not Available [facility] 04/18/2019 02:39:37 influenza, unspecified formulation 0 completed Erinn Modi MA [facility] 01/06/2020 16:31:55 COVID-19, mRNA, LNP-S, PF, 30 mcg/0.3 mL dose 1 [facility] 14:09:35 COVID-19, mRNA, LNP-S, PF, 30 mcg/0.3 mL dose 1 completed Tiana Lynn MA [facility] 09/22/2020 14:22:24 COVID-19, mRNA, LNP-S, PF, 30 mcg/0.3 mL dose 1 completed Mona Mark MA [facility] 01/16/2021 09:58:41 Influenza, high-dose, quadrivalent, PF 1 [facility] 05/08/2021 10:32:06 Influenza, split virus, trivalent, preservative 0 completed Not Available [facility] 04/18/2019 02:17:50 Past Encounters Encounter ID Performer Location Encounter Start Date Encounter Closed Date Diagnosis/Indication Diagnosis SNOMED-CT Code Diagnosis ICD10 Code Diagnosis Note [id number] AL Tian, [facility], OFFICE [address] [place] [address] 05/27/2008 14:44:39 05/31/2008 14:47:22 [id number] AL Tian, [facility], OFFICE [address] [place] [address] 06/24/2008 16:44:33 06/28/2008 10:22:53 [id number] AL Tian, [facility], OFFICE [address] [place] [address] 12/22/2009 15:33:16 12/26/2009 07:59:01 [id number] AL Tian , [facility], [address]ICE [address] [place] [address] 03/02/2010 16:00:54 03/06/2010 13:45:04 [id number] [facility] , [facility] [address] [place] [address] 03/20/2010 15:01:45 03/21/2010 11:20:58 [id number] Arnaldo Ambrocio MD , [facility], OFFICE [address] [place] [address] 01/26/2011 10:05:07 01/29/2011 13:22:46 [id number] [facility] [address] [address] 01/26/2011 10:35:57 01/30/2011 08:45:03 [id number] Arnaldo Ambrocio MD , [facility], OFFICE [address] [place] [address] 02/09/2011 15:09:01 02/12/2011 12:03:49 [id number] AL Tian , [facility], OFFICE [address] [place] [address] 03/13/2011 15:05:21 03/13/2011 17:15:06 [id number] [facility] [address] [place] [address] 03/13/2011 16:35:35 03/15/2011 12:04:[id number] [facility] Radiology , [facility] [address] [place] [address] 04/19/2011 15:26:55 04/20/2011 14:58:30 [id number] AL Tian , [facility], OFFICE [address] [place] [address] 05/15/2011 16:12:06 05/15/2011 17:15:12 [id number] Scar Betancur MD , [facility], OFFICE [address] [place] [address] 07/03/2011 15:00:30 07/06/2011 08:10:51 [id number] ZHANNA Goodrich, [facility], [address] [place] [address] 08/09/2011 16:03:19 08/13/2011 09:42:10 [id number] [facility] RADIOLOGY [facility] , [facility] [address] [place] [address] 08/09/2011 17:09:51 08/09/2011 17:22:53 [id number] AL Tian, [facility], OFFICE [address] [place] [address] 08/21/2011 16:35:18 08/21/2011 17:29:43 [id number] AL Tian, [facility], [address] [place] [address] 04/08/2012 15:09:46 04/08/2012 17:16:15 [id number] AL Tian, [facility], OFFICE [address] [place] [address] 06/26/2012 16:21:08 06/26/2012 17:21:18 [id number] Scar Betancur MD , [facility], [address] [place] [address] 07/02/2013 14:07:11 07/03/2013 09:00:18 Benign essential hypertension 1479305 Blood pressure at goal . Mixed hyperlipidemia 996093423 Cholestero l is at goal Cholestero l is not at goal Continue to work on diet and exercise as discussed Adult [facility] examination [id number] see Risk Assessment and Lifestyle Change Counseling section above Tobacco user 588436599 d iscussed that smoking - nicotin and other chemicals adversely effect BH illnesses and do not support efforts of recovery- reiiterate d that pt is in charge of her health decisions- moving to [place]- stress mgt reviewed [id number] AL Tian, [facility], OFFICE [address] [place] [address] 01/21/2014 16:20:29 01/21/2014 17:19:26 Tobacco user 290194450 reviewed adv's of nicotine patch/loze nge along with wellbutrti n to decrease smoking. Hyperlipidemia 08450141 Influenza vaccine needed [id number] 106 Benign ess ential hypertension 7872187 Blood pressure at goal . Diabetes mellitus 96652397 [id number] AL Tian, [facility], OFF[address] [place] [address] 09/08/2014 16:21:01 09/08/2014 17:29:57 Benign essential hypertension 0948580 Blood pressure at goal Blood pressure NOT at goal. Tobacco user 312443123 r eviewed adv's of nicotine patch/loze nge along with wellbutrti n to decrease smoking. Hyperlipidemia 51545685 [id number] AL Tian , [facility], OFFICE [address] [place] [address] 01/03/2015 15:18:42 01/04/2015 10:44:00 Adult health examination 623866798 Z00.00 see Risk Assessment and Lifestyle Change Counseling section above Screening for disorder 331861551 Z72.89 Screening for malignant neoplasm of colon 991562471 Z12.11 Tobacco user 262236958 Z 72.0 reviewed adv's of nicotine patch/loze nge along with wellbutrti n to decrease smoking. Influenza vaccine needed 0068813900 106 Z28.3 Administra tion of pneumococcal vaccine 62599411 Z23 Administra tion of diphtheria, pertussis, and tetanus vaccine 192910737 Z23 Diabetes mellitus 800414 09 E13.9 controlled with diet Hyperlipidemia 00326048 E78.5 not at goal- intolerant of all statins, taking natruopath - thinks red rice yeast- high fiber- recheck in 3 -6 months Benign ess ential hypertension 7301935 I10 Blood pressure at goal Injury of mouth 25074530 S09.93XA by hx due to extreme temp change in mouth- hx has ramos in past and resolves- f/u if not resolving in coming month- sooner any worse [id number] Scar Betancur MD , [facility], [address] [place] [address] 01/13/2015 16:35:04 01/18/2015 15:08:13 Gingival disease 91877773 K06.9 buchal infection , [id number] Praful Andrea MD , [facility], [address] [place] [address] 12/14/2015 09:37:51 12/15/2015 14:54:34 Herpes zoster 2736144 B02.9 Left uper breast with one small area of tiny vesicular lesions, and one satellite lesion on her back. Pt not experienci ng pain, but has some itchiness. Recommende d calamine lotion [id number] Scar Betancur MD FP, [facility], [address] [place] [address] 01/11/2016 15:16:09 01/11/2016 17:02:20 Adult health examination 918568937 Z00.00 see Risk Assessment and Lifestyle Change Counseling section above Cigarette smoker 2351094 7 F17.210 Tobacco user 798936875 Z 72.0 reviewed adv's of nicotine patch/loze nge along with wellbutrti n to decrease smoking. Screening for malignant neoplasm of cervix 926200152 Z12.4 Screening for malignant neoplasm of respiratory tract 406084966 Z12.2 Diabetes mellitus 939266 09 E13.9 controlled with diet Essential hypertension 01993942 I10 increase today, patient reports bp's < 140/90 in the grocery store- increase stressors now with up coming move.= recheck in 3 months when able Hyperlipidemia 99193042 E78.5 not at goal- intolerant of all statins, taking natruopath - thinks red rice yeast- high fiber- recheck in 3 -6 months Active or passive immunization 433249475 Z23 [id number] AL Tian, [facility], [address] [place] [address] 07/30/2016 16:18:45 07/30/2016 17:21:16 Benign essential hypertension 6136378 I10 Blood pressure at goal Mixed hyperlipidemia 267 134028 E78.2 not at goal- had s/e stain- consider red yeast rice Cigarette smoker 4989184 7 F17.210 Tobacco user 460918746 Z 72.0 reviewed adv's of nicotine patch/loze nge along with wellbutrti n to decrease smoking. Screening for malignant neoplasm of lung 114747950 Z12.2 Pain of hip region 81744 002 M25.464 [id number] AL Tian, [facility], [address] [place] [address] 09/10/2016 13:04:28 09/10/2016 13:49:16 Cigarette smoker 39615913 F17.210 plan to d/c smoking prior to surgery Tobacco user 776173100 Z 72.0 will be stopping smoking prior to surgery - iusing stop smoking aides Pre-surger y evaluation 362433340 Z01.818 pt cleared for surgery Cataract 014379429 H26.9 [id number] Scar Betancur MD , [facility], [address] [place] [address] 01/14/2017 11:32:34 01/14/2017 13:11:03 Adult health examination 803973564 Z00.00 see Risk Assessment and Lifestyle Change Counseling section above Counseling 879432872 Z71 .9 Mixed hyperlipidemia 267 160845 E78.2 Cholestero l is not at goal Continue to work on diet and exercise as discussed- ADD 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 Active or passive immunization 543395678 Z23 Imaging of lung abnormal 050051388 R91.8 DUE IN 03/17 Hearing loss 16223445 H9 1.93 audioogy referral [id number] Scar Betancur MD , [facility], [address] [place] [address] 05/27/2017 13:02:35 05/27/2017 15:38:58 Acute upper respiratory infection 54724017 J06.9 Educated patient that URI is a [...] failure to resolve in 2-4 weeks. Cough 81155227 R05 Pneumonia 590883114 J18. 9 Type 2 monik betes mellitus without complication 976789519 E13.9 controlled with diet and exercise [id number] Scar Betancur MD , [facility], [address] [place] [address] 07/15/2017 10:27:21 07/15/2017 11:38:34 Benign essential hypertension 6685324 I10 Blood pressure at goal Mixed hyperlipidemia 267 709303 E78.2 Cholestero l is not at goal Continue to work on diet and exercise as discussed- increase [employer]UM- intolerant to statins Active or passive immunization 935625077 Z23 Nicotine dependence 5629 4008 F17.200 Allergy to bee venom 424 011707 Z91.030 Pneumonia 507746395 J18. 9 Diabetes mellitus 350785 09 E11.9 well COntrolled with diet and exercise, restart ASA 81 MG [id number] Scar Betancur MD , [facility], [address] [place] [address] 11/15/2017 11:47:27 11/15/2017 13:01:54 Mixed hyperlipidemia 324138086 E78.2 Cholestero l is not at goal TRIAL WITH ATORVASTAT IN 80 TRY QOD FIRST. Intracrani al meningioma 729974149 D32.0 to schedule neuro surgery Carotid ar dayana occlusion 179624041 I65.29 vascular surgeon referral tos ched [id number] Scar Betancur MD , [facility], [address] [place] [address] 01/16/2018 14:03:24 01/16/2018 16:18:57 Adult health examination 852151891 Z00.00 see Risk Assessment and Lifestyle Change Counseling section above Counseling 796721593 Z71 .9 Depression screening 171 450022 Z13.89 depression screening tool administer ed, entered into emr, scored and discussed, time greater than 7.5 minutes Mixed hyperlipidemia 267 256001 E78.2 Cholestero l is not at goal TRIAL WITH ATORVASTAT IN 80 TRY QOD FIRST. Benign ess ential hypertension 8247514 I10 Blood pressure at goal Postmenopausal state 764 64037 Z78.0 Active or passive immunization 474820535 Z23 Solitary n odule of lung 771216735 R91.1 Dizziness 730549478 R42 [id number] Scar Betancur MD , [facility], [address] [place] [address] 05/21/2018 14:29:33 05/21/2018 15:54:19 Tachycardia 0232820 R00.0 mildly tachyshaki ng, SOB with exertion? anemicrece nt meningioma txhas f/u oncology tomorrowsx ECG overall reassuring check labshydrat ionclose f/u Intracrani al meningioma 347090168 D32.0 Dizziness 765908960 R42 worsening sx over weeksassoc iated with shaking and exertional SOBtachy on exampeak flows okay, VS Other espinoza stableenc hydrationt aram it easylab work up and close f/u [id number] Marti Abreu MD FP, [facility], [address] [place] [address] 05/28/2018 10:07:19 05/29/2018 11:41:11 Microcytic anemia 138593229 D50.9 she is going to GI nowshe likely needs to go to hospital for labs and txshe is quite sx with her anemiashe is normotensi ve, but low for hershe is only tachy to 104 on ascultatio nshe is paleDr Natividad called to inform of sxclose f/u plan/ hospitaliz ation if necessary [id number] AL Tian FP, [facility], [address] [place] [address] 06/04/2018 08:10:39 06/04/2018 10:02:50 Dyspnea 061734609 R06.00 with dizziness- overtx HTN- stop lisinopril , check cbc- f/u 1 wk Anemia 604761401 D64.9 Diabetes mellitus 994473 09 E11.9 well COntrolled with diet and exercise, restart ASA 81 MG [id number] Scar Betancur MD FP, [facility], [address] [place] [address] 06/18/2018 16:18:46 06/19/2018 08:14:54 Benign essential hypertension 8728225 I10 stopped lisinopril - hypotensiv e- TO ER Diabetes mellitus 006808 09 E11.9 over controlled . Taper metformin down to 2 tablets daily Anemia 920578174 D64.9 Bipolar disorder 1707246 4 F31.9 Gastrointe stinal hemorrhage 16468551 K92.2 heme pos stool, hypotensiv e, tachycardi c- to ER Hypotensive episode 6776 3001 I95.9 [id number] Scar Betancur MD , [facility], [address] [place] [address] 06/30/2018 12:03:52 07/01/2018 09:19:30 Mixed hyperlipidemia 853998544 E78.2 Cholestero l is not at goal TRIAL WITH ATORVASTAT IN 80 TRY QOD FIRST. Carotid ar dayana stenosis 36940941 I65.29 cont plavix Bipolar disorder 2207937 4 F31.9 continue f/u with Dr Cintron Anemia 944865567 D64.9 GI eval in progress [id number] Scar Betancur MD , [facility], [address] [place] [address] 10/08/2018 11:24:54 10/08/2018 15:32:55 Cigarette smoker 72476780 F17.210 Abnormal v aginal bleeding 507799404 N93.9 Fatigue 19384069 R53.83 Screening for malignant neoplasm of cervix 746354103 Z12.4 [id number] Scar Betancur MD , [facility], [address] [place] [address] 10/29/2018 13:53:42 10/29/2018 14:58:48 Pre-surgery evaluation 488717438 Z01.818 pt cleared for surgery Carotid ar dayana stenosis 31420570 I65.29 R carotid artery stenosed 50-79%, LEFT CAROTID < 50%, will hold asa and plavix 5 days prior to surgery. consulted with pts vascular surgeon, Dr Sharpe and agrees with plan Mass of ovary 481743654 R19.09 cleared for surgery Intracrani al meningioma 115714353 D32.0 pmh- Bipolar disorder 5194009 4 F31.9 stable, continue f/u with Dr Ward Diabetes mellitus 411181 09 E11.9 stable- tx with diet and exercise. Hypothyroidism 94119608 E03.9 stable Hyperlipidemia 37504691 E78.5 [id number] Linh Vázquez MD , [facility], [address] [place] [address] 01/21/2019 14:04:56 01/23/2019 09:29:41 Active or passive immunization 219053266 Z23 [id number] AL Tian , [facility], [address] [place] [address] 02/18/2019 09:39:42 02/18/2019 11:40:30 Adult health examination 636280027 Z00.00 see Risk Assessment and Lifestyle Change Counseling section above Counseling 426537079 Z71 .9 Depression screening 171 Z13.89 depression screening tool administer ed, entered into emr, scored and discussed, time greater than 7.5 minutes Mixed hyperlipidemia 267 237416 E78.2 Ex-smoker 4596419 Z87.89 1 Screening mammography 24 627277 Z12.31 Fatigue 05393938 R53.83 Hearing loss 00133881 H9 1.93 reviewed test- showing b/l hearing loss- prefers to not f/u with audiologis t at this time Salo hematuria 41836856 5 R31.0 suspecting /hx- UA negative today- f/u ctologies. - GARBAGE PERSON f/u planned [id number] Scar Betancur MD , [facility], [address] [place] [address] 05/28/2019 15:16:46 05/28/2019 16:45:07 Diabetes mellitus 43979504 E11.9 may decrease metfomin 1tab/day Essential hypertension 38854550 I10 At goal, continue current medication s. Mixed hyperlipidemia 267 424024 E78.2 Increase pravastati n to 20mg BID, Recheck lipids in 1 month Postmenopausal state 764 01714 Z78.0 declined despite knowing risk of contractin g disease and potential from disease, would like to discuss at next visit [id number] Scar Betancur MD , [facility], [address] [place] [address] 03/02/2020 15:28:56 03/02/2020 16:22:35 Bipolar disorder 12344092 F31.9 stable, continue f/u with Dr Ward Adult [facility] th examination 804124558 Z00.00 see Risk Assessment and Lifestyle Change Counseling section above Counseling 292949309 Z71 .9 including cardiovasc ular risk reduction counseling Depression screening 171 Z13.89 depression screening tool administer ed, entered into emr, scored and discussed, time greater than 7.5 minutes Screening for alcohol abuse 813762556 Z13.39 Essential hypertension 86842517 I10 At goal, continue current medication s. Hyperlipidemia 40385099 E78.5 Hypothyroidism 61151046 E03.9 stable Eruption 200502419 R21 skin lesion- unchanged since summer- derm referral [id number] AL Tian , [facility], [address] [place] [address] 11/18/2019 13:48:59 11/19/2019 12:52:31 Essential hypertension 69557001 I10 At goal, continue current medication s. Mixed hyperlipidemia 267 709661 E78.2 continue Increase pravastati n to 20mg BID, - condider increase to 40 mg- has had muscle aches with statin use in past Dizziness 308984155 R42 check labs, keep diary- f/u with results in coming 1-2 wks Intracrani al meningioma 899573831 D32.0 continue f/u withoncolo gist [id number] Scar Betancur MD , [facility], [address] [place] [address] 01/04/2020 13:42:55 01/07/2020 13:31:01 Salo hematuria 517378712 R31.0 suspecting /hx- UA negative today-cyto logies neg.- urology f/u for hematuria Disorder o f thyroid gland 45543898 E07.9 [id number] Scar Betancur MD , [facility], [address] [place] [address] 09/22/2020 13:47:01 10/10/2020 11:36:51 Essential hypertension 15257196 I10 At goal, continue current medication s. Hyperlipidemia 57640397 E78.5 LDL- 140's with vascular disease- goal is 70, intolerant to atorvastat in- will increase to 40 mg pravastati n. Peripheral vascular disease 468897402 I73.9 Carotid ar dayana stenosis 12603305 I65.29 R carotid artery stenosed 50-79%, LEFT CAROTID < 50%, Dyspnea 393267795 R06.00 chest xray , ekg negative- further eval- stress test- tcx 2 to reach pt- PFT/pulmon jermain to do with smoking hx, left message to make f/u appt/call back . Eruption 734990178 R21 skin lesion- unchanged since summer- derm referral [id number] Scar Betancur MD , [facility], [address] [place] [address] 05/08/2021 10:08:25 05/08/2021 11:37:52 Adult health examination 023478904 Z00.00 see Risk Assessment and Lifestyle Change Counseling section above Counseling 911667975 Z71 .9 including cardiovasc ular risk reduction counseling Depression screening 171 599582 Z13.31 depression screening tool administer ed, entered into emr, scored and discussed, time greater than 7.5 minutes Screening for alcohol abuse 560309511 Z13.39 Hyperthyroidism 56372202 E05.90 Essential hypertension 74609437 I10 not At goal, continue current medication s. Mixed hyperlipidemia 267 079291 E78.2 Cholestero l is at goalContin ue to work on diet and exercise as discussed Screening mammography 24 946298 Z12.31 Screening for osteoporosis 796619005 Z13.820 Candidiasis of vagina 72 834235 B37.3 Multiple n odules of lung 028932905 R91.8 Diabetes mellitus 371199 09 E11.9 cont decrease metfomin 1tab/day- well cotnrolled with nutrition and exercise Bipolar disorder 9151024 4 F31.9 stable, continue f/u with Dr Ward Peripheral vascular disease 137519966 I73.9 carotid vascular disease- LDL- decreasing , asa and clopidogre l daily [id number] Scar Betancur MD , [facility], [address] [place] [address] 06/21/2021 11:45:12 07/11/2021 13:10:57 Mixed hyperlipidemia 551386675 E78.2 Cholestero l is at goalContin ue to work on diet and exercise as discussed Atrophic vaginitis 40565 000 N95.2 Candidiasis of skin 4988 3006 [...] Georges Member ID Guarantor Name 01/04/2020 1 [facility] (MEDICARE REPLACEMENT/A DVANTAGE - PPO) [id number] Ritu Dukes Bharat [id number] Ritu Molinater 03/02/2020 1 [facility] (MEDICARE REPLACEMENT/A DVANTAGE - PPO) [id number] Ritu Dukes Bharat [id number] Ritu Bharat 09/22/2020 1 [facility] (MEDICARE REPLACEMENT/A DVANTAGE - PPO) [id number] Ritu Dukes Bharat [id number] Ritu Bharat 05/08/2021 1 [facility] (MEDICARE REPLACEMENT/A DVANTAGE - PPO) [id number] Ritu Dukes Bharat [id number] Ritu Bharat 06/21/2021 1 [facility] (MEDICARE REPLACEMENT/A DVANTAGE - PPO) [id number] Ritu Dukes Bharat [id number] Ritu Nicholson Notes Date Note Type Note [...] 22 23 24 25}} minutes. AL Tian [address] [place] [address], [phone], [facility] 01/05/2020 20:20:32 0 text/html Physical Exam/FemaleReported [...] room and availability of urgent care at [facility] HyperlipidemiaReported bypatient.Duration:chronic Control:poorly controlled Barriers to CareAllergy/intolerance to statinsD[facility] [place] HypertensionReported bypatient.Context:No ischemic heart disease; No kidney disease; No history of CVA; No congestive heart failure; No history of transient ischemic attacks; No peripheral vascular disease; No history of diabetes Compliance:Compliant with medications; Compliant with diet;Noncompliant with exercise(taking yoga) Associated Symptoms:No shortness of breath; No edema; No fatigue; No palpitations; No decline in exercise capacity; No snoring;Chest pain(assoc with anxiety- no assoc with exercise)[place] [place] CessationReported bypatient.Readiness to quit smokingPatient is not [...] 22 23 24 25}} minutes. AL Tian [address] [place] [address], [phone], [facility] 03/02/2020 16:22:33 1 text/html [facility] DiabetesReported [...] PMH > 30 pack yr- AL Tian [address] [place] [address], [phone], [facility] 11/02/2020 11:08:29 2 text/html Physical Exam/FemaleReported [...] room and availability of urgent care at [facility] HyperlipidemiaReported bypatient.Duration:chronic Control:poorly controlled Barriers to CareAllergy/intolerance to statinsD[facility] [place] HypertensionReported bypatient.Context:No ischemic heart disease; No kidney [...] SOB when walk for long AL Tian [address] [place] [address], [phone], [facility] 05/14/2021 19:56:41 2 text/html Pt reports rash all over body ongoing since summer time- started under breasts. Fluconazole has not helped. Rash is painful and itching and worsening over time- rash on axilla, labia, under breasts. . no fever or nausea. AL Tian [address] [place] [address], [phone], [facility] 06/30/2021 20:25:49 OBGyn Episode No OBEpisode recorded.
== END 2024-08-03 13:43 | disposition home or self-care (01) ==
LOC: HO.HMGCX 13:42
PROVIDERS: PCP Internal Medicine; Visit Provider Internal Medicine
DX: M25.552 Pain in left hip (principal); G89.29 Other chronic pain
CPT/HCPCS: 73502

== ENCOUNTER → 2024-08-03 13:46 | Outpatient (BNV) | payer MEDICARE, SELFPAY | PROVIDERS: PCP Internal Medicine; Visit Provider Radiology Vascular & Interventional Radiology | DX: M25.552 Pain in left hip (principal) | CPT/HCPCS: 73502 ==

== ENCOUNTER 2024-09-02 13:52 | Outpatient (AMB) | payer MEDICARE, SELFPAY ==
--- NOTE | 2024-09-02 13:54 | MHC.OFFVIS ---
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 She is doing well with industrial workers concerns: Urge incontinence. Currently not sexually active with . Uses topical estrogen 3 times a week, Rx by PCP. Attempting to eat a healthy diet with calcium and vitamin D. Last pap smear; 2007, negative. Partial hysterectomy due to large benign ovarian cyst. Last mammogram; 2022. Declines mammogram. Colonoscopy is not UTD. Declines colonoscopy. Denies any family history of breast, ovarian or colon cancer. [facility] Medical History Hip pain, bilateral Pruritic intertrigo Chronic left hip pain Benign essential tremor Macular degeneration Vulvar rash Osteopenia Postmenopausal Personal history of nicotine dependence Stenosis of right carotid artery greater than 50% Post traumatic stress disorder (PTSD) Bipolar II disorder in full remission Essential hypertension Mixed hyperlipidemia Type 2 diabetes mellitus without complication, with no history of insulin use Acquired hypothyroidism Insomnia Meningioma (~2019) Emphysema of lung Pulmonary nodules MACIEJ (obstructive sleep apnea) Surgical History Hx of endoscopy History of partial thyroidectomy History of hysterectomy History of appendectomy History of tonsillectomy History of colonoscopy Family History Father Substance use disorder Lung cancer Brother Mental health disorder Maternal Grandmother Mental health disorder Paternal Aunt No problems noted. Mother Mental health disorder Social History Household Members: Spouse Housing: Condominium Patient Tobacco Use Status: Former Tobacco user Tobacco use type: Cigarette Years Smoked: (onset 15yo, 1ppd x 51yrs, 40+PYH - quit 2017) e-Cigarette/Vaping Use: Never Used service: No Current occupational status: retired Cognitive needs: No Hearing needs: No Vision needs: Yes Female Reproductive History Menstrual Age of Menarche: 12 Total pregnancies: 1 Full term: 1 Date of last pap smear: 09/03/07 (negative pap smear, negative hpv ) Date of Mammogram: 10/22/22 (bi rad 1) Date of last Bone Density Screenin05/31/21 Review of Systems Const All systems reviewed & are unremarkable except as noted in HPI and below Reports as per HPI Eyes Reports no additional complaints ENT Reports no additional complaints Card Reports no additional complaints Resp Reports no additional complaints GI Reports as per HPI and Reports no additional complaints Reports as per HPI Musc Reports no additional complaints Skin/Breast Reports as per HPI Neuro Reports no additional complaints Psych Reports no additional complaints Endo Reports no additional complaints Ez/Lymph Reports no additional complaints Aller/Immun Reports no additional complaints Physical Exam Vital Signs: Last Vital Signs BP 132/76 09/02/24 14:00 BMI result Body Mass Index 30.7 Const General: cooperative, healthy appearing, no acute distress, well developed and alert Orientation/consciousness: patient oriented x3 HEENT Head: Yes normal to inspection Eyes General: appearance normal, both eyes and all related structures Neck Neck: Yes normal visual inspection Thyroid: Thyroid normal Chest Chest palpation & inspection: normal inspection of the chest and other (no puckering, dimpling, peau de orange, retraction, discharge, masses) Breast/axilla inspection: normal inspection of the breasts Breast/axilla palpation: normal palpation of the breasts Resp Effort & Inspection: normal respiratory effort GI Inspection: Yes scar Palpation (GI): Soft to palpation Rectal Exam - Female: deferred General: Yes bladder normal to palpation External Female Exam: normal external appearance and normal appearance of the urethra Speculum Exam - Vagina: normal palpation and vagina atrophic Speculum Exam - Cervix: Other cervical findings present (Small structure centrally appears like a shortened cervix) Bimanual exam- vagina & uterus: normal bimanual exam, normal palpation, bladder normal to palpation and uterus absent Bimanual Exam- Adnexa, other: no masses Skin General skin exam: no rashes or lesions noted Rashes: no rashes Neuro General: patient oriented x3 Cognition (Neuro): normal cognition Extrem General: Yes normal to inspection Psych Attitude: cooperative Thought process: Normal thought process present Assessment & Plan Assessment & Plan (1) Encounter for well woman exam with routine gynecological exam: Code(s): Z01.419 - Encounter for gynecological examination (general) (routine) without abnormal findings Category: Medical Plan Discussed: Current recommendations for pap smears per ASCCP guidelines. Breast awareness, periodic self breast exams and yearly mammogram. Counseled regarding benefits of early detection with mammogram screening versus waiting until breast a mass palpable, delay in care and diagnosis can limit options and results ultimately in metastatic disease. She declined order to be placed. She declines referral to pelvic floor therapy and does not feel she would be committed to doing pelvic floor exercises. Maintain a healthy lifestyle, well balanced diet including Calcium 1,200 mg and Vitamin D 600 IU daily, and routine exercise. Patient verbalizes understanding and agrees to the plan of care. She was given opportunity to ask questions and all questions were answered to the best of my ability. RTO in 1 year for annual industrial workers exam. This note is constructed using voice recognition software. While every effort has been made to ensure accuracy, business division chair errors may have been included. Coding Level of Care Code Est Pt Prev Care >65y(49718) Diagnoses Encounter for well woman exam with routine gynecological exam Z01.419
--- OUTSIDE RECORDS SUMMARY | 2024-09-02 13:59 | XMS_ITS | Data Portability ---
Author Organization [facility], [facility] Address [address] [place] [address] Care Team Providers Care Surgical Aides Teacher Name Role Phone PRABHU JOMAR Primary Care Provider [phone] SAMMIE PATEL Grinder And Plater HAZEL BRENNAN Radiation Oncologist [phone] DAYLIN CHEN [employer] Plater KORIN SHARPE Vascular Surgeon CORY HUGO In Home Baby Sitter [phone] Assessment Encounter Date Assessment Date Assessment LastModified [...] recorded. Lab TSH, serum or plasma 2019 [facility], [address] [place] [address], [address], 0 08:21:04 CBC 2019 [facility], [address] [place] [address], [address], 0 08:21:04 iron, serum 2019 [facility], [address] [place] [address], [address], 0 08:21:04 Referral urologist referral - hematuria x 2 in h, cytologies x 3 attached 2019 [facility], [address] [place], [address], 0 12:54:43 Procedures None recorded. Surgeries None recorded. Imaging MAMMO, screening, tomosynthes is, bilateral 2021 [facility] (Imaging), [address], [place], [address], 3 15:14:05 bone density 2021 022 [facility] Scheduling, [address] [place] [address], [address], 2 08:00:43 LDCT, chest, for lung cancer screening - due in 10/20, last scan 10/26/2020, former smoker, 30+ pack years 2021 022 [email or web address] [facility], [address] [place], [address], 2 11:52:09 XR, chest - 70 yo ex smoker- dyspnea x 6 months- [address] (Imaging), [address] [place], [address], 11:36:51 electrocard iogram [address], [address] [facility], [place], [address], 11:36:52 Medication Orders estradiol 0.01% (0.1 mg/gram) vaginal cream 2021 [facility], [address] [place] [address], [address], 2 12:20:13 aspirin 81 mg tablet,nicol yed release 2021 [facility], [address] [place] [address], [address], 2 12:20:14 clotrimazol e 1 % topical cream 2021 [facility], [address] [place] [address], [address], 2 12:24:36 fluconazole 150 mg tablet 2021 022 magaly [facility]arm[facility] #[id number], [address] [place], [address], 2 11:53:04 nystatin 100,000 unit/gram topical cream 2020 021 [facility]/Pharmacy #[id number], [address] [place], [address], 18:50:22 pravastatin 40 mg tablet 2020 021 [facility]/Ph[facility] #[id number], [address] [place], [address], 1 15:01:19 nystatin 100,000 unit/gram topical cream 2019 020 [email or web address] [facility]/Pharmacy #[id number], [address] [facility] [place], [address], 14:17:53 Patient TargetsNo targets recorded. Patient Instructions Encounter Date Encounter Id Patient Instructions Last Modified By Organization Details Last Modified Time 01/04/2020 [id number] After a discussion of treatment options, which included consideration of best practices, patient preferences, and the patient? s individual lifestyle and treatment goals, as well as consideration and attempted mitigation of any barriers to meeting the patient? s goals, the following treatment plan and objectives were adopted: as above [email or web address] Not available 01/05/2020 20:19:54 03/02/2020 [id number] advance directives: care instructions aesrick Not available [...] [email or web address] Not available 03/02/2020 16:20:31 Counseling done [facility] Anneliese [email or web address] Not available 03/02/2020 12:04:38 09/22/2020 [id number] After a discussion of treatment options, which included consideration of best practices, patient preferences, and the patient? s individual lifestyle and treatment goals, as well as consideration and attempted mitigation of any barriers to meeting the patient? s goals, the following treatment plan and objectives were adopted: as above aesrick Not available 10/09/2020 18:54:34 05/08/2021 [id number] high cholesterol lifestyle changes aesrick Not available [...] training twice per week, Mediterranean diet reviewed. [email or web address] Not available 05/08/2021 11:27:41 06/21/2021 [id number] After a discussion of treatment options, which [...] Organization Detail LastModifiedTime 09/23/19 21 09/23/2020 elect brody blasgr am No observ ation record ed. [facility] [address] [place] [address], [address], 10/12/2020 20:10:24 09/23/19 21 elect brody blasgr am No observ ation record ed. sesrick Not Available 2020 19:38:18 09/24/19 21 09/23/2020 [...] acute diseas e. Electr onical ly signed Readin g Physic miguel angel: Jason Hampton ms [facility] (Imaging) [address], [place], [address], 09/24/2020 16:26:26 10/27/19 21 10/26/2020 CT chest lung cance r andressa pittman l TECHNI QUE: Diagno stic CT CHEST LUNG CANCER SCREEN ING ANNUAL COMPAR KIRBY: Chest CT on Dece er 2018 FINDIN GS: Lines/ tubes: None. Lungs and Airway s: Centra l airway s are patent . Minima l periph eral bulla or parase ptal emphys ashley in bilate ral upper lobes are unchan ged. Pulmon jermian nodule s as follow s: -Right upper [...] at: https: //www. acr.or g/Qual ity-Sa fety/R esourc es/Luis gRADS This report has been forwar ded to an My[employer] Calendly system which will electr onical ly notify approp riate provid ers of potent ially import ant findin gs. Electr onical ly Signed by: Hang garcia on 021 3:04 PM Interp reted by: Hang garcia MD Signed by: Hang garcia MD 1 CC Recipi ents: Jomar Betancur , [place] - Fax Final result JOMAR BETANCUR [facility] [address] [place], [address], 10/26/2020 19:23:20 10/27/19 21 10/26/2020 CT, chest No observ ation record ed. [facility] [address] [place], [address], 10/26/2020 18:11:57 11/11/19 21 11/10/2020 exerc ise stres s test No observ ation record ed. [facility] (Medical Records) [address] [place], [address], 11/19/2020 11:02:13 11/25/19 21 11/24/2020 exerc ise stres s test No observ ation record ed. [facility] (Medical Records) [address] [place], [address], 11/30/2020 13:52:10 11/26/19 21 11/24/2020 NM, myoca rdial perfu rupesh scan, w/ stres s No observ ation record ed. [facility] (Medical Records) [address] [facility], [place], [address], 11/30/2020 13:52:10 01/17/20 21 12/12/2020 polys omnog kathy * No observ ation record ed. [facility] [address] [facility], [place], [address], 01/22/2021 14:55:12 06/02/19 22 05/31/2021 bone densi ty No observ ation record ed. [facility] [address] [place], [place], [address], 06/04/2021 15:15:01 11/01/19 22 10/30/2021 CT chest lung cance r scree nathan annua l CT CHEST LUNG CANCER SCREEN ING ANNUAL [...] Crawley MD 10/31/21 Final result JOMAR BETANCUR [facility] [address] [facility], [place], [address], 11/03/2021 22:04:11 11/01/1910/30/2021 CT, chest No observ ation record ed. uriel Sandoval [facility] (Mammo) [address] [facility], [place], [address], 11/03/2021 22:04:11 Result Notes None recorded. Problems Name Problem SNOMED Code Status Onset Date Resolution Date Notes Provider Name and Address Organization Details Recorded Time Mixed hyperlip idemia 946382376 Active Not Available [facility] 12:15:30 Essentia l hyperten rupesh 46053755 Active Not Available [facility] 12:15:30 Chest swelling 760967816 Completed 02/18/2013 Not Available [facility] 3 02:04:24 Disorder of carbohyd rate metaboli sm 79497080 Completed 11/04/2020 Removal Reason: end AL Tian [address] [place] [address], [address] , [facility] 16:31:34 On examinat ion - a rash Completed 02/18/2013 Not Available [facility] 3 02:00:50 Benign essentia l hyperten rupesh 5715895 Active Not Available [facility] 12:15:30 Hyperlip idemia 34140779 Active Not Available [facility] 12:15:30 Flatulen ce, eructati on and gas pain 730417744 Completed 02/18/2013 Not Available [facility] 3 02:04:10 Tobacco user 208647114 Completed 11/04/2020 Removal Reason: stopped AL Tian [address] [place] [address], [address] , [facility] 1 16:30:18 Impaired fasting glycemia 476267909 Completed 11/04/2020 Removal Reason: end AL Tian [address] [place] [address], [address] , [facility] 16:30:46 Glucose level outside referenc e range 115924420 Active Not Available [facility] 12:15:30 Malaise and fatigue 449837739 Completed 02/18/2013 Not Available [facility] 3 02:00:21 Diabetes mellitus 81816342 Active Not Available [facility] 12:15:30 Depressi ve disorder 22445801 Active 2018 Not Available [facility] 12:15:30 Bipolar disorder 31204520 Active 2018 Not Available [facility] 12:15:30 Carotid artery stenosis 58988833 Active 2018 Not Available [facility] 12:15:30 Intracra nial meningio wi 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 Procedures Surgical History Date Name Laterality Status Provider Name and Address Organization Details Recorded Time 05/08/19 22 Medicare Wellness Visit completed Guillaume Abad MA [facility] 05/08/2021 10:25:13 05/08/19 22 Alcohol use screening completed Guillaume Abad MA [facility] 05/08/2021 10:25:13 05/08/19 22 Cardiovascular disease risk reduction counseling completed Guillaume Abad MA [facility] 05/08/2021 10:25:13 03/02/20 20 Medicare Wellness Visit completed Nhi Stanton MA [facility] 03/02/2020 12:02:02 03/02/20 20 COPD Screening completed AL Tian [address] [place] [address], [address], [facility] 03/02/2020 16:17:24 03/02/20 20 prevention-cardiov ascular risk reduction counseling completed Nhi Stanton MA [facility] 03/02/2020 12:02:02 03/02/20 20 prevention-annual alcohol misuse screening completed Nhi Stanton MA [facility] 03/02/2020 12:02:02 03/02/20 20 Telephonic Visit completed Nhi Stanton MA [facility] 03/02/2020 15:43:39 01/04/20 20 Telephonic Visit completed Erinn Modi MA [facility] 01/04/2020 13:52:44 02/19/20 19 Medicare Wellness Visit completed DEEDEE Nichole [facility] 02/18/2019 10:08:48 02/19/20 19 POC Urinalysis Testing completed Izabel Gordon Cande [facility] 02/18/2019 11:01:50 02/19/20 19 Hearing Test completed Izabel Gordon Cande [facility] 02/18/2019 11:20:58 10/09/19 19 POC Urinalysis Testing completed Meagan Mayorga [facility] 10/08/2018 11:53:49 01/17/20 18 Medicare Wellness Visit completed Erinn Modi MA [facility] 01/16/2018 14:31:16 01/15/20 17 Smoking cessation counseling completed Erinn Modi MA [facility] 01/14/2017 11:47:46 01/15/20 17 Medicare Wellness Visit completed Erinn Modi MA [facility] 01/14/2017 11:46:37 01/15/20 17 Carbon Monoxide Testing completed Erinn Modi MA [facility] 01/14/2017 11:47:46 09/11/19 17 Smoking cessation counseling completed Maryanne Tanner MA [facility] 09/10/2016 13:24:35 09/11/19 17 Carbon Monoxide Testing completed Maryanne Tanner MA [facility] 09/10/2016 13:24:35 07/31/19 17 Smoking cessation counseling completed Erinn Modi MA [facility] 07/30/2016 16:26:53 01/11/20 16 Smoking cessation counseling completed Erinn Modi MA [facility] 01/11/2016 15:50:31 01/11/20 16 Carbon Monoxide Testing completed Erinn Modi MA [facility] 01/11/2016 16:02:44 09/09/19 15 Smoking cessation counseling completed Erinn Modi MA [facility] 09/08/2014 16:33:45 01/22/20 14 Smoking cessation counseling completed Guillaume Abad MA [facility] 01/21/2014 16:34:19 07/03/19 14 Smoking cessation counseling completed Nicki Dumont [facility] 07/02/2013 14:53:13 06/27/19 13 Smoking cessation counseling completed AL Tian [address] [place] [address], [address], [facility] 06/27/2012 23:20:37 04/08/19 13 Smoking cessation counseling completed AL Tian [address] [place] [address], [phone], [facility] 04/08/2012 19:17:40 Imaging Results None recorded. Procedure Notes None recorded. Medical Equipment None Reported. Allergies Allergen ID Allergen Name Allergen Category Reaction Reaction Severity Criticality Documentation Date Start Date Code Code System Note Provider Name and Address Organization Details Recorded Time 155136 atorvasta tin medicatio n Not available Not available Not available 06/26/2012 88184 RxNorm muscl e aches AL Tian [address] [place] [address] [place], [address], [facility] 3 16:49:53 186360 wasp venoms environme nt Not available Not available Not available 07/02/2013 19836 RxNorm Nicki Dumont [facility] 4 14:53:13 255849 pravastat in medicatio n arthralgi a (joint pain) Not available Not available 05/08/2021 05221 RxNorm AL Tian [address] [place] [address] [place], [address], [facility] 2 11:04:56 3956 codeine medicatio n Not available Not available Not available 05/27/2008 2670 RxNorm Not Available [facility] 1 06:05:20 Medications Name Sig Start [...] Not Available Not Available Vitals Date Recorded Systolic blood pressure Diastolic blood pressure Provider Name and Address Organization Details Last Updated DateTime 05/08/2021 130 mm[Hg] 80 mm[Hg] AL Tian [address] [place] [address], [phone] 05/08/2021 11:14:28 Date Recorded Body height Body mass index (BMI) Body weight Systolic blood pressure Diastolic blood pressure Systolic blood pressure Diastolic blood pressure Provider Name and Address Organization Details Last Updated DateTime 2 165.1 cm 31.7 kg/m2 55257.9 5 g 140 mm[Hg] 68 mm[Hg] 129 mm[Hg] 70 mm[Hg] Guillaume Abad [facility] 2 11:36:06 Date Recorded Body height Heart rate Body temperature Body mass index (BMI) Body weight Systolic blood pressure Diastolic blood pressure Provider Name and Address Organization Details Last Updated DateTime 2 165.1 cm 84 /min 97.8 [degF] 32 kg/m2 33361.7 4 g 126 mm[Hg] 84 mm[Hg] [facility] 2 11:56:56 Date Recorded Systolic blood pressure Diastolic blood pressure Provider Name and Address Organization Details Last Updated DateTime 09/22/2020 130 mm[Hg] 59 mm[Hg] AL Tian [address] [place] [address], [phone] 09/22/2020 15:27:35 Date Recorded Body height Body mass index (BMI) Body weight Heart rate Systolic blood pressure Diastolic blood pressure Provider Name and Address Organization Details Last Updated DateTime 1 167.64 cm 30.5 kg/m2 20911.9 6 g 84 /min 144 mm[Hg] 70 mm[Hg] Tiana Lynn [facility] 1 14:11:27 Date Recorded Body height Heart rate Body mass index (BMI) Body weight Systolic blood pressure Diastolic blood pressure Provider Name and Address Organization Details Last Updated DateTime 0 167.64 cm 80 /min 30.3 kg/m2 51985.3 7 g 129 mm[Hg] 80 mm[Hg] Erinn Modi [facility] 0 13:47:11 Date Recorded Heart rate Systolic blood pressure Diastolic blood pressure Provider Name and Address Organization Details Last Updated DateTime 03/02/2020 82 /min 130 mm[Hg] 86 mm[Hg] AL Tian [address] [place] [address], [address], [facility] 03/02/2020 16:12:37 Date Recorded Body height Body mass index (BMI) Body weight Provider Name and Address Organization Details Last Updated DateTime 03/02/2020 167.64 cm 30.3 kg/m2 71378.37 g Nhi Stanton [facility] 03/02/2020 15:46:14 Social History Question Answer Notes LastModified by Organizat ion Details LastModified Time Tobacco Smoking Status Former Smoker 3/4 ppd, Smoking 1/2 ppd 12/14/15 , 1/4 PPD 10.12.16 , /4 ppd 07/30/16 , Quit- 2 days since [...] available 03/13/2011 What Is Your Level Of Caffeine Consumption? Occasional 1 Cups Daily Information not available 05/08/2021 How Much Tobacco Do You Chew? None Information not available 01/03/2015 What Type Of Diet Are You Following? REGULAR Low Sugar Intake Information not available 05/08/2021 Which Illicit Or Recreational Drugs Have You Used? No [email or web address] Information not available 05/21/2018 Education 4 Year College Informatio n not available 01/03/2015 What Is The Highest Grade Or Level Of School You Have Completed Or The Highest Degree You Have Received? [id number] Information not available 05/08/2021 Have There Been Any Changes To Your Family Or Social Situation? No Information not available 05/08/2021 When Did You Quit Smoking? 6-10yearssince lastcigarette Information not available 05/08/2021 Are There Any Guns Present In Your Home? No Information not available 03/13/2011 Do You Use Insect Repellent Routinely? Yes Information not available 05/08/2021 Live Alone Or With Others? With Others [email or web address] Information not available 02/15/2011 CCM Consent Discussion 07/15/2017 Information not available 07/15/2017 Marital Status [email or web address] Informatio n not available 01/14/2017 Mosquito Repellent Used Routinely Yes Information not available 03/13/2011 What Was The Date Of Your Most Recent Tobacco Screening? 06/21/2021 Information not available 06/21/2021 How Many Children Do You Have? 0 [email or web address] Information not available 02/15/2011 What Is Your Current Pack Years? 30ormorepackye ars 37.5 Pack Yrs Information not available 01/03/2015 [...] To Smoke? No Information not available 05/08/2021 How Much Tobacco Do You Smoke? No Information not available 05/28/2019 General Stress Level Low Information not available 02/18/2019 Do You Use Sunscreen Routinely? Yes Not In Sun Much Information not available 05/08/2021 Sex: Unknown Functional Status Question Answer Note LastModified by Organizat ion Details LastModified Time Do you use any illicit or recreational drugs? No Information not available 05/08/2021 Do you or have you ever used any other forms of tobacco or nicotine? No Information not available 05/08/2021 What is your level of alcohol consumption? None ETOH DEPENDENCY IN REMISSION X 11 YRS- CONTS PROGRAMS. Information not available 05/28/2008 Do you or have you ever used smokeless tobacco? Never used smokeless tobacco Information not available 02/18/2019 Are you currently employed? 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 Never used electronic cigarettes Information not available 02/18/2019 What is your exercise level? None Information [...] virus, trivalent, preservative 1 completed Not Available [facility] 04/18/2019 02:31:14 Influenza, split virus, trivalent, PF 4 completed Not Available [facility] 04/18/2019 02:19:21 Influenza, split virus, quadrivalent, PF 5 completed Not Available [facility] 04/18/2019 02:19:49 pneumococcal polysaccharide PPV23 5 completed Not Available [facility] 04/18/2019 02:26:43 Tdap 5 completed Not Available [facility] 04/18/2019 02:38:05 Influenza, split virus, quadrivalent, PF 6 completed Not Available [facility] 04/18/2019 02:21:03 Influenza, high-dose, trivalent, PF 7 completed Not Available [facility] 04/18/2019 02:22:05 Pneumococcal conjugate PCV 13 8 completed Not Available [facility] 04/18/2019 02:22:34 zoster recombinant 8 completed Not Available [facility] 04/18/2019 02:29:21 Influenza, high-dose, trivalent, PF 8 completed Not Available [facility] 04/18/2019 02:39:36 Influenza, high-dose, trivalent, PF 9 completed Not Available [facility] 04/18/2019 02:39:37 influenza, unspecified formulation 0 completed Erinn Modi MA [facility] 01/06/2020 16:31:55 COVID-19, mRNA, LNP-S, PF, 30 mcg/0.3 mL dose 1 completed Tiana Lynn MA [facility] 09/22/2020 14:09:35 COVID-19, mRNA, LNP-S, PF, 30 mcg/0.3 mL dose 1 completed Tiana Lynn MA [facility] 09/22/2020 14:22:24 COVID-19, mRNA, LNP-S, PF, 30 mcg/0.3 mL dose 1 completed Mona Mark MA [facility] 01/16/2021 09:58:41 Influenza, high-dose, quadrivalent, PF 1 [facility] 05/08[facility]2021 10:32:06 Influenza, split virus, trivalent, preservative 0 completed Not Available [facility] 04/18/2019 02:17:50 Past Encounters Encounter ID Performer Location Encounter Start Date Encounter Closed Date Diagnosis/Indication Diagnosis SNOMED-CT Code Diagnosis ICD10 Code Diagnosis Note [id number] AL Tian, [facility], [address]ICE [address] [place] [address] 05/27/2008 14:44:39 05/31/2008 14:47:22 [id number] AL Tian, [facility], [address] [place] [address] 06/24/2008 16:44:33 06/28/2008 10:22:53 [id number] AL Tian, [facility], [address] [place] [address] 12/22/2009 15:33:16 12/26/2009 07:59:01 [id number] AL Tian, [facility], [address] [place] [address] 03/02/2010 16:00:54 03/06/2010 13:45:04 [id number] [facility] , [facility] [address] [place] [address] 03/20/2010 15:01:45 03/21/2010 11:20:58 [id number] Arnaldo Ambrocio MD , [facility], [address] [place] [address] 01/26/2011 10:05:07 01/29/2011 13:22:[id number] [facility] [employer] [address] [address] 01/26/2011 10:35:57 01/30/2011 08:45:03 [id number] Arnaldo Ambrocio MD , [facility], OFF[address] [place] [address] 02/09/2011 15:09:01 02/12/2011 12:03:49 [id number] AL Tian, [facility], OFFICE [address] [place] [address] 03/13/2011 15:05:21 03/13/2011 17:15:[id number] [facility] RAD[facility] [employer] [facility] [address] [place] [address] 03/13/2011 16:35:35 03/15/2011 12:04:48 [id number] [facility] , [facility] [address] [place] [address] 04/19/2011 15:26:55 04/20/2011 14:58:30 [id number] AL Tian , [facility], [address]ICE [address] [place] [address] 05/15/2011 16:12:06 05/15/2011 17:15:12 [id number] Scar Betancur MD , [facility], [address] [place] [address] 07/03/2011 15:00:30 07/06/2011 08:10:51 [id number] Pennie Rosa PA-C , [facility], [address] [place] [address] 08/09/2011 16:03:19 08/13/2011 09:42:[id number] [facility] RADIOLOGY [employer] [facility] , [facility] [address] [place] [address] 08/09/2011 17:09:51 08/09/2011 17:22:53 [id number] AL Tian , [facility], [address] [place] [address] 08/21/2011 16:35:18 08/21/2011 17:29:43 [id number] AL Tian , [facility], [address] [place] [address] 04/08/2012 15:09:46 04/08/2012 17:16:15 [id number] AL Tian , [facility], [address] [place] [address] 06/26/2012 16:21:08 06/26/2012 17:21:18 [id number] Scar Betancur MD , [facility], [address] [place] [address] 07/02/2013 14:07:11 07/03/2013 09:00:18 Benign essential hypertension 6187224 Blood pressure at goal . Mixed hyperlipidemia 231307469 Cholestero l is at goal Cholestero l is not at goal Continue to work on diet and exercise as discussed Adult [facility] th examination 030138925 see Risk Assessment and Lifestyle Change Counseling section above Tobacco user 956490877 d iscussed that smoking - nicotin and other chemicals adversely effect BH illnesses and do not support efforts of recovery- reiiterate d that pt is in charge of her health decisions- moving to [place]- stress mgt reviewed [id number] AL Tian, [facility], [address] [place] [address] 01/21/2014 16:20:29 01/21/2014 17:19:26 Tobacco user 705809796 reviewed adv's of nicotine patch/loze nge along with wellbutrti n to decrease smoking. Hyperlipidemia 98036585 Influenza vaccine needed 0947093539 106 Benign ess ential hypertension 5108883 Blood pressure at goal . Diabetes mellitus 80480601 [id number] AL Tian, [facility], [address] [place] [address] 09/08/2014 16:21:01 09/08/2014 17:29:57 Benign essential hypertension 6278529 Blood pressure at goal Blood pressure NOT at goal. Tobacco user 223129599 r eviewed adv's of nicotine patch/loze nge along with wellbutrti n to decrease smoking. Hyperlipidemia 17168906 [id number] AL Tian, [facility], [address] [place] [address] 01/03/2015 15:18:42 01/04/2015 10:44:00 Adult health examination 387103814 Z00.00 see Risk Assessment and Lifestyle Change Counseling section above Screening for disorder 503276837 Z72.89 Screening for malignant neoplasm of colon 789870607 Z12.11 Tobacco user 200055224 Z 72.0 reviewed adv's of nicotine patch/loze nge along with wellbutrti n to decrease smoking. Influenza vaccine needed 1176717340 106 Z28.3 Administra tion of pneumococcal vaccine 73972233 Z23 Administra tion of diphtheria, pertussis, and tetanus vaccine 038362728 Z23 Diabetes mellitus 440831 09 E13.9 controlled with diet Hyperlipidemia 72784555 E78.5 not at goal- intolerant of all statins, taking natruopath - thinks red rice yeast- high fiber- recheck in 3 -6 months Benign ess ential hypertension 7748538 I10 Blood pressure at goal Injury of mouth 24621125 S09.93XA by hx due to extreme temp change in mouth- hx has ramos in past and resolves- f/u if not resolving in coming month- sooner any worse [id number] MD HARI Weinberg, [facility], [address] [place] [address] 01/13/2015 16:35:04 01/18/2015 15:08:13 Gingival disease 13880964 K06.9 buchal infection , [id number] Praful Andrea MD , [facility], [address] [place] [address] 12/14/2015 09:37:51 12/15/2015 14:54:34 Herpes zoster 2342764 B02.9 Left uper breast with one small area of tiny vesicular lesions, and one satellite lesion on her back. Pt not experienci ng pain, but has some itchiness. Recommende d calamine lotion [id number] Scar Betancur MD , [facility], [address] [place] [address] 01/11/2016 15:16:09 01/11/2016 17:02:20 Adult health examination 281962289 Z00.00 see Risk Assessment and Lifestyle Change Counseling section above Cigarette smoker 5623664 7 F17.210 Tobacco user 144302070 Z 72.0 reviewed adv's of nicotine patch/loze nge along with wellbutrti n to decrease smoking. Screening for malignant neoplasm of cervix 692038388 Z12.4 Screening for malignant neoplasm of respiratory tract 844779604 Z12.2 Diabetes mellitus 598743 09 E13.9 controlled with diet Essential hypertension 18652158 I10 increase today, patient reports bp's < 140/90 in the grocery store- increase stressors now with up coming move.= recheck in 3 months when able Hyperlipidemia 09346176 E78.5 not at goal- intolerant of all statins, taking natruopath - thinks red rice yeast- high fiber- recheck in 3 -6 months Active or passive immunization 844988485 Z23 [id number] AL Tian FP, [facility], [address] [place] [address] 07/30/2016 16:18:45 07/30/2016 17:21:16 Benign essential hypertension 8722617 I10 Blood pressure at goal Mixed hyperlipidemia 267 250459 E78.2 not at goal- had s/e stain- consider red yeast rice Cigarette smoker 9788730 7 F17.210 Tobacco user 727532939 Z 72.0 reviewed adv's of nicotine patch/loze nge along with wellbutrti n to decrease smoking. Screening for malignant neoplasm of lung 275753272 Z12.2 Pain of hip region 77172 002 M25.639 [id number] AL Tian , [facility], [address] [place] [address] 09/10/2016 13:04:28 09/10/2016 13:49:16 Cigarette smoker 06686623 F17.210 plan to d/c smoking prior to surgery Tobacco user 309071924 Z 72.0 will be stopping smoking prior to surgery - iusing stop smoking aides Pre-surger y evaluation 317065056 Z01.818 pt cleared for surgery Cataract 366543280 H26.9 [id number] Scar Betancur MD , [facility], [address] [place] [address] 01/14/2017 11:32:34 01/14/2017 13:11:03 Adult health examination 828919851 Z00.00 see Risk Assessment and Lifestyle Change Counseling section above Counseling 405026155 Z71 .9 Mixed hyperlipidemia 267 170770 E78.2 Cholestero l is not at goal Continue to work on diet and exercise as discussed- ADD [employer]- intolerant to statins Benign ess ential hypertension 0307421 I10 Blood pressure at goal , continue present mgtm Cigarette smoker 3205330 7 F17.210 Tobacco user 131071272 Z 72.0 reviewed adv's of nicotine patch/loze nge along with wellbutrti n to decrease smoking. Active or passive immunization 420445452 Z23 Imaging of lung abnormal 423302149 R91.8 DUE IN 03/17 Hearing loss 31582695 H9 1.93 audioogy referral [id number] Scar Betancur MD , [facility], [address] [place] [address] 05/27/2017 13:02:35 05/27/2017 15:38:58 Acute upper respiratory infection 04732276 J06.9 Educated patient that URI is a [...] failure to resolve in 2-4 weeks. Cough 66413625 R05 Pneumonia 332999802 J18. 9 Type 2 monik betes mellitus without complication 640613001 E13.9 controlled with diet and exercise [id number] Scar Betancur MD , [facility], [address] [place] [address] 07/15/2017 10:27:21 07/15/2017 11:38:34 Benign essential hypertension 2462980 I10 Blood pressure at goal Mixed hyperlipidemia 267 393816 E78.2 Cholestero l is not at goal Continue to work on diet and exercise as discussed- increase [employer]- intolerant to statins Active or passive immunization 454761902 Z23 Nicotine dependence 5629 4008 F17.200 Allergy to bee venom 424 232480 Z91.030 Pneumonia 762159997 J18. 9 Diabetes mellitus 355093 09 E11.9 well COntrolled with diet and exercise, restart ASA 81 MG [id number] Scar Betancur MD , [facility], [address] [place] [address] 11/15/2017 11:47:27 11/15/2017 13:01:54 Mixed hyperlipidemia 878447625 E78.2 Cholestero l is not at goal TRIAL WITH ATORVASTAT IN 80 TRY QOD FIRST. Intracrani al meningioma 655514452 D32.0 to schedule neuro surgery Carotid ar dayana occlusion 108144405 I65.29 [id number] Scar Betancur MD , [facility], [address] [place] [address] 01/16/2018 14:03:24 01/16/2018 16:18:57 Adult health examination 285418460 Z00.00 see Risk Assessment and Lifestyle Change Counseling section above Counseling 533340886 Z71 .9 Depression screening 171 110250 Z13.89 depression screening tool administer ed, entered into emr, scored and discussed, time greater than 7.5 minutes Mixed hyperlipidemia 267 543708 E78.2 Cholestero l is not at goal TRIAL WITH ATORVASTAT IN 80 TRY QOD FIRST. Benign ess ential hypertension 3611426 I10 Blood pressure at goal Postmenopausal state 764 27578 Z78.0 Active or passive immunization 156154111 Z23 Solitary n odule of lung 693121258 R91.1 Dizziness 015825975 R42 [id number] Scar Betancur MD FP, [facility], [address] [place] [address] 05/21/2018 14:29:33 05/21/2018 15:54:19 Tachycardia 9321463 R00.0 mildly tachyshaki ng, SOB with exertion? anemicrece nt meningioma txhas f/u oncology tomorrowsx ECG overall reassuring check labshydrat ionclose f/u Intracrani al meningioma 100976331 D32.0 Dizziness 976974716 R42 worsening sx over weeksassoc iated with shaking and exertional SOBtachy on exampeak flows okay, VS Other espinoza stableenc hydrationt aram it easylab work up and close f/u [id number] Marti Abreu MD , [facility], [address] [place] [address] 05/28/2018 10:07:19 05/29/2018 11:41:11 Microcytic anemia 145894904 D50.9 she is going to GI nowshe likely needs to go to hospital for labs and txshe is quite sx with her anemiashe is normotensi ve, but low for hershe is only tachy to 104 on ascultatio nshe is paleDr Natividad called to inform of sxclose f/u plan/ hospitaliz ation if necessary [id number] AL Tian FP, [facility], [address] [place] [address] 06/04/2018 08:10:39 06/04/2018 10:02:50 Dyspnea 507023560 R06.00 with dizziness- overtx HTN- stop lisinopril , check cbc- f/u 1 wk Anemia 030653891 D64.9 Diabetes mellitus 868244 09 E11.9 well COntrolled with diet and exercise, restart ASA 81 MG [id number] Scar Betancur MD FP, [facility], [address] [place] [address] 06/18/2018 16:18:46 06/19/2018 08:14:54 Benign essential hypertension 6784173 I10 stopped lisinopril - hypotensiv e- TO ER Diabetes mellitus 992512 09 E11.9 over controlled . Taper metformin down to 2 tablets daily Anemia 667301551 D64.9 Bipolar disorder 0614730 4 F31.9 Gastrointe stinal hemorrhage 96247654 K92.2 heme pos stool, hypotensiv e, tachycardi c- to ER Hypotensive episode 6776 3001 I95.9 [id number] Scar Betancur MD , [facility], [address] [place] [address] 06/30/2018 12:03:52 07/01/2018 09:19:30 Mixed hyperlipidemia 931411451 E78.2 Cholestero l is not at goal TRIAL WITH ATORVASTAT IN 80 TRY QOD FIRST. Carotid ar dayana stenosis 28732742 I65.29 cont plavix Bipolar disorder 0411809 4 F31.9 continue f/u with Dr Cintron Anemia 141861434 D64.9 GI eval in progress [id number] Scar Betancur MD , [facility], [address] [place] [address] 10/08/2018 11:24:54 10/08/2018 15:32:55 Cigarette smoker 13757572 F17.210 Abnormal v aginal bleeding 991263179 N93.9 Fatigue 61495091 R53.83 Screening for malignant neoplasm of cervix 610012183 Z12.4 [id number] Scar Betancur MD , [facility], [address] [place] [address] 10/29/2018 13:53:42 10/29/2018 14:58:48 Pre-surgery evaluation 175057113 Z01.818 pt cleared for surgery Carotid ar dayana stenosis 88184813 I65.29 R carotid artery stenosed 50-79%, LEFT CAROTID < 50%, will hold asa and plavix 5 days prior to surgery. consulted with pts vascular surgeon, Dr Sharpe and agrees with plan Mass of ovary 798590548 R19.09 cleared for surgery Intracrani al meningioma 623946741 D32.0 pmh- Bipolar disorder 5759535 4 F31.9 stable, continue f/u with Dr Ward Diabetes mellitus 746207 09 E11.9 stable- tx with diet and exercise. Hypothyroidism 74334064 E03.9 stable Hyperlipidemia 03467652 E78.5 [id number] Linh Vázquez MD , [facility], [address] [place] [address] 01/21/2019 14:04:56 01/23/2019 09:29:41 Active or passive immunization 731346074 Z23 [id number] AL Tian , [facility], [address] [place] [address] 02/18/2019 09:39:42 02/18/2019 11:40:30 Adult health examination 571904693 Z00.00 see Risk Assessment and Lifestyle Change Counseling section above Counseling 822237651 Z71 .9 Depression screening 171 103348 Z13.89 depression screening tool administer ed, entered into emr, scored and discussed, time greater than 7.5 minutes Mixed hyperlipidemia 267 069939 E78.2 Ex-smoker 2745065 Z87.89 1 Screening mammography 24 319803 Z12.31 Fatigue 08430460 R53.83 Hearing loss 88943462 H9 1.93 reviewed test- showing b/l hearing loss- prefers to not f/u with audiologis t at this time Salo hematuria 45856379 5 R31.0 suspecting /hx- UA negative today- f/u ctologies. - READY [employer] f/u planned [id number] Scar Betancur MD , [facility], [address] [place] [address] 05/28/2019 15:16:46 05/28/2019 16:45:07 Diabetes mellitus 94095573 E11.9 may decrease metfomin 1tab/day Essential hypertension 43337252 I10 At goal, continue current medication s. Mixed hyperlipidemia 267 477143 E78.2 Increase pravastati n to 20mg BID, Recheck lipids in 1 month Postmenopausal state 764 02807 Z78.0 declined despite knowing risk of contractin g disease and potential from disease, would like to discuss at next visit [id number] Scar Betancur MD , [facility], [address] [place] [address] 03/02/2020 15:28:56 03/02/2020 16:22:35 Bipolar disorder 03458169 F31.9 stable, continue f/u with Dr Ward Adult heal th examination 845838494 Z00.00 see Risk Assessment and Lifestyle Change Counseling section above Counseling 720924019 Z71 .9 including cardiovasc ular risk reduction counseling Depression screening 171 766432 Z13.89 depression screening tool administer ed, entered into emr, scored and discussed, time greater than 7.5 minutes Screening for alcohol abuse 326552654 Z13.39 Essential hypertension 50586867 I10 At goal, continue current medication s. Hyperlipidemia 87676953 E78.5 Hypothyroidism 17934766 E03.9 stable Eruption 308562729 R21 skin lesion- unchanged since summer- derm referral [id number] AL Tian , [facility], [address] [place] [address] 11/18/2019 13:48:59 11/19/2019 12:52:31 Essential hypertension 17811301 I10 At goal, continue current medication s. Mixed hyperlipidemia 267 161131 E78.2 continue Increase pravastati n to 20mg BID, - condider increase to 40 mg- has had muscle aches with statin use in past Dizziness 671821645 R42 check labs, keep diary- f/u with results in coming 1-2 wks Intracrani al meningioma 512150360 D32.0 continue f/u withoncolo gist [id number] Scar Betancur MD , [facility], [address] [place] [address] 01/04/2020 13:42:55 01/07/2020 13:31:01 Salo hematuria 649914270 R31.0 suspecting /hx- UA negative today-cyto logies neg.- urology f/u for hematuria Disorder o f thyroid gland 57209848 E07.9 [id number] Scar Betancur MD , [facility], [address] [place] [address] 09/22/2020 13:47:01 10/10/2020 11:36:51 Essential hypertension 33775983 I10 At goal, continue current medication s. Hyperlipidemia 78546404 E78.5 LDL- 140's with vascular disease- goal is 70, intolerant to atorvastat in- will increase to 40 mg pravastati n. Peripheral vascular disease 567743584 I73.9 Carotid ar dayana stenosis 11199755 I65.29 R carotid artery stenosed 50-79%, LEFT CAROTID < 50%, Dyspnea 478649797 R06.00 chest xray , ekg negative- further eval- stress test- tcx 2 to reach pt- PFT/pulmon jermain to do with smoking hx, left message to make f/u appt/call back . Eruption 062475124 R21 skin lesion- unchanged since summer- derm referral [id number] Scar Betancur MD , [facility], [address] [place] [address] 05/08/2021 10:08:25 05/08/2021 11:37:52 Adult health examination 400548103 Z00.00 see Risk Assessment and Lifestyle Change Counseling section above Counseling 630156386 Z71 .9 including cardiovasc ular risk reduction counseling Depression screening 171 169002 Z13.31 depression screening tool administer ed, entered into emr, scored and discussed, time greater than 7.5 minutes Screening for alcohol abuse 634162134 Z13.39 Hyperthyroidism 94636000 E05.90 Essential hypertension 56574154 I10 not At goal, continue current medication s. Mixed hyperlipidemia 267 467137 E78.2 Cholestero l is at goalContin ue to work on diet and exercise as discussed Screening mammography 24 782694 Z12.31 Screening for osteoporosis 710896860 Z13.820 Candidiasis of vagina 72 666798 B37.3 Multiple n odules of lung 792509151 R91.8 Diabetes mellitus 547876 09 E11.9 cont decrease metfomin 1tab/day- well cotnrolled with nutrition and exercise Bipolar disorder 7446311 4 F31.9 stable, continue f/u with Dr Ward Peripheral vascular disease 364608090 I73.9 carotid vascular disease- LDL- decreasing , asa and clopidogre l daily [id number] Scar Betancur MD , [facility], [address] [place] [address] 06/21/2021 11:45:12 07/11/2021 13:10:57 Mixed hyperlipidemia 086440507 E78.2 Cholestero l is at goalContin ue to work on diet and exercise as discussed Atrophic vaginitis 96031 000 N95.2 Candidiasis of skin 4988 3006 [...] Georges Member ID Guarantor Name 01/04/2020 1 [facility] (MEDICARE REPLACEMENT/A DVANTAGE - PPO) [id number] Ritu Dukes Bharat [id number] Ritu Bharat 03/02/2020 1 [facility] (MEDICARE REPLACEMENT/A DVANTAGE - PPO) [id number] Ritu T Bharat [id number] Ritu Bharat 09/22/2020 1 [facility] (MEDICARE REPLACEMENT/A DVANTAGE - PPO) [id number] Ritu T Bharat [id number] Ritu Bharat 05/08/2021 1 [facility] (MEDICARE REPLACEMENT/A DVANTAGE - PPO) [id number] Ritu T Bharat [id number] Ritu Bharat 06/21/2021 1 [facility] (MEDICARE REPLACEMENT/A DVANTAGE - PPO) [id number] Ritu T Bharat [id number] Ritu Bharat Notes Date Note Type Note Provider Name [...] chat- requesting c/b at Time for intake: 8 minutes. AL Tian [address] [place] [address], [phone], [facility] 01/05/2020 20:20:32 0 text/html Physical Exam/FemaleReported bypatient.PHAPatient [...] room and availability of urgent care at [facility] HyperlipidemiaReported bypatient.Duration:chronic Control:poorly controlled Barriers to CareAllergy/intolerance to [facility]ins[facility] [place] HypertensionReported bypatient.Context:No ischemic heart disease; No kidney [...] when walk for long Time for intake: minutes. AL Tian [address] [place] [address], [address], [facility] 03/02/2020 16:22:33 1 text/html VMG DiabetesReported bypatient.Duration:chronic [...] PMH > 30 pack yr- AL Tian [address] [place] [address], [address], [facility] 11/02/2020 11:08:29 2 text/html Physical Exam/FemaleReported bypatient.PHAAshley is here for a Wellness Visit. She [...] room and availability of urgent care at [facility] HyperlipidemiaReported bypatient.Duration:chronic Control:poorly controlled Barriers to CareAllergy/intolerance to [facility]insS[facility] [place] HypertensionReported bypatient.Context:No ischemic heart disease; No kidney [...] vaginal area, buttock & belly button. doing ly neurology- Dr Poon- neuropsych. Patient is here [...] when walk for long AL Tian [address] [place] [address], [phone], [facility] 05/14/2021 19:56:41 2 text/html Pt reports rash all over body ongoing since summer time- started under breasts. Fluconazole has not helped. Rash is painful and itching and worsening over time- rash on axilla, labia, under breasts. . no fever or nausea. AL Tian [address] [place], [address], [facility] 06/30/2021 20:25:49 OBGyn Episode No OBEpisode recorded.
[2024-09-02 14:00] VITALS: BP 132/76; BMI 30.7
== END 2024-09-02 14:46 | disposition home or self-care (01) ==
LOC: HO.HWS 13:52
PROVIDERS: PCP Internal Medicine; Visit Provider Advanced Practice Midwife
DX: Z01.419 Encounter for gynecological examination (general) (routine) without abnormal findings (principal)
CPT/HCPCS: 99397; 99459

== ENCOUNTER 2024-09-02 13:52 | Outpatient (REF) | payer MEDICARE, SELFPAY ==
[2024-09-07 13:31] LABS: HPV Genotype 16 Negative (Negative); HPV Genotype 18 Negative (Negative); HPV High Risk Negative (Negative)
== END 2024-09-02 13:53 | disposition home or self-care (01) ==
LOC: HO.LNP 13:52
PROVIDERS: PCP Internal Medicine; Visit Provider Advanced Practice Midwife
DX: Z01.419 Encounter for gynecological examination (general) (routine) without abnormal findings (principal)
CPT/HCPCS: 87626; 88175; 99397; 99459

== ENCOUNTER 2024-09-04 13:10 | Outpatient (REF) | payer MEDICARE, SELFPAY ==
--- NOTE | ~2024-09-04 | MM_ITS ---
EXAMINATION: DXA BONE DENSITY AXIAL HISTORY: M85.852 - Other specified disorders of bone density and structure, left ... TECHNIQUE: HelloFax Dual energy absorptiometry (DEXA) of the lumbar spine, total left hip, and femoral neck was performed. COMPARISON: Comparison is made with the prior examination dated 05/31/2021. FINDINGS: The bone mineral density of the lumbar spine is 1.096, corresponding to a T-score of -0.6, and a Z-score of 0.4. This is indicative of normal bone mineral density. This represents a BMD change of 0.1% compared to the prior exam. This is not statistically significant. The bone mineral density of the left total hip is 0.888, corresponding to a T-score of -0.9, and a Z-score of 0.1. This is indicative of normal bone mineral density. This represents a BMD change of 1.1% compared to the prior exam. This is not statistically significant. The bone mineral density of the left femoral neck is 0.914, corresponding to a T-score of -0.9, and a Z-score of 0.5. This is indicative of normal bone mineral density. This represents a BMD change of 8.2% compared to the prior exam. FRACTURE RISK: The FRAX index suggests a ten year probability of major osteoporotic fracture of 8.7%, and of hip fracture 1.0%. MM/XR DEXA axial skeleton IMPRESSION: Based on bone mineral density, and according to World Health Organization (WHO) criteria, the diagnosis is consistent with normal bone mineral density. All bone density values are in grams per centimeter squared (g/cm2). Statistically, 68% of repeat scans fall within 1 SD (+/- 0.010 g/cm2 for AP spine L1-L4) and 1 SD (+/- 0.012 g/cm2 for femur total) FRAX is a trademark of the [employer]'s [place] [facility] Metabolic Bone Disease, a World Health Organization (WHO) Collaborating Center. Electronically signed by: Tyshawn Ren MD 09/04/2024 01:56 PM EDT
--- OUTSIDE RECORDS SUMMARY | 2024-09-04 13:13 | XMS_ITS | Data Portability ---
Author Organization [place], [facility] Address [address] [place] [address] Care Team Providers Care Supervisor [employer] Name Role Phone PRABHU JOMAR Primary Care Provider SAMMIE PATEL Pecan Mallow Dipper HAZEL BRENNAN Radiation Oncologist DAYLIN CHEN Pecan Mallow Dipper KORIN SHARPE Vascular Surgeon CORY HUGO Chemical Packager [phone] Assessment Encounter Date Assessment Date Assessment LastModified [...] recorded. Lab TSH, serum or plasma 2019 [facility], [address] [place] [address], [address], 0 08:21:04 CBC 2019 [facility], [address] [place] [address], [address], 0 08:21:04 iron, serum 2019 [facility], [address] [place] [address], [address], 0 08:21:04 Referral urologist referral - hematuria x 2 in h, cytologies x 3 attached 2019 [facility], [address] [place], [address], 0 12:54:43 Procedures None recorded. Surgeries None recorded. Imaging MAMMO, screening, tomosynthes is, bilateral 2021 [facility] [place] [facility] ([facility]), [address], [place], [address], 3 15:14:05 bone density 2021 022 [facility], [address] [place] [address], [address], 2 08:00:43 LDCT, chest, for lung cancer screening - due in 10/20, last scan 10/26/2020, former smoker, 30+ pack years 2021 [email or web address] [facility], [address] [place], [address], 2 11:52:09 XR, chest - 70 yo ex smoker- dyspnea x 6 months- [address] (Imaging), [address] [place], [address], 11:36:51 electrocard iogram [address], 329 [facility], [place], [address], 11:36:52 Medication Orders estradiol 0.01% (0.1 mg/gram) vaginal cream 2021 [facility], [address] [place] [address], [address], 2 12:20:13 aspirin 81 mg tablet,nicol yed release 2021 [facility], [address] [place] [address], [address], 2 12:20:14 clotrimazol e 1 % topical cream 2021 [facility], [address] [place] [address], [address], 2 12:24:36 fluconazole 150 mg tablet 2021 022 [facility]armacy #[id number], [address] [place], [address], 2 11:53:04 nystatin 100,000 unit/gram topical cream 2020 021 [facility]acy #[id number], [address] [place], [address], 18:50:22 pravastatin 40 mg tablet 2020 021 [facility]/Pharmacy #[id number], [address] [place], [address], 1 15:01:19 nystatin 100,000 unit/gram topical cream 2019 020 [email or web address] [facility]/Pharmacy #[id number], [address] [place], [address], 14:17:53 Patient TargetsNo targets recorded. Patient Instructions Encounter Date Encounter Id Patient Instructions Last Modified By Organization Details Last Modified Time 01/04/2020 [id number] After a discussion of treatment options, which included consideration of best practices, patient preferences, and the patient? s individual lifestyle and treatment goals, as well as consideration and attempted mitigation of any barriers to meeting the patient? s goals, the following treatment plan and objectives were adopted: as above [email or web address] Not available 01/05/2020 20:19:54 03/02/2020 [id number] advance directives: care instructions [email or web address] Not available [...] 16:20:31 [facility]ing done [facility] Anneliese [email or web address] Not available 03/02/2020 12:04:38 09/22/2020 [id number] After a discussion of treatment options, which included consideration of best practices, patient preferences, and the patient? s individual lifestyle and treatment goals, as well as consideration and attempted mitigation of any barriers to meeting the patient? s goals, the following treatment plan and objectives were adopted: as above [email or web address] Not available 10/09/2020 18:54:34 05/08/2021 [id number] high cholesterol lifestyle changes [email or web address] Not available [...] reviewed. [email or web address] Not available 05/08/2021 11:27:41 06/21/2021 [id number] After a discussion of treatment options, which [...] blasgr am No observ ation record ed. [facility] [address] [place] [address], [address], 10/12/2020 20:10:24 09/23/19 21 elect brody blasgr [...] g Physic miguel angel: Jason Hampton ms [facility] (Imaging) [address], [place], [address], 09/24/2020 16:26:26 10/27/19 21 10/26/2020 CT chest [...] report has been forwar ded to an [employer] system which will electr onical ly notify approp riate provid ers of potent ially import ant findin gs. Electr onical ly Signed by: Hang garcia on 021 3:04 PM Interp reted by: Hang garcia MD Signed by: Hang garcia MD 1 CC Recipi ents: Jomar Betancur , [place] - Fax Final result JOMAR BETANCUR [facility] [address] [place], [address], 10/26/2020 19:23:20 10/27/19 21 10/26/2020 CT, chest No observ ation record ed. [facility] [address] [place], [address], 10/26/2020 18:11:57 11/11/19 21 11/10/2020 exerc ise stres s test No observ ation record ed. [facility] (Medical Records) [address] [place], [address], 11/19/2020 11:02:13 11/25/19 21 11/24/2020 exerc ise stres s test No observ ation record ed. [facility] (Medical Records) [address] [place], [address], 11/30/2020 13:52:10 11/26/19 21 11/24/2020 NM, myoca rdial perfu rupesh scan, w/ stres s No observ ation record ed. [facility] (Medical Records) [address] [facility], [place], [address], 11/30/2020 13:52:10 01/17/20 21 12/12/2020 polys omnog kathy * No observ ation record ed. [facility] [address] [facility], [place], [address], 01/22/2021 14:55:12 06/02/19 22 05/31/2021 bone densi ty No observ ation record ed. [facility] [address] [place], [place], [address], 06/04/2021 15:15:01 11/01/19 22 10/30/2021 CT chest [...] Crawley MD 10/31/21 Final result JOMAR BETANCUR [facility] [address] [facility], [place], [address], 11/03/2021 22:04:11 11/01/1910/30/2021 CT, chest No observ ation record ed. uriel Sand[facility] (M[facility]o) [address] [facility], [place], [address], 11/03/2021 22:04:11 Result Notes None recorded. Problems Name Problem SNOMED Code Status Onset Date Resolution Date Notes Provider Name and Address Organization Details Recorded Time Mixed hyperlip idemia 560605117 Active Not Available [facility] 12:15:30 Essentia l hyperten rupesh 47471164 Active Not Available [facility] 12:15:30 Chest swelling 462659544 Completed 02/18/2013 Not Available [facility] 3 02:04:24 Disorder of carbohyd rate metaboli sm 13278750 Completed 11/04/2020 Removal Reason: end AL Tian [address] [place] [address], [address] , [facility] 16:31:34 On examinat ion - a rash Completed 02/18/2013 Not Available [facility] 3 02:00:50 Benign essentia l hyperten rupesh 1359328 Active Not Available [facility] 12:15:30 Hyperlip idemia 32366073 Active Not Available [facility] 12:15:30 Flatulen ce, eructati on and gas pain 042973307 Completed 02/18/2013 Not Available [facility] 3 02:04:10 Tobacco user 510604962 Completed 11/04/2020 Removal Reason: stopped AL Tian [address] [place] [address], [address] , [facility] 1 16:30:18 Impaired fasting glycemia 755017009 Completed 11/04/2020 Removal Reason: end AL Tian [address] [place] [address], [address] , [facility] 16:30:46 Glucose level outside referenc e range 029747687 Active Not Available [facility] 12:15:30 Malaise and fatigue 115424295 Completed 02/18/2013 Not Available [facility] 3 02:00:21 Diabetes mellitus 05203444 Active Not Available [facility] 12:15:30 Depressi ve disorder 95037191 Active 2018 Not Available [facility] 12:15:30 Bipolar disorder 96614436 Active 2018 Not Available [facility] 12:15:30 Carotid artery stenosis 21349725 Active 2018 Not Available [facility] 12:15:30 Intracra nial meningio tx 084215959 Active 2018 Not Available [facility] 12:15:30 Hyperthy roidism 58187028 Active 2020 Not Available [facility] 12:15:30 Problem Notes None recorded. Procedures Surgical History Date Name Laterality Status Provider Name and Address Organization Details Recorded Time 05/08/19 22 Medicare Wellness Visit completed Guillaume Abad MA [facility] 05/08/2021 10:25:13 05/08/19 22 Alcohol use screening completed Guillaume Abad MA [facility] 05/08/2021 10:25:13 05/08/19 22 Cardiovascular disease risk reduction counseling completed Guillaume Abad MA [facility] 05/08/2021 10:25:13 03/02/20 20 Medicare Wellness Visit completed Nhi Stanton MA [facility] 03/02/2020 12:02:02 03/02/20 20 COPD Screening completed AL Tian [address] [place] [address], [address], [facility] 03/02/2020 16:17:24 03/02/20 20 prevention-cardiov ascular risk reduction counseling completed Nhi Stanton MA [facility] 03/02/2020 12:02:02 03/02/20 20 prevention-annual alcohol misuse screening completed Nhi Stanton MA [facility] 03/02/2020 12:02:02 03/02/20 20 Telephonic Visit completed Nhi Stanton MA [facility] 03/02/2020 15:43:39 01/04/20 20 Telephonic Visit completed Erinn Modi MA [facility] 01/04/2020 13:52:44 02/19/20 19 Medicare Wellness Visit completed DEEDEE Nichole [facility] 02/18/2019 10:08:48 02/19/20 19 POC Urinalysis Testing completed Izabel Gordon Cande [facility] 02/18/2019 11:01:50 02/19/20 19 Hearing Test completed Izabel Gordon Cande [facility] 02/18/2019 11:20:58 10/09/19 19 POC Urinalysis Testing completed Meagan Mayorga [facility] 10/08/2018 11:53:49 01/17/20 18 Medicare Wellness Visit completed Erinn Modi MA [facility] 01/16/2018 14:31:16 01/15/20 17 Smoking cessation counseling completed Erinn Modi MA [facility] 01/14/2017 11:47:46 01/15/20 17 Medicare Wellness Visit completed Erinn Modi MA [facility] 01/14/2017 11:46:37 01/15/20 17 Carbon Monoxide Testing completed Erinn Modi MA [facility] 01/14/2017 11:47:46 09/11/19 17 Smoking cessation counseling completed Maryanne Tanner MA [facility] 09/10/2016 13:24:35 09/11/19 17 Carbon Monoxide Testing completed Maryanne Tanner MA [facility] 09/10/2016 13:24:35 07/31/19 17 Smoking cessation counseling completed Erinn Modi MA [facility] 07/30/2016 16:26:53 01/11/20 16 Smoking cessation counseling completed Erinn Modi MA [facility] 01/11/2016 15:50:31 01/11/20 16 Carbon Monoxide Testing completed Erinn Modi MA [facility] 01/11/2016 16:02:44 09/09/19 15 Smoking cessation counseling completed Erinn Modi MA [facility] 09/08/2014 16:33:45 01/22/20 14 Smoking cessation counseling completed Guillaume Abad MA [facility] 01/21/2014 16:34:19 07/03/19 14 Smoking cessation counseling completed Nicki Dumont [facility] 07/02/2013 14:53:13 06/27/19 13 Smoking cessation counseling completed AL Tian [address] [place] [address], [address], [facility] 06/27/2012 23:20:37 04/08/19 13 Smoking cessation counseling completed AL Tian [address] [place] [address], [address], [facility] 04/08/2012 19:17:40 Imaging Results None recorded. Procedure Notes None recorded. Medical Equipment None Reported. Allergies Allergen ID Allergen Name Allergen Category Reaction Reaction Severity Criticality Documentation Date Start Date Code Code System Note Provider Name and Address Organization Details Recorded Time 181368 atorvasta tin medicatio n Not available Not available Not available 06/26/2012 21256 RxNorm muscl e aches AL Tian [address] [place] [address] [place], [address], [facility] 3 16:49:53 198361 wasp venoms environme nt Not available Not available Not available 07/02/2013 69971 RxNorm Nicki Dumont [facility] 4 14:53:13 088936 pravastat in medicatio n arthralgi a (joint pain) Not available Not available 05/08/2021 59232 RxNorm AL Tian [address] [place] [address] [place], [address], [facility] 2 11:04:56 3956 codeine medicatio n Not available Not available Not available 05/27/2008 2670 RxNorm Not Available [facility] 1 06:05:20 Medications Name Sig Start Date [...] 05/08/2021 130 mm[Hg] 80 mm[Hg] AL Tian [address] [place] [address], [address] 05/08/2021 11:14:28 Date Recorded Body height Body mass index (BMI) Body weight Systolic blood pressure Diastolic blood pressure Systolic blood pressure Diastolic blood pressure Provider Name and Address Organization Details Last Updated DateTime 2 165.1 cm 31.7 kg/m2 07911.9 5 g 140 mm[Hg] 68 mm[Hg] 129 mm[Hg] 70 mm[Hg] Guillaume Abad [facility] 2 11:36:06 Date Recorded Body height Heart rate Body temperature Body mass index (BMI) Body weight Systolic blood pressure Diastolic blood pressure Provider Name and Address Organization Details Last Updated DateTime 2 165.1 cm 84 /min 97.8 [degF] 32 kg/m2 97916.7 4 g 126 mm[Hg] 84 mm[Hg] [facility] 11:56:56 Date Recorded Systolic blood pressure Diastolic blood pressure Provider Name and Address Organization Details Last Updated DateTime 09/22/2020 130 mm[Hg] 59 mm[Hg] AL Tian [address] [place] [address], [address] 09/22/2020 15:27:35 Date Recorded Body height Body mass index (BMI) Body weight Heart rate Systolic blood pressure Diastolic blood pressure Provider Name and Address Organization Details Last Updated DateTime 1 167.64 cm 30.5 kg/m2 71516.9 6 g 84 /min 144 mm[Hg] 70 mm[Hg] Tiana Lynn [facility] 1 14:11:27 Date Recorded Body height Heart rate Body mass index (BMI) Body weight Systolic blood pressure Diastolic blood pressure Provider Name and Address Organization Details Last Updated DateTime 0 167.64 cm 80 /min 30.3 kg/m2 95824.3 7 g 129 mm[Hg] 80 mm[Hg] Erinn Modi [facility] 0 13:47:11 Date Recorded Heart rate Systolic blood pressure Diastolic blood pressure Provider Name and Address Organization Details Last Updated DateTime 03/02/2020 82 /min 130 mm[Hg] 86 mm[Hg] AL Tian [address] [place] [address], [address], [facility] 03/02/2020 16:12:37 Date Recorded Body height Body mass index (BMI) Body weight Provider Name and Address Organization Details Last Updated DateTime 03/02/2020 167.64 cm 30.3 kg/m2 81889.37 g Nhi Stanton [facility] 03/02/2020 15:46:14 Social History Question Answer [...] Or The Highest Degree You Have Received? 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[employer]- Information not available 05/08/2021 Do you or [...] virus, trivalent, preservative 1 completed Not Available [facility] 04/18/2019 02:31:14 Influenza, split virus, trivalent, PF 4 completed Not Available [facility] 04/18/2019 02:19:21 Influenza, split virus, quadrivalent, PF 5 completed Not Available [facility] 04/18/2019 02:19:49 pneumococcal polysaccharide PPV23 5 completed Not Available [facility] 04/18/2019 02:26:43 Tdap 5 completed Not Available [facility] 04/18/2019 02:38:05 Influenza, split virus, quadrivalent, PF 6 completed Not Available [facility] 04/18/2019 02:21:03 Influenza, high-dose, trivalent, PF 7 completed Not Available [facility] 04/18/2019 02:22:05 Pneumococcal conjugate PCV 13 8 completed Not Available [facility] 04/18/2019 02:22:34 zoster recombinant 8 completed Not Available [facility] 04/18/2019 02:29:21 Influenza, high-dose, trivalent, PF 8 completed Not Available [facility] 04/18/2019 02:39:36 Influenza, high-dose, trivalent, PF 9 completed Not Available [facility] 04/18/2019 02:39:37 influenza, unspecified formulation 0 completed Erinn Modi MA [facility] 01/06/2020 16:31:55 COVID-19, mRNA, LNP-S, PF, 30 mcg/0.3 mL dose 1 completed Tiana Lynn MA [facility] 09/22/2020 14:09:35 COVID-19, mRNA, LNP-S, PF, 30 mcg/0.3 mL dose 1 completed Tiana Lynn MA [facility] 09/22/2020 14:22:24 COVID-19, mRNA, LNP-S, PF, 30 mcg/0.3 mL dose 1 completed Mona Mark MA [facility] 01/16/2021 09:58:41 Influenza, high-dose, quadrivalent, PF 1 [facility] 10:32:06 Influenza, split virus, trivalent, preservative 0 completed Not Available [facility] 04/18/2019 02:17:50 Past Encounters Encounter ID Performer Location Encounter Start Date Encounter Closed Date Diagnosis/Indication Diagnosis SNOMED-CT Code Diagnosis ICD10 Code Diagnosis Note [id number] AL Tian, [facility], OFFICE [address] [place] [address] 05/27/2008 14:44:39 05/31/2008 14:47:22 [id number] AL Tian, [facility], OFFICE [address] [place] [address] 06/24/2008 16:44:33 06/28/2008 10:22:53 [id number] AL Tian, [facility], OFFICE [address] [place] [address] 12/22/2009 15:33:16 12/26/2009 07:59:01 [id number] AL Tian, [facility], OFFICE [address] [place] [address] 03/02/2010 16:00:54 03/06/2010 13:45:04 [id number] [facility] , [facility] [address] [place] [address] 03/20/2010 15:01:45 03/21/2010 11:20:58 [id number] Arnaldo Ambrocio MD , [facility], OFFICE [address] [place] [address] 01/26/2011 10:05:07 01/29/2011 13:22:46 [id number] [facility] [employer] [address] [address] 01/26/2011 10:35:57 01/30/2011 08:45:03 [id number] Arnaldo Ambrocio MD , [facility], OFFICE [address] [place] [address] 02/09/2011 15:09:01 02/12/2011 12:03:49 [id number] AL Tian, [facility], OFFICE [address] [place] [address] 03/13/2011 15:05:21 03/13/2011 17:15:06 [id number] [facility] [address] [place] [address] 03/13/2011 16:35:35 03/15/2011 12:04:48 [id number] [facility] , [facility] [address] [place] [address] 04/19/2011 15:26:55 04/20/2011 14:58:30 [id number] AL Tian , [facility], OFFICE [address] [place] [address] 05/15/2011 16:12:06 05/15/2011 17:15:12 [id number] Scar Betancur MD , [facility], OFFICE [address] [place] [address] 07/03/2011 15:00:30 07/06/2011 08:10:51 [id number] Pennie Rsoa PA-C , [facility], OFFICE [address] [place] [address] 08/09/2011 16:03:19 08/13/2011 09:42:10 [id number] [facility] , [facility] [address] [place] [address] 08/09/2011 17:09:51 08/09/2011 17:22:53 [id number] AL Tian , [facility], OFFICE [address] [place] [address] 08/21/2011 16:35:18 08/21/2011 17:29:43 [id number] AL Tian , [facility], OFFICE [address] [place] [address] 04/08/2012 15:09:46 04/08/2012 17:16:15 [id number] AL Tian , [facility], OFFICE [address] [place] [address] 06/26/2012 16:21:08 06/26/2012 17:21:18 [id number] Scar Betancur MD , [facility], [address]ICE [address] [place] [address] 07/02/2013 14:07:11 07/03/2013 09:00:18 Benign essential hypertension 4745584 Blood pressure at goal . Mixed hyperlipidemia 059906474 Cholestero l is at goal Cholestero l is not at goal Continue to work on diet and exercise as discussed Adult [facility] th examination [id number] see Risk Assessment and Lifestyle Change Counseling section above Tobacco user 544076656 d iscussed that smoking - nicotin and other chemicals adversely effect BH illnesses and do not support efforts of recovery- reiiterate d that pt is in charge of her health decisions- moving to [place]- stress mgt reviewed [id number] AL Tian, [facility], [address] [place] [address] 01/21/2014 16:20:29 01/21/2014 17:19:26 Tobacco user 200015205 reviewed adv's of nicotine patch/loze nge along with wellbutrti n to decrease smoking. Hyperlipidemia 35338215 Influenza vaccine needed 8452607976 106 Benign ess ential hypertension 6040696 Blood pressure at goal . Diabetes mellitus 85630666 [id number] AL Tian, [facility], OFF[address] [place] [address] 09/08/2014 16:21:01 09/08/2014 17:29:57 Benign essential hypertension 6428949 Blood pressure at goal Blood pressure NOT at goal. Tobacco user 676629217 r eviewed adv's of nicotine patch/loze nge along with wellbutrti n to decrease smoking. Hyperlipidemia 60227206 [id number] AL Tian, [facility], [address]ICE [address] [place] [address] 01/03/2015 15:18:42 01/04/2015 10:44:00 Adult health examination 593479738 Z00.00 see Risk Assessment and Lifestyle Change Counseling section above Screening for disorder 630655976 Z72.89 Screening for malignant neoplasm of colon 793082408 Z12.11 Tobacco user 954332231 Z 72.0 reviewed adv's of nicotine patch/loze nge along with wellbutrti n to decrease smoking. Influenza vaccine needed 7868189093 106 Z28.3 Administra tion of pneumococcal vaccine 85425979 Z23 Administra tion of diphtheria, pertussis, and tetanus vaccine 071520236 Z23 Diabetes mellitus 478734 09 E13.9 controlled with diet Hyperlipidemia 48045970 E78.5 not at goal- intolerant of all statins, taking natruopath - thinks red rice yeast- high fiber- recheck in 3 -6 months Benign ess ential hypertension 8802115 I10 Blood pressure at goal Injury of mouth 97471441 S09.93XA by hx due to extreme temp change in mouth- hx has ramos in past and resolves- f/u if not resolving in coming month- sooner any worse [id number] MD HARI Weinberg, [facility], [address] [place] [address] 01/13/2015 16:35:04 01/18/2015 15:08:13 Gingival disease 81724502 K06.9 buchal infection , [id number] Praful Andrea MD , [facility], [address] [place] [address] 12/14/2015 09:37:51 12/15/2015 14:54:34 Herpes zoster 3316572 B02.9 Left uper breast with one small area of tiny vesicular lesions, and one satellite lesion on her back. Pt not experienci ng pain, but has some itchiness. Recommende d calamine lotion [id number] Scar Betancur MD , [facility], [address] [place] [address] 01/11/2016 15:16:09 01/11/2016 17:02:20 Adult health examination 896812038 Z00.00 see Risk Assessment and Lifestyle Change Counseling section above Cigarette smoker 7943433 7 F17.210 Tobacco user 168786798 Z 72.0 reviewed adv's of nicotine patch/loze nge along with wellbutrti n to decrease smoking. Screening for malignant neoplasm of cervix 215421592 Z12.4 Screening for malignant neoplasm of respiratory tract 055704166 Z12.2 Diabetes mellitus 131632 09 E13.9 controlled with diet Essential hypertension 71230727 I10 increase today, patient reports bp's < 140/90 in the grocery store- increase stressors now with up coming move.= recheck in 3 months when able Hyperlipidemia 21173233 E78.5 not at goal- intolerant of all statins, taking natruopath - thinks red rice yeast- high fiber- recheck in 3 -6 months Active or passive immunization 877723959 Z23 [id number] AL Tian FP, [facility], [address] [place] [address] 07/30/2016 16:18:45 07/30/2016 17:21:16 Benign essential hypertension 9009941 I10 Blood pressure at goal Mixed hyperlipidemia 267 000820 E78.2 not at goal- had s/e stain- consider red yeast rice Cigarette smoker 8466886 7 F17.210 Tobacco user 669398086 Z 72.0 reviewed adv's of nicotine patch/loze nge along with wellbutrti n to decrease smoking. Screening for malignant neoplasm of lung 711833539 Z12.2 Pain of hip region 22522 002 M25.852 [id number] AL Tian , [facility], OFF[address] [place] [address] 09/10/2016 13:04:28 09/10/2016 13:49:16 Cigarette smoker 38860251 F17.210 plan to d/c smoking prior to surgery Tobacco user 027723175 Z 72.0 will be stopping smoking prior to surgery - iusing stop smoking aides Pre-surger y evaluation 842621504 Z01.818 pt cleared for surgery Cataract 684959113 H26.9 [id number] Scar Betancur MD , [facility], [address] [place] [address] 01/14/2017 11:32:34 01/14/2017 13:11:03 Adult health examination 763023247 Z00.00 see Risk Assessment and Lifestyle Change Counseling section above Counseling 505286615 Z71 .9 Mixed hyperlipidemia 267 267745 E78.2 Cholestero l is not at goal Continue to work on diet and exercise as discussed- ADD [employer]- intolerant to statins Benign ess ential hypertension 6112579 I10 Blood pressure at goal , continue present mgtm Cigarette smoker 8631768 7 F17.210 Tobacco user 376746583 Z 72.0 reviewed adv's of nicotine patch/loze nge along with wellbutrti n to decrease smoking. Active or passive immunization 872175237 Z23 Imaging of lung abnormal 680449106 R91.8 DUE IN 03/17 Hearing loss 65215189 H9 1.93 audioogy referral [id number] Scar Betancur MD , [facility], [address] [place] [address] 05/27/2017 13:02:35 05/27/2017 15:38:58 Acute upper respiratory infection 36527637 J06.9 Educated patient that URI is a [...] failure to resolve in 2-4 weeks. Cough 52739992 R05 Pneumonia 505619843 J18. 9 Type 2 monik betes mellitus without complication 188557255 E13.9 controlled with diet and exercise [id number] Scar Betancur MD , [facility], [address] [place] [address] 07/15/2017 10:27:21 07/15/2017 11:38:34 Benign essential hypertension 0488664 I10 Blood pressure at goal Mixed hyperlipidemia 267 716717 E78.2 Cholestero l is not at goal Continue to work on diet and exercise as discussed- increase [employer]- intolerant to statins Active or passive immunization 920978875 Z23 Nicotine dependence 5629 4008 F17.200 Allergy to bee venom 424 126655 Z91.030 Pneumonia 828341615 J18. 9 Diabetes mellitus 032278 09 E11.9 well COntrolled with diet and exercise, restart ASA 81 MG [id number] Scar Betancur MD , [facility], [address] [place] [address] 11/15/2017 11:47:27 11/15/2017 13:01:54 Mixed hyperlipidemia 015142305 E78.2 Cholestero l is not at goal TRIAL WITH ATORVASTAT IN 80 TRY QOD FIRST. Intracrani al meningioma 729925858 D32.0 to schedule neuro surgery Carotid ar dayana occlusion 307654175 I65.29 [id number] Scar Betancur MD , [facility], [address] [place] [address] 01/16/2018 14:03:24 01/16/2018 16:18:57 Adult health examination 868511605 Z00.00 see Risk Assessment and Lifestyle Change Counseling section above Counseling 163328423 Z71 .9 Depression screening 171 677152 Z13.89 depression screening tool administer ed, entered into emr, scored and discussed, time greater than 7.5 minutes Mixed hyperlipidemia 267 957959 E78.2 Cholestero l is not at goal TRIAL WITH ATORVASTAT IN 80 TRY QOD FIRST. Benign ess ential hypertension 9358254 I10 Blood pressure at goal Postmenopausal state 764 30985 Z78.0 Active or passive immunization 817744281 Z23 Solitary n odule of lung 833284792 R91.1 Dizziness 426767559 R42 [id number] Scar Betancur MD FP, [facility], [address] [place] [address] 05/21/2018 14:29:33 05/21/2018 15:54:19 Tachycardia 1512936 R00.0 mildly tachyshaki ng, SOB with exertion? 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 Dizziness 232000104 R42 worsening sx over weeksassoc iated with shaking and exertional SOBtachy on exampeak flows okay, VS Other espinoza stableenc hydrationt aram it easylab work up and close f/u [id number] Marti Abreu MD , [facility], [address] [place] [address] 05/28/2018 10:07:19 05/29/2018 11:41:11 Microcytic anemia 843988325 D50.9 she is going to GI nowshe likely needs to go to hospital for labs and txshe is quite sx with her anemiashe is normotensi ve, but low for hershe is only tachy to 104 on ascultatio nshe is paleDr Natividad called to inform of sxclose f/u plan/ hospitaliz ation if necessary [id number] AL Tian FP, [facility], [address] [place] [address] 06/04/2018 08:10:39 06/04/2018 10:02:50 Dyspnea 245107905 R06.00 with dizziness- overtx HTN- stop lisinopril , check cbc- f/u 1 wk Anemia 556766103 D64.9 Diabetes mellitus 373858 09 E11.9 well COntrolled with diet and exercise, restart ASA 81 MG [id number] Scar Betancur MD FP, [facility], [address] [place] [address] 06/18/2018 16:18:46 06/19/2018 08:14:54 Benign essential hypertension 4772001 I10 stopped lisinopril - hypotensiv e- TO ER Diabetes mellitus 093848 09 E11.9 over controlled . Taper metformin down to 2 tablets daily Anemia 928190825 D64.9 Bipolar disorder 7629860 4 F31.9 Gastrointe stinal hemorrhage 55545920 K92.2 heme pos stool, hypotensiv e, tachycardi c- to ER Hypotensive episode 6776 3001 I95.9 [id number] Scar Betancur MD , [facility], [address] [place] [address] 06/30/2018 12:03:52 07/01/2018 09:19:30 Mixed hyperlipidemia 045380208 E78.2 Cholestero l is not at goal TRIAL WITH ATORVASTAT IN 80 TRY QOD FIRST. Carotid ar dayana stenosis 91693106 I65.29 cont plavix Bipolar disorder 1012841 4 F31.9 continue f/u with Dr Cintron Anemia 772542178 D64.9 GI eval in progress [id number] Scar Betancur MD , [facility], [address] [place] [address] 10/08/2018 11:24:54 10/08/2018 15:32:55 Cigarette smoker 14899694 F17.210 Abnormal v aginal bleeding 107037957 N93.9 Fatigue 26675150 R53.83 Screening for malignant neoplasm of cervix 754377510 Z12.4 [id number] Scar Betancur MD , [facility], [address] [place] [address] 10/29/2018 13:53:42 10/29/2018 14:58:48 Pre-surgery evaluation 781132160 Z01.818 pt cleared for surgery Carotid ar dayana stenosis 76143384 I65.29 R carotid artery stenosed 50-79%, LEFT CAROTID < 50%, will hold asa and plavix 5 days prior to surgery. consulted with pts vascular surgeon, Dr Sharpe and agrees with plan Mass of ovary 332340032 R19.09 cleared for surgery Intracrani al meningioma 728168563 D32.0 pmh- Bipolar disorder 5163776 4 F31.9 stable, continue f/u with Dr Ward Diabetes mellitus 216622 09 E11.9 stable- tx with diet and exercise. Hypothyroidism 95473714 E03.9 stable Hyperlipidemia 14748598 E78.5 [id number] Linh Vázquez MD , [facility], [address] [place] [address] 01/21/2019 14:04:56 01/23/2019 09:29:41 Active or passive immunization 969289644 Z23 [id number] AL Tian , [facility], [address] [place] [address] 02/18/2019 09:39:42 02/18/2019 11:40:30 Adult health examination 378369325 Z00.00 see Risk Assessment and Lifestyle Change Counseling section above Counseling 369256688 Z71 .9 Depression screening 171 420038 Z13.89 depression screening tool administer ed, entered into emr, scored and discussed, time greater than 7.5 minutes Mixed hyperlipidemia 267 742096 E78.2 Ex-smoker 5523883 Z87.89 1 Screening mammography 24 267018 Z12.31 Fatigue 38187340 R53.83 Hearing loss 71171369 H9 1.93 reviewed test- showing b/l hearing loss- prefers to not f/u with audiologis t at this time Salo hematuria 66797381 5 R31.0 suspecting /hx- UA negative today- f/u ctologies. - ECHOCARDIOGRAPHER f/u planned [id number] Scar Betancur MD , [facility], [address] [place] [address] 05/28/2019 15:16:46 05/28/2019 16:45:07 Diabetes mellitus 39820826 E11.9 may decrease metfomin 1tab/day Essential hypertension 89540141 I10 At goal, continue current medication s. Mixed hyperlipidemia 267 812187 E78.2 Increase pravastati n to 20mg BID, Recheck lipids in 1 month Postmenopausal state 764 28924 Z78.0 declined despite knowing risk of contractin g disease and potential from disease, would like to discuss at next visit [id number] Scar Betancur MD , [facility], [address] [place] [address] 03/02/2020 15:28:56 03/02/2020 16:22:35 Bipolar disorder 95253254 F31.9 stable, continue f/u with Dr Ward Adult heal th examination 666681298 Z00.00 see Risk Assessment and Lifestyle Change Counseling section above Counseling 083614760 Z71 .9 including cardiovasc ular risk reduction counseling Depression screening 171 998935 Z13.89 depression screening tool administer ed, entered into emr, scored and discussed, time greater than 7.5 minutes Screening for alcohol abuse 834815131 Z13.39 Essential hypertension 52286561 I10 At goal, continue current medication s. Hyperlipidemia 32670494 E78.5 Hypothyroidism 05004698 E03.9 stable Eruption 091224810 R21 skin lesion- unchanged since summer- derm referral [id number] AL Tian , [facility], [address] [place] [address] 11/18/2019 13:48:59 11/19/2019 12:52:31 Essential hypertension 30632916 I10 At goal, continue current medication s. Mixed hyperlipidemia 267 356889 E78.2 continue Increase pravastati n to 20mg BID, - condider increase to 40 mg- has had muscle aches with statin use in past Dizziness 346058484 R42 check labs, keep diary- f/u with results in coming 1-2 wks Intracrani al meningioma 910272005 D32.0 continue f/u withoncolo gist [id number] Scar Betancur MD , [facility], [address] [place] [address] 01/04/2020 13:42:55 01/07/2020 13:31:01 Salo hematuria 368799568 R31.0 suspecting /hx- UA negative today-cyto logies neg.- urology f/u for hematuria Disorder o f thyroid gland 53259840 E07.9 [id number] Scar Betancur MD , [facility], [address] [place] [address] 09/22/2020 13:47:01 10/10/2020 11:36:51 Essential hypertension 96413526 I10 At goal, continue current medication s. Hyperlipidemia 04211264 E78.5 LDL- 140's with vascular disease- goal is 70, intolerant to atorvastat in- will increase to 40 mg pravastati n. Peripheral vascular disease 339834100 I73.9 Carotid ar dayana stenosis 41721973 I65.29 R carotid artery stenosed 50-79%, LEFT CAROTID < 50%, Dyspnea 888348105 R06.00 chest xray , ekg negative- further eval- stress test- tcx 2 to reach pt- PFT/pulmon jermain to do with smoking hx, left message to make f/u appt/call back . Eruption 900654209 R21 skin lesion- unchanged since summer- derm referral [id number] Scar Betancur MD , [facility], [address] [place] [address] 05/08/2021 10:08:25 05/08/2021 11:37:52 Adult health examination 620047008 Z00.00 see Risk Assessment and Lifestyle Change Counseling section above Counseling 099446915 Z71 .9 including cardiovasc ular risk reduction counseling Depression screening 171 164792 Z13.31 depression screening tool administer ed, entered into emr, scored and discussed, time greater than 7.5 minutes Screening for alcohol abuse 884973657 Z13.39 Hyperthyroidism 39495614 E05.90 Essential hypertension 38068078 I10 not At goal, continue current medication s. Mixed hyperlipidemia 267 546815 E78.2 Cholestero l is at goalContin ue to work on diet and exercise as discussed Screening mammography 24 956316 Z12.31 Screening for osteoporosis 705554258 Z13.820 Candidiasis of vagina 72 669958 B37.3 Multiple n odules of lung 176334242 R91.8 Diabetes mellitus 177840 09 E11.9 cont decrease metfomin 1tab/day- well cotnrolled with nutrition and exercise Bipolar disorder 1619852 4 F31.9 stable, continue f/u with Dr Ward Peripheral vascular disease 582106477 I73.9 carotid vascular disease- LDL- decreasing , asa and clopidogre l daily [id number] Scar Betancur MD , [facility], [address] [place] [address] 06/21/2021 11:45:12 07/11/2021 13:10:57 Mixed hyperlipidemia 200557495 E78.2 Cholestero l is at goalContin ue to work on diet and exercise as discussed Atrophic vaginitis 22501 000 N95.2 Candidiasis of skin 4988 3006 [...] Georges Member ID Guarantor Name 01/04/2020 1 [facility] (MEDICARE REPLACEMENT/A DVANTAGE - PPO) [id number] Ritu Dukes Bharat [id number] Ritu Bharat 03/02/2020 1 [facility] (MEDICARE REPLACEMENT/A DVANTAGE - PPO) [id number] Ritu T Bharat [id number] Ritu Bharat 09/22/2020 1 [facility] (MEDICARE REPLACEMENT/A DVANTAGE - PPO) [id number] Ritu T Bharat [id number] Ritu Bharat 05/08/2021 1 [facility] (MEDICARE REPLACEMENT/A DVANTAGE - PPO) [id number] Ritu T Bharat [id number] Ritu Bharat 06/21/2021 1 [facility] (MEDICARE REPLACEMENT/A DVANTAGE - PPO) [id number] Ritu T Bharat [id number] Ritu Bharat Notes Date Note Type Note [...] Time for intake: 8 minutes. AL Tian [address] [place] [address], [phone], [facility] 01/05/2020 20:20:32 0 [...] room and availability of urgent care at [facility] HyperlipidemiaReported bypatient.Duration:chronic Control:poorly controlled Barriers to CareAllergy/intolerance to [facility]ins[facility] [place] HypertensionReported bypatient.Context:No ischemic heart disease; No kidney [...] long Time for intake: minutes. AL Tian [address] [place] [address], [phone], [facility] 03/02/2020 16:22:33 1 [...] PMH > 30 pack yr- AL Tian [address] [place] [address], [phone], [facility] 11/02/2020 11:08:29 2 text/html Physical Exam/FemaleReported bypatient.PHAAshley [...] room and availability of urgent care at [facility] HyperlipidemiaReported bypatient.Duration:chronic Control:poorly controlled Barriers to CareAllergy/intolerance to statinsL[facility] [place] HypertensionReported bypatient.Context:No ischemic heart disease; No kidney [...] SOB when walk for long AL Tian [address] [place] [address], [address], [facility] 05/14/2021 19:56:41 2 text/html Pt reports rash all over body ongoing since summer time- started under breasts. Fluconazole has not helped. Rash is painful and itching and worsening over time- rash on axilla, labia, under breasts. . no fever or nausea. AL Tian [address] [place], [address], [facility] 06/30/2021 20:25:49 OBGyn Episode No OBEpisode recorded.
== END 2024-09-04 13:11 | disposition home or self-care (01) ==
LOC: HO.MAMMO 13:10
PROVIDERS: PCP Internal Medicine; Visit Provider Internal Medicine
DX: Z13.820 Encounter for screening for osteoporosis (principal); M85.852 Other specified disorders of bone density and structure, left thigh
CPT/HCPCS: 77080

== ENCOUNTER → 2024-09-04 13:30 | Outpatient (BNV) | payer MEDICARE, SELFPAY | PROVIDERS: PCP Internal Medicine; Visit Provider Radiology Diagnostic Radiology | DX: E28.39 Other primary ovarian failure (principal) | CPT/HCPCS: 77080 ==

== ENCOUNTER 2024-09-07 13:52 | Outpatient (AMB) | payer OTHER, SELFPAY ==
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
--- OUTSIDE RECORDS SUMMARY | 2024-09-07 15:45 | XMS_ITS | Data Portability ---
Author Organization [facility] Address [address] [place] [address] Care Team Providers Care Technical Training Coordinator Name Role Phone PRABHU JOMAR Primary Care Provider SAMMIE PATEL Contour Stitcher HAZEL BRENNAN Radiation Oncologist DAYLIN CHEN Contour Stitcher KORIN SHARPE Vascular Surgeon CORY HUGO Civil Rights Investigator [phone] Assessment Encounter Date Assessment Date Assessment [...] recorded. Lab TSH, serum or plasma 2019 [facility], [address] [place] [address], [address], 0 08:21:04 CBC 2019 [facility], [address] [place] [address], [address], 0 08:21:04 iron, serum 2019 [facility], [address] [place] [address], [address], 0 08:21:04 Referral urologist referral - hematuria x 2 in h, cytologies x 3 attached 2019 [facility], [address] [place], [address], 0 12:54:43 Procedures None recorded. Surgeries None recorded. Imaging MAMMO, screening, tomosynthes is, bilateral 2021 [facility] (Imaging), [address], [place], [address], 3 15:14:05 bone density 2021 022 [facility] Central Scheduling, [address] [place] [address], [address], 2 08:00:43 LDCT, chest, for lung cancer screening - due in 10/20, last scan 10/26/2020, former smoker, 30+ pack years 2021 022 [email or web address] [facility], [address] [place], [address], 2 11:52:09 XR, chest - 70 yo ex smoker- dyspnea x 6 months- [address] (Imaging), [address] [place], [address], 11:36:51 electrocard iogram [address], 329 [facility], [place], [address], 11:36:52 Medication Orders estradiol 0.01% (0.1 mg/gram) vaginal cream 2021 [facility], [address] [place] [address], [address], 2 12:20:13 aspirin 81 mg tablet,nicol yed release 2021 [facility], [address] [place] [address], [address], 2 12:20:14 clotrimazol e 1 % topical cream 2021 [facility], [address] [place] [address], [address], 2 12:24:36 fluconazole 150 mg tablet 2021 022 magaly [facility] #[id number], [address] [place], [address], 2 11:53:04 nystatin 100,000 unit/gram topical cream 2020 021 [facility]armacy #[id number], [address] [place], [address], 18:50:22 pravastatin 40 mg tablet 2020 021 [facility]/Pharmacy #[id number], [address] [place], [address], 1 15:01:19 nystatin 100,000 unit/gram topical cream 2019 020 [email or web address] [facility]/Pharmacy #[id number], [address] [facility] [place], [address], 14:17:53 Patient TargetsNo targets recorded. Patient Instructions Encounter Date Encounter Id Patient Instructions Last Modified By Organization Details Last Modified Time 01/04/2020 [id number] After a discussion of treatment options, which included consideration of best practices, patient preferences, and the patient? s individual lifestyle and treatment goals, as well as consideration and attempted mitigation of any barriers to meeting the patient? s goals, the following treatment plan and objectives were adopted: as above [email or web address] Not available 01/05/2020 20:19:54 03/02/2020 [id number] advance directives: care instructions [email or web address] Not available [...] 16:20:31 [facility]ing done [facility] Anneliese [email or web address] Not available 03/02/2020 12:04:38 09/22/2020 [id number] After a discussion of treatment options, which included consideration of best practices, patient preferences, and the patient? s individual lifestyle and treatment goals, as well as consideration and attempted mitigation of any barriers to meeting the patient? s goals, the following treatment plan and objectives were adopted: as above [email or web address] Not available 10/09/2020 18:54:34 05/08/2021 [id number] high cholesterol lifestyle changes [email or web address] Not available [...] reviewed. [email or web address] Not available 05/08/2021 11:27:41 06/21/2021 [id number] After a discussion of treatment options, which [...] blasgr am No observ ation record ed. [facility] [address] [place] [address], [address], 10/12/2020 20:10:24 09/23/19 21 elect brody blasgr [...] g Physic miguel angel: Jason Hampton ms [facility] (Imaging) [address], [place], [address], 09/24/2020 16:26:26 10/27/19 21 10/26/2020 CT chest [...] report has been forwar ded to an [employer] system which will electr onical ly notify approp riate provid ers of potent ially import ant findin gs. Electr onical ly Signed by: Hang garcia on 021 3:04 PM Interp reted by: Hang garcia MD Signed by: Hang garcia MD 1 CC Recipi ents: Jomar Betancur , [place] - Fax Final result JOMAR BETANCUR [facility] [address] [place], [address], 10/26/2020 19:23:20 10/27/19 21 10/26/2020 CT, chest No observ ation record ed. [facility] [address] [place], [address], 10/26/2020 18:11:57 11/11/19 21 11/10/2020 exerc ise stres s test No observ ation record ed. [facility] (Medical Records) [address] [place], [address], 11/19/2020 11:02:13 11/25/19 21 11/24/2020 exerc ise stres s test No observ ation record ed. [facility] (Medical Records) [address] [place], [address], 11/30/2020 13:52:10 11/26/19 21 11/24/2020 NM, myoca rdial perfu rupesh scan, w/ stres s No observ ation record ed. [facility] (Medical Records) [address] [facility], [place], [address], 11/30/2020 13:52:10 01/17/20 21 12/12/2020 polys omnog kathy * No observ ation record ed. [facility] [address] [facility], [place], [address], 01/22/2021 14:55:12 06/02/19 22 05/31/2021 bone densi ty No observ ation record ed. [facility] [address] [place], [place], [address], 06/04/2021 15:15:01 11/01/19 22 10/30/2021 CT chest [...] Crawley MD 10/31/21 Final result JOMAR BETANCUR [facility] [address] [facility], [place], [address], 11/03/2021 22:04:11 11/01/1910/30/2021 CT, chest No observ ation record ed. uriel Sandoval [facility] (Mammo) [address] [facility], [place], [address], 11/03/2021 22:04:11 Result Notes None recorded. Problems Name Problem SNOMED Code Status Onset Date Resolution Date Notes Provider Name and Address Organization Details Recorded Time Mixed hyperlip idemia 447745027 Active Not Available [facility] 12:15:30 Essentia l hyperten rupesh 74608913 Active Not Available [facility] 12:15:30 Chest swelling 464082681 Completed 02/18/2013 Not Available [facility] 3 02:04:24 Disorder of carbohyd rate metaboli sm 32091844 Completed 11/04/2020 Removal Reason: end AL Tian [address] [place] [address], [address] , [facility] 16:31:34 On examinat ion - a rash Completed 02/18/2013 Not Available [facility] 3 02:00:50 Benign essentia l hyperten rupesh 0622629 Active Not Available [facility] 12:15:30 Hyperlip idemia 42991710 Active Not Available [facility] 12:15:30 Flatulen ce, eructati on and gas pain 401867528 Completed 02/18/2013 Not Available [facility] 3 02:04:10 Tobacco user 070700051 Completed 11/04/2020 Removal Reason: stopped AL Tian [address] [place] [address], [address] , [facility] 1 16:30:18 Impaired fasting glycemia 240672322 Completed 11/04/2020 Removal Reason: end AL Tian [address] [place] [address], [address] , [facility] 16:30:46 Glucose level outside referenc e range 457477243 Active Not Available [facility] 12:15:30 Malaise and fatigue 439551345 Completed 02/18/2013 Not Available [facility] 3 02:00:21 Diabetes mellitus 67432115 Active Not Available [facility] 12:15:30 Depressi ve disorder 29326092 Active 2018 Not Available [facility] 12:15:30 Bipolar disorder 71360328 Active 2018 Not Available [facility] 12:15:30 Carotid artery stenosis 38926417 Active 2018 Not Available [facility] 12:15:30 Intracra nial meningio nd 118888714 Active 2018 Not Available [facility] 12:15:30 Hyperthy roidism 30088133 Active 2020 Not Available [facility] 12:15:30 Problem Notes None recorded. Procedures Surgical History Date Name Laterality Status Provider Name and Address Organization Details Recorded Time 05/08/19 22 Medicare Wellness Visit completed Guillaume Abad MA [facility] 05/08/2021 10:25:13 05/08/19 22 Alcohol use screening completed Guillaume Abad MA [facility] 05/08/2021 10:25:13 05/08/19 22 Cardiovascular disease risk reduction counseling completed Guillaume Abad MA [facility] 05/08/2021 10:25:13 03/02/20 20 Medicare Wellness Visit completed Nhi Stanton MA [facility] 03/02/2020 12:02:02 03/02/20 20 COPD Screening completed AL Tian [address] [place] [address], [address], [facility] 03/02/2020 16:17:24 03/02/20 20 prevention-cardiov ascular risk reduction counseling completed Nhi Stanton MA [facility] 03/02/2020 12:02:02 03/02/20 20 prevention-annual alcohol misuse screening completed Nhi Stanton MA [facility] 03/02/2020 12:02:02 03/02/20 20 Telephonic Visit completed Nhi Stanton MA [facility] 03/02/2020 15:43:39 01/04/20 20 Telephonic Visit completed Erinn Modi MA [facility] 01/04/2020 13:52:44 02/19/20 19 Medicare Wellness Visit completed DEEDEE Nichole [facility] 02/18/2019 10:08:48 02/19/20 19 POC Urinalysis Testing completed Izabel Gordon Cande [facility] 02/18/2019 11:01:50 02/19/20 19 Hearing Test completed Izabel Gordon Cande [facility] 02/18/2019 11:20:58 10/09/19 19 POC Urinalysis Testing completed Meagan Mayorga [facility] 10/08/2018 11:53:49 01/17/20 18 Medicare Wellness Visit completed Erinn Modi MA [facility] 01/16/2018 14:31:16 01/15/20 17 Smoking cessation counseling completed Erinn Modi MA [facility] 01/14/2017 11:47:46 01/15/20 17 Medicare Wellness Visit completed Erinn Modi MA [facility] 01/14/2017 11:46:37 01/15/20 17 Carbon Monoxide Testing completed Erinn Modi MA [facility] 01/14/2017 11:47:46 09/11/19 17 Smoking cessation counseling completed Maryanne Tanner MA [facility] 09/10/2016 13:24:35 09/11/19 17 Carbon Monoxide Testing completed Maryanne Tanner MA [facility] 09/10/2016 13:24:35 07/31/19 17 Smoking cessation counseling completed Erinn Modi MA [facility] 07/30/2016 16:26:53 01/11/20 16 Smoking cessation counseling completed Erinn Modi MA [facility] 01/11/2016 15:50:31 01/11/20 16 Carbon Monoxide Testing completed Erinn Modi MA [facility] 01/11/2016 16:02:44 09/09/19 15 Smoking cessation counseling completed Erinn Modi MA [facility] 09/08/2014 16:33:45 01/22/20 14 Smoking cessation counseling completed Guillaume Abad MA [facility] 01/21/2014 16:34:19 07/03/19 14 Smoking cessation counseling completed Nicki Dumont [facility] 07/02/2013 14:53:13 06/27/19 13 Smoking cessation counseling completed AL Tian [address] [place] [address], [address], [facility] 06/27/2012 23:20:37 04/08/19 13 Smoking cessation counseling completed AL Tian [address] [place] [address], [address], [facility] 04/08/2012 19:17:40 Imaging Results None recorded. Procedure Notes None recorded. Medical Equipment None Reported. Allergies Allergen ID Allergen Name Allergen Category Reaction Reaction Severity Criticality Documentation Date Start Date Code Code System Note Provider Name and Address Organization Details Recorded Time 550977 atorvasta tin medicatio n Not available Not available Not available 06/26/2012 47924 RxNorm muscl e aches AL Tian [address] [place] [address] [place], [address], [facility] 3 16:49:53 086125 wasp venoms environme nt Not available Not available Not available 07/02/2013 06313 RxNorm Nicki Dumont [facility] 4 14:53:13 980578 pravastat in medicatio n arthralgi a (joint pain) Not available Not available 05/08/2021 95543 RxNorm AL Tian [address] [place] [address] [place], [address], [facility] 2 11:04:56 3956 codeine medicatio n Not available Not available Not available 05/27/2008 2670 RxNorm Not Available [facility] 1 06:05:20 Medications Name Sig Start Date [...] 05/08/2021 130 mm[Hg] 80 mm[Hg] AL Tian [address] [place] [address], [address] 05/08/2021 11:14:28 Date Recorded Body height Body mass index (BMI) Body weight Systolic blood pressure Diastolic blood pressure Systolic blood pressure Diastolic blood pressure Provider Name and Address Organization Details Last Updated DateTime 2 165.1 cm 31.7 kg/m2 59453.9 5 g 140 mm[Hg] 68 mm[Hg] 129 mm[Hg] 70 mm[Hg] Guillaume Abad [facility] 2 11:36:06 Date Recorded Body height Heart rate Body temperature Body mass index (BMI) Body weight Systolic blood pressure Diastolic blood pressure Provider Name and Address Organization Details Last Updated DateTime 2 165.1 cm 84 /min 97.8 [degF] 32 kg/m2 39924.7 4 g 126 mm[Hg] 84 mm[Hg] [facility] 11:56:56 Date Recorded Systolic blood pressure Diastolic blood pressure Provider Name and Address Organization Details Last Updated DateTime 09/22/2020 130 mm[Hg] 59 mm[Hg] AL Tian [address] [place] [address], [address] 09/22/2020 15:27:35 Date Recorded Body height Body mass index (BMI) Body weight Heart rate Systolic blood pressure Diastolic blood pressure Provider Name and Address Organization Details Last Updated DateTime 1 167.64 cm 30.5 kg/m2 76705.9 6 g 84 /min 144 mm[Hg] 70 mm[Hg] Tiana Lynn [facility] 1 14:11:27 Date Recorded Body height Heart rate Body mass index (BMI) Body weight Systolic blood pressure Diastolic blood pressure Provider Name and Address Organization Details Last Updated DateTime 0 167.64 cm 80 /min 30.3 kg/m2 14252.3 7 g 129 mm[Hg] 80 mm[Hg] Erinn Modi [facility] 0 13:47:11 Date Recorded Heart rate Systolic blood pressure Diastolic blood pressure Provider Name and Address Organization Details Last Updated DateTime 03/02/2020 82 /min 130 mm[Hg] 86 mm[Hg] AL Tian [address] [place] [address], [address], [facility] 03/02/2020 16:12:37 Date Recorded Body height Body mass index (BMI) Body weight Provider Name and Address Organization Details Last Updated DateTime 03/02/2020 167.64 cm 30.3 kg/m2 [address]94[address] [facility] 03/02/2020 15:46:14 Social History Question Answer Notes [...] Or The Highest Degree You Have Received? 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 05/08/2021 Do you or [...] virus, trivalent, preservative 1 completed Not Available [facility] 04/18/2019 02:31:14 Influenza, split virus, trivalent, PF 4 completed Not Available [facility] 04/18/2019 02:19:21 Influenza, split virus, quadrivalent, PF 5 completed Not Available [facility] 04/18/2019 02:19:49 pneumococcal polysaccharide PPV23 5 completed Not Available [facility] 04/18/2019 02:26:43 Tdap 5 completed Not Available [facility] 04/18/2019 02:38:05 Influenza, split virus, quadrivalent, PF 6 completed Not Available [facility] 04/18/2019 02:21:03 Influenza, high-dose, trivalent, PF 7 completed Not Available [facility] 04/18/2019 02:22:05 Pneumococcal conjugate PCV 13 8 completed Not Available [facility] 04/18/2019 02:22:34 zoster recombinant 8 completed Not Available [facility] 04/18/2019 02:29:21 Influenza, high-dose, trivalent, PF 8 completed Not Available [facility] 04/18/2019 02:39:36 Influenza, high-dose, trivalent, PF 9 completed Not Available [facility] 04/18/2019 02:39:37 influenza, unspecified formulation 0 completed Erinn Modi MA [facility] 01/06/2020 16:31:55 COVID-19, mRNA, LNP-S, PF, 30 mcg/0.3 mL dose 1 completed Tiana Lynn MA [facility] 09/22/2020 14:09:35 COVID-19, mRNA, LNP-S, PF, 30 mcg/0.3 mL dose 1 completed Tiana Lynn MA [facility] 09/22/2020 14:22:24 COVID-19, mRNA, LNP-S, PF, 30 mcg/0.3 mL dose 1 completed Mona Mark MA [facility] 01/16/2021 09:58:41 Influenza, high-dose, quadrivalent, PF 1 [facility] 05/08[facility]2021 10:32:06 Influenza, split virus, trivalent, preservative 0 completed Not Available [facility] 04/18/2019 02:17:50 Past Encounters Encounter ID Performer Location Encounter Start Date Encounter Closed Date Diagnosis/Indication Diagnosis SNOMED-CT Code Diagnosis ICD10 Code Diagnosis Note [id number] AL Tian, [facility], [address] [place] [address] 05/27/2008 14:44:39 05/31/2008 14:47:22 [id number] AL Tian, [facility], [address] [place] [address] 06/24/2008 16:44:33 06/28/2008 10:22:53 [id number] AL Tian, [facility], [address] [place] [address] 12/22/2009 15:33:16 12/26/2009 07:59:01 [id number] AL Tian, [facility], [address] [place] [address] 03/02/2010 16:00:54 03/06/2010 13:45:04 [id number] [facility] , [facility] [address] [place] [address] 03/20/2010 15:01:45 03/21/2010 11:20:58 [id number] Arnaldo Ambrocio MD , [facility], [address] [place] [address] 01/26/2011 10:05:07 01/29/2011 13:22:46 [id number] [facility] [employer] [address] [address] 01/26/2011 10:35:57 01/30/2011 08:45:03 [id number] Arnaldo Ambrocio MD , [facility], [address] [place] [address] 02/09/2011 15:09:01 02/12/2011 12:03:49 [id number] AL Tian, [facility], [address] [place] [address] 03/13/2011 15:05:21 03/13/2011 17:15:06 [id number] [facility] RADIOLOGY [employer] [address] [place] [address] 03/13/2011 16:35:35 03/15/2011 12:04:48 [id number] [facility] , [facility] [address] [place] [address] 04/19/2011 15:26:55 04/20/2011 14:58:30 [id number] AL Tian , [facility], [address] [place] [address] 05/15/2011 16:12:06 05/15/2011 17:15:12 [id number] Scar Betancur MD , [facility], [address] [place] [address] 07/03/2011 15:00:30 07/06/2011 08:10:51 [id number] Pennie Rosa PA-C , [facility], [address] [place] [address] 08/09/2011 16:03:19 08/13/2011 09:42:10 [id number] [facility] RADIOLOGY [facility] , [facility] [address] [place] [address] 08/09/2011 17:09:51 08/09/2011 17:22:53 [id number] AL Tian , [facility], [address] [place] [address] 08/21/2011 16:35:18 08/21/2011 17:29:43 [id number] AL Tian , [facility], [address] [place] [address] 04/08/2012 15:09:46 04/08/2012 17:16:15 [id number] AL Tian , [facility], [address] [place] [address] 06/26/2012 16:21:08 06/26/2012 17:21:18 [id number] Scar Betancur MD , [facility], [address] [place] [address] 07/02/2013 14:07:11 07/03/2013 09:00:18 Benign essential hypertension 7962148 Blood pressure at goal . Mixed hyperlipidemia 932960665 Cholestero l is at goal Cholestero l is not at goal Continue to work on diet and exercise as discussed Adult [facility] th examination 828633146 see Risk Assessment and Lifestyle Change Counseling section above Tobacco user 975952014 d iscussed that smoking - nicotin and other chemicals adversely effect BH illnesses and do not support efforts of recovery- reiiterate d that pt is in charge of her health decisions- moving to [place]- stress mgt reviewed [id number] AL Tian, [facility], [address] [place] [address] 01/21/2014 16:20:29 01/21/2014 17:19:26 Tobacco user 964341689 reviewed adv's of nicotine patch/loze nge along with wellbutrti n to decrease smoking. Hyperlipidemia 00429767 Influenza vaccine needed 2358341426 106 Benign ess ential hypertension 4293581 Blood pressure at goal . Diabetes mellitus 62751567 [id number] AL Tian, [facility], [address] [place] [address] 09/08/2014 16:21:01 09/08/2014 17:29:57 Benign essential hypertension 6272140 Blood pressure at goal Blood pressure NOT at goal. Tobacco user 753362040 r eviewed adv's of nicotine patch/loze nge along with wellbutrti n to decrease smoking. Hyperlipidemia 92625405 [id number] AL Tian, [facility], [address] [place] [address] 01/03/2015 15:18:42 01/04/2015 10:44:00 Adult health examination 261471633 Z00.00 see Risk Assessment and Lifestyle Change Counseling section above Screening for disorder 499589067 Z72.89 Screening for malignant neoplasm of colon 876184010 Z12.11 Tobacco user 639369678 Z 72.0 reviewed adv's of nicotine patch/loze nge along with wellbutrti n to decrease smoking. Influenza vaccine needed 3705432868 106 Z28.3 Administra tion of pneumococcal vaccine 99969389 Z23 Administra tion of diphtheria, pertussis, and tetanus vaccine 107759067 Z23 Diabetes mellitus 715986 09 E13.9 controlled with diet Hyperlipidemia 74509122 E78.5 not at goal- intolerant of all statins, taking natruopath - thinks red rice yeast- high fiber- recheck in 3 -6 months Benign ess ential hypertension 7739510 I10 Blood pressure at goal Injury of mouth 21880069 S09.93XA by hx due to extreme temp change in mouth- hx has ramos in past and resolves- f/u if not resolving in coming month- sooner any worse [id number] MD HARI Weinberg, [facility], [address] [place] [address] 01/13/2015 16:35:04 01/18/2015 15:08:13 Gingival disease 27825909 K06.9 buchal infection , [id number] Praful Andrea MD , [facility], [address] [place] [address] 12/14/2015 09:37:51 12/15/2015 14:54:34 Herpes zoster 5298639 B02.9 Left uper breast with one small area of tiny vesicular lesions, and one satellite lesion on her back. Pt not experienci ng pain, but has some itchiness. Recommende d calamine lotion [id number] Scar Betancur MD , [facility], [address] [place] [address] 01/11/2016 15:16:09 01/11/2016 17:02:20 Adult health examination 675535698 Z00.00 see Risk Assessment and Lifestyle Change Counseling section above Cigarette smoker 2927802 7 F17.210 Tobacco user 387801613 Z 72.0 reviewed adv's of nicotine patch/loze nge along with wellbutrti n to decrease smoking. Screening for malignant neoplasm of cervix 354135105 Z12.4 Screening for malignant neoplasm of respiratory tract 046821473 Z12.2 Diabetes mellitus 953456 09 E13.9 controlled with diet Essential hypertension 20587442 I10 increase today, patient reports bp's < 140/90 in the grocery store- increase stressors now with up coming move.= recheck in 3 months when able Hyperlipidemia 04786456 E78.5 not at goal- intolerant of all statins, taking natruopath - thinks red rice yeast- high fiber- recheck in 3 -6 months Active or passive immunization 970694599 Z23 [id number] AL Tian FP, [facility], [address] [place] [address] 07/30/2016 16:18:45 07/30/2016 17:21:16 Benign essential hypertension 8593210 I10 Blood pressure at goal Mixed hyperlipidemia 267 231134 E78.2 not at goal- had s/e stain- consider red yeast rice Cigarette smoker 7699306 7 F17.210 Tobacco user 291658842 Z 72.0 reviewed adv's of nicotine patch/loze nge along with wellbutrti n to decrease smoking. Screening for malignant neoplasm of lung 376378569 Z12.2 Pain of hip region 96259 002 M25.315 [id number] AL Tian , [facility], [address] [place] [address] 09/10/2016 13:04:28 09/10/2016 13:49:16 Cigarette smoker 38343516 F17.210 plan to d/c smoking prior to surgery Tobacco user 391958507 Z 72.0 will be stopping smoking prior to surgery - iusing stop smoking aides Pre-surger y evaluation 614141678 Z01.818 pt cleared for surgery Cataract 181119775 H26.9 [id number] Scar Betancur MD , [facility], [address] [place] [address] 01/14/2017 11:32:34 01/14/2017 13:11:03 Adult health examination 854802841 Z00.00 see Risk Assessment and Lifestyle Change Counseling section above Counseling 881545710 Z71 .9 Mixed hyperlipidemia 267 300252 E78.2 Cholestero l is not at goal Continue to work on diet and exercise as discussed- ADD [employer] PSYLLIUM- intolerant to statins Benign ess ential hypertension 7249503 I10 Blood pressure at goal , continue present mgtm Cigarette smoker 9955796 7 F17.210 Tobacco user 762633441 Z 72.0 reviewed adv's of nicotine patch/loze nge along with wellbutrti n to decrease smoking. Active or passive immunization 602779292 Z23 Imaging of lung abnormal 431793744 R91.8 DUE IN 03/17 Hearing loss 14624331 H9 1.93 audioogy referral [id number] Scar Betancur MD , [facility], [address] [place] [address] 05/27/2017 13:02:35 05/27/2017 15:38:58 Acute upper respiratory infection 35751958 J06.9 Educated patient that URI is a [...] failure to resolve in 2-4 weeks. Cough 69198146 R05 Pneumonia 763574012 J18. 9 Type 2 monik betes mellitus without complication 859712681 E13.9 controlled with diet and exercise [id number] Scar Betancur MD , [facility], [address] [place] [address] 07/15/2017 10:27:21 07/15/2017 11:38:34 Benign essential hypertension 1397357 I10 Blood pressure at goal Mixed hyperlipidemia 267 266219 E78.2 Cholestero l is not at goal Continue to work on diet and exercise as discussed- increase [employer]IUM- intolerant to statins Active or passive immunization 746340253 Z23 Nicotine dependence 5629 4008 F17.200 Allergy to bee venom 424 560098 Z91.030 Pneumonia 746907411 J18. 9 Diabetes mellitus 007262 09 E11.9 well COntrolled with diet and exercise, restart ASA 81 MG [id number] Scar Betancur MD , [facility], [address] [place] [address] 11/15/2017 11:47:27 11/15/2017 13:01:54 Mixed hyperlipidemia 220679854 E78.2 Cholestero l is not at goal TRIAL WITH ATORVASTAT IN 80 TRY QOD FIRST. Intracrani al meningioma 079154110 D32.0 to schedule neuro surgery Carotid ar dayana occlusion 776493634 I65.29 [id number] Scar Betancur MD , [facility], [address] [place] [address] 01/16/2018 14:03:24 01/16/2018 16:18:57 Adult health examination 172401358 Z00.00 see Risk Assessment and Lifestyle Change Counseling section above Counseling 094101616 Z71 .9 Depression screening 171 488997 Z13.89 depression screening tool administer ed, entered into emr, scored and discussed, time greater than 7.5 minutes Mixed hyperlipidemia 267 140458 E78.2 Cholestero l is not at goal TRIAL WITH ATORVASTAT IN 80 TRY QOD FIRST. Benign ess ential hypertension 0930384 I10 Blood pressure at goal Postmenopausal state 764 25037 Z78.0 Active or passive immunization 441373184 Z23 Solitary n odule of lung 606508330 R91.1 Dizziness 626928130 R42 [id number] Scar Betancur MD FP, [facility], [address] [place] [address] 05/21/2018 14:29:33 05/21/2018 15:54:19 Tachycardia 7057025 R00.0 mildly tachyshaki ng, SOB with exertion? 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 Dizziness 679665469 R42 worsening sx over weeksassoc iated with shaking and exertional SOBtachy on exampeak flows okay, VS Other espinoza stableenc hydrationt aram it easylab work up and close f/u [id number] Marti Abreu MD , [facility], [address] [place] [address] 05/28/2018 10:07:19 05/29/2018 11:41:11 Microcytic anemia 561773135 D50.9 she is going to GI nowshe likely needs to go to hospital for labs and txshe is quite sx with her anemiashe is normotensi ve, but low for hershe is only tachy to 104 on ascultatio nshe is paleDr Natividad called to inform of sxclose f/u plan/ hospitaliz ation if necessary [id number] AL Tian FP, [facility], [address] [place] [address] 06/04/2018 08:10:39 06/04/2018 10:02:50 Dyspnea 553885304 R06.00 with dizziness- overtx HTN- stop lisinopril , check cbc- f/u 1 wk Anemia 410426091 D64.9 Diabetes mellitus 380211 09 E11.9 well COntrolled with diet and exercise, restart ASA 81 MG [id number] Scar Betancur MD FP, [facility], [address] [place] [address] 06/18/2018 16:18:46 06/19/2018 08:14:54 Benign essential hypertension 5213394 I10 stopped lisinopril - hypotensiv e- TO ER Diabetes mellitus 606677 09 E11.9 over controlled . Taper metformin down to 2 tablets daily Anemia 981968045 D64.9 Bipolar disorder 0037377 4 F31.9 Gastrointe stinal hemorrhage 38430271 K92.2 heme pos stool, hypotensiv e, tachycardi c- to ER Hypotensive episode 6776 3001 I95.9 [id number] Scar Betancur MD , [facility], [address] [place] [address] 06/30/2018 12:03:52 07/01/2018 09:19:30 Mixed hyperlipidemia 392238335 E78.2 Cholestero l is not at goal TRIAL WITH ATORVASTAT IN 80 TRY QOD FIRST. Carotid ar dayana stenosis 94913044 I65.29 cont plavix Bipolar disorder 4196994 4 F31.9 continue f/u with Dr Cintron Anemia 482682494 D64.9 GI eval in progress [id number] Scar Betancur MD , [facility], [address] [place] [address] 10/08/2018 11:24:54 10/08/2018 15:32:55 Cigarette smoker 64337275 F17.210 Abnormal v aginal bleeding 135842485 N93.9 Fatigue 88523654 R53.83 Screening for malignant neoplasm of cervix 835289700 Z12.4 [id number] Scar Betancur MD , [facility], [address] [place] [address] 10/29/2018 13:53:42 10/29/2018 14:58:48 Pre-surgery evaluation 092344340 Z01.818 pt cleared for surgery Carotid ar adyana stenosis 69844319 I65.29 R carotid artery stenosed 50-79%, LEFT CAROTID < 50%, will hold asa and plavix 5 days prior to surgery. consulted with pts vascular surgeon, Dr Sharpe and agrees with plan Mass of ovary 417361385 R19.09 cleared for surgery Intracrani al meningioma 468983743 D32.0 pmh- Bipolar disorder 8618033 4 F31.9 stable, continue f/u with Dr Ward Diabetes mellitus 658714 09 E11.9 stable- tx with diet and exercise. Hypothyroidism 52317778 E03.9 stable Hyperlipidemia 43083851 E78.5 [id number] Linh Vázquez MD , [facility], [address] [place] [address] 01/21/2019 14:04:56 01/23/2019 09:29:41 Active or passive immunization 684395789 Z23 [id number] AL Tian , [facility], [address] [place] [address] 02/18/2019 09:39:42 02/18/2019 11:40:30 Adult health examination 594153212 Z00.00 see Risk Assessment and Lifestyle Change Counseling section above Counseling 209613813 Z71 .9 Depression screening 171 930885 Z13.89 depression screening tool administer ed, entered into emr, scored and discussed, time greater than 7.5 minutes Mixed hyperlipidemia 267 945156 E78.2 Ex-smoker 6840018 Z87.89 1 Screening mammography 24 090499 Z12.31 Fatigue 77124812 R53.83 Hearing loss 19591429 H9 1.93 reviewed test- showing b/l hearing loss- prefers to not f/u with audiologis t at this time Salo hematuria 28413410 5 R31.0 suspecting /hx- UA negative today- f/u ctologies. - MARKET DEVELOPMENT ANALYST f/u planned [id number] Scar Betancur MD , [facility], [address] [place] [address] 05/28/2019 15:16:46 05/28/2019 16:45:07 Diabetes mellitus 82661613 E11.9 may decrease metfomin 1tab/day Essential hypertension 63520357 I10 At goal, continue current medication s. Mixed hyperlipidemia 267 790649 E78.2 Increase pravastati n to 20mg BID, Recheck lipids in 1 month Postmenopausal state 764 33011 Z78.0 declined despite knowing risk of contractin g disease and potential from disease, would like to discuss at next visit [id number] Scar Betancur MD , [facility], [address] [place] [address] 03/02/2020 15:28:56 03/02/2020 16:22:35 Bipolar disorder 02254212 F31.9 stable, continue f/u with Dr Ward Adult heal th examination 958484025 Z00.00 see Risk Assessment and Lifestyle Change Counseling section above Counseling 322727647 Z71 .9 including cardiovasc ular risk reduction counseling Depression screening 171 001022 Z13.89 depression screening tool administer ed, entered into emr, scored and discussed, time greater than 7.5 minutes Screening for alcohol abuse 237228944 Z13.39 Essential hypertension 41713526 I10 At goal, continue current medication s. Hyperlipidemia 09695359 E78.5 Hypothyroidism 46804509 E03.9 stable Eruption 097622613 R21 skin lesion- unchanged since summer- derm referral [id number] AL Tian , [facility], [address] [place] [address] 11/18/2019 13:48:59 11/19/2019 12:52:31 Essential hypertension 80043467 I10 At goal, continue current medication s. Mixed hyperlipidemia 267 648909 E78.2 continue Increase pravastati n to 20mg BID, - condider increase to 40 mg- has had muscle aches with statin use in past Dizziness 343528523 R42 check labs, keep diary- f/u with results in coming 1-2 wks Intracrani al meningioma 972406087 D32.0 continue f/u withoncolo gist [id number] Scar Betancur MD , [facility], [address] [place] [address] 01/04/2020 13:42:55 01/07/2020 13:31:01 Salo hematuria 229857264 R31.0 suspecting /hx- UA negative today-cyto logies neg.- urology f/u for hematuria Disorder o f thyroid gland 32919364 E07.9 [id number] Scar Betancur MD , [facility], [address] [place] [address] 09/22/2020 13:47:01 10/10/2020 11:36:51 Essential hypertension 37961110 I10 At goal, continue current medication s. Hyperlipidemia 93141488 E78.5 LDL- 140's with vascular disease- goal is 70, intolerant to atorvastat in- will increase to 40 mg pravastati n. Peripheral vascular disease 150206283 I73.9 Carotid ar dayana stenosis 70305526 I65.29 R carotid artery stenosed 50-79%, LEFT CAROTID < 50%, Dyspnea 866836444 R06.00 chest xray , ekg negative- further eval- stress test- tcx 2 to reach pt- PFT/pulmon jermain to do with smoking hx, left message to make f/u appt/call back . Eruption 225002002 R21 skin lesion- unchanged since summer- derm referral [id number] Scar Betancru MD , [facility], [address] [place] [address] 05/08/2021 10:08:25 05/08/2021 11:37:52 Adult health examination 322702939 Z00.00 see Risk Assessment and Lifestyle Change Counseling section above Counseling 936636175 Z71 .9 including cardiovasc ular risk reduction counseling Depression screening 171 031423 Z13.31 depression screening tool administer ed, entered into emr, scored and discussed, time greater than 7.5 minutes Screening for alcohol abuse 640842433 Z13.39 Hyperthyroidism 48848287 E05.90 Essential hypertension 83646379 I10 not At goal, continue current medication s. Mixed hyperlipidemia 267 924722 E78.2 Cholestero l is at goalContin ue to work on diet and exercise as discussed Screening mammography 24 650663 Z12.31 Screening for osteoporosis 153816040 Z13.820 Candidiasis of vagina 72 720791 B37.3 Multiple n odules of lung 219781336 R91.8 Diabetes mellitus 602396 09 E11.9 cont decrease metfomin 1tab/day- well cotnrolled with nutrition and exercise Bipolar disorder 8781482 4 F31.9 stable, continue f/u with Dr Ward Peripheral vascular disease 179139438 I73.9 carotid vascular disease- LDL- decreasing , asa and clopidogre l daily [id number] Scar Betancur MD , [facility], [address] [place] [address] 06/21/2021 11:45:12 07/11/2021 13:10:57 Mixed hyperlipidemia 196638057 E78.2 Cholestero l is at goalContin ue to work on diet and exercise as discussed Atrophic vaginitis 91682 000 N95.2 Candidiasis of skin 4988 3006 [...] Georges Member ID Guarantor Name 01/04/2020 1 [facility] (MEDICARE REPLACEMENT/A DVANTAGE - PPO) [id number] Ritu Dukes Bharat [id number] Ritu Bharat 03/02/2020 1 [facility] (MEDICARE REPLACEMENT/A DVANTAGE - PPO) [id number] Ritu T Bharat [id number] Ritu Bharat 09/22/2020 1 [facility] (MEDICARE REPLACEMENT/A DVANTAGE - PPO) [id number] Ritu T Bharat [id number] Ritu Bharat 05/08/2021 1 [facility] (MEDICARE REPLACEMENT/A DVANTAGE - PPO) [id number] Ritu T Bharat [id number] Ritu Bharat 06/21/2021 1 [facility] (MEDICARE REPLACEMENT/A DVANTAGE - PPO) [id number] Ritu T Bharat [id number] Ritu Bharat Notes Date Note Type Note [...] Time for intake: 8 minutes. AL Tian [address] [place] [address], [phone], [facility] 01/05/2020 20:20:32 0 text/html Physical Exam/FemaleReported bypatient.PHAPatient [...] room and availability of urgent care at [facility] HyperlipidemiaReported bypatient.Duration:chronic Control:poorly controlled Barriers to CareAllergy/intolerance to [facility]ins[facility] HypertensionReported bypatient.Context:No ischemic heart disease; No kidney [...] long Time for intake: minutes. AL Tian [address] [place] [address], [phone], [facility] 03/02/2020 16:22:33 1 text/html VMG DiabetesReported bypatient.Duration:chronic [...] PMH > 30 pack yr- AL Tian [address] [place] [address], [phone], [facility] 11/02/2020 11:08:29 2 text/html Physical Exam/FemaleReported bypatient.PHAAshley [...] room and availability of urgent care at [facility] HyperlipidemiaReported bypatient.Duration:chronic Control:poorly controlled Barriers to CareAllergy/intolerance to statinsNEW[facility] HypertensionReported bypatient.Context:No ischemic heart disease; No kidney [...] SOB when walk for long AL Tian [address] [place] [address], [phone], [facility] 05/14/2021 19:56:41 2 text/html Pt reports rash all over body ongoing since summer time- started under breasts. Fluconazole has not helped. Rash is painful and itching and worsening over time- rash on axilla, labia, under breasts. . no fever or nausea. AL Tian [address] [place], [address], [facility] 06/30/2021 20:25:49 OBGyn Episode No OBEpisode recorded.
== END 2024-09-07 14:44 | disposition home or self-care (01) ==
LOC: HO.HOP 13:52
PROVIDERS: PCP Internal Medicine; Visit Provider Psychiatry & Neurology Psychiatry
DX: F31.81 Bipolar II disorder (principal); F43.10 Post-traumatic stress disorder, unspecified; F41.1 Generalized anxiety disorder
CPT/HCPCS: 99214

== ENCOUNTER → 2024-09-07 13:52 | Outpatient (BNVA) | payer MEDICARE, SELFPAY | PROVIDERS: PCP Internal Medicine; Visit Provider Psychiatry & Neurology Psychiatry ==

== ENCOUNTER 2024-09-29 13:37 | Outpatient (AMB) | payer MEDICARE, SELFPAY ==
[2024-09-29 13:57] VITALS: BP 118/58; PULSE 98; O2SAT 95; BMI 31.0
--- NOTE | 2024-09-29 13:57 | MHC.OFFVIS ---
Vital Signs 09/29/24 13:57 Height 5 ft 6 in Weight 192 lb BMI 31.0 BP 118/58 L Blood Pressure Location Rt brachial Position Sitting Pulse 98 Pulse Source Pulse Oximeter Pulse Oximetry (%) 95 Oxygen Delivery Method Room Air Intake Visit Reasons: Dyspnea Allergies bee pollen (BEE STINGS) Allergy (Severe, Verified 09/29/24 14:07) ANAPHYLAXIS HPI Comments Details: The patient is a 74-year-old woman with a history of pulmonary nodules and sleep apnea. The patient had CPAP many years ago, however, she could not tolerate it and she returned the machine. She ultimately was diagnosed with meningioma which she received brain radiation. Afterwards, she continued to have significant difficulties with concentration and brain fog. She has also had difficulty with her sleep. She has significant insomnia. When she does sleep she still wakes up very tired. Her Jackson score is elevated 16/24. The patient did have a repeat sleep study which I personally reviewed demonstrating severe sleep apnea with an AHI greater than a 38 events per hour. We did talk about the findings the patient understands she needs to start PAP at this time. Will make arrangements for her to start APAP with local [employer] company. In the meantime she also has history of dyspnea on exertion over the summer. At this point is gotten better. She does not use any rescue or respiratory therapy. The patient has not had pulmonary function studies. The patient also is taking part of the lung cancer screening program. She has multiple pulmonary nodules. She is scheduled for repeat CT scan in September 2021. 01/17/2023 the patient is here for a pulmonary follow-up visit. Overall the patient has been doing well. She has been using her CPAP at nighttime which has been affecting beneficial. She does use it for more than 4 hours a night. The patient has been using the Ambien which has been helpful. We did talk about making sure she has medication holidays where she does not take the medication and also monitoring closely for any adverse effects. We did talk about amnesia. She does have some episodes of in nature but will continue to monitor closely. If she does have any worsening amnesia then need to consider stopping hypnotic. The patient also had a CT scan of the chest. We did personally reviewed in the office. The patient be part of the lung cancer screening program. Initially was read as of rad 3 but then after the [facility] CT scan was reviewed it appeared that a lot of the nodular densities were actually stable. Therefore it was changed to a rads 2 and the patient will have a repeat CT scan in 1 year's time. 07/25/2023 the patient is here for a pulmonary follow-up visit. She has been doing very well. She has been using the CPAP every night. CPAP therapy continues to be affecting beneficial. She does use it for more than 4 hours a night. She started using the visual prescribed by her psychiatrist and appears to have improved her sleep-wake cycle significantly. She feels a lot better. In addition to that the patient is participating in the lung cancer screening program. Her last CT scan was back in October 2023. It was read as a rads 4. However, we did compared to her previous CT scans from [facility] it was reassuring. Therefore her next CT scans scheduled for October 2023. The patient also has been followed closely by Oncology regarding her brain tumor. Overall though she is doing very good from a respiratory status and overall health. The patient will plan to follow-up in a year's time. 09/29/2024 the patient is here for pulmonary follow-up visit. Overall the patient has been doing well. She continues uses CPAP every night. CPAP therapy has been affecting beneficial. She does use it for more than 4 hours a night. She does use a nasal mask which she tolerates well. Will go ahead and request for additional supplies at this time. In the meantime she is participating in the lung cancer screening program. Her last CT scan was back in May 2024 which I personally reviewed. She appears to have a nodule in the left lower lobe that appears to be slightly larger therefore she will have a repeat CAT scan 6 months from her last. I did look at the CAT scans and did compare them and I see a minimal change I did try to be reassuring that I do not think it is anything of any significance indeed could be a hamartoma. Will see how things evolve though. The patient is otherwise doing well will follow-up in a year's time. [facility] Medical History Hip pain, bilateral Pruritic intertrigo Chronic left hip pain Benign essential tremor Macular degeneration Vulvar rash Osteopenia Postmenopausal Personal history of nicotine dependence Stenosis of right carotid artery greater than 50% Post traumatic stress disorder (PTSD) Bipolar II disorder in full remission Essential hypertension Mixed hyperlipidemia Type 2 diabetes mellitus without complication, with no history of insulin use Acquired hypothyroidism Insomnia Meningioma (~2019) Emphysema of lung Pulmonary nodules MACIEJ (obstructive sleep apnea) Surgical History Hx of endoscopy History of partial thyroidectomy History of hysterectomy History of appendectomy History of tonsillectomy History of colonoscopy Family History Father Substance use disorder Lung cancer Brother Mental health disorder Maternal Grandmother Mental health disorder Paternal Aunt No problems noted. Mother Mental health disorder Social History Household Members: Spouse Housing: Condominium Patient Tobacco Use Status: Former Tobacco user Tobacco use type: Cigarette Years Smoked: (onset 15yo, 1ppd x 51yrs, 40+PYH - quit 2016) e-Cigarette/Vaping Use: Never Used service: No Current occupational status: retired Cognitive needs: No Hearing needs: No Vision needs: Yes Female Reproductive History Menstrual Age of Menarche: 12 Review of Systems Const Denies daytime sleepiness, Reports difficulty sleeping, Denies headache(s) and Denies night sweats ENT Denies change in voice, Denies headache(s), Denies lip swelling, Denies mouth pain, Reports nasal congestion, Reports nasal discharge and Denies tongue swelling Card Denies chest pain and Reports dyspnea on exertion Resp Reports cough and Reports dyspnea on exertion GI Denies abdominal pain Musc Denies no additional complaints Neuro Denies Neuro-related abnormal movements and Denies headache(s) Psych Denies no additional complaints Ez/Lymph Denies easy bleeding and Denies lymphadenopathy Aller/Immun Denies lip swelling and Denies tongue swelling Physical Exam Vital Signs: Last Vital Signs Pulse 98 09/29/24 13:57 BP 118/58 L 09/29/24 13:57 Pulse Ox 95 09/29/24 13:57 Oxygen Delivery Method Room Air 09/29/24 13:57 BMI result Body Mass Index 31.0 Const General: alert Neck Neck: Yes normal visual inspection, Yes full ROM and Yes no lymphadenopathy Chest Chest palpation & inspection: normal inspection of the chest Resp Auscultation: diminished lung sounds Cardio Rate: regular rate Rhythm: regular rhythm Heart sounds: S1 normal heart sound present and S2 normal heart sound present GI Palpation (GI): Soft to palpation and nontender Auscultation: normal bowel sounds Skin General skin exam: rashes and/or lesions noted Assessment & Plan Assessment & Plan (1) MACIEJ (obstructive sleep apnea): Comment: (MACIEJ on CPAP) Code(s): G47.33 - Obstructive sleep apnea (adult) (pediatric) Category: Medical (2) Dyspnea: Code(s): R06.00 - Dyspnea, unspecified Category: Medical Qualifiers: Dyspnea type: dyspnea on exertion Qualified Code(s): R06.09 - Other forms of dyspnea (3) Pulmonary nodules: Code(s): R91.8 - Other nonspecific abnormal finding of lung field Category: Medical (4) Emphysema of lung: Code(s): J43.9 - Emphysema, unspecified Category: Medical Qualifiers: Emphysema type: centrilobular Qualified Code(s): J43.2 - Centrilobular emphysema (5) Insomnia: Code(s): G47.00 - Insomnia, unspecified Category: Medical Qualifiers: Insomnia type: primary Qualified Code(s): F51.01 - Primary insomnia Plan Continue CPAP therapy. continue with behavioral sleep therapies lung cancer screening program, RADS 3, will have 6 month F/U CT chest 10/2024 F/U 10-12 months Coding Level of Care Code Est Pt Level 4 (79932) Diagnoses MACIEJ (obstructive sleep apnea) G47.33 Dyspnea on exertion R06.09 Dyspnea type: dyspnea on exertion Pulmonary nodules R91.8 Centrilobular emphysema J43.2 Emphysema type: centrilobular Primary insomnia F51.01 Insomnia type: primary Time Spent (min) 17
--- OUTSIDE RECORDS SUMMARY | 2024-09-29 14:47 | XMS_ITS | Data Portability ---
Author Organization [facility], [facility] Address [address] [place] [address] Care Team Providers Care Under Sheriff Name Role Phone JOMAR BETANCUR Primary Care Provider SAMMIE PATEL Parts Sales Representative HAZEL BRENNAN Radiation Oncologist DAYLIN CHEN Parts Sales Representative KORIN SHARPE Vascular Surgeon CORY HUGO Subscription Clerk [phone] Assessment Encounter Date Assessment Date Assessment LastModified by Organization Details LastModified Time 01/04/2020 01/04/2020 Patient agreed t o this visit via phone due to the COVID -19 pandemic. Patient understands this is a scheduled visit and the usual procedures with regard to billing and confidentiality apply. Patient was notified that the provider location is . Patient location: home During the visit the patient s medical history and medical record were [...] Patient location: home During the visit the patient s medical history and medical record were reviewed. The patient was notified to call our office for worsening or urgent symptoms. The patient's COPD Assessment score is . The patient feels COPD is . Patient is currently as gold stage . uriel Not available 03/02/2020 16:16:16 Plan of Treatment Reminders Order Date Submit Date Provider Last Modified By Organization Details Last Modified Time Details Appointments None recorded. Lab TSH, serum or plasma 2019 [facility], [address] [place] [address], [address], 0 08:21:04 CBC 2019 [facility], [address] [place] [address], [address], 0 08:21:04 iron, serum 2019 [facility], [address] [place] [address], [address], 0 08:21:04 Referral urologist referral - hematuria x 2 in h, cytologies x 3 attached 2019 [facility], [address] [place], [address], 0 12:54:43 Procedures None recorded. Surgeries None recorded. Imaging MAMMO, screening, tomosynthes is, bilateral 2021 022 [facility] (Imaging), [address], [place], [address], 3 15:14:05 bone density 2021 022 [facility] Central Scheduling, [address] [place] [address], [address], 2 08:00:43 LDCT, chest, for lung cancer screening - due in 10/20, last scan 10/26/2020, former smoker, 30+ pack years 2021 022 [email or web address] [facility], [address] [place], [address], 2 11:52:09 XR, chest - 70 yo ex smoker- dyspnea x 6 months- [address] (Imaging), [address] [place], [address], 11:36:51 electrocard iogram [address], [address] [facility], [place], [address], 11:36:52 Medication Orders estradiol 0.01% (0.1 mg/gram) vaginal cream 2021 [facility], [address] [place] [address], [address], 12:20:13 aspirin 81 mg tablet,nicol yed release 2021 [facility], [address] [place] [address], [address], 12:20:14 clotrimazol e 1 % topical cream 2021 [facility], [address] [place] [address], [address], 12:24:36 fluconazole 150 mg tablet 2021 [facility]Pharmacy #[id number], [address] [place], [address], 11:53:04 nystatin 100,000 unit/gram topical cream 2020 [facility]armacy #[id number], [address] [place], [address], 18:50:22 pravastatin 40 mg tablet 2020 [facility]/Pharmacy #[id number], [address] [place], [address], 15:01:19 nystatin 100,000 unit/gram topical cream 2019 020 [email or web address] [facility]/Pharmacy #[id number], [address] [place], [address], 14:17:53 Patient TargetsNo targets recorded. Patient Instructions Encounter Date Encounter Id Patient Instructions Last Modified By Organization Details Last Modified Time 01/04/2020 [id number] After a discussion of treatment options, which included consideration of best practices, patient preferences, and the patient s individual lifestyle and treatment goals, as well as consideration and attempted mitigation of any barriers to meeting the patient s goals, the following treatment plan and objectives were adopted: as above [email or web address] Not available 01/05/2020 20:19:54 03/02/2020 [id number] advance directives: care instructions aesrick Not available [...] 16:20:31 Counseling done [facility] Anneliese wallace Not available 03/02/2020 12:04:38 09/22/2020 [id number] After a discussion of treatment options, which included consideration of best practices, patient preferences, and the patient s individual lifestyle and treatment goals, as well as consideration and attempted mitigation of any barriers to meeting the patient s goals, the following treatment plan and objectives were adopted: as above aesrick Not available 10/09/2020 18:54:34 05/08/2021 [id number] high cholesterol lifestyle changes aesrick Not available 05/08/2021 11:27:31 advance directives: care instructions aesrick Not available 05/08/2021 11:27:31 preventing falls : care instructions aesrick Not available 05/08/2021 11:27:32 hearing loss: care instructions uriel Not available 05/08/2021 11:27:31 well visit, over 65: care instructions [email or web address] Not available 05/08/2021 11:27:32 After a discussion of treatment options, which included consideration of best practices and patient preferences, the following treatment plan and objectives were adopted: Vitamin D 1000 IUs, Calcium rich diet, exercise daily, resistance training twice per week, Mediterranean diet reviewed. [email or web address] Not available 05/08/2021 11:27:41 06/21/2021 [id number] After a discussion of treatment options, which included consideration of best practices, patient preferences, and the patient s individual lifestyle and treatment goals, as well as consideration and attempted mitigation of any barriers to meeting the patient s goals, the following treatment plan and objectives were adopted: as above [email or web address] Not available 06/30/2021 20:23:54 Reason for Referral Urologist Referral for Salo hematuria hematuria x 2 in pmh, cytologies x 3 attached Referring Physician: Jomar Betancur, Family Medicine, Encounter Date: 01/04/2020 Results Created Date Observation Date Name Description Value Unit Range Abnormal Flag Note LastModifiedBy Organization Detail LastModifiedTime 09/23/19 21 09/23/2020 elect rocar diogr am No observ ation record ed. [facility] [address] [place] [address], [place], [address], 10/12/2020 20:10:24 09/23/19 21 elect rocar diogr [...] diseas e. Electr onical ly signed Readin theodore Physic miguel angel: Jason Hampton ms [facility] (Imaging) [address] , [place], [place], [address], 09/24/2020 16:26:26 10/27/19 21 10/26/2020 CT chest lung josé luis siddiqi TECHNI QUE: Diagno stic CT CHEST [...] report has been forwar ded to an [employer] n system which will electr onical ly notify approp riate provid ers of potent ially import ant findin gs. Electr onical ly Signed by: Hang garcia on 021 3:04 PM Interp reted by: Hang garcia MD Signed by: Hang garcia MD 1 CC Recipi ents: Jomar Betancur PA - Fax Final result JOMAR BETANCUR [facility] [address] [place], [address], 10/26/2020 19:23:20 10/27/19 21 10/26/2020 CT, chest No observ ation record ed. [facility] [address] [place], [address], 10/26/2020 18:11:57 11/11/19 21 11/10/2020 exerc ise stres s test No observ ation record ed. [facility] (Medical Records) [address] [place], [address], 11/19/2020 11:02:13 11/25/19 21 11/24/2020 exerc ise stres s test No observ ation record ed. [facility] (Medical Records) [address] [place], [address], 11/30/2020 13:52:10 11/26/19 21 11/24/2020 NM, myoca rdial perfu rupesh scan, w/ stres s No observ ation record ed. [facility] (Medical Records) [address] [facility], [place], [address], 11/30/2020 13:52:10 01/17/20 21 12/12/2020 polys omnog kathy * No observ ation record ed. [facility] [address] [facility], [place], [address], 01/22/2021 14:55:12 06/02/19 22 05/31/2021 bone densi ty No observ ation record ed. [facility] [address] [place], [address], 06/04/2021 15:15:01 11/01/19 22 10/30/2021 CT chest [...] Crawley MD 10/31/21 Final result JOMAR BETANCUR [facility] [address] [place] [address], [address], 11/03/2021 22:04:11 11/01/19 22 10/30/2021 CT, chest No observ ation record ed. [facility] (Mammo) [address] [place] [address], [address], 11/03/2021 22:04:11 Result Notes Documentation Provider Name and Address Organization Details Recorded Time Xr, Chest : OBSERVATION: CLINICAL HISTORY: Cough. TECHNIQUE: Frontal view and lateral view of the chest obtained. COMPARISON: 07/15/2017, 05/27/2017, 03/13/2011, 01/26/2011 FINDINGS: The heart is normal in size and configuration.There is no hilar or mediastinal enlargement. There is no focal lung consolidation or infiltrate. The bony thorax is intact. IMPRESSION: No acute disease. Electronically signed Reading Physician: AL Lane [address] [place] [address], [phone], [facility] 09/23/2020 19:25:05 Problems Name Problem SNOMED Code Status Onset Date Resolution Date Notes Provider Name and Address Organization Details Recorded Time Mixed hyperlip idemia 531577437 Active Not Available [facility] 12:15:30 Essentia l hyperten rupesh 13262706 Active Not Available [facility] 12:15:30 Chest swelling 378298651 Completed 02/18/2013 Not Available [facility] 3 02:04:24 Disorder of carbohyd rate metaboli sm 23088428 Completed 11/04/2020 Removal Reason: end AL Tian [address] [place] [address], [address] , [facility] 16:31:34 On examinat ion - a rash Completed 02/18/2013 Not Available [facility] 3 02:00:50 Benign essentia l hyperten rupesh 3663411 Active Not Available [facility] 12:15:30 Hyperlip idemia 70568790 Active Not Available [facility] 12:15:30 Flatulen ce, eructati on and gas pain 514290679 Completed 02/18/2013 Not Available [facility] 3 02:04:10 Tobacco user 068217671 Completed 11/04/2020 Removal Reason: stopped AL Tian [address] [place] [address], [address] , [facility] 1 16:30:18 Impaired fasting glycemia 034344182 Completed 11/04/2020 Removal Reason: end AL Tian [address] [place] [address], [address] , [facility] 16:30:46 Glucose level outside referenc e range 156208635 Active Not Available [facility] 12:15:30 Malaise and fatigue 818549322 Completed 02/18/2013 Not Available [facility] 3 02:00:21 Diabetes mellitus 15858415 Active Not Available [facility] 12:15:30 Depressi ve disorder 14477006 Active 2018 Not Available [facility] 12:15:30 Bipolar disorder 57094927 Active 2018 Not Available [facility] 12:15:30 Carotid artery stenosis 45899315 Active 2018 Not Available [facility] 12:15:30 Intracra nial meningio mn 730646142 Active 2018 Not Available [facility] 12:15:30 Hyperthy roidism 75047712 Active 2020 Not Available [facility] 12:15:30 Problem Notes None recorded. Procedures Surgical History Date Name Laterality Status Provider Name and Address Organization Details Recorded Time 05/08/19 Medicare Wellness Visit completed Guillaume Abad MA [facility] 05/08/2021 10:25:13 05/08/19 22 Alcohol use screening completed Guillaume Abad MA [facility] 05/08/2021 10:25:13 05/08/19 22 Cardiovascular disease risk reduction counseling completed Guillaume Abad MA [facility] 05/08/2021 10:25:13 03/02/20 20 Medicare Wellness Visit completed Nhi Stanton MA [facility] 03/02/2020 12:02:02 03/02/20 20 COPD Screening completed AL Tian [address] [place] [address], [address], [facility] 03/02/2020 16:17:24 03/02/20 20 prevention-cardiov ascular risk reduction counseling completed Nhi Stanton MA [facility] 03/02/2020 12:02:02 03/02/20 20 prevention-annual alcohol misuse screening completed Nhi Stanton MA [facility] 03/02/2020 12:02:02 03/02/20 20 Telephonic Visit completed Nhi Stanton MA [facility] 03/02/2020 15:43:39 01/04/20 20 Telephonic Visit completed Erinn Modi MA [facility] 01/04/2020 13:52:44 02/19/20 19 Medicare Wellness Visit completed Izabel Gordon Cande [facility] 02/18/2019 10:08:48 02/19/20 19 POC Urinalysis Testing completed Izabel Gordon Cande [facility] 02/18/2019 11:01:50 02/19/20 19 Hearing Test completed Izabel Gordon Cande [facility] 02/18/2019 11:20:58 10/09/19 19 POC Urinalysis Testing completed Meagan Mayorga [facility] 10/08/2018 11:53:49 01/17/20 18 Medicare Wellness Visit completed Erinn Modi MA [facility] 01/16/2018 14:31:16 01/15/20 17 Smoking cessation counseling completed Erinn Modi MA [facility] 01/14/2017 11:47:46 01/15/20 17 Medicare Wellness Visit completed Erinn Modi MA [facility] 01/14/2017 11:46:37 01/15/20 17 Carbon Monoxide Testing completed Erinn Modi MA [facility] 01/14/2017 11:47:46 09/11/19 17 Smoking cessation counseling completed Maryanne Tanner MA [facility] 09/10/2016 13:24:35 09/11/19 17 Carbon Monoxide Testing completed Maryanne Tanner MA [facility] 09/10/2016 13:24:35 07/31/19 17 Smoking cessation counseling completed Erinn Modi MA [facility] 07/30/2016 16:26:53 01/11/20 16 Smoking cessation counseling completed Erinn Modi [facility] 01/11/2016 15:50:31 01/11/20 16 Carbon Monoxide Testing completed Erinn Modi [facility] 01/11/2016 16:02:44 09/09/19 15 Smoking cessation counseling completed Erinn Modi [facility] 09/08/2014 16:33:45 01/22/20 14 Smoking cessation counseling completed Guillaume Abad [facility] 01/21/2014 16:34:19 07/03/19 14 Smoking cessation counseling completed Nicki Dumont [facility] 07/02/2013 14:53:13 06/27/19 13 Smoking cessation counseling completed AL Tian [address] [place] [address], [address], [facility] 06/27/2012 23:20:37 04/08/19 13 Smoking cessation counseling completed AL Tian [address] [place] [address], [address], [facility] 04/08/2012 19:17:40 Imaging Results None recorded. Procedure Notes None recorded. Medical Equipment None Reported. Allergies Allergen ID Allergen Name Allergen Category Reaction Reaction Severity Criticality Documentation Date Start Date Code Code System Note Provider Name and Address Organization Details Recorded Time 420557 atorvasta tin medicatio n Not available Not available Not available 06/26/2012 19479 RxNorm muscl e aches AL Tian [address] [place], [place] [address], [address], [facility] 3 16:49:53 264529 wasp venoms environme nt Not available Not available Not available 07/02/2013 99676 RxNorm Nicki Dumont [facility] 4 14:53:13 453145 pravastat in medicatio n arthralgi a (joint pain) Not available Not available 05/08/2021 64062 RxNorm AL Tian [address] [facility] [place], [address], [facility] 2 11:04:56 3956 codeine medicatio n Not available Not available Not available 05/27/2008 2670 RxNorm Not Available [facility] 1 06:05:20 Medications Name Sig Start [...] 130 mm[Hg] 80 mm[Hg] AL Tian [address] [place] [address], [address], [facility] 05/08/2021 11:14:28 Date Recorded Body height Body mass index (BMI) Body weight Systolic blood pressure Diastolic blood pressure Systolic blood pressure Diastolic blood pressure Provider Name and Address Organization Details Last Updated DateTime 2 165.1 cm 31.7 kg/m2 52431.9 5 g 140 mm[Hg] 68 mm[Hg] 129 mm[Hg] 70 mm[Hg] Guillaume Abad [facility] 2 11:36:06 Date Recorded Body height Heart rate Body temperature Body mass index (BMI) Body weight Systolic blood pressure Diastolic blood pressure Provider Name and Address Organization Details Last Updated DateTime 2 165.1 cm 84 /min 97.8 [degF] 32 kg/m2 90341.7 4 g 126 mm[Hg] 84 mm[Hg] Erinn Modi [facility] 2 11:56:56 Date Recorded Systolic blood pressure Diastolic blood pressure Provider Name and Address Organization Details Last Updated DateTime 09/22/2020 130 mm[Hg] 59 mm[Hg] AL Tian [address] [place] [address], [address], [facility] 09/22/2020 15:27:35 Date Recorded Body height Body mass index (BMI) Body weight Heart rate Systolic blood pressure Diastolic blood pressure Provider Name and Address Organization Details Last Updated DateTime 1 167.64 cm 30.5 kg/m2 97834.9 6 g 84 /min 144 mm[Hg] 70 mm[Hg] Tianavic Lynn [facility] 1 14:11:27 Date Recorded Body height Heart rate Body mass index (BMI) Body weight Systolic blood pressure Diastolic blood pressure Provider Name and Address Organization Details Last Updated DateTime 0 167.64 cm 80 /min 30.3 kg/m2 68259.3 7 g 129 mm[Hg] 80 mm[Hg] [facility] 13:47:11 Date Recorded Heart rate Systolic blood pressure Diastolic blood pressure Provider Name and Address Organization Details Last Updated DateTime 03/02/2020 82 /min 130 mm[Hg] 86 mm[Hg] AL Tian [address] [place], [address], [facility] 03/02/2020 16:12:37 Date Recorded Body height Body mass index (BMI) Body weight Provider Name and Address Organization Details Last Updated DateTime 03/02/2020 167.64 cm 30.3 kg/m2 01771.37 g [facility] 03/02/2020 15:46:14 Social History Question Answer Notes LastModified by Organizat ion Details LastModified Time Tobacco Smoking Status Former Smoker 3/4 ppd, Smoking 1/2 ppd 12/14/15 , 1/4 PPD 10.12.16 , 1/4 ppd 07/30/16 , Quit- 2 days since last cigg 01/14/17 , States last cigg was October 2016 2.26.18 , Still not smoking- since October 2016 07/15/17 AAS, Still not smoking 8.17.18 AAS. Not smoking 06/04/18 AAS, Not smoking 3.20.19 AAS, quit 3 years ago 02/18/19MS Not Available [facility] 08/24/2010 02:07:31 Do You Have An Advance [...] Or The Highest Degree You Have Received? 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 05/08/2021 Do you or [...] virus, trivalent, preservative 1 completed Not Available [facility] 04/18/2019 02:31:14 Influenza, split virus, trivalent, PF 4 completed Not Available [facility] 04/18/2019 02:19:21 Influenza, split virus, quadrivalent, PF 5 completed Not Available [facility] 04/18/2019 02:19:49 pneumococcal polysaccharide PPV23 5 completed Not Available [facility] 04/18/2019 02:26:43 Tdap 5 completed Not Available [facility] 04/18/2019 02:38:05 Influenza, split virus, quadrivalent, PF 6 completed Not Available [facility] 04/18/2019 02:21:03 Influenza, high-dose, trivalent, PF 7 completed Not Available [facility] 04/18/2019 02:22:05 Pneumococcal conjugate PCV 13 8 completed Not Available [facility] 04/18/2019 02:22:34 zoster recombinant 8 completed Not Available [facility] 04/18/2019 02:29:21 Influenza, high-dose, trivalent, PF 8 completed Not Available [facility] 04/18/2019 02:39:36 Influenza, high-dose, trivalent, PF 9 completed Not Available [facility] 04/18/2019 02:39:37 influenza, unspecified formulation [facility] 16:31:55 COVID-19, mRNA, LNP-S, PF, 30 mcg/0.3 mL dose 1 [facility] 09[facility] 14:09:35 COVID-19, mRNA, LNP-S, PF, 30 mcg/0.3 mL dose 1 [facility] 09/22[facility] 14:22:24 COVID-19, mRNA, LNP-S, PF, 30 mcg/0.3 mL dose 1 [facility] 01/16[facility]2021 09:58:41 Influenza, high-dose, quadrivalent, PF 1 [facility] 05/08[facility] 10:32:06 Influenza, split virus, trivalent, preservative 0 completed Not Available [facility] 04/18/2019 02:17:50 Past Encounters Encounter ID Performer Location Encounter Start Date Encounter Closed Date Diagnosis/Indication Diagnosis SNOMED-CT Code Diagnosis ICD10 Code Diagnosis Note [id number] AL Tian, [facility], OFFICE [address] [place] [address] 05/27/2008 14:44:39 05/31/2008 14:47:22 [id number] AL Tian, [facility], OFFICE [address] [place] [address] 06/24/2008 16:44:33 06/28/2008 10:22:53 [id number] AL Tian, [facility], OFFICE [address] [place] [address] 12/22/2009 15:33:16 12/26/2009 07:59:01 [id number] AL Tian, [facility], OFFICE [address] [place] [address] 03/02/2010 16:00:54 03/06/2010 13:45:04 [id number] [facility] , [facility] [address] [place] [address] 03/20/2010 15:01:45 03/21/2010 11:20:58 [id number] MD HARI Minor, [facility], OFFICE [address] [place] [address] 01/26/2011 10:05:07 01/29/2011 13:22:46 [id number] [facility] RADIOLOGY [employer] [facility] [address] [place] [address] 01/26/2011 10:35:57 01/30/2011 08:45:03 [id number] MD HARI Minor, [facility], OFFICE [address] [place] [address] 02/09/2011 15:09:01 02/12/2011 12:03:49 [id number] AL Tian, [facility], OFFICE [address] [place] [address] 03/13/2011 15:05:21 03/13/2011 17:15:06 [id number] [facility] RADIOLOGY Technologi [facility] , [facility] [address] [place] [address] 03/13/2011 16:35:35 03/15/2011 12:04:48 [id number] [facility] , [facility] [address] [place] [address] 04/19/2011 15:26:55 04/20/2011 14:58:30 [id number] AL Tian, [facility], OFFICE [address] [place] [address] 05/15/2011 16:12:06 05/15/2011 17:15:12 [id number] Scar Betancur MD , [facility], [address]ICE [address] [place] [address] 07/03/2011 15:00:30 07/06/2011 08:10:51 [id number] Pennie Rosa PA-C , [facility], [address]ICE [address] [place] [address] 08/09/2011 16:03:19 08/13/2011 09:42:10 [id number] [facility] RADIOLOGY Technologi [facility] , [facility] [address] [place] [address] 08/09/2011 17:09:51 08/09/2011 17:22:53 [id number] AL Tian, [facility], OFFICE [address] [place] [address] 08/21/2011 16:35:18 08/21/2011 17:29:43 [id number] AL Tian, [facility], OFFICE [address] [place] [address] 04/08/2012 15:09:46 04/08/2012 17:16:15 [id number] AL Tian, [facility], OFFICE [address] [place] [address] 06/26/2012 16:21:08 06/26/2012 17:21:18 [id number] MD HARI Weinberg, [facility], OFFICE [address] [place] [address] 07/02/2013 14:07:11 07/03/2013 09:00:18 Benign essential hypertension 4655268 Blood pressure at goal . Mixed hyperlipidemia 910431886 Cholestero l is at goal Cholestero l is not at goal Continue to work on diet and exercise as discussed Adult heal th examination [id number] see Risk Assessment and Lifestyle Change Counseling section above Tobacco user [id number] d iscussed that smoking - nicotin and other chemicals adversely effect BH illnesses and do not support efforts of recovery- reiiterate d that pt is in charge of her health decisions- moving to new house- stress mgt reviewed [id number] AL Tian, [facility], [address] [place] [address] 01/21/2014 16:20:29 01/21/2014 17:19:26 Tobacco user 454769136 reviewed adv's of nicotine patch/loze nge along with wellbutrti n to decrease smoking. Hyperlipidemia 31229495 Influenza vaccine needed 4877237853 106 Benign ess ential hypertension 9999942 Blood pressure at goal . Diabetes mellitus 34881995 [id number] AL Tian, [facility], [address] [place] [address] 09/08/2014 16:21:01 09/08/2014 17:29:57 Benign essential hypertension 5620685 Blood pressure at goal Blood pressure NOT at goal. Tobacco user 327102342 r altafwed adv's of nicotine patch/loze nge along with wellbutrti n to decrease smoking. Hyperlipidemia 49514905 [id number] AL Tian, [facility], [address] [place] [address] 01/03/2015 15:18:42 01/04/2015 10:44:00 Adult health examination 704644871 Z00.00 see Risk Assessment and Lifestyle Change Counseling section above Screening for disorder 334843677 Z72.89 Screening for malignant neoplasm of colon 825960769 Z12.11 Tobacco user 664411029 Z 72.0 reviewed adv's of nicotine patch/loze nge along with wellbutrti n to decrease smoking. Influenza vaccine needed 3254950623 106 Z28.3 Administra tion of pneumococcal vaccine 22101164 Z23 Administra tion of diphtheria, pertussis, and tetanus vaccine 651344294 Z23 Diabetes mellitus 028319 09 E13.9 controlled with diet Hyperlipidemia 23417273 E78.5 not at goal- intolerant of all statins, taking natruopath - thinks red rice yeast- high fiber- recheck in 3 -6 months Benign ess ential hypertension 2812523 I10 Blood pressure at goal Injury of mouth 03654409 S09.93XA by hx due to extreme temp change in mouth- hx has ramos in past and resolves- f/u if not resolving in coming month- sooner any worse [id number] Scar Betancur MD , [facility], [address] [place] [address] 01/13/2015 16:35:04 01/18/2015 15:08:13 Gingival disease 03937252 K06.9 buchal infection , [id number] Praful Andrea MD , [facility], [address] [place] [address] 12/14/2015 09:37:51 12/15/2015 14:54:34 Herpes zoster 0986880 B02.9 Left uper breast with one small area of tiny vesicular lesions, and one satellite lesion on her back. Pt not experienci ng pain, but has some itchiness. Recommende d calamine lotion [id number] Scar Betancur MD , [facility], [address] [place] [address] 01/11/2016 15:16:09 01/11/2016 17:02:20 Adult health examination 931120992 Z00.00 see Risk Assessment and Lifestyle Change Counseling section above Cigarette smoker 8924869 7 F17.210 Tobacco user 603918664 Z 72.0 reviewed adv's of nicotine patch/loze nge along with wellbutrti n to decrease smoking. Screening for malignant neoplasm of cervix 095094322 Z12.4 Screening for malignant neoplasm of respiratory tract 539383139 Z12.2 Diabetes mellitus 510382 09 E13.9 controlled with diet Essential hypertension 53230312 I10 increase today, patient reports bp's < 140/90 in the grocery store- increase stressors now with up coming move.= recheck in 3 months when able Hyperlipidemia 40716676 E78.5 not at goal- intolerant of all statins, taking natruopath - thinks red rice yeast- high fiber- recheck in 3 -6 months Active or passive immunization 469015418 Z23 [id number] AL Tian, [facility], [address] [place] [address] 07/30/2016 16:18:45 07/30/2016 17:21:16 Benign essential hypertension 4849094 I10 Blood pressure at goal Mixed hyperlipidemia 267 410826 E78.2 not at goal- had s/e stain- consider red yeast rice Cigarette smoker 6037369 7 F17.210 Tobacco user 906801713 Z 72.0 reviewed adv's of nicotine patch/loze nge along with wellbutrti n to decrease smoking. Screening for malignant neoplasm of lung 744821876 Z12.2 Pain of hip region 59984 002 M25.140 [id number] AL Tian , [facility], [address] [place] [address] 09/10/2016 13:04:28 09/10/2016 13:49:16 Cigarette smoker 55077412 F17.210 plan to d/c smoking prior to surgery Tobacco user 591216308 Z 72.0 will be stopping smoking prior to surgery - iusing stop smoking aides Pre-surger y evaluation 424852118 Z01.818 pt cleared for surgery Cataract 268970827 H26.9 [id number] Scar Betancur MD , [facility], [address] [place] [address] 01/14/2017 11:32:34 01/14/2017 13:11:03 Adult health examination 994180259 Z00.00 see Risk Assessment and Lifestyle Change Counseling section above Counseling 962582721 Z71 .9 Mixed hyperlipidemia 267 374728 E78.2 Cholestero l is not at goal Continue to work on diet and exercise as discussed- ADD [employer]IUM- intolerant to statins Benign ess ential hypertension 4993794 I10 Blood pressure at goal , continue present mgtm Cigarette smoker 2539369 7 F17.210 Tobacco user 588755132 Z 72.0 reviewed adv's of nicotine patch/loze nge along with wellbutrti n to decrease smoking. Active or passive immunization 582962420 Z23 Imaging of lung abnormal 314114362 R91.8 DUE IN 03/17 Hearing loss 27561719 H9 1.93 audioogy referral [id number] Scar Betancur MD [facility], [address] [place] [address] 05/27/2017 13:02:35 05/27/2017 15:38:58 Acute upper respiratory infection 23464636 J06.9 Educated patient that URI is a [...] failure to resolve in 2-4 weeks. Cough 71425784 R05 Pneumonia 215800006 J18. 9 Type 2 monik betes mellitus without complication 831722327 E13.9 controlled with diet and exercise [id number] Scar Betancur MD , [facility], [address] [place] [address] 07/15/2017 10:27:21 07/15/2017 11:38:34 Benign essential hypertension 6383403 I10 Blood pressure at goal Mixed hyperlipidemia 267 086371 E78.2 Cholestero l is not at goal Continue to work on diet and exercise as discussed- increase [employer]UM- intolerant to statins Active or passive immunization 454020672 Z23 Nicotine dependence 5629 4008 F17.200 Allergy to bee venom 424 631698 Z91.030 Pneumonia 024875279 J18. 9 Diabetes mellitus 420941 09 E11.9 well COntrolled with diet and exercise, restart ASA 81 MG [id number] Scar Betancur MD , [facility], [address] [place] [address] 11/15/2017 11:47:27 11/15/2017 13:01:54 Mixed hyperlipidemia 433916742 E78.2 Cholestero l is not at goal TRIAL WITH ATORVASTAT IN 80 TRY QOD FIRST. Intracrani al meningioma 470078325 D32.0 to schedule neuro surgery Carotid ar dayana occlusion 003133340 I65.29 vascular surgeon referral tos ched [id number] Scar Betancur MD FP, [facility], [address] [place] [address] 01/16/2018 14:03:24 01/16/2018 16:18:57 Adult health examination 005193934 Z00.00 see Risk Assessment and Lifestyle Change Counseling section above Counseling 245278442 Z71 .9 Depression screening 171 284196 Z13.89 depression screening tool administer ed, entered into emr, scored and discussed, time greater than 7.5 minutes Mixed hyperlipidemia 267 102159 E78.2 Cholestero l is not at goal TRIAL WITH ATORVASTAT IN 80 TRY QOD FIRST. Benign ess ential hypertension 9895565 I10 Blood pressure at goal Postmenopausal state 764 05949 Z78.0 Active or passive immunization 652888404 Z23 Solitary n odule of lung 622978180 R91.1 Dizziness 622092223 R42 [id number] Scar Betancru MD , [facility], [address] [place] [address] 05/21/2018 14:29:33 05/21/2018 15:54:19 Tachycardia 6757409 R00.0 mildly tachyshaki ng, SOB with exertion? anemicrece nt meningioma txhas f/u oncology tomorrowsx ECG overall reassuring check labshydrat ionclose f/u Intracrani al meningioma 114746918 D32.0 Dizziness 670391835 R42 worsening sx over weeksassoc iated with shaking and exertional SOBtachy on exampeak flows okay, VS Other espinoza stableenc hydrationt aram it easylab work up and close f/u [id number] Marti Abreu MD FP, [facility], [address] [place] [address] 05/28/2018 10:07:19 05/29/2018 11:41:11 Microcytic anemia 704639430 D50.9 she is going to GI nowshe likely needs to go to hospital for labs and txshe is quite sx with her anemiashe is normotensi ve, but low for hershe is only tachy to 104 on ascultatio nshe is paleDr Natividad called to inform of sxclose f/u plan/ hospitaliz ation if necessary [id number] AL Tian FP, [facility], [address] [place] [address] 06/04/2018 08:10:39 06/04/2018 10:02:50 Dyspnea 988290673 R06.00 with dizziness- overtx HTN- stop lisinopril , check cbc- f/u 1 wk Anemia 439998290 D64.9 Diabetes mellitus 889635 09 E11.9 well COntrolled with diet and exercise, restart ASA 81 MG [id number] Scar Betancur MD , [facility], [address] [place] [address] 06/18/2018 16:18:46 06/19/2018 08:14:54 Benign essential hypertension 9603856 I10 stopped lisinopril - hypotensiv e- TO ER Diabetes mellitus 227048 09 E11.9 over controlled . Taper metformin down to 2 tablets daily Anemia 291394005 D64.9 Bipolar disorder 5876050 4 F31.9 Gastrointe stinal hemorrhage 27950456 K92.2 heme pos stool, hypotensiv e, tachycardi c- to ER Hypotensive episode 6776 3001 I95.9 [id number] Scar Betancur MD , [facility], [address] [place] [address] 06/30/2018 12:03:52 07/01/2018 09:19:30 Mixed hyperlipidemia 118194396 E78.2 Cholestero l is not at goal TRIAL WITH ATORVASTAT IN 80 TRY QOD FIRST. Carotid ar dayana stenosis 58089302 I65.29 cont plavix Bipolar disorder 1916098 4 F31.9 continue f/u with Dr Cintron Anemia 047427540 D64.9 GI eval in progress [id number] Scar Betancur MD , [facility], [address] [place] [address] 10/08/2018 11:24:54 10/08/2018 15:32:55 Cigarette smoker 37962353 F17.210 Abnormal v aginal bleeding 836036586 N93.9 Fatigue 91351375 R53.83 Screening for malignant neoplasm of cervix 111759795 Z12.4 [id number] Scar Betancur MD , [facility], [address] [place] [address] 10/29/2018 13:53:42 10/29/2018 14:58:48 Pre-surgery evaluation 473022537 Z01.818 pt cleared for surgery Carotid ar dayana stenosis 34770870 I65.29 R carotid artery stenosed 50-79%, LEFT CAROTID < 50%, will hold asa and plavix 5 days prior to surgery. consulted with pts vascular surgeon, Dr Sharpe and agrees with plan Mass of ovary 665853578 R19.09 cleared for surgery Intracrani al meningioma 513341197 D32.0 pmh- Bipolar disorder 3561736 4 F31.9 stable, continue f/u with Dr Ward Diabetes mellitus 655769 09 E11.9 stable- tx with diet and exercise. Hypothyroidism 85794875 E03.9 stable Hyperlipidemia 82712240 E78.5 [id number] Linh Vázquez MD , [facility], [address] [place] [address] 01/21/2019 14:04:56 01/23/2019 09:29:41 Active or passive immunization 764794528 Z23 [id number] AL Tian , [facility], [address] [place] [address] 02/18/2019 09:39:42 02/18/2019 11:40:30 Adult health examination 209641620 Z00.00 see Risk Assessment and Lifestyle Change Counseling section above Counseling 095951331 Z71 .9 Depression screening 171 437823 Z13.89 depression screening tool administer ed, entered into emr, scored and discussed, time greater than 7.5 minutes Mixed hyperlipidemia 267 275633 E78.2 Ex-smoker 9277174 Z87.89 1 Screening mammography 24 725025 Z12.31 Fatigue 15347548 R53.83 Hearing loss 48882902 H9 1.93 reviewed test- showing b/l hearing loss- prefers to not f/u with audiologis t at this time Salo hematuria 25992440 5 R31.0 suspecting /hx- UA negative today- f/u ctologies. - CROP PULLER f/u planned [id number] Scar Betancur MD , [facility], [address] [place] [address] 05/28/2019 15:16:46 05/28/2019 16:45:07 Diabetes mellitus 37241130 E11.9 may decrease metfomin 1tab/day Essential hypertension 95857874 I10 At goal, continue current medication s. Mixed hyperlipidemia 267 161658 E78.2 Increase pravastati n to 20mg BID, Recheck lipids in 1 month Postmenopausal state 764 75019 Z78.0 declined despite knowing risk of contractin g disease and potential from disease, would like to discuss at next visit [id number] Scar Betancur MD FP, [facility], [address] [place] [address] 03/02/2020 15:28:56 03/02/2020 16:22:35 Bipolar disorder 77770181 F31.9 stable, continue f/u with Dr Ward Adult [facility] th examination 087159685 Z00.00 see Risk Assessment and Lifestyle Change Counseling section above Counseling 696681565 Z71 .9 including cardiovasc ular risk reduction counseling Depression screening 171 466223 Z13.89 depression screening tool administer ed, entered into emr, scored and discussed, time greater than 7.5 minutes Screening for alcohol abuse 204351038 Z13.39 Essential hypertension 09653497 I10 At goal, continue current medication s. Hyperlipidemia 46067182 E78.5 Hypothyroidism 11868717 E03.9 stable Eruption 360817342 R21 skin lesion- unchanged since summer- derm referral [id number] AL Tian FP, [facility], [address] [place] [address] 11/18/2019 13:48:59 11/19/2019 12:52:31 Essential hypertension 40110755 I10 At goal, continue current medication s. Mixed hyperlipidemia 267 571222 E78.2 continue Increase pravastati n to 20mg BID, - condider increase to 40 mg- has had muscle aches with statin use in past Dizziness 813372648 R42 check labs, keep diary- f/u with results in coming 1-2 wks Intracrani al meningioma 812698150 D32.0 continue f/u withoncolo gist [id number] Scar Betancur MD FP, [facility], [address] [place] [address] 01/04/2020 13:42:55 01/07/2020 13:31:01 Salo hematuria 648657216 R31.0 suspecting /hx- UA negative today-cyto logies neg.- urology f/u for hematuria Disorder o f thyroid gland 95992586 E07.9 [id number] Scar Betancur MD , [facility], [address] [place] [address] 09/22/2020 13:47:01 10/10/2020 11:36:51 Essential hypertension 94786517 I10 At goal, continue current medication s. Hyperlipidemia 08935184 E78.5 LDL- 140's with vascular disease- goal is 70, intolerant to atorvastat in- will increase to 40 mg pravastati n. Peripheral vascular disease 956075938 I73.9 Carotid ar dayana stenosis 54444317 I65.29 R carotid artery stenosed 50-79%, LEFT CAROTID < 50%, Dyspnea 648569108 R06.00 chest xray , ekg negative- further eval- stress test- tcx 2 to reach pt- PFT/pulmon jermain to do with smoking hx, left message to make f/u appt/call back . Eruption 592345860 R21 skin lesion- unchanged since summer- derm referral [id number] Scar Betancur MD , [facility], [address] [place] [address] 05/08/2021 10:08:25 05/08/2021 11:37:52 Adult health examination 926652384 Z00.00 see Risk Assessment and Lifestyle Change Counseling section above Counseling 170399036 Z71 .9 including cardiovasc ular risk reduction counseling Depression screening 171 177852 Z13.31 depression screening tool administer ed, entered into emr, scored and discussed, time greater than 7.5 minutes Screening for alcohol abuse 033866349 Z13.39 Hyperthyroidism 24441599 E05.90 Essential hypertension 85729404 I10 not At goal, continue current medication s. Mixed hyperlipidemia 267 277712 E78.2 Cholestero l is at goalContin ue to work on diet and exercise as discussed Screening mammography 24 179605 Z12.31 Screening for osteoporosis 635958194 Z13.820 Candidiasis of vagina 72 998391 B37.3 Multiple n odules of lung 541200248 R91.8 Diabetes mellitus 546288 09 E11.9 cont decrease metfomin 1tab/day- well cotnrolled with nutrition and exercise Bipolar disorder 2249001 4 F31.9 stable, continue f/u with Dr Ward Peripheral vascular disease 407341278 I73.9 carotid vascular disease- LDL- decreasing , asa and clopidogre l daily [id number] Scar Betancur MD , [facility], [address] [place] [address] 06/21/2021 11:45:12 07/11/2021 13:10:57 Mixed hyperlipidemia 550071684 E78.2 Cholestsana siddiqi is at [facility] to work on diet and exercise as discussed Atrophic vaginitis 94652 000 N95.2 Candidiasis of skin 4988 3006 [...] None Recorded Advance Directives Directive N: Payers Insurance Date Sequence Insurance Name Policy Number Policy Georges Covered Member ID Georges Member ID Guarantor Name 09/16/2020 2 [place] (HMO[place] [id number] Ritu Ramírez [id number] Ritu Bharat 09/16/2020 1 [place] [id number] Ritu Ramírez [id number] Ritu Bharat 09/16/2020 1 [place] [id number] Ritu T Bharat [id number] Ritu Bharat 09/16/2020 1 [place]) [id number] Ritu Ramírez [id number] Ritu Bharat 09/16/2020 1 [place] [id number] Ritu Ramírez [id number] Ritu Bharat 09/16/2020 1 [place] [id number] Ritu A Ramírez [id number] Ritu Bharat 09/16/2020 1 [place] BC[place] OF [facility] (PPO) [id number] Ritu Scottl [id number] Ritu Nicholson 09/16/2020 [employer] Ritu Elmore [id number] Ritu Nicholson 07/10/2021 1 [facility] (MEDICARE REPLACEMENT/ ADVANTAGE - PPO) [id number] Ritu Nicholson [id number] Ritu Nicholson 09/16/2020 2 [place] [employer] Ritu Nicholson [id number] Ritu Nicholson Notes Date Note Type Note [...] Time for intake: 8 minutes. AL Tian [address] [place] [address], [place], [address] [facility] [place] 20:20:32 0 text/html Physical Exam/FemaleReported bypatient.PHAPatient [...] room and availability of urgent care at [facility] HyperlipidemiaReported bypatient.Duration:chronic Control:poorly controlled Barriers to CareAllergy/intolerance to statinsOK[facility] [place] HypertensionReported bypatient.Context:No ischemic heart disease; No [...] pain(assoc with anxiety- no assoc with exercise)a/[facility] [place]-Smoking CessationReported bypatient.Readiness to quit [...] long Time for intake: minutes. AL Tian [address] [place], [address], [facility] [place] 03/02/2020 16:22:33 1 text/html VMG DiabetesReported bypatient.Duration:chronic [...] > 30 pack yr- AL Tian [address] [facility], [place], [address], [facility] [place] 11/02/2020 11:08:29 2 text/html Physical Exam/FemaleReported bypatient.PHAPatient [...] room and availability of urgent care at [facility] HyperlipidemiaReported bypatient.Duration:chronic Control:poorly controlled Barriers to [...] pain(assoc with anxiety- no assoc with exercise)a/[facility] [place]-Smoking CessationReported bypatient.Readiness to quit [...] when walk for long AL Tian [address] [place] [address], [address], [facility] [place]/14/2021 19:56:41 2 text/html Pt reports rash all over body ongoing since summer time- started under breasts. Fluconazole has not helped. Rash is painful and itching and worsening over time- rash on axilla, labia, under breasts. . no fever or nausea. AL Tian [address] [place], [address], [facility] [place] 06/30/2021 20:25:49 OBGyn Episode No OBEpisode recorded.
== END 2024-09-29 14:28 | disposition home or self-care (01) ==
LOC: HO.HPS 13:38
PROVIDERS: PCP Internal Medicine; Visit Provider Hospitalist
DX: G47.33 Obstructive sleep apnea (adult) (pediatric) (principal); R06.09 Other forms of dyspnea; R91.8 Other nonspecific abnormal finding of lung field; J43.2 Centrilobular emphysema; F51.01 Primary insomnia
CPT/HCPCS: 99214

== ENCOUNTER → 2024-09-29 13:37 | Outpatient (BNVA) | payer MEDICARE, SELFPAY | PROVIDERS: PCP Internal Medicine; Visit Provider Hospitalist | DX: G47.33 Obstructive sleep apnea (adult) (pediatric) (principal); R06.09 Other forms of dyspnea; R91.8 Other nonspecific abnormal finding of lung field; J43.2 Centrilobular emphysema; F51.01 Primary insomnia | CPT/HCPCS: 99212 ==

== ENCOUNTER 2024-10-07 14:43 | Outpatient (AMB) | payer MEDICARE, SELFPAY ==
--- OUTSIDE RECORDS SUMMARY | 2024-10-07 15:13 | XMS_ITS | Data Portability ---
Author Organization [facility], [facility] Address [address] [place] [address] Care Team Providers Care Branch Coordinator Name Role Phone JOMAR BETANCUR Primary Care Provider SAMMIE PATEL Welding Production Supervisor HAZEL BRENNAN Radiation Oncologist [phone] DAYLIN CHEN Welding Production Supervisor KORIN SHARPE Vascular Surgeon CORY HUGO Snowboard Designer Assessment Encounter Date Assessment Date Assessment LastModified [...] recorded. Lab TSH, serum or plasma 2019 [facility], [address] [place] [address], [address], 0 08:21:04 CBC 2019 [facility], [address] [place] [address], [address], 0 08:21:04 iron, serum 2019 [facility], [address] [place] [address], [address], 0 08:21:04 Referral urologist referral - hematuria x 2 in h, cytologies x 3 attached 2019 [facility], [address] [place], [address], 0 12:54:43 Procedures None recorded. Surgeries None recorded. Imaging MAMMO, screening, tomosynthes is, bilateral 2021 022 [facility] (Imaging), [address], [place], [address], 3 15:14:05 bone density 2021 022 [facility] Central Scheduling, [address] [place] [address], [address], 2 08:00:43 LDCT, chest, for lung cancer screening - due in 10/20, last scan 10/26/2020, former smoker, 30+ pack years 2021 022 [email or web address] [facility], [address] [place], [address], 2 11:52:09 XR, chest - 70 yo ex smoker- dyspnea x 6 months- [address] (Imaging), [address] [place], [address], 11:36:51 electrocard iogram [address], [address] [facility], [place], [address], 11:36:52 Medication Orders estradiol 0.01% (0.1 mg/gram) vaginal cream 2021 [facility], [address] [place] [address], [address], 12:20:13 aspirin 81 mg tablet,nicol yed release 2021 [facility], [address] [place] [address], [address], 12:20:14 clotrimazol e 1 % topical cream 2021 [facility], [address] [place] [address], [address], 12:24:36 fluconazole 150 mg tablet 2021 magaly [facility]/Pharmacy #[id number], [address] [place], [address], 11:53:04 nystatin 100,000 unit/gram topical cream 2020 [facility]/Pharmacy #[id number], [address] [place], [address], 18:50:22 pravastatin 40 mg tablet 2020 [facility]/Pharmacy #[id number], [address] [place], [address], 15:01:19 nystatin 100,000 unit/gram topical cream 2019 020 [email or web address] [facility]/Pharmacy #[id number], [address] [facility] [place], [address], 14:17:53 Patient TargetsNo targets recorded. Patient Instructions Encounter Date Encounter Id Patient Instructions Last Modified By Organization Details Last Modified Time 01/04/2020 [id number] After a discussion of treatment options, which included consideration of best practices, patient preferences, and the patient s individual lifestyle and treatment goals, as well as consideration and attempted mitigation of any barriers to meeting the patient s goals, the following treatment plan and objectives were adopted: as above [email or web address] Not available 01/05/2020 20:19:54 03/02/2020 [id number] advance directives: care instructions aesrick Not available [...] 16:20:31 Counseling done [facility] Anneliese wallace Not available 03/02/2020 12:04:38 09/22/2020 [id number] After a discussion of treatment options, which included consideration of best practices, patient preferences, and the patient s individual lifestyle and treatment goals, as well as consideration and attempted mitigation of any barriers to meeting the patient s goals, the following treatment plan and objectives were adopted: as above aesrick Not available 10/09/2020 18:54:34 05/08/2021 [id number] high cholesterol lifestyle changes aesrick Not available [...] reviewed. [email or web address] Not available 05/08/2021 11:27:41 06/21/2021 [id number] After a discussion of treatment options, which [...] diogr am No observ ation record ed. [facility] [address] [place] [address], [place], [address], 10/12/2020 20:10:24 09/23/19 21 elect rocar diogr [...] theodore Physic miguel angel: Jason Hampton ms [facility] (Imaging) [address] , [place], [place], [address], 09/24/2020 16:26:26 10/27/19 21 10/26/2020 CT chest [...] report has been forwar ded to an [employer] n system which will electr onical ly notify approp riate provid ers of potent ially import ant findin gs. Electr onical ly Signed by: Hang garcia on 021 3:04 PM Interp reted by: Hang garcia MD Signed by: Hang garcia MD 1 CC Recipi ents: Jomar Betancur PA - Fax Final result JOMAR BETANCUR [facility] [address] [place], [address], 10/26/2020 19:23:20 10/27/19 21 10/26/2020 CT, chest No observ ation record ed. [facility] [address] [place], [address], 10/26/2020 18:11:57 11/11/19 21 11/10/2020 exerc ise stres s test No observ ation record ed. [facility] (Medical Records) [address] [place], [address], 11/19/2020 11:02:13 11/25/19 21 11/24/2020 exerc ise stres s test No observ ation record ed. [facility] (Medical Records) [address] [place], [address], 11/30/2020 13:52:10 11/26/19 21 11/24/2020 NM, myoca rdial perfu rupesh scan, w/ stres s No observ ation record ed. [facility] (Medical Records) [address] [facility], [place], [address], 11/30/2020 13:52:10 01/17/20 21 12/12/2020 polys omnog kathy * No observ ation record ed. [facility] [address] [facility], [place], [address], 01/22/2021 14:55:12 06/02/19 22 05/31/2021 bone densi ty No observ ation record ed. [facility] [address] [place], [address], 06/04/2021 15:15:01 11/01/19 22 10/30/2021 CT chest [...] Crawley MD 10/31/21 Final result JOMAR BETANCUR [facility] [address] [place] [address], [address], 11/03/2021 22:04:11 11/01/19 22 10/30/2021 CT, chest No observ ation record ed. [facility] (Mammo) [address] [place] [address], [address], 11/03/2021 22:04:11 Result Notes Documentation Provider Name [...] disease. Electronically signed Reading Physician: AL Lane [address] [place] [address], [phone], [facility] 09/23/2020 19:25:05 Problems Name Problem SNOMED Code Status Onset Date Resolution Date Notes Provider Name and Address Organization Details Recorded Time Mixed hyperlip idemia 118553822 Active Not Available [facility] 12:15:30 Essentia l hyperten rupesh 34593132 Active Not Available [facility] 12:15:30 Chest swelling 299280296 Completed 02/18/2013 Not Available [facility] 3 02:04:24 Disorder of carbohyd rate metaboli sm 96544761 Completed 11/04/2020 Removal Reason: end AL Tian [address] [place] [address], [address] , [facility] 16:31:34 On examinat ion - a rash Completed 02/18/2013 Not Available [facility] 3 02:00:50 Benign essentia l hyperten rupesh 1444020 Active Not Available [facility] 12:15:30 Hyperlip idemia 10221405 Active Not Available [facility] 12:15:30 Flatulen ce, eructati on and gas pain 821700234 Completed 02/18/2013 Not Available [facility] 3 02:04:10 Tobacco user 969735154 Completed 11/04/2020 Removal Reason: stopped AL Tian [address] [place] [address], [address] , [facility] 1 16:30:18 Impaired fasting glycemia 224505746 Completed 11/04/2020 Removal Reason: end AL Tian [address] [place] [address], [address] , [facility] 16:30:46 Glucose level outside referenc e range 201682154 Active Not Available [facility] 12:15:30 Malaise and fatigue 819393117 Completed 02/18/2013 Not Available [facility] 3 02:00:21 Diabetes mellitus 01978192 Active Not Available [facility] 12:15:30 Depressi ve disorder 22347024 Active 2018 Not Available [facility] 12:15:30 Bipolar disorder 45051585 Active 2018 Not Available [facility] 12:15:30 Carotid artery stenosis 17293551 Active 2018 Not Available [facility] 12:15:30 Intracra nial meningio dc 158062536 Active 2018 Not Available [facility] 12:15:30 Hyperthy roidism 98159730 Active 2020 Not Available [facility] 12:15:30 Problem Notes None recorded. Procedures Surgical History Date Name Laterality Status Provider Name and Address Organization Details Recorded Time 05/08/19 Medicare Wellness Visit completed Guillaume Abad MA [facility] 05/08/2021 10:25:13 05/08/19 22 Alcohol use screening completed Guillaume Abad MA [facility] 05/08/2021 10:25:13 05/08/19 22 Cardiovascular disease risk reduction counseling completed Guillaume Abad MA [facility] 05/08/2021 10:25:13 03/02/20 20 Medicare Wellness Visit completed Nhi Stanton MA [facility] 03/02/2020 12:02:02 03/02/20 20 COPD Screening completed AL Tian [address] [place] [address], [phone], [facility] 03/02/2020 16:17:24 03/02/20 20 prevention-cardiov ascular risk reduction counseling completed Nhi Stanton MA [facility] 03/02/2020 12:02:02 03/02/20 20 prevention-annual alcohol misuse screening completed Nhi Stanton MA [facility] 03/02/2020 12:02:02 03/02/20 20 Telephonic Visit completed Nhi Stanton MA [facility] 03/02/2020 15:43:39 01/04/20 20 Telephonic Visit completed Erinn Modi MA [facility] 01/04/2020 13:52:44 02/19/20 19 Medicare Wellness Visit completed Izabel Gordon Cande [facility] 02/18/2019 10:08:48 02/19/20 19 POC Urinalysis Testing completed Izabel Gordon Cande [facility] 02/18/2019 11:01:50 02/19/20 19 Hearing Test completed Izabel Gordon Cande [facility] 02/18/2019 11:20:58 10/09/19 19 POC Urinalysis Testing completed Meagan Mayorga [facility] 10/08/2018 11:53:49 01/17/20 18 Medicare Wellness Visit completed Erinn Modi MA [facility] 01/16/2018 14:31:16 01/15/20 17 Smoking cessation counseling completed Erinn Modi MA [facility] 01/14/2017 11:47:46 01/15/20 17 Medicare Wellness Visit completed Erinn Modi MA [facility] 01/14/2017 11:46:37 01/15/20 17 Carbon Monoxide Testing completed Erinn Modi MA [facility] 01/14/2017 11:47:46 09/11/19 17 Smoking cessation counseling completed Maryanne Tanner MA [facility] 09/10/2016 13:24:35 09/11/19 17 Carbon Monoxide Testing completed Maryanne Tanner MA [facility] 09/10/2016 13:24:35 07/31/19 17 Smoking cessation counseling completed Erinn Modi MA [facility] 07/30/2016 16:26:53 01/11/20 16 Smoking cessation counseling completed Erinn Modi [facility] 01/11/2016 15:50:31 01/11/20 16 Carbon Monoxide Testing completed Erinn Modi [facility] 01/11/2016 16:02:44 09/09/19 15 Smoking cessation counseling completed Erinn Modi [facility] 09/08/2014 16:33:45 01/22/20 14 Smoking cessation counseling completed Guillaume Abad [facility] 01/21/2014 16:34:19 07/03/19 14 Smoking cessation counseling completed Nicki Dumont [facility] 07/02/2013 14:53:13 06/27/19 13 Smoking cessation counseling completed AL Tian [address] [place] [address], [address], [facility] 06/27/2012 23:20:37 04/08/19 13 Smoking cessation counseling completed AL Tian [address] [place] [address], [phone], [facility] 04/08/2012 19:17:40 Imaging Results None recorded. Procedure Notes None recorded. Medical Equipment None Reported. Allergies Allergen ID Allergen Name Allergen Category Reaction Reaction Severity Criticality Documentation Date Start Date Code Code System Note Provider Name and Address Organization Details Recorded Time 054233 atorvasta tin medicatio n Not available Not available Not available 06/26/2012 92854 RxNorm muscl e aches AL Tian [address] [place], [place] [address] [place], [address], [facility] 3 16:49:53 394909 wasp venoms environme nt Not available Not available Not available 07/02/[address] [facility] 4 14:53:13 306972 pravastat in medicatio n arthralgi a (joint pain) Not available Not available 05/08/2021 74295 RxNorm AL Tian [address] [facility] [place], [address], [facility] 2 11:04:56 3956 codeine medicatio n Not available Not available Not available 05/27/2008 2670 RxNorm Not Available [facility] 1 06:05:20 Medications Name Sig [...] Available Not Available Vitals Date Recorded Systolic And Diastolic Provider Name and Address Organization Details Last Updated DateTime 05/08/2021 130/80 mm[Hg] AL Tian [address] [place] [address], [phone] 05/08/2021 11:14:28 Date Recorded Body height Body mass index (BMI) Body weight Systolic And Diastolic Systolic And Diastolic Provider Name and Address Organization Details Last Updated DateTime 05/08/2021 165.1 cm 31.7 kg/m2 41423.95 g 140/68 mm[Hg] 129/70 mm[Hg] Guillaume Abad MA [facility] 2 11:36:06 Date Recorded Body height Heart rate Body temperature Body mass index (BMI) Body weight Systolic And Diastolic Provider Name and Address Organization Details Last Updated DateTime 2 165.1 cm 84 /min 97.8 [degF] 32 kg/m2 52493.7 4 g 126/84 mm[Hg] Erinn Modi MA [facility] 2 11:56:56 Date Recorded Systolic And Diastolic Provider Name and Address Organization Details Last Updated DateTime 09/22/2020 130/59 mm[Hg] AL Tian [address] [place] [address], [address], [facility] 09/22/2020 15:27:35 Date Recorded Body height Body mass index (BMI) Body weight Heart rate Systolic And Diastolic Provider Name and Address Organization Details Last Updated DateTime 09/22/2020 167.64 cm 30.5 kg/m2 06820.96 g 84 /min 144/70 mm[Hg] Tiana Lynn [facility] 09/22/2020 14:11:27 Date Recorded Body height Heart rate Body mass index (BMI) Body weight Systolic And Diastolic Provider Name and Address Organization Details Last Updated DateTime 01/04/2020 167.64 cm 80 /min 30.3 kg/m2 96353.37 g 129/80 mm[Hg] Erinn Modi [facility] 01/04/2020 13:47:11 Date Recorded Heart rate Systolic And Diastolic Provider Name and Address Organization Details Last Updated DateTime 03/02/2020 82 /min 130/86 mm[Hg] AL Tian [address] [place] [address], [address], [facility] 03/02/2020 16:12:37 Date Recorded Body height Body mass index (BMI) Body weight Provider Name and Address Organization Details Last Updated DateTime 03/02/2020 167.64 cm 30.3 kg/m2 53389.37 g Nhi Stanton [facility] 03/02/2020 15:46:14 Social History Question Answer [...] not available 05/21/2018 Education 4 Year College [employer] In[employer] n not available 01/03/2015 What Is The Highest Grade Or Level Of School You Have Completed Or The Highest Degree You Have Received? 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 05/08/2021 Do you or [...] Medical History Condition Response Diabetes Type II Macular Degeneration Y Bipolar Disorder Y NEUROLOGIC Y Hyperlipidemia Y Hypertension Y Alcoholism Y Gynecological History Statement/Question Response Menses Monthly N History of Abnormal Pap Y Obstetrics History GPAL:G 0 P 0 0 0 0 Immunizations Vaccine Type Date Status Note Provider Nam e and Address Organization Details Recorded Time Influenza, split virus, trivalent, preservative 1 completed Not Available [facility] 04/18/2019 02:31:14 Influenza, split virus, trivalent, PF 4 completed Not Available [facility] 04/18/2019 02:19:21 Influenza, split virus, quadrivalent, PF 5 completed Not Available [facility] 04/18/2019 02:19:49 pneumococcal polysaccharide PPV23 5 completed Not Available [facility] 04/18/2019 02:26:43 Tdap 5 completed Not Available [facility] 04/18/2019 02:38:05 Influenza, split virus, quadrivalent, PF 6 completed Not Available [facility] 04/18/2019 02:21:03 Influenza, high-dose, trivalent, PF 7 completed Not Available [facility] 04/18/2019 02:22:05 Pneumococcal conjugate PCV 13 8 completed Not Available [facility] 04/18/2019 02:22:34 zoster recombinant 8 completed Not Available [facility] 04/18/2019 02:29:21 Influenza, high-dose, trivalent, PF 8 completed Not Available [facility] 04/18/2019 02:39:36 Influenza, high-dose, trivalent, PF 9 completed Not Available [facility] 04/18/2019 02:39:37 influenza, unspecified formulation 0 [facility] 01/06/2020 16:31:55 COVID-19, mRNA, LNP-S, PF, 30 mcg/0.3 mL dose 1 completed [facility] 09/22/2020 14:09:35 COVID-19, mRNA, LNP-S, PF, 30 mcg/0.3 mL dose 1 completed [facility] 09/22/2020 14:22:24 COVID-19, mRNA, LNP-S, PF, 30 mcg/0.3 mL dose 1 completed [facility] [place] 01/16/2021 09:58:41 Influenza, high-dose, quadrivalent, PF 1 completed [facility] [place] 05/08/2021 10:32:06 Influenza, split virus, trivalent, preservative 0 completed Not Available [facility] 04/18/2019 02:17:50 Past Encounters Encounter ID Performer Location Encounter Start Date Encounter Closed Date Diagnosis/Indication Diagnosis SNOMED-CT Code Diagnosis ICD10 Code Diagnosis Note [id number] AL Tian, [facility], [address] [place] [address] 05/27/2008 14:44:39 05/31/2008 14:47:22 [id number] AL Tian, [facility], [address] [place] [address] 06/24/2008 16:44:33 06/28/2008 10:22:53 [id number] AL Tian, [facility], [address] [place] [address] 12/22/2009 15:33:16 12/26/2009 07:59:01 [id number] AL Tian, [facility], [address] [place] [address] 03/02/2010 16:00:54 03/06/2010 13:45:[id number] [facility] Radiology , [facility] [address] [place] [address] 03/20/2010 15:01:45 03/21/2010 11:20:58 [id number] Arnaldo Ambrocio MD , [facility], [address] [place] [address] 01/26/2011 10:05:07 01/29/2011 13:22:46 [id number] [facility] [address] [place] [address] 01/26/2011 10:35:57 01/30/2011 08:45:03 [id number] Arnaldo Ambrocio MD , [facility], [address] [place] [address] 02/09/2011 15:09:01 02/12/2011 12:03:49 [id number] AL Tian, [facility], [address] [place] [address] 03/13/2011 15:05:21 03/13/2011 17:15:06 [id number] [facility] RADIOLOGY [facility] , [facility] [address] [place] [address] 03/13/2011 16:35:35 03/15/2011 12:04:[id number] [facility] Radiology , [facility] [address] [place] [address] 04/19/2011 15:26:55 04/20/2011 14:58:30 [id number] AL Tian, [facility], [address] [place] [address] 05/15/2011 16:12:06 05/15/2011 17:15:12 [id number] Scar Betancur MD , [facility], [address] [place] [address] 07/03/2011 15:00:30 07/06/2011 08:10:51 [id number] ZHANNA Goodrich, [facility], [address] [place] [address] 08/09/2011 16:03:19 08/13/2011 09:42:10 [id number] [facility] RADIOLOGY [employer] [facility] , [facility] [address] [place] [address] 08/09/2011 17:09:51 08/09/2011 17:22:53 [id number] AL Tian, [facility], [address] [place] [address] 08/21/2011 16:35:18 08/21/2011 17:29:43 [id number] AL Tian, [facility], [address] [place] [address] 04/08/2012 15:09:46 04/08/2012 17:16:15 [id number] AL Tian, [facility], [address] [place] [address] 06/26/2012 16:21:08 06/26/2012 17:21:18 [id number] Scar Betancur MD , [facility], [address] [place] [address] 07/02/2013 14:07:11 07/03/2013 09:00:18 Benign essential hypertension 3321138 Blood pressure at goal . Mixed hyperlipidemia 790945579 Cholestero l is at goal Cholestero l is not at goal Continue to work on diet and exercise as discussed Adult [facility] examination 627739483 see Risk Assessment and Lifestyle Change Counseling section above Tobacco user 982276578 d iscussed that smoking - nicotin and other chemicals adversely effect BH illnesses and do not support efforts of recovery- reiiterate d that pt is in charge of her health decisions- moving to new house- stress mgt reviewed [id number] AL Tian, [facility], [address] [place] [address] 01/21/2014 16:20:29 01/21/2014 17:19:26 Tobacco user 201127207 reviewed adv's of nicotine patch/loze nge along with wellbutrti n to decrease smoking. Hyperlipidemia 26598986 Influenza vaccine needed 3026828559 106 Benign ess ential hypertension 8879366 Blood pressure at goal . Diabetes mellitus 13124523 [id number] AL Tian, [facility], [address] [place] [address] 09/08/2014 16:21:01 09/08/2014 17:29:57 Benign essential hypertension 9314795 Blood pressure at goal Blood pressure NOT at goal. Tobacco user 464574886 r eviewed adv's of nicotine patch/loze nge along with wellbutrti n to decrease smoking. Hyperlipidemia 00690861 [id number] AL Tian, [facility], [address] [place] [address] 01/03/2015 15:18:42 01/04/2015 10:44:00 Adult health examination 303660721 Z00.00 see Risk Assessment and Lifestyle Change Counseling section above Screening for disorder 055229828 Z72.89 Screening for malignant neoplasm of colon 273601320 Z12.11 Tobacco user 604735771 Z 72.0 reviewed adv's of nicotine patch/loze nge along with wellbutrti n to decrease smoking. Influenza vaccine needed 5297315721 106 Z28.3 Administra tion of pneumococcal vaccine 63258999 Z23 Administra tion of diphtheria, pertussis, and tetanus vaccine 631985587 Z23 Diabetes mellitus 787129 09 E13.9 controlled with diet Hyperlipidemia 41614062 E78.5 not at goal- intolerant of all statins, taking natruopath - thinks red rice yeast- high fiber- recheck in 3 -6 months Benign ess ential hypertension 1284261 I10 Blood pressure at goal Injury of mouth 96305112 S09.93XA by hx due to extreme temp change in mouth- hx has ramos in past and resolves- f/u if not resolving in coming month- sooner any worse [id number] Scar Betancur MD , [facility], [address] [place] [address] 01/13/2015 16:35:04 01/18/2015 15:08:13 Gingival disease 41081212 K06.9 buchal infection , [id number] Praful Andrea MD , [facility], [address] [place] [address] 12/14/2015 09:37:51 12/15/2015 14:54:34 Herpes zoster 4264212 B02.9 Left uper breast with one small area of tiny vesicular lesions, and one satellite lesion on her back. Pt not experienci ng pain, but has some itchiness. Recommende d calamine lotion [id number] Scar Betancur MD , [facility], [address] [place] [address] 01/11/2016 15:16:09 01/11/2016 17:02:20 Adult health examination 381500370 Z00.00 see Risk Assessment and Lifestyle Change Counseling section above Cigarette smoker 5646001 7 F17.210 Tobacco user 709977081 Z 72.0 reviewed adv's of nicotine patch/loze nge along with wellbutrti n to decrease smoking. Screening for malignant neoplasm of cervix 166679062 Z12.4 Screening for malignant neoplasm of respiratory tract 504193469 Z12.2 Diabetes mellitus 801941 09 E13.9 controlled with diet Essential hypertension 32603219 I10 increase today, patient reports bp's < 140/90 in the grocery store- increase stressors now with up coming move.= recheck in 3 months when able Hyperlipidemia 86333706 E78.5 not at goal- intolerant of all statins, taking natruopath - thinks red rice yeast- high fiber- recheck in 3 -6 months Active or passive immunization 391358229 Z23 [id number] AL Tian , [facility], [address] [place] [address] 07/30/2016 16:18:45 07/30/2016 17:21:16 Benign essential hypertension 8709409 I10 Blood pressure at goal Mixed hyperlipidemia 267 481499 E78.2 not at goal- had s/e stain- consider red yeast rice Cigarette smoker 9922411 7 F17.210 Tobacco user 104805863 Z 72.0 reviewed adv's of nicotine patch/loze nge along with wellbutrti n to decrease smoking. Screening for malignant neoplasm of lung 391445650 Z12.2 Pain of hip region 13889 002 M25.512 [id number] AL Tian , [facility], [address] [place] [address] 09/10/2016 13:04:28 09/10/2016 13:49:16 Cigarette smoker 29094622 F17.210 plan to d/c smoking prior to surgery Tobacco user 092981439 Z 72.0 will be stopping smoking prior to surgery - iusing stop smoking aides Pre-surger y evaluation 328765384 Z01.818 pt cleared for surgery Cataract 774643311 H26.9 [id number] Scar Betancur MD , 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 Active or passive immunization 027352045 Z23 Imaging of lung abnormal 299770621 R91.8 DUE IN 03/17 Hearing loss 89592418 H9 1.93 audioogy referral [id number] Scar Betancur MD , [facility], [address] [place] [address] 05/27/2017 13:02:35 05/27/2017 15:38:58 Acute upper respiratory infection 30384287 J06.9 Educated patient that URI is a [...] failure to resolve in 2-4 weeks. Cough 58170532 R05 Pneumonia 145094951 J18. 9 Type 2 monik betes mellitus without complication 254801106 E13.9 controlled with diet and exercise [id number] Scar Betancur MD , [facility], [address] [place] [address] 07/15/2017 10:27:21 07/15/2017 11:38:34 Benign essential hypertension 5813610 I10 Blood pressure at goal Mixed hyperlipidemia 267 995992 E78.2 Cholestero l is not at goal Continue to work on diet and exercise as discussed- increase F[employer]ER [employer] PSYLLIUM- intolerant to statins Active or passive immunization 803749279 Z23 Nicotine dependence 5629 4008 F17.200 Allergy to bee venom 424 950284 Z91.030 Pneumonia 099706617 J18. 9 Diabetes mellitus 248932 09 E11.9 well COntrolled with diet and exercise, restart ASA 81 MG [id number] Scar Betancur MD , [facility], [address] [place] [address] 11/15/2017 11:47:27 11/15/2017 13:01:54 Mixed hyperlipidemia 494160367 E78.2 Cholestero l is not at goal TRIAL WITH ATORVASTAT IN 80 TRY QOD FIRST. Intracrani al meningioma 493995299 D32.0 to schedule neuro surgery Carotid ar dayana occlusion 061367306 I65.29 vascular surgeon [facility] [id number] Scar Betancur MD , [facility], [address] [place] [address] 01/16/2018 14:03:24 01/16/2018 16:18:57 Adult health examination 044955824 Z00.00 see Risk Assessment and Lifestyle Change Counseling section above Counseling 175330389 Z71 .9 Depression screening 171 348197 Z13.89 depression screening tool administer ed, entered into emr, scored and discussed, time greater than 7.5 minutes Mixed hyperlipidemia 267 109254 E78.2 Cholestero l is not at goal TRIAL WITH ATORVASTAT IN 80 TRY QOD FIRST. Benign ess ential hypertension 4991211 I10 Blood pressure at goal Postmenopausal state 764 17143 Z78.0 Active or passive immunization 645358881 Z23 Solitary n odule of lung 105205387 R91.1 Dizziness 853300727 R42 [id number] Scar Betancur MD , [facility], [address] [place] [address] 05/21/2018 14:29:33 05/21/2018 15:54:19 Tachycardia 7939313 R00.0 mildly tachyshaki ng, SOB with exertion? anemicrece nt meningioma txhas f/u oncology tomorrowsx ECG overall reassuring check labshydrat ionclose f/u Intracrani al meningioma 162209239 D32.0 Dizziness 888768948 R42 worsening sx over weeksassoc iated with shaking and exertional SOBtachy on exampeak flows okay, VS Other espinoza stableenc hydrationt aram it easylab work up and close f/u [id number] Marti Abreu MD , [facility], [address] [place] [address] 05/28/2018 10:07:19 05/29/2018 11:41:11 Microcytic anemia 059187411 D50.9 she is going to GI nowshe likely needs to go to hospital for labs and txshe is quite sx with her anemiashe is normotensi ve, but low for hershe is only tachy to 104 on ascultatio nshe is paleDr Henson called to inform of sxclose f/u plan/ hospitaliz ation if necessary [id number] AL Tian FP, [facility], [address] [place] [address] 06/04/2018 08:10:39 06/04/2018 10:02:50 Dyspnea 955970949 R06.00 with dizziness- overtx HTN- stop lisinopril , check cbc- f/u 1 wk Anemia 216855636 D64.9 Diabetes mellitus 436584 09 E11.9 well COntrolled with diet and exercise, restart ASA 81 MG [id number] Scar Betancur MD , [facility], [address] [place] [address] 06/18/2018 16:18:46 06/19/2018 08:14:54 Benign essential hypertension 5797327 I10 stopped lisinopril - hypotensiv e- TO ER Diabetes mellitus 332679 09 E11.9 over controlled . Taper metformin down to 2 tablets daily Anemia 544647325 D64.9 Bipolar disorder 6005247 4 F31.9 Gastrointe stinal hemorrhage 35771747 K92.2 heme pos stool, hypotensiv e, tachycardi c- to ER Hypotensive episode 6776 3001 I95.9 [id number] Scar Betancur MD , [facility], [address] [place] [address] 06/30/2018 12:03:52 07/01/2018 09:19:30 Mixed hyperlipidemia 794664964 E78.2 Cholestero l is not at goal TRIAL WITH ATORVASTAT IN 80 TRY QOD FIRST. Carotid ar dayana stenosis 13526429 I65.29 cont plavix Bipolar disorder 8085541 4 F31.9 continue f/u with Dr Cintron Anemia 117842431 D64.9 GI eval in progress [id number] Scar Betancur MD , [facility], [address] [place] [address] 10/08/2018 11:24:54 10/08/2018 15:32:55 Cigarette smoker 11848320 F17.210 Abnormal v aginal bleeding 402709880 N93.9 Fatigue 44730248 R53.83 Screening for malignant neoplasm of cervix 001540107 Z12.4 [id number] Scar Betancur MD , [facility], [address] [place] [address] 10/29/2018 13:53:42 10/29/2018 14:58:48 Pre-surgery evaluation 604918404 Z01.818 pt cleared for surgery Carotid ar dayana stenosis 57460125 I65.29 R carotid artery stenosed 50-79%, LEFT CAROTID < 50%, will hold asa and plavix 5 days prior to surgery. consulted with pts vascular surgeon, Dr Sharpe and agrees with plan Mass of ovary 440320226 R19.09 cleared for surgery Intracrani al meningioma 116508056 D32.0 pmh- Bipolar disorder 4754018 4 F31.9 stable, continue f/u with Dr Ward Diabetes mellitus 395846 09 E11.9 stable- tx with diet and exercise. Hypothyroidism 96790644 E03.9 stable Hyperlipidemia 79144280 E78.5 [id number] Linh Vázquez MD , [facility], [address] [place] [address] 01/21/2019 14:04:56 01/23/2019 09:29:41 Active or passive immunization 912262577 Z23 [id number] AL Tian , [facility], [address] [place] [address] 02/18/2019 09:39:42 02/18/2019 11:40:30 Adult health examination 199257504 Z00.00 see Risk Assessment and Lifestyle Change Counseling section above Counseling 479530792 Z71 .9 Depression screening 171 316654 Z13.89 depression screening tool administer ed, entered into emr, scored and discussed, time greater than 7.5 minutes Mixed hyperlipidemia 267 470963 E78.2 Ex-smoker 1951004 Z87.89 1 Screening mammography 24 677601 Z12.31 Fatigue 70006572 R53.83 Hearing loss 93642952 H9 1.93 reviewed test- showing b/l hearing loss- prefers to not f/u with audiologis t at this time Salo hematuria 20713067 5 R31.0 suspecting /hx- UA negative today- f/u ctologies. - ATHLETIC DIRECTOR f/u planned [id number] Scar Betancur MD , [facility], [address] [place] [address] 05/28/2019 15:16:46 05/28/2019 16:45:07 Diabetes mellitus 51240690 E11.9 may decrease metfomin 1tab/day Essential hypertension 79347413 I10 At goal, continue current medication s. Mixed hyperlipidemia 267 087357 E78.2 Increase pravastati n to 20mg BID, Recheck lipids in 1 month Postmenopausal state 764 33380 Z78.0 declined despite knowing risk of contractin g disease and potential from disease, would like to discuss at next visit [id number] Scar Betancur MD , [facility], [address] [place] [address] 03/02/2020 15:28:56 03/02/2020 16:22:35 Bipolar disorder 24551141 F31.9 stable, continue f/u with Dr Ward Adult [facility] examination 086521116 Z00.00 see Risk Assessment and Lifestyle Change Counseling section above Counseling 608627779 Z71 .9 including cardiovasc ular risk reduction counseling Depression screening 171 042741 Z13.89 depression screening tool administer ed, entered into emr, scored and discussed, time greater than 7.5 minutes Screening for alcohol abuse 925393112 Z13.39 Essential hypertension 80182611 I10 At goal, continue current medication s. Hyperlipidemia 09913094 E78.5 Hypothyroidism 19041452 E03.9 stable Eruption 911219610 R21 skin lesion- unchanged since summer- derm referral [id number] AL Tian, [facility], [address] [place] [address] 11/18/2019 13:48:59 11/19/2019 12:52:31 Essential hypertension 40589703 I10 At goal, continue current medication s. Mixed hyperlipidemia 267 450652 E78.2 continue Increase pravastati n to 20mg BID, - condider increase to 40 mg- has had muscle aches with statin use in past Dizziness 085541119 R42 check labs, keep diary- f/u with results in coming 1-2 wks Intracrani al meningioma 745348124 D32.0 continue f/u withoncolo gist [id number] Scar Betancur MD , [facility], [address] [place] [address] 01/04/2020 13:42:55 01/07/2020 13:31:01 Salo hematuria 105028050 R31.0 suspecting /hx- UA negative today-cyto logies neg.- urology f/u for hematuria Disorder o f thyroid gland 89691640 E07.9 [id number] Scar Betancur MD , [facility], [address] [place] [address] 09/22/2020 13:47:01 10/10/2020 11:36:51 Essential hypertension 35481369 I10 At goal, continue current medication s. Hyperlipidemia 37285359 E78.5 LDL- 140's with vascular disease- goal is 70, intolerant to atorvastat in- will increase to 40 mg pravastati n. Peripheral vascular disease 866373071 I73.9 Carotid ar dayana stenosis 17308196 I65.29 R carotid artery stenosed 50-79%, LEFT CAROTID < 50%, Dyspnea 910443270 R06.00 chest xray , ekg negative- further eval- stress test- tcx 2 to reach pt- PFT/pulmon jermain to do with smoking hx, left message to make f/u appt/call back . Eruption 491559317 R21 skin lesion- unchanged since summer- derm referral [id number] Scar Betancur MD , [facility], [address] [place] [address] 05/08/2021 10:08:25 05/08/2021 11:37:52 Adult health examination 696725384 Z00.00 see Risk Assessment and Lifestyle Change Counseling section above Counseling 173511092 Z71 .9 including cardiovasc ular risk reduction counseling Depression screening 171 992264 Z13.31 depression screening tool administer ed, entered into emr, scored and discussed, time greater than 7.5 minutes Screening for alcohol abuse 995234565 Z13.39 Hyperthyroidism 40867607 E05.90 Essential hypertension 76469222 I10 not At goal, continue current medication s. Mixed hyperlipidemia 267 928252 E78.2 Cholestero l is at goalContin ue to work on diet and exercise as discussed Screening mammography 24 684521 Z12.31 Screening for osteoporosis 910495635 Z13.820 Candidiasis of vagina 72 916068 B37.3 Multiple n odules of lung 351045017 R91.8 Diabetes mellitus 062721 09 E11.9 cont decrease metfomin 1tab/day- well cotnrolled with nutrition and exercise Bipolar disorder 5851874 4 F31.9 stable, continue f/u with Dr Ward Peripheral vascular disease 231850848 I73.9 carotid vascular disease- LDL- decreasing , asa and clopidogre l daily [id number] Scar Betancur MD , [facility], [address] [place] [address] 06/21/2021 11:45:12 07/11/2021 13:10:57 Mixed hyperlipidemia 056488280 E78.2 Aracely siddiqi is at [facility] to work on diet and exercise as discussed Atrophic vaginitis 99967 000 N95.2 Candidiasis of skin 4988 3006 [...] 2 [place] (HMO) [id number] Ritu Ramírez [id number] Ritu Bharat 09/16/2020 1 [place]) [id number] Ritu Ramírez [id number] Ritu Bharat 09/16/2020 1 [place] [id number] Ritu T Bharat [id number] Ritu Bharat 09/16/2020 1 [place]) [id number] Ritu Ramírez [id number] Ritu Bharat 09/16/2020 1 [place] [id number] Ritu Ramírez [id number] Ritu Bharat 09/16/2020 1 [place] [id number] Ritu A Ramírez [id number] Ritu Bharat 09/16/2020 1 [place] [id number] Ritu A Ramírez [id number] Ritu Nicholson 09/16/2020 [employer] Ritu Elmore [id number] Ritu Nicholson 07/10/2021 1 [facility] (MEDICARE REPLACEMENT/ ADVANTAGE - PPO) [id number] Ritu Nicholson [id number] Ritu Nicholson 09/16/2020 2 [place]IC[place] B[place]: [facility] Ritu Nicholson [id number] Ritu Nicholson Notes Date Note Type Note [...] Time for intake: 8 minutes. AL Tian [address] [place] [address], [phone], [facility] 01/05/2020 20:20:32 0 text/html Physical Exam/FemaleReported [...] room and availability of urgent care at [facility] HyperlipidemiaReported bypatient.Duration:chronic Control:poorly controlled Barriers [...] snoring;Chest pain(assoc with anxiety- no assoc with exercise)a/g-Smoking CessationReported bypatient.Readiness to quit smokingPatient is not [...] long Time for intake: minutes. AL Tian [address] [place] [address], [phone], [facility] 03/02/2020 16:22:33 1 text/html VMG DiabetesReported [...] PMH > 30 pack yr- AL Tian [address] [place] [address], [phone], [facility] 11/02/2020 11:08:29 2 text/html Physical Exam/FemaleReported [...] room and availability of urgent care at [facility] HyperlipidemiaReported bypatient.Duration:chronic Control:poorly controlled Barriers to CareAllergy/intolerance to statinsOK[facility] HypertensionReported bypatient.Context:No ischemic heart disease; No kidney disease; No history of CVA; No congestive heart failure; No history of transient ischemic attacks; No peripheral vascular disease; No history of diabetes Compliance:Compliant with medications; Compliant with diet;Noncompliant with exercise(taking yoga) Associated Symptoms:No shortness of breath; No edema; No fatigue; No palpitations; No decline in exercise capacity; No snoring;Chest pain(assoc with anxiety- no assoc with exercise)a/[facility]-Smoking CessationReported bypatient.Readiness to quit smokingPatient is not [...] SOB when walk for long AL Tian [address] [place], [address], [facility] 05/14/2021 19:56:41 2 text/html Pt reports rash all over body ongoing since summer time- started under breasts. Fluconazole has not helped. Rash is painful and itching and worsening over time- rash on axilla, labia, under breasts. . no fever or nausea. AL Tian [address] [place], [address], [facility] 06/30/2021 20:25:49 OBGyn Episode No OBEpisode recorded.
--- NOTE | 2024-10-07 15:44 | MHC.OFFVIS ---
Vital Signs 10/07/24 15:47 Height 5 ft 6 in Intake Visit Reasons: 6m Allergies bee pollen (BEE STINGS) Allergy (Severe, Verified 10/07/24 15:51) ANAPHYLAXIS Medication List - Last Reconciled 10/07/24 by Sarah Lyman CNP armodafinil 150 mg PO QAM ascorbic acid (vitamin C) 500 mg PO DAILY aspirin 81 mg PO DAILY cholecalciferol (vitamin D3) 50 mcg PO DAILY clotrimazole-betamethasone 1-0.05 % 1 appl topical BID 10 days coenzyme Q10 75 mg PO DAILY estradiol 0.01%(0.1mg/gram) 1 g vaginal 2XW ezetimibe 10 mg PO DAILY ferrous fumarate 325 mg PO DAILY FreeStyle Lite Meter (blood-glucose meter) As directed NS FreeStyle Lite Strips (blood sugar diagnostic) check fasting blood sugar once a day NS lamotrigine 150 mg PO DAILY 90 days lancets (FreeStyle Lancets) As directed once a day magnesium 250 mg PO DAILY metformin ER 500 mg PO DAILY mm-3-eng-epa-fish oil-vit D3 120 mg-180 mg -1,000 unit caps PO propranolol ER 60 mg PO DAILY rosuvastatin 5 mg PO 3XW 3 months venlafaxine ER 75 mg PO DAILY vit C,D-Ij-szscb-lutein-zeaxan 250-90-40-1 mg (PreserVision AREDS-2) 1 tab PO BID HPI Comments Details: 74 y/o RH woman with bipolar do, a 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 She was having more shaking in hands over the last few months. It was getting more difficult for her draw which she enjoyed, and drawings were not as precise. No difficulty eating, drinking, or swallowing. No falls. [facility] Medical History (Updated 10/07/24 @ 15:50 by Sarah Lyman CNP) Ovarian tumor Anemia MCI (mild cognitive impairment) Carpal tunnel syndrome Hip pain, bilateral Pruritic intertrigo Chronic left hip pain Benign essential tremor Macular degeneration Vulvar rash Osteopenia Postmenopausal Personal history of nicotine dependence Stenosis of right carotid artery greater than 50% Post traumatic stress disorder (PTSD) Bipolar II disorder in full remission Essential hypertension Mixed hyperlipidemia Type 2 diabetes mellitus without complication, with no history of insulin use Acquired hypothyroidism Insomnia Meningioma (~2019) Emphysema of lung Pulmonary nodules MACIEJ (obstructive sleep apnea) Surgical History Hx of endoscopy History of partial thyroidectomy History of hysterectomy History of appendectomy History of tonsillectomy History of colonoscopy Family History Father Substance use disorder Lung cancer Brother Mental health disorder Maternal Grandmother Mental health disorder Paternal Aunt No problems noted. Mother Mental health disorder Social History Household Members: [facility] Tobacco Use Status: Former Tobacco user Tobacco use type: Cigarette Years Smoked: (onset 15yo, 1ppd x 51yrs, 40+PYH - quit 2017) e-Cigarette/Vaping Use: Never Used service: No Current occupational status: retired Cognitive needs: No Hearing needs: No Vision needs: Yes Female Reproductive History Menstrual Age of Menarche: 12 Review of Systems Const Denies chills, Denies daytime sleepiness, Reports difficulty sleeping, Denies fatigue, Denies fever(s), Denies frequent falls, Denies headache(s), Denies increased appetite, Denies poor appetite, Denies snoring, Denies weakness, Denies weight gain and Denies weight loss Eyes Denies loss of vision ENT Denies vertigo, Denies dizziness and Denies headache(s) Card Denies chest pain at rest, Denies chest pain with activity, Denies leg edema and Denies palpitations Resp Denies snoring GI Denies constipation, Denies heartburn, Denies diarrhea and Denies nausea Denies urinary frequency, Denies urinary incontinence and Denies urinary urgency Musc Denies abnormal gait, Denies numbness and Denies tingling Skin/Breast Denies dry skin and Denies rash Neuro Denies abnormal gait, Denies vertigo, Denies dizziness, Denies frequent falls, Denies headache(s), Denies lack of coordination, Denies loss of vision, Reports memory loss, Denies numbness, Denies restless legs, Denies seizure-like activity, Denies tingling, Denies paresthesias, Reports tremor(s) and Denies weakness Psych Denies anxiety, Denies depression, Denies auditory hallucinations, Reports memory loss, Denies visual hallucinations and Denies suicidal ideation Endo Denies fatigue and Denies palpitations Physical Exam Const Other: General Appearance:? normal, in no acute distress. Skin:? no rashes, no significant birthmarks. Heart:? S1, S2 normal, no murmurs. Lungs:? clear anteriorly and posteriorly. Extremities:? no edema. Psych:? alert, oriented, cognitive function intact, cooperative with exam. Neuro Other: Mental Status:?Normal attention, orientation, memory and affect.? Cranial Nerves:?Pupils are equal, round and reactive to light. External occular muscles are intact. Visual raines are full. Face is symmetrical. Facial sensations are normal. Tongue is midline. Palate elevates symmetrically. Shoulder shrugging is normal. Hearing to bedside conversation is normal. Sensory Exam:?....? Coordination:?No ataxia,?no titubation.? Gait Exam: Within normal limits. Cerebellar Signs:?Eeyhaj-hg-jpzg and kdma-gp-naqs is normal.? Extrapyramidal System:?No tremor, rigidity with normal facial expressions.? Pronator Drift:?Not present.? Involuntary Movements:?Moderate bilateral hand tremor. Speech:?Mild speech tremor. Results Reviewed Results Reviewed: MRI brain at [facility] in July 2023: No significant change (reported) MRI brain WO at [facility] in July 2021: R peripontine mass MRI brain WO at [facility] in July 2020: R peripontine lesion with mild mass effect, no change from 2020 scan MRI brain at [facility] in July 2019: R peripontine mass MRI brain at [facility] in September 2017: large peripontine mass NCV/EMG UE 01/20/19 THIS IS AN UNREMARKABLE STUDY Assessment & Plan Assessment & Plan (1) Benign essential tremor: Code(s): G25.0 - Essential tremor Category: Medical Plan: Increase propranolol ER 80mg 1 capsule daily. (2) Meningioma: Onset Date: ~2018 Comment: (onset 10/08/2018 - s/p brain radiation), ff'd by Dr Satish Portillo at [facility], and sees Dr Poon Code(s): D32.9 - Benign neoplasm of meninges, unspecified Category: Medical Plan: . (3) MCI (mild cognitive impairment): Code(s): G31.84 - Mild cognitive impairment of uncertain or unknown etiology Category: Medical Plan: Stay physically and socially active. Plan . Medications: New propranolol ER (Inderal LA) 80 mg PO DAILY 90 caps 0RF 90 days Discontinued propranolol ER Discontinued Reason: Doctor's Order 60 mg PO DAILY 90 caps 1RF Coding Level of Care Code Est Pt Level 3 (08887) Diagnoses Benign essential tremor G25.0 Meningioma D32.9 MCI (mild cognitive impairment) G31.84
== END 2024-10-07 16:01 | disposition home or self-care (01) ==
LOC: HO.HSM 14:44
PROVIDERS: PCP Internal Medicine; Referring Provider Psychiatry & Neurology Psychiatry; Visit Provider Registered Nurse
DX: G25.0 Essential tremor (principal); D32.9 Benign neoplasm of meninges, unspecified; G31.84 Mild cognitive impairment of uncertain or unknown etiology
CPT/HCPCS: 99213

== ENCOUNTER → 2024-10-07 14:43 | Outpatient (BNVA) | payer MEDICARE, SELFPAY | PROVIDERS: PCP Internal Medicine; Referring Provider Psychiatry & Neurology Psychiatry; Visit Provider Registered Nurse | DX: G25.0 Essential tremor (principal); D32.9 Benign neoplasm of meninges, unspecified; G31.84 Mild cognitive impairment of uncertain or unknown etiology; Z87.891 Personal history of nicotine dependence | CPT/HCPCS: 99212 ==

== ENCOUNTER 2024-10-29 13:37 | Outpatient (REF) | payer MEDICARE, SELFPAY ==
--- OUTSIDE RECORDS SUMMARY | 2024-10-29 13:51 | XMS_ITS | Clinical Summary ---
Author Organization [facility] Address [address] [place] [id number] Phone Care Team Providers Care Rn Cvor Name Role Phone Darlene Negro MD Primary Care Provider Allergies Active Allergy Reactions Criticality Noted Date Comments Bee Pollen 05/28/2018 Codeine 05/28/2018 Medications lamoTRIgine (LAMICTAL XR) 200 mg TR24 Take 25 mg by mouth daily. Active ezetimibe (ZETIA) 10 mg tablet 10 mg. Active metFORMIN (FORTAMET) 1000 MG (OSM) 24 hr tablet Take 1,000 mg by mouth daily with breakfast. Active venlafaxine (EFFEXOR-XR) 37.5 MG 24 hr capsule 37.5 mg. Active clopidogrel (PLAVIX) 75 mg tablet Take 75 mg by mouth daily. Active omega 7-wjw-xxb-fish oil 1,000 mg (120 mg-180 mg) Cap Take 1 capsule by mouth daily. Active ferrous sulfate 324 mg (65 mg pala iron) TbEC Take 324 mg by mouth daily with breakfast. Active Medication-Free TextIndications :FerroFood Indications: FerroFood Active Medication-Free TextIndications :CoQH Select Indications: CoQH Select Active Medication-Free TextIndications :Buffered C Select Indications: Buffered C Select Active Medication-Free TextIndications :Arthro Select Indications: Arthro Select Active calcium-vitamin D3-vitamin K (VIACTIV) 1,250 mg (500 mg elemental)-500 unit-40 mcg Chew Take 1 tablet by mouth daily. Active pravastatin (PRAVACHOL) 20 MG tablet Take 20 mg by mouth daily. Active aspirin 81 MG EC tablet Take 81 mg by mouth daily. Active Active Problems Problem Noted Date Diagnosed Date Postmenopausal bleeding 10/09/2018 H/O meningioma of the brain 10/09/2018 Overview (10/09/2018): Radiation Jan 2018-04/2018 Diabetes mellitus, type 2 10/09/2018 Iron deficiency anemia secon archana to inadequate dietary iron intake 10/09/2018 Overview (10/09/2018): Unexplained anemia in 2017-, w/u completed On iron pills currently Asymptomatic carotid artery narrowing without infarction, right 10/09/2018 Overview (10/09/2018): Discovered during eval for meningioma - placed on plavix and aspirin Immunizations Immunization Administration Dates Next Due Influenza High-Dose Trivalent Preservative Free IM 01/16/2018,01/14/2017 Influenza Quadrivalent Preservative Free IM 12/30 Pneumococcal conjugate PCV13 07/15/2017 Zoster recombinant 07/15/2017 Family History Medical History Relation Comments Diabetes Brother Lung cancer Father Hyperlipidemia Mother Relation Status Comments Brother Alive Father Mother Social History Tobacco Use Types Packs/Day Years Used Date Smoking Tobacco: Former Smokeless Tobacco: Former Chew Alcohol Use Standard Drinks/Week Comments Never 0 (1 standard drink = 0.6 oz pur e alcohol) Education Answer Date Recorded Are you interested in more education? Not on paul e 07/27/2022 Are you concerned about learning? Not on file 07/27/2022 No 07/27/2022 No 07/27/2022 Digital Access Answer Date Recorded No 08/25/2022 No 08/25/2022 No 08/25/2022 Reliable internet access at home? Not on file 08/25/2022 Device with a working camera? Not on file Comments No Sex and Gender Information Value Date Recorded Sex Assigned at Female 05/28/2018 12:11 PM EST Legal Sex Female 9:59 PM EDT Gender Identity Female 05/28/2018 12:11 PM EST Sexual Orientation Straight 05/28/2018 12 :11 PM EST Occupation Industry Job Start Date Job End Date Retired Not on file Not on file Not on file Last Filed Vital Signs Vital Sign Reading Time Taken Comments Blood Pressure 118/70 10/09/2018 9:23 AM EDT Pulse 74 07/17/2018 11:32 AM EDT Temperature 36.4 C (97.5 F) 07/17/2018 12:33 PM EDT Respiratory Rate 18 07/17/2018 12:46 PM EDT Oxygen Saturation 96% 07/17/2018 12:46 PM EDT Inhaled Oxygen Concentration - - Weight 78.5 kg (173 lb) 10/09/2018 9:23 AM EDT Height 166.4 cm (5' 5.5 ) 10/09/2018 9:23 AM EDT Body Mass Index 28.35 10/09/2018 9:23 AM EDT Plan of Treatment Health Maintenance Due Date Last Done Comments Adult Td,Tdap Booster 1950 BLOOD PRESSURE 1950 HEMOGLOBIN A1C 1950 DEPRESSION SCREENING 1964 SMOKING Hx and SMOKELESS TOBACCO SCREENING 12/31/1964 HEPATITIS C SCREENING 12/31/1969 LIPID PANEL 12/31/1969 MAMMOGRAM 1992 COLOGUARD 12/31/1996 FIT TEST 12/31/1996 FOBT 12/31/1996 SIGMOIDOSCOPY 12/31/1996 VIRTUAL COLONOSCOPY 12/31/1996 OSTEOPOROSIS SCREENING INITI AL (ONE-TIME) 12/31/2016 PNEUMOCOCCAL VACCINES (50+ years) (2 of 2 - PPSV23) 09/09/2017 07/15/2017 ZOSTER VACCINES (2 of 2) 09/09/2017 07/15/2017 DIABETIC EYE EXAM 10/09/2018 URINE MICROALBUMIN/CREATININ E RATIO 10/09/2018 CREATININE LEVEL 09/02/2019 09/01/2018, 06/18/2018, 05/28/2018 COVID-19 VACCINE (3 - 2023-2 5 season) 2023 06/18/2020, 05/28/2020 RSV VACCINE (1 - 1-dose 75+ series) 12/31/2026 COLONOSCOPY 07/17/2028 07/17/2018 COLORECTAL CANCER SCREENING 07/17/2028 HEPATITIS A VACCINES Aged Out No long er eligible based on patient's age to complete this topic HIB VACCINES Aged Out No longer eligi ble based on patient's age to complete this topic MENINGOCOCCAL VACCINES (ACWY) Aged Out No longer eligible based on patient's age to complete this topic MENINGOCOCCAL VACCINES (B) Aged Out N o longer eligible based on patient's age to complete this topic Medical Devices Not on file Procedures Procedure Name Priority Date/Time Associated Diagnosis Comments BASIC METABOLIC PANEL Routine 09/01/2018 3:12 PM EDT Iron deficiency anemia secondary to blood loss (chronic) ENDOSCOPY, COLON 07/17/2018 11:5 6 AM EDT from Last 3 Months or Most Recently Relevant to Health Maintenance Results * (ABNORMAL) Basic metabolic panel (09/01/2018 3:12 PM EDT) SODIUM 144 133 - 146 mmol/L [facility] CHLORIDE 107 96 - 108 mmol/L [facility] POTASSIUM 4.6 3.3 - 5.1 mmol/L [facility] CO2 23 21 - 35 mmol/L [facility] BUN 13 6 - 19 mg/dL [facility] CREATININE 0.70 0.5 - 1.5 mg/dL [facility] GLUCOSE 120(H) 70 - 99 mg/dL [facility] CALCIUM 9.4 8.4 - 10.3 mg/dL [facility] EGFR 90 >59 mL/min/1.7 3m2 [facility] Comment:If patient is black, multiply result by 1.159. Estimated glomerular filtration rate calculated using the CKD-EPI equation. ANION GAP 19 10 - 20 mmol/L [facility] Blood 09/01/2018 3:12 PM EDT 09/01/2018 3:17 PM EDT us Alannah MELENDEZ LAB BLOOD ORDERABLES Final Result [facility] [address] [place] [address] * ENDOSCOPY, COLON (07/17/2018 11:56 AM EDT) Narrative Transcriptions Severiano Gary MD - 07/17/2018 11:56 AM EDT Patient Name: Ritu Nicholson Attending MD:: SEVERIANO GARY MD, Procedure Date: 07/17/2018 11:56 AM Date of : 1950 Age: 68 Admit Type: Outpatient Gender: Female Room: [facility] 05 Referring MD: JOMAR PELLETIER MD Exam Type: Colonoscopy Indications: Unexplained iron deficiency anemia Medications: Monitored Anesthesia Care Procedure: Informed consent was obtained from the patient after discussion of the indications, limitations,alternatives, benefits, and risks of the procedure. Risksspecifically discussed include but are not limited to medication reactions, missed lesions, bleeding, perforation, orthe need for emergent surgery. Throughout the procedure, the patient's blood pressure, pulse, end-tidal CO2, and oxygen saturations were monitored continuously. The Olympus pediatric variable colonoscope [id number]-[id number] was introduced through the anus and advanced to thececum, identified by appendiceal orifice and ileocecal valve.The colonoscopy was performed without difficulty. Thepatient tolerated the procedure well. The quality of the bowel preparation was excellent. The quality of the bowel preparation was evaluated using the BBPS ([place] Bowel Preparation Scale) with scores of: Right Colon = 3, Transverse Colon = 3 and Left Colon = 3 (entire mucosa seen well with no residual staining, small fragments of stool or opaque liquid). The total BBPS score equals9. Complications: No immediate complications. Estimated blood loss:Minimal. Findings: The perianal and digital rectal examinations werenormal. A 3 mm polyp was found in the transverse colon. Thepolyp was sessile. The polyp was removed with a cold biopsy forceps. Resection and retrieval were complete. Internal hemorrhoids were found during retroflexion.The hemorrhoids were mild. The exam was otherwise normal throughout the examined colon. Impression: - One 3 mm polyp in the transverse colon, removed witha cold biopsy forceps. Resected and retrieved. - Internal hemorrhoids. Recommendation: - Discharge patient to home. - Repeat colonoscopy in 5 years for surveillance. - To visualize the small bowel, perform video capsule endoscopy at appointment to be scheduled. - Resume Plavix (clopidogrel) at prior dose today. SEVERIANO GARY MD, 07/17/2018 12:30:46 PM This report has been signed electronically. Number of Addenda: 0 Note Initiated On: 07/17/2018 11:56 AM Procedure Code(s): --- Professional --- 60327, Colonoscopy, flexible; with biopsy, single or multiple --- Technical --- 02978, Colonoscopy, flexible; with biopsy, single or multiple Diagnosis Code(s): --- Professional --- D12.3, Benign neoplasm of transverse colon (hepatic flexure orsplenic flexure) K64.8, Other hemorrhoids D50.9, Iron deficiency anemia, unspecified --- Technical --- D12.3, Benign neoplasm of transverse colon (hepatic flexure orsplenic flexure) K64.8, Other hemorrhoids D50.9, Iron deficiency anemia, unspecified CPT copyright 2016 [employer]. All rights reserved. The codes documented in this report are preliminary and upon junior net developer reviewmay be revised to meet current compliance requirements. [address] [place] [address] Jomar MELENDEZ GI PROCEDURE ORDERABLES Fi nal Result from Last 3 Months or Most Recently Relevant to Health Maintenance Insurance [facility] MEDICARE REPLACEMENT MEDICARE PART A & B MEDICARE REPLACEMENT MEDICARE PART A & B [facility] MEDICARE REPLACEMENT MEDICARE PART A & B [facility] MEDICARE REPLACEMENT MEDICARE PART A & [place] [address] [place] [address] MEDICARE REPLACEMENT MEDICARE PART A & B [facility] MEDICARE REPLACEMENT MEDICARE PART A & [place] [address] [place] [address] MEDICARE REPLACEMENT MEDICARE PART A & B [facility] MEDICARE REPLACEMENT MEDICARE PART A & [place] [id number] [facility] MEDICARE REPLACEMENT MEDICARE PART A & B Care Teams Rn Cvor Relationship Specialty Start Date End Date Darlene Negro MD 1959 [facility] [place] [address] PCP - General Internal Medicine 10/30/21 Additional Source Comments The information contained in this document represents components of the legal health record. It is not the complete legal health record.[facility]
[2024-10-29 16:00] LABS: Hemoglobin A1C 158.6640 umol/L; Total Hemoglobin (HGBA1C) 3771.1181 umol/L
[2024-10-29 16:13] LABS: Alanine Aminotransferase 40 U/L (0-31); Anion Gap 14 (12-20); Aspartate Amino Transferase 29 U/L (5-31); Blood Urea Nitrogen 11 mg/dL (9-16); Calcium 9.4 mg/dL (8.4-10.2); Carbon Dioxide 27 mmol/L (22-29); Chloride 107 mmol/L (96-108); Cholesterol 259 mg/dL (<200); Estimated Glomerular Filt Rate > 60; HDL Cholesterol 63 mg/dL (>40); Potassium 4.6 mmol/L (3.3-5.1); Sodium 143 mmol/L (135-145); Triglycerides 143 mg/dL (<150)
[2024-10-29 16:24] LABS: Free T4 (Free Thyroxine) 0.72 ng/dL (0.71-1.85); Thyroid Stimulating Hormone 1.96 uIU/mL (0.32-4.0)
== END 2024-10-29 13:38 | disposition home or self-care (01) ==
LOC: HO.HMGCLDS 13:37
PROVIDERS: PCP Internal Medicine; Visit Provider Internal Medicine
DX: G25.0 Essential tremor (principal); E78.2 Mixed hyperlipidemia; F41.1 Generalized anxiety disorder; I10 Essential (primary) hypertension; E11.9 Type 2 diabetes mellitus without complications; L30.4 Erythema intertrigo; M85.852 Other specified disorders of bone density and structure, left thigh; L98.9 Disorder of the skin and subcutaneous tissue, unspecified; E03.9 Hypothyroidism, unspecified; H35.30 Unspecified macular degeneration
CPT/HCPCS: 36415; 80048; 80061; 82306; 82550; 83036; 84439; 84443; 84450; 84460

== ENCOUNTER 2024-11-05 13:30 | Outpatient (AMB) | payer MEDICARE, SELFPAY ==
--- OUTSIDE RECORDS SUMMARY | 2024-11-05 13:32 | XMS_ITS | Clinical Summary ---
Author Organization [facility] Address [address] [place] [phone] Phone Care Team Providers Care Catalogue Clerk Name Role Phone Darlene Negro MD Primary [...] 75 mg by mouth daily. Active omega 5-kyg-hox-fish oil 1,000 mg (120 mg-180 mg) Cap Take 1 capsule by mouth daily. Active ferrous sulfate 324 mg (65 mg [place]-apache iron) TbEC Take 324 mg by mouth [...] EDT) SODIUM 144 133 - 146 mmol/L [facility] CHLORIDE 107 96 - 108 mmol/L [facility] POTASSIUM 4.6 3.3 - 5.1 mmol/L [facility] CO2 23 21 - 35 mmol/L [facility] BUN 13 6 - 19 mg/dL [facility] CREATININE 0.70 0.5 - 1.5 mg/dL [facility] GLUCOSE 120(H) 70 - 99 mg/dL [facility] CALCIUM 9.4 8.4 - 10.3 mg/dL [facility] EGFR 90 >59 mL/min/1.7 3m2 [facility] Comment:If patient is black, multiply result by 1.159. Estimated glomerular filtration rate calculated using the CKD-EPI equation. ANION GAP 19 10 - 20 mmol/L [facility] Blood 09/01/2018 3:12 PM EDT 09/01/2018 3:17 PM EDT us Alannah MELENDEZ LAB BLOOD ORDERABLES Final Result [facility] [address] [place] [address] * ENDOSCOPY, COLON (07/17/2018 11:56 AM EDT) Narrative Transcriptions Severiano Gary MD - 07/17/2018 11:56 AM EDT Patient Name: Ritu Nicholson Attending MD:: SEVERIANO GARY MD, Procedure Date: 07/17/2018 11:56 AM Date of : 1950 Age: 68 Admit Type: Outpatient Gender: Female Room: [facility] 05 Referring MD: JOMAR PELLETIER MD [...] bowel preparation was evaluated using the BBPS ([place] Bowel Preparation Scale) with scores of: Right [...] 11:56 AM Procedure Code(s): --- Professional --- 30945, Colonoscopy, flexible; with biopsy, single or multiple --- Technical --- 47609, Colonoscopy, flexible; with biopsy, single or multiple Diagnosis Code(s): --- Professional --- D12.3, Benign neoplasm of transverse colon (hepatic flexure orsplenic flexure) K64.8, Other hemorrhoids D50.9, Iron deficiency anemia, unspecified --- Technical --- D12.3, Benign neoplasm of transverse colon (hepatic flexure orsplenic flexure) K64.8, Other hemorrhoids D50.9, Iron deficiency anemia, unspecified CPT copyright 2016 [employer]. All rights reserved. The codes documented in this report are preliminary and upon software development specialist reviewmay be revised to meet current compliance requirements. [address] [place] [address] Jomar MELENDEZ GI PROCEDURE ORDERABLES Fi nal Result from Last 3 Months or Most Recently Relevant to Health Maintenance Insurance [facility] MEDICARE REPLACEMENT MEDICARE PART A & B MEDICARE REPLACEMENT MEDICARE PART A & B [facility] MEDICARE REPLACEMENT MEDICARE PART A & B [facility] MEDICARE REPLACEMENT MEDICARE PART A & [place] [address] [place] [address] MEDICARE REPLACEMENT MEDICARE PART A & B [facility] MEDICARE REPLACEMENT MEDICARE PART A & [place] [address] MEDICARE REPLACEMENT MEDICARE PART A & B [facility] MEDICARE REPLACEMENT MEDICARE PART A [place] [address] [facility] MEDICARE REPLACEMENT MEDICARE PART A & B Care Teams Catalogue Clerk Relationship Specialty Start Date End Date Darlene Negro MD 1959 [facility] [place] [address] PCP - General Internal Medicine 10/30/21 Additional Source Comments The information contained in this document represents components of the legal health record. It is not the complete legal health record.[facility]
[2024-11-05 14:03] VITALS: BP 126/84; PULSE 80; RESP 15; TEMP 36.8; O2SAT 98; BMI 31.3
--- NOTE | 2024-11-05 14:03 | A.OFFPC_ITS ---
Vital Signs 11/05/24 14:03 Height 5 ft 6 in Weight 194 lb BMI 31.3 BP 126/84 Blood Pressure Location Rt brachial Position Sitting Respiration 15 Pulse 80 Pulse Source Pulse Oximeter Temp 98.2 F Temp Source Oral Pulse Oximetry (%) 98 Oxygen Delivery Method Room Air Intake Visit Reasons: 3 months F/up lipids, diabetes mellitus Intake Note: Pt is here today for her 3mo. lipids and DM Allergies bee pollen (BEE STINGS) Allergy (Severe, Verified 11/05/24 14:29) ANAPHYLAXIS Medication List - Last Reconciled 11/05/24 by Darlene Negro MD armodafinil 150 mg PO QAM ascorbic acid (vitamin C) 500 mg PO DAILY aspirin 81 mg PO DAILY cholecalciferol (vitamin D3) 50 mcg PO DAILY clotrimazole-betamethasone 1-0.05 % 1 appl topical BID 10 days coenzyme Q10 75 mg PO DAILY estradiol 0.01%(0.1mg/gram) 1 g vaginal 2XW ezetimibe 10 mg PO DAILY ferrous fumarate 325 mg PO DAILY FreeStyle Lite Meter (blood-glucose meter) As directed NS FreeStyle Lite Strips (blood sugar diagnostic) check fasting blood sugar once a day NS lamotrigine 150 mg PO DAILY 90 days lancets (FreeStyle Lancets) As directed once a day magnesium 250 mg PO DAILY metformin ER 500 mg PO DAILY ur-5-nkh-epa-fish oil-vit D3 120 mg-180 mg -1,000 unit caps PO propranolol ER (Inderal LA) 80 mg PO DAILY 90 days rosuvastatin 5 mg PO 3XW 3 months venlafaxine ER 75 mg PO DAILY vit C,A-Rt-axasw-lutein-zeaxan 250-90-40-1 mg (PreserVision AREDS-2) 1 tab PO BID Tobacco use date assessed: 11/05/24 Fall risk assessment: 1 Fall in past year Last assessed Fall Risk: 11/05/24 Dental Screening Dental Screen Date: 11/05/24 Did you have a dental visit in the last 12 months?: Yes Did you have a dental problem in the last 6 months where you did not have access to dental care?: No Was dental information given to patient?: Patient has dentist HPI 3 months F/up lipids, diabetes mellitus HPI Details - The patient is a 74-year-old female pr esenting today for follow-up on her hyperlipidemia and diabetes mellitus - Hyperlipidemia: The patient is current ly taking ezetimibe and rosuvastatin three times a week due to previous issues with statins causing muscle destruction. - Recent lab results show improvement in lipid profile with triglycerides reduced from 186 to 143 mg/dL, total cholesterol from 384 to 259 mg/dL, and LDL cholesterol from 286 to 168 mg/dL. - Diabetes Mellitus: The patient is advi sed to combine medication with regular exercise and dietary modifications to manage her diabetes - Bulging Disc: The patient has a histor y of a bulging disc diagnosed via X-ray, managed with special exercises and monthly chiropractic visits. - Essential Tremor: The patient is on pr opranolol for essential tremor, which has been effective in managing symptoms. - Macular Degeneration: The patient has early-stage macular degeneration in both eyes, which is currently stable and not affecting vision. - Preventative Care: The patient receive d the first dose of the shingles vaccine in 2018 and needs to confirm if the second dose was administered. -- Substance Use: The patient is a recov ering alcoholic, celebrating 30 years of sobriety. - Exercise: Engages in special exercises for bulging disc management and walks t he dog regularly. - Family Status: for eight years , no children, lives with and pet dog. - Hobbies: Enjoys painting as a form of therapy and creative outlet. [facility] Medical History (Updated 11/05/24 @ 15:03 by Darlene Negro MD) Ovarian tumor Anemia MCI (mild cognitive impairment) Carpal tunnel syndrome Hip pain, bilateral Pruritic intertrigo Chronic left hip pain Benign essential tremor Macular degeneration Vulvar rash Osteopenia Postmenopausal Personal history of nicotine dependence Stenosis of right carotid artery greater than 50% Post traumatic stress disorder (PTSD) Bipolar II disorder in full remission Essential hypertension Mixed hyperlipidemia Type 2 diabetes mellitus without complication, with no history of insulin use Acquired hypothyroidism Insomnia Meningioma (~2019) Emphysema of lung Pulmonary nodules MACIEJ (obstructive sleep apnea) Surgical History Hx of endoscopy History of partial thyroidectomy History of hysterectomy History of appendectomy History of tonsillectomy History of colonoscopy Family History Father Substance use disorder Lung cancer Brother Mental health disorder Maternal Grandmother Mental health disorder Paternal Aunt No problems noted. Mother Mental health disorder Social History Household Members: Spouse Housing: Condominium Patient Tobacco Use Status: Former Tobacco user Tobacco use type: Cigarette Years Smoked: (onset 15yo, 1ppd x 51yrs, 40+PYH - quit 2016) e-Cigarette/Vaping Use: Never Used service: No Current occupational status: retired Cognitive needs: No Hearing needs: No Vision needs: Yes Female Reproductive History Menstrual Age of Menarche: 12 Questionnaire Thrive Questionnaire Date Thrive assessed: 05/11/24 I am a: Patient What is your living situation today?: I have a steady place to live Within the past 12 months, did the food you bought not last and you didn't have the money to get more?: Never true Within the past 12 months, did you worry whether your food would run out before you got money to buy more?: Never true Do you have trouble paying for medicines?: No Do you have trouble getting transportation to medical appointments?: No Do you have trouble paying your heating and electricity bill?: No Do you have trouble taking care of your child, family member or friend?: No Do you have trouble with day-to-day activities such as bathing, preparing meals, shopping, managing finances, etc.?: No Are you currently unemployed and looking for a job?: No Are you interested in more education?: No Please select the resources that you would like help with: None Currently or been in a relationship where the following occur: I choose not to answer THRIVE Score: 0 IDALIA-7 AMB Questionnaire IDALIA-7 Date IDALIA - 7 assessed: 07/29/24 Feeling nervous, anxious, or on edge: 1 = Several days Not being able to stop or control worryin = Not at all Worrying too much about different things: 0 = Not at all Trouble relaxin = Not at all Being so restless that it is hard to sit still: 0 = Not at all Becoming easily annoyed or irritable: 0 = Not at all Feeling afraid as if something awful might happen: 0 = Not at all Total IDALIA-7 score (0-4 normal; 5-9 mild; 10-14 moderate; 15-21 severe): 1 Source: Developed by Drs. Tyshawn Fajardo, Rahel Rdz, Jose Sparrow and colleagues, with an educational aguilar from [employer]. Review of Systems Const Denies frequent falls and Denies night sweats Eyes Details: Sees [facility], has beginning macular degeneration OU ENT Details: Dental cleaning every 6 months Card Denies chest pain, Denies rapid heart rate, Denies irregular heart rhythm, Denies lightheadedness and Denies dyspnea Resp Denies cough and Denies dyspnea GI Denies abdominal pain, Denies melena, Denies hematochezia, Denies heartburn and Denies nausea Musc Reports as per HPI Neuro Denies frequent falls Psych Details: Sees Dr. Sosa Denies no additional complaints Endo Reports no additional complaints Ez/Lymph Denies easy bleeding and Denies lymphadenopathy Aller/Immun Denies seasonal rhinorrhea Physical exam (Primary Care) Vital Signs: Last Vital Signs Temp 98.2 F 11/05/24 14:03 Pulse 80 11/05/24 14:03 Resp 15 11/05/24 14:03 BP 126/84 11/05/24 14:03 Pulse Ox 98 11/05/24 14:03 Oxygen Delivery Method Room Air 11/05/24 14:03 BMI result Body Mass Index 31.3 Tobacco/Smoking Status: Tobacco use Status Tobacco use date assessed 11/05/24 11/05/24 14:10 Patient Tobacco Use Status Former Tobacco user 11/05/24 14:06 Tobacco use type Cigarette 11/05/24 14:06 e-Cigarette/Vaping Use Never Used 11/05/24 14:06 Thrive Assessment: Date of Thrive Assessment Date Thrive assessed 05/11/24 11/05/24 14:06 Currently or been in a relationship where the following occur: I choose not to answer Const Other: Alert oriented x3, no acute distress, ambulatory with normal gait Orientation/consciousness: patient oriented x3 [facility] General nose exam: Normal external nose present and No nasal discharge present Mouth: Normal oral and palatal mucosa present and moist mucous membranes Eyes General: appearance normal, both eyes and all related structures Neck Neck: Yes full ROM, Yes no lymphadenopathy and Yes supple Chest Breast/axilla palpation: normal palpation of the breasts Resp Effort & Inspection: normal respiratory effort and able to speak in complete sentences Auscultation: clear to auscultation bilaterally Cardio Other: S1-S2 present regular rate and rhythm GI Other: Normal, bowel sounds, soft, nontender, no mass palpated Back/Spine/Pelvis Back: No back tenderness Skin Other: No rash noted under breasts Neuro General: patient oriented x3, gait normal, tone normal, moves all extremities, no focal motor deficits, CN's II-XI intact bilaterally and other (mild tremors in hands) Extrem General: Yes full ROM, Yes no joint enlargement and Yes no pedal edema Psych Appearance: grossly normal and well kempt Mental Status: mental status grossly normal Speech and movement: Normal speech and movement present Affect: normal affect Results Reviewed Results Reviewed: Name: Ritu Nicholson Age/Sex: 74/F : 1950 Unit#: [id number] Attend Dr: Darlene Negro MD Re10/29/24 Status: DEP REF Location: [facility] Disch: SPEC : [id number] BARBARA: 10/29/24 STATUS: COMP REQ : [id number] RECD: 10/29/[address]: Darlene Negro MD COMP: 10/29/24 ENTERED: 10/29/[address] [facility] DR: ORDERED: Met Prof Fast, AST, ALT, CK Total, Lipid Panel, Vitamin D 25-OH, Free T4 Test Result Flag Reference Sodium 143 135-145 mmol/L Potassium 4.6 3.3-5.1 mmol/L CL 107 96-108 mmol/L CO2 27 22-29 mmol/L Gap 14 12-20 BUN 11 9-16 mg/dL Creat 0.85 0.5-1.4 mg/dL eGFR > 60 Chronic Kidney Disease: Estimated GFR < 60 mL/min/1.73m2 Severe Kidney Disease: Estimated GFR < 15 mL/min/1.73m2 FBS 136 H 60-99 mg/dL A fasting glucose of 126 mg/dl or greater on more than one occasion is considered diagnostic of diabetes. CA 9.4 8.4-10.2 mg/dL AST (GOT) 29 5-31 U/L ALT (GPT) 40 H 0-31 U/L CK Total 180 H 26-140 U/L Triglyceride 143 <150 mg/dL Desirable Triglyceride: less than 150 mg/dL Borderline High Triglyceride 150-199 mg/dL High Triglyceride: 200-499 mg/dL Very High Triglyceride: greater than or equal to 5OO mg/dL Cholesterol 259 H <200 mg/dL Desirable Cholesterol: less than 200 mg/dL Borderline High Cholesterol: 200-239 mg/dL High Cholesterol: greater than 239 mg/dL LDL Calculated 168 H <100 mg/dL Desirable LDL: less than 100 mg/dL Near Optimal/Above Optimal LDL: 110-129 mg/dL Borderline High LDL: 130-159 mg/dL High LDL: 160-189 mg/dL Very High LDL: greater than or equal to 190 mg/dL HDL 63 >40 mg/dL Desirable HDL: greater than 40 mg/dL Note: This HDL assay may give artificially low results in patients with liver disease. Vitamin D 25-OH 86.1 >30 ng/mL Health Based Reference Values* < 20 ng/mL Deficient 20-30 ng/mL Insufficient > 30 ng/mL Sufficient *Candida TORO. N Engl J Med. 2007;357:266-280 There is no well-established upper level of normal vitamin D levels. Some laboratories use 50 ng/mL as an upper limit of normal. However, toxicity is patient-dependent and may occur at any level. Careful correlation with the patient's presentation is necessary and, if there is concern for vitamin D toxicity, treatment should be considered irrespective of the serum level. Care must be taken in interpreting Vitamin D results from different laboratories and methodologies. Published data demonstrated that results from patients undergoing hemodialysis may show a negative bias when tested with various automated 25-OH vitamin D assays when compared to LC-MS/MS. When testing samples from patients whose predominant form of Vitamin D is Vitamin D2, such as patients receiving Vitamin D2 supplementation, results that are subtherapeutic should be confirmed with another method such as LC-MS/MS. Free T4 0.72 0.71-1.85 ng/dL TSH 3rd Gen. 1.96 0.32-4.0 uIU/mL TSH 3rd Generation ([facility]) Laboratory Tests 10/29/24 13:42 Estimat Average Glucose 126 Hemoglobin A1c % 6.0 Coding Level of Care Code Est Pt Level 4 (55848) Complex EM visit Add On G2211 Diagnoses Acquired hypothyroidism E03.9 Type 2 diabetes mellitus without complication, with no history of insulin use E11.9 Mixed hyperlipidemia E78.2 Essential hypertension I10 Osteopenia of neck of left femur M85.852 Laterality: left Osteopenia location: femoral neck Assessment & Plan Assessment & Plan (1) Acquired hypothyroidism: Comment: (s/p partial thyroidectomy for Graves) Code(s): E03.9 - Hypothyroidism, unspecified Category: Medical (2) Type 2 diabetes mellitus without complication, with no history of insulin use: Code(s): E11.9 - Type 2 diabetes mellitus without complications Category: Medical (3) Mixed hyperlipidemia: Code(s): E78.2 - Mixed hyperlipidemia Category: Medical (4) Essential hypertension: Code(s): I10 - Essential (primary) hypertension Category: Medical (5) Osteopenia: Comment: (Bone Dexa Femoral T-score: -1.4 on 05/31/21) Code(s): M85.80 - Other specified disorders of bone density and structure, unspecified site Category: Medical Qualifiers: Laterality: left Osteopenia location: femoral neck Qualified Code(s): M85.852 - Other specified disorders of bone density and structure, left thigh Plan The patient is advised to continue her current regimen of ezetimibe and rosuvastatin, taking the latter three times a week to manage hyperlipidemia while monitoring for any muscle-related side effects. Dietary modifications are recommended, emphasizing the intake of fruits, vegetables, and lean meats, while avoiding fried and processed foods to aid in managing both hyperlipidemia and diabetes mellitus. Regular exercise, at least 15 minutes daily, is encouraged to support cardiovascular health and diabetes management. For the bulging disc, the patient should continue with special exercises and monthly chiropractic visits to manage symptoms and prevent exacerbation. The essential tremor is well-managed with propranolol, and the patient should maintain this treatment regimen. Regarding preventative care, the patient should verify her shingles vaccination status with the pharmacy to ensure completion of the series. Patient was informed and verbally consented to the use of an ambient scribe for clinic note documentation during this visit. Orders: Orders Aspartate Amino Transferase 05/01/25 E03.9 - Hypothyroidism, unspecified, E11.9 - Type 2 diabetes mellitus without complications, E78.2 - Mixed hyperlipidemia, I10 - Essential (primary) hypertension, M85.852 - Other specified disorders of bone density and structure, left thigh Hemoglobin A1c 05/01/25 E03.9 - Hypothyroidism, unspecified, E11.9 - Type 2 diabetes mellitus without complications, E78.2 - Mixed hyperlipidemia, I10 - Essential (primary) hypertension, M85.852 - Other specified disorders of bone density and structure, left thigh Basic Metabolic Panel Fasting 05/01/25 E03.9 - Hypothyroidism, unspecified, E11.9 - Type 2 diabetes mellitus without complications, E78.2 - Mixed hyperlipidemia, I10 - Essential (primary) hypertension, M85.852 - Other specified disorders of bone density and structure, left thigh Lipid Panel 05/01/25 E03.9 - Hypothyroidism, unspecified, E11.9 - Type 2 diabetes mellitus without complications, E78.2 - Mixed hyperlipidemia, I10 - Essential (primary) hypertension, M85.852 - Other specified disorders of bone density and structure, left thigh Vitamin D 25-OH Total 05/01/25 E03.9 - Hypothyroidism, unspecified, E11.9 - Type 2 diabetes mellitus without complications, E78.2 - Mixed hyperlipidemia, I10 - Essential (primary) hypertension, M85.852 - Other specified disorders of bone density and structure, left thigh TSH reflex Free T4 05/01/25 E03.9 - Hypothyroidism, unspecified Alanine Aminotransferase 05/01/25 E03.9 - Hypothyroidism, unspecified, E11.9 - Type 2 diabetes mellitus without complications, E78.2 - Mixed hyperlipidemia, I10 - Essential (primary) hypertension, M85.852 - Other specified disorders of bone density and structure, left thigh Complete Blood Count Auto Diff 05/01/25 E03.9 - Hypothyroidism, unspecified, E11.9 - Type 2 diabetes mellitus without complications, E78.2 - Mixed hyperlipidemia, I10 - Essential (primary) hypertension, M85.852 - Other specified disorders of bone density and structure, left thigh
== END 2024-11-05 15:04 | disposition home or self-care (01) ==
LOC: HO.HMCC 13:31
PROVIDERS: PCP Internal Medicine; Visit Provider Internal Medicine
DX: E03.9 Hypothyroidism, unspecified (principal); E11.9 Type 2 diabetes mellitus without complications; E78.2 Mixed hyperlipidemia; I10 Essential (primary) hypertension; M85.852 Other specified disorders of bone density and structure, left thigh

== ENCOUNTER → 2024-11-05 13:30 | Outpatient (BNVA) | payer MEDICARE, SELFPAY | PROVIDERS: PCP Internal Medicine; Visit Provider Internal Medicine | DX: E03.9 Hypothyroidism, unspecified (principal); E11.9 Type 2 diabetes mellitus without complications; E78.2 Mixed hyperlipidemia; I10 Essential (primary) hypertension; M85.852 Other specified disorders of bone density and structure, left thigh | CPT/HCPCS: 99212 ==

== ENCOUNTER 2024-12-07 14:36 | Outpatient (REF) | payer MEDICARE, SELFPAY ==
--- NOTE | ~2024-12-07 | CT_ITS ---
EXAMINATION: CT LUNG SCREENING FOLLOW UP WITHOUT IV CONTRAST HISTORY: R91.8 - Other nonspecific abnormal finding of lung field TECHNIQUE: Low dose axial images were obtained from the sternal notch to upper abdomen without IV contrast per standard departmental protocol. Sagittal and coronal reformatted images were also obtained and reviewed. One or more of the following techniques was used for dose reduction: Automated exposure control, adjustment of the mA and/or kV according to patient size, use of iterative reconstruction technique. DLP: 56 mGy-cm COMPARISON: Comparison is made with the prior examination dated 05/28/2024. FINDINGS: Lung nodules: Again seen is a 2 mm nodule left upper lobe (series 4, image 34), and a calcified granuloma lung the left major fissure (series 4, image 81). There is a 7 mm nodule lobulated nodule in the left lower lobe (series 4, image 120) is unchanged. No new pulmonary nodules are identified. Emphysema: mild Coronary Calcification: mild Aortic Arch Calcification: moderate Potentially Significant Incidentals : none Additional Chest Findings: There is no pleural or pericardial effusion. No mediastinal or axillary lymphadenopathy is identified. Visualized upper abdomen: The visualized portions of the liver, spleen, and adrenals have an unremarkable unenhanced appearance. CT/CT lung screen follow up IMPRESSION: No suspicious pulmonary nodules are identified. LUNG-RADS ASSESSMENT: Lung-RADS 2: Benign MANAGEMENT: Continue annual screening with LDCT in 12 months Category S: N/A Electronically signed by: Tyshawn Ren MD 12/07/2024 03:32 PM EDT
--- OUTSIDE RECORDS SUMMARY | 2024-12-07 16:59 | XMS_ITS | Encounter Summary ---
Author Organization [facility] Address [address] [place] [id number] Phone Care Team Providers Care Pricing Clerk Name Role Phone Lexy Betancur Primary Care Provider [phone]- [phone] Lexy Betancur Primary Care Provider [phone]- [phone] Darlene Negro MD Primary Care Provider Encounter Details Date Type Department Care Team (Late st Contact Info) Description 07/17/2018 Procedure Pass [facility] Endoscopy Admitting Dept Virtual Department [address], [place] [id number] Social History Tobacco Use Types Packs/Day Years Used Date Smoking Tobacco: Former Smokeless Tobacco: Never Alcohol Use Standard Drinks/Week Comments No 0 (1 standard drink = 0.6 oz pur e alcohol) Comments Unknown Sex and Gender Information Value Date Recorded Sex Assigned at Female 05/28/2018 12:11 PM EST Legal Sex Female 9:59 PM EDT Gender Identity Female 05/28/2018 12:11 PM EST Sexual Orientation Straight 05/28/2018 12 :11 PM EST documented as of this encounter Plan of Treatment Not on file documented as of this encounter Visit Diagnoses Not on filedocumented in this encounter Care Teams Pricing Clerk Relationship Specialty Start Date End Date Lexy Betancur PA [address] [place] [id number] PCP - General Fabrication Operator 03/29/17 10/15/21 Lexy Betancur PA [address] [place] [id number] PCP - General Fabrication Operator 10/16/21 10/29/21 Darlene Negro MD [address] [place] [address] [place] [id number] PCP - General Internal Medicine 10/30/21 documented as of this encounter Additional Source Comments The information contained in this document represents components of the legal health record. It is not the complete legal health record.[facility]
--- OUTSIDE RECORDS SUMMARY | 2024-12-07 16:59 | XMS_ITS | Encounter Summary ---
Author Organization [facility] Address [address] [place] [address] Phone Care Team Providers Care Emt B Name Role Phone Lexy Betancur Primary Care Provider +1- [phone] Lexy Betancur Primary Care Provider +1- [phone] Darlene Negro MD Primary Care Provider Reason for Referral * MRI/CAT Scan - Closed Specialty Diagnoses / Procedures Referred By Tr crespo Referred To Contact Radiology Diagnoses Solitary pulmonary nodule Procedures CT Chest Lexy Betancur PA Phone: tel: fax: Referral ID Status Reason Start Date Expiration Date Visits Re quested Visits Authorized [id number] Closed 01/23/2018 01/23/2019 1 1 Encounter Details Date Type Department Care Team (Late st Contact Info) Description 01/23/2018 Ancillary Orders Virtual Department [address] [place] [address] Lexy Betancur PA [address] [place] [address] Solitary pulmonary nodule Social History Tobacco Use Types Packs/Day Years Used Date Smoking Tobacco: Never Assessed Comments Unknown Sex and Gender Information Value Date Recorded Sex Assigned at Female 05/28/2018 12:11 PM EST Legal Sex Female 9:59 PM EDT Gender Identity Female 05/28/2018 12:11 PM EST Sexual Orientation Straight 05/28/2018 12 :11 PM EST documented as of this encounter Plan of Treatment Not on file documented as of this encounter Results * CT CHEST WITHOUT CONTRAST (02/05/2018 2:08 PM EST) Anatomical Region Laterality Modality Chest Computed Tomogra phy 02/05/2018 5:00 PM EST Impressions 02/05/2018 5:11 PM EST 1. Compared with 09/21/2016 and 04/11/2017 CTs no significant interval change in 6 mm left lower lobe solid pulmonary nodule. 2. Faint groundglass opacity right upper lobe is without change. Previously seen groundglass opacity in the left lower lobe has diminished and is now only faintly perceptible. 3. Mild paraseptal emphysema. 4. Recommend continued follow-up: Chest CT in one year. TOTAL CTDIvol: 7.00 mGy POS - [id number] Narrative 02/05/2018 5:11 PM EST HISTORY: Solitary pulmonary nodule COMPARISON: 04/11/2017, 09/21/2016 chest CTs. PROCEDURE: CT imaging of the chest without IV contrast. Helical axial images obtained with coronal and sagittal images reconstructed. Radiation dose control: Exam performed with automated exposure control or iterative reconstruction to minimize radiation exposure. FINDINGS: There is mild paraseptal emphysema. There is a stable 8 mm groundglass opacity in the right upper lobe (series 5, image #54). Left lower lobe noncalcified solid pulmonary nodule is unchanged in size measuring 6.3 x 6.0 mm (series 5 image #204). Previously seen left lower lobe groundglass opacity is now barely perceptible. Minimal subpleural interstitial changes present in the dependent lung bases. No significant bronchiectasis or bronchial wall thickening. Unchanged benign calcification along the left major fissure. There is no pleural effusion. Normal size of the heart. There are coronary artery calcifications. Tiny amount of pericardial fluid. There is no mediastinal, hilar or axillary lymphadenopathy. Thoracic aortic arch and descending thoracic aorta atherosclerotic calcifications present. There is a very small hiatal hernia. There is stable low-density thickening of the left adrenal gland and a coarse calcification along the inferior aspect of the gland. Normal right adrenal gland. Stable degenerative thoracic spondylosis without acute fracture. Procedure Note Rowan Cash MD - 02/05/2018 HISTORY: Solitary pulmonary nodule COMPARISON: 04/11/2017, 09/21/2016 chest CTs. PROCEDURE: CT imaging of the chest without IV contrast. Helical axialimages obtained with coronal and sagittal images reconstructed. Radiation dose control: Exam performed with automated exposure control oriterative reconstruction to minimize radiation exposure. FINDINGS: There is mild paraseptal emphysema. There is a stable 8 mm groundglassopacity in the right upper lobe (series 5, image #54). Left lower lobenoncalcified solid pulmonary nodule is unchanged in size measuring 6.3 x6.0 mm (series 5 image #204). Previously seen left lower lobe groundglassopacity is now barely perceptible. Minimal subpleural interstitial changespresent in the dependent lung bases. No significant bronchiectasis orbronchial wall thickening. Unchanged benign calcification along the left major fissure. There is no pleural effusion. Normal size of the heart. There are coronaryartery calcifications. Tiny amount of pericardial fluid. There is no mediastinal, hilar or axillary lymphadenopathy. Thoracicaortic arch and descending thoracic aorta atherosclerotic calcificationspresent. There is a very small hiatal hernia. There is stable low-densitythickening of the left adrenal gland and a coarse calcification along theinferior aspect of the gland. Normal right adrenal gland. Stabledegenerative thoracic spondylosis without acute fracture. IMPRESSION: 1. Compared with 09/21/2016 and 04/11/2017 CTs no significant intervalchange in 6 mm left lower lobe solid pulmonary nodule. 2. Faint groundglass opacity right upper lobe is without change.Previously seen groundglass opacity in the left lower lobe has diminishedand is now only faintly perceptible. 3. Mild paraseptal emphysema. 4. Recommend continued follow-up: Chest CT in one year. TOTAL CTDIvol: 7.00 mGy POS - [id number] Lexy MELENDEZ IMG CT CHEST Final Resu lt documented in this encounter Visit Diagnoses Diagnosis Solitary pulmonary nodule Solitary pulmonary nodule documented in this encounter Care Teams Emt B Relationship Specialty Start Date End Date Lexy Betancur PA [address] [place] [address] PCP - General Employment Consultant 03/29/17 10/15/21 Lexy Betancur PA [address] [place] [address] PCP - General Employment Consultant 10/16/21 10/29/21 Darlene Negro MD [facility] [place] [address] PCP - General Internal Medicine 10/30/21 documented as of this encounter Additional Source Comments The information contained in this document represents components of the legal health record. It is not the complete legal health record.[facility]
--- OUTSIDE RECORDS SUMMARY | 2024-12-07 16:59 | XMS_ITS | Encounter Summary ---
Author Organization [facility] Address [address] [place] [address] Phone Care Team Providers Care Cable Television Program Director Name Role Phone Lexy Betancur Primary Care Provider [phone]- [phone] Lexy Betancur Primary Care Provider +1- [phone] Darlene Negro MD Primary Care Provider Encounter Details Date Type Department Care Team (Late st Contact Info) Description 03/28/2017 Ancillary Orders Virtual Department [address] [place] [address] Lexy Betancur PA [address] [place] [address] Abnormal findings on diagnostic imaging of lung Social History Tobacco Use Types Packs/Day Years [...] encounter Results * CT CHEST WITHOUT CONTRAST (04/11/2017 10:24 AM EST) Anatomical Region Laterality Modality Chest Computed Tomogra phy 04/11/2017 12:0 7 PM EST Impressions 04/11/2017 12:41 PM EST No change in solid left lower lobe pulmonary nodule measuring just over 6 mm in average transaxial diameter. Small groundglass densities in the right upper lobe and left lower lobe also appears stable. Continued surveillance recommended with unenhanced CT in 6 months. TOTAL CTDIvol: 6.40 mGy POS - [id number] Edited by: Mariam López on 04/11/2017 12:41 PM Narrative 04/11/2017 12:41 PM EST HISTORY: Follow-up pulmonary nodule from lung screening CT. COMPARISON: September 21, 2016 TECHNIQUE: Unenhanced imaging obtained from lung apex to base. Sagittal and coronal reformats generated. Automated exposure control utilized. FINDINGS: Lungs and pleura: Left lower lobe nodule is unchanged measured at 6.2 mm in average transaxial diameter. This is stable. Faint nearby groundglass density appears slightly more pronounced. 8 mm groundglass density noted at the right upper lobe. This appears more conspicuous than previous but is retrospectively present. Continued surveillance of the areas in 6 months recommended. Paraseptal emphysematous changes again noted towards the upper lung margins. Small calcification associated with left major fissure noted. No pleural fluid. No progressive bronchiectatic change or interstitial changes. No new nodules. Nodes: No adenopathy detected. Cardiovascular: Some calcific coronary artery atheroma again noted in the left system. Heart not enlarged. No pericardial effusion. No major arch anomaly. No worrisome aortic dilatation. Soft tissue and mediastinum: There may be a clip near the region of the left thyroid lobe. Correlation can be made with any history of left thyroidectomy. No masses seen. Small hiatal hernia. Upper abdomen: Thickening in the left adrenal again noted which appears predominantly low density. No findings of clear concern. Bones: Degenerative changes diffusely with endplate sclerosis across T9-10 in particular. No compression deformity or bony destructive lesions identified. Procedure Note Ron Nava MD - 04/11/2017 HISTORY: Follow-up pulmonary nodule from lung screening CT. COMPARISON: September 21, 2016 TECHNIQUE: Unenhanced imaging obtained from lung apex to base. [place] coronal reformats generated. Automated exposure control utilized. FINDINGS: Lungs and pleura: Left lower lobe nodule is unchanged measured at 6.2 mmin average transaxial diameter. This is stable. Faint nearby groundglassdensity appears slightly more pronounced. 8 mm groundglass density notedat the right upper lobe. This appears more conspicuous than previous butis retrospectively present. Continued surveillance of the areas in 6months recommended. Paraseptal emphysematous changes again noted towardsthe upper lung margins. Small calcification associated with left majorfissure noted. No pleural fluid. No progressive bronchiectatic change orinterstitial changes. No new nodules. Nodes: No adenopathy detected. Cardiovascular: Some calcific coronary artery atheroma again noted in theleft system. Heart not enlarged. No pericardial effusion. No major archanomaly. No worrisome aortic dilatation. Soft tissue and mediastinum: There may be a clip near the region of theleft thyroid lobe. Correlation can be made with any history of leftthyroidectomy. No masses seen. Small hiatal hernia. Upper abdomen: Thickening in the left adrenal again noted which appearspredominantly low density. No findings of clear concern. Bones: Degenerative changes diffusely with endplate sclerosis across T9-10in particular. No compression deformity or bony destructive lesionsidentified. IMPRESSION: No change in solid left lower lobe pulmonary nodule measuring just over 6mm in average transaxial diameter. Small groundglass densities in theright upper lobe and left lower lobe also appears stable. Continuedsurveillance recommended with unenhanced CT in 6 months. TOTAL CTDIvol: 6.40 mGy POS - [id number] Edited by: Mariam López on 04/11/2017 12:41 PM Lexy MELENDEZ IMG CT CHEST Final Resu lt documented in this encounter Visit Diagnoses Diagnosis Abnormal findings on diagnostic imaging of lung Abnormal findings on diagnostic imaging of lung documented in this encounter Care Teams Cable Television Program Director Relationship Specialty Start Date End Date Lexy Betancur PA [address] [place] [address] PCP - General Analytical Manager 03/29/17 10/15/21 Lexy Betancur PA [address] [place] [address] PCP - General Analytical Manager 10/16/21 10/29/21 Darlene Ngero MD [facility] [address], [place] [address] PCP - General Internal Medicine 10/30/21 documented as of this encounter Additional Source Comments The information contained in this document represents components of the legal health record. It is not the complete legal health record.[facility]
--- OUTSIDE RECORDS SUMMARY | 2024-12-07 16:59 | XMS_ITS | Encounter Summary ---
Author Organization [facility] Address [address] [place] [address] Phone Care Team Providers Care Electromechanical Engineer Name Role Phone Lexy Betancur Primary Care Provider +1- [phone] Lexy Betancur Primary Care Provider +1- [phone] Darlene Negro MD Primary Care Provider Reason for Referral * MRI/CAT Scan - Closed Specialty Diagnoses / Procedures Referred By Tr crespo Referred To Contact Radiology Diagnoses Ex-smoker Personal history of nicotine dependence Procedures CT Chest Lung Cancer Screening Lexy Betancur PA Phone: tel: fax: Referral ID Status Reason Start Date Expiration Date Visits Re quested Visits Authorized [id number] Closed 02/18/2019 02/18/2020 1 1 Encounter Details Date Type Department Care Team (Latest Contact Info) Description 02/18/2019 Transcribe Orders Virtual Department [address] [place] [address] Lexy Betancur PA [address] [place] [address] Ex-smoker (Primary Dx); Personal history of nicotine dependence Social History Tobacco Use Types Packs/Day Years Used Date Smoking Tobacco: Former Smokeless Tobacco: Former Chew Alcohol Use Standard Drinks/Week Comments Never 0 (1 standard drink = 0.6 oz pur e alcohol) Comments No Sex and Gender Information Value Date Recorded Sex Assigned at Female 05/28/2018 12:11 PM EST Legal Sex Female 9:59 PM EDT Gender Identity Female 05/28/2018 12:11 PM EST Sexual Orientation Straight 05/28/2018 12 :11 PM EST Occupation Industry Job Start Date Job End Date Retired Not on file Not on file Not on file documented as of this encounter Plan of Treatment Not on file documented as of this encounter Results * CT CHEST LUNG CANCER SCREENING ANNUAL (03/11/2019 11:11 AM EST) Anatomical Region Laterality Modality Chest Computed Tomogra phy 03/11/2019 2:25 PM EST Impressions 03/11/2019 2:50 PM EST 1. Compared with prior chest CTs dating back to 09/21/2016, no significant interval change in 6 mm LEFT lower lobe pulmonary nodule and 8mm RIGHT upper lobe groundglass opacity. 2. Stable mild emphysema. LUNG RAD: LUNG RAD CATEGORY 2 - BENIGN APPEARANCE OR BEHAVIOR - CONTINUE ANNUAL SCREENING WITH LDCT IN 12 MONTHS TOTAL CTDIvol: 1.40 mGy POS [id number] Narrative 03/11/2019 2:50 PM EST HISTORY: Low dose CT lung cancer screening. Former smoker. TECHNIQUE: Non-contrast, low dose axial CT with sagittal and coronal reconstructions. Automated exposure control utilized. COMPARISON: Prior chest CTs dated 02/05/2018, 04/11/2017 and 09/21/2016. This is a 69 year old patient referred for Low Dose CT Lung Cancer Screening (LDCT). The patient has no signs or symptoms of lung cancer and has a 30-pack year or greater history of tobacco smoking. They are a current smoker or have quit smoking within the last 15 years and have a written order for LDCT from a qualified health professional following a lung cancer screening counseling that attests to shared decision-making having taken place before their first screening CT. The patient is also offered smoking cessation material at the time of the LDCT. FINDINGS: LUNGS/AIRWAYS: There is stable mild emphysema, predominantly paraseptal. There is a stable 8 mm groundglass opacity in the anterior right upper lobe (series 4, image #54). Left lower lobe well-circumscribed noncalcified pulmonary nodule remains unchanged in size measuring 6.3 x 6.0 mm (series 4, image #217). There is no bronchiectasis. No evidence for interstitial fibrosis. No fermín-fissural nodules. The trachea and main bronchi are normal. There is no endobronchial obstruction. No acute pulmonary consolidation. No new suspicious pulmonary nodules. Stable benign calcification along the inferior LEFT major fissure. PLEURA: No pleural effusion or thickening. CARDIOVASCULAR: Normal size of the heart. Stable coronary artery calcifications. There is a tiny amount of pericardial fluid inferiorly. Normal diameter of the thoracic aorta with mild atherosclerotic calcification. MEDIASTINUM/JAKE: No adenopathy. Stable very small hiatal hernia. UPPER ABDOMEN: Stable low density thickening of the LEFT adrenal gland and with a coarse calcification along the inferior aspect. Normal right adrenal gland. BONES: Stable degenerative thoracic spondylosis. No acute fracture. No suspicious lytic or blastic bone lesion.. Procedure Note Rowan Cash MD - 03/11/2019 HISTORY: Low dose CT lung cancer screening. Former smoker. TECHNIQUE: Non-contrast, low dose axial CT with sagittal and coronalreconstructions. Automated exposure control utilized. COMPARISON: Prior chest CTs dated 02/05/2018, 04/11/2017 and09/21/2016. This is a 69 year old patient referred for Low Dose CT Lung CancerScreening (LDCT). The patient has no signs or symptoms of lung cancer andhas a 30-pack year or greater history of tobacco smoking. They are acurrent smoker or have quit smoking within the last 15 years and have awritten order for LDCT from a qualified health professional following alung cancer screening counseling that attests to shared decision-makinghaving taken place before their first screening CT. The patient is alsooffered smoking cessation material at the time of the LDCT. FINDINGS: LUNGS/AIRWAYS: There is stable mild emphysema, predominantly paraseptal.There is a stable 8 mm groundglass opacity in the anterior right upperlobe (series 4, image #54). Left lower lobe well-circumscribednoncalcified pulmonary nodule remains unchanged in size measuring 6.3 x6.0 mm (series 4, image #217). There is no bronchiectasis. No evidence forinterstitial fibrosis. No fermín-fissural nodules. The trachea and mainbronchi are normal. There is no endobronchial obstruction. No acutepulmonary consolidation. No new suspicious pulmonary nodules. Stablebenign calcification along the inferior LEFT major fissure. PLEURA: No pleural effusion or thickening. CARDIOVASCULAR: Normal size of the heart. Stable coronary arterycalcifications. There is a tiny amount of pericardial fluid inferiorly.Normal diameter of the thoracic aorta with mild atheroscleroticcalcification. MEDIASTINUM/JAKE: No adenopathy. Stable very small hiatal hernia. UPPER ABDOMEN: Stable low density thickening of the LEFT adrenal gland andwith a coarse calcification along the inferior aspect. Normal rightadrenal gland. BONES: Stable degenerative thoracic spondylosis. No acute fracture. Nosuspicious lytic or blastic bone lesion.. IMPRESSION: 1. Compared with prior chest CTs dating back to 09/21/2016, nosignificant interval change in 6 mm LEFT lower lobe pulmonary nodule and8mm RIGHT upper lobe groundglass opacity. 2. Stable mild emphysema. LUNG RAD: LUNG RAD CATEGORY 2 - BENIGN APPEARANCE OR BEHAVIOR - CONTINUEANNUAL SCREENING WITH LDCT IN 12 MONTHS TOTAL CTDIvol: 1.40 mGy POS [id number] Lexy MELENDEZ IMG CT CHEST Final Resu lt documented in this encounter Visit Diagnoses Diagnosis Ex-smoker- Primary Personal history of tobacco use, presenting hazards to health Personal history of nicotine dependence Ex-smoker Personal history of tobacco use, presenting hazards to health Personal history of nicotine dependence documented in this encounter Care Teams Electromechanical Engineer Relationship Specialty Start Date End Date Lexy Betancur PA [address] [place] [address] PCP - General Makeup Artistry Instructor 03/29/17 10/15/21 Lexy Betancur PA [address] [place] [address] PCP - General Makeup Artistry Instructor 10/16/21 10/29/21 Darlene Negro MD [facility] [address], [place] [address] PCP - General Internal Medicine 10/30/21 documented as of this encounter Additional Source Comments The information contained in this document represents components of the legal health record. It is not the complete legal health record.[facility]
--- OUTSIDE RECORDS SUMMARY | 2024-12-07 16:59 | XMS_ITS | Encounter Summary ---
Author Organization [facility] Address [address] [place] [address] Phone Care Team Providers Care Technical Program Manager Name Role Phone Lexy Betancur Primary Care Provider +1- [phone] Lexy Betancur Primary Care Provider +1- [phone] Darlene Negro MD Primary Care Provider Reason for Referral * MRI/CAT Scan - Closed Specialty Diagnoses / Procedures Referred By Tr crespo Referred To Contact Radiology Diagnoses Other nonspecific abnormal finding of lung field Procedures CT Chest Lung Cancer Screening Lexy Betancur PA Phone: tel: fax: Referral ID Status Reason Start Date Expiration Date Visits Re quested Visits Authorized [id number] Closed 05/08/2021 05/08/2022 1 1 Encounter Details Date Type Department Care Team (Latest Contact Info) Description 05/08/2021 Transcribe Orders Virtual Department [address] [place] [address] Lexy Betancur PA [address] [place] [address] Other nonspecific abnormal finding of lung field (Primary Dx) Social History Tobacco Use Types Packs/Day Years [...] * CT CHEST LUNG CANCER SCREENING ANNUAL (10/30/2021 2:51 PM EDT) Anatomical Region Laterality Modality Chest Computed Tomogra phy 10/31/2021 3:41 PM EDT Impressions 10/31/2021 3:52 PM EDT Multiple pulmonary nodules are similar, as above. Minimal interval increase in size of a groundglass nodule of the left upper lobe now measuring 3 mm. Lung-RADS Category: 2. Multiple pulmonary nodules. The category-determining non- solid nodule has a very low likelihood of becoming a clinically active cancer, due to size or lack of growth. RECOMMENDATIONS: Continue CT Chest Lung Screening Annual exam if patient meets eligibility criteria. To order, please type CT CHEST SCREENING (CT.[email or web address]) and select ANNUAL for patient program status. Explanation of the Lung-RADS categories can be found at: [email or web address] Narrative 10/31/2021 3:[address] CHEST LUNG CANCER SCREENING ANNUAL TECHNIQUE: Low dose multidetector CT of the chest was performed without intravenous contrast using tailored dose modulation techniques. COMPARISON: CT lung cancer screening 10/26/2020 FINDINGS: Devices/Tubes/Lines: None. Lungs: Similar 8 mm right upper lobe groundglass nodule (image 67). Similar fermín-fissural nodule at the left upper lobe (image 62) with decreased conspicuity of the previously demonstrated right middle lobe. Fissural nodule. Left lower lobe calcified granulomas. Redemonstration of a 7 mm left lower lobe pulmonary nodule (image 213). Minimal interval increase in size of the previously demonstrated left upper lobe groundglass nodule now measuring 3 mm (2 mm previously) (image 126). No definite new pulmonary nodules demonstrated. The central airways are clear. Pleura: No pleural effusion or pneumothorax. Mediastinum: Atherosclerotic calcification of the aorta and major aortic branch vessels. No thyroid nodules. The heart is normal in size. There is no pericardial effusion. Mild amount of coronary calcifications. Lymph Nodes: Normal. No enlarged supraclavicular, axillary, mediastinal, or hilar lymph nodes. Upper Abdomen: Absence of intravenous contrast and low dose technique limits sensitivity for detecting small lesions, solid organ and vascular findings. Small hiatal hernia. Redemonstration of left adrenal gland calcification. Chest Wall: No chest wall mass. Bones: Multilevel degenerative changes of the thoracic spine. No suspicious lytic or blastic lesions. Procedure Note Amparo Crawley MD - 10/31/2021 CT CHEST LUNG CANCER SCREENING ANNUAL TECHNIQUE: Low dose multidetector CT of the chest was performed withoutintravenous contrast using tailored dose modulation techniques. COMPARISON: CT lung cancer screening 10/26/2020 FINDINGS: Devices/Tubes/Lines: None. Lungs: Similar 8 mm right upper lobe groundglass nodule (image 67).Similar fermín-fissural nodule at the left upper lobe (image 62) withdecreased conspicuity of the previously demonstrated right middle lobe.Fissural nodule. Left lower lobe calcified granulomas. Redemonstration ofa 7 mm left lower lobe pulmonary nodule (image 213). Minimal intervalincrease in size of the previously demonstrated left upper lobegroundglass nodule now measuring 3 mm (2 mm previously) (image 126). Nodefinite new pulmonary nodules demonstrated. The central airways areclear. Pleura: No pleural effusion or pneumothorax. Mediastinum: Atherosclerotic calcification of the aorta and major aorticbranch vessels. No thyroid nodules. The heart is normal in size. There isno pericardial effusion. Mild amount of coronary calcifications. Lymph Nodes: Normal. No enlarged supraclavicular, axillary, mediastinal,or hilar lymph nodes. Upper Abdomen: Absence of intravenous contrast and low dose techniquelimits sensitivity for detecting small lesions, solid organ and vascularfindings. Small hiatal hernia. Redemonstration of left adrenal glandcalcification. Chest Wall: No chest wall mass. Bones: Multilevel degenerative changes of the thoracic spine. Nosuspicious lytic or blastic lesions. IMPRESSION: Multiple pulmonary nodules are similar, as above. Minimal intervalincrease in size of a groundglass nodule of the left upper lobe nowmeasuring 3 mm. Lung-RADS Category: 2. Multiple pulmonary nodules. Thecategory-determining non- solid nodule has a very low likelihood ofbecoming a clinically active cancer, due to size or lack of growth. RECOMMENDATIONS: Continue CT Chest Lung Screening Annual exam if patient meets eligibilitycriteria. To order, please type CT CHEST SCREENING (CT.TH.CHESTSCR) and selectANNUAL for patient program status. Explanation of the Lung-RADS categories can be found at:[email or web address] Lexy MELENDEZ IMG CT CHEST Final Resu lt documented in this encounter Visit Diagnoses Diagnosis Other nonspecific abnormal finding of lung field- Primary Other nonspecific abnormal finding of lung field documented in this encounter Care Teams Technical Program Manager Relationship Specialty Start Date End Date Lexy Betancur PA [address] [place] [phone] PCP - General Candy Catcher 03/29/17 10/15/21 Lexy Betancur PA [address] [place] [address] PCP - General Candy Catcher 10/16/21 10/29/21 Darlene Negro MD [address] [place] [address] [place] [address] PCP - General Internal Medicine 10/30/21 documented as of this encounter Additional Source Comments The information contained in this document represents components of the legal health record. It is not the complete legal health record.[facility]
--- OUTSIDE RECORDS SUMMARY | 2024-12-07 16:59 | XMS_ITS | Encounter Summary ---
Author Organization [facility] Address [address] [place] [address] Phone Care Team Providers Care Wire Photo Operator News Name Role Phone Lexy Betancur Primary Care Provider +1- [phone] Lexy Betancur Primary Care Provider +1- [phone] Darlene Negro MD Primary Care Provider Encounter Details Date Type Department Care Team (Late st Contact Info) Description 01/23/2018 Procedure Pass [facility], Ct Scan - [address] [id number] Social History Tobacco Use Types Packs/Day Years [...] on filedocumented in this encounter Care Teams Wire Photo Operator News Relationship Specialty Start Date End Date Lexy Betancur PA [address] [place] [phone] PCP - General Shank Cementer Hand 03/29/17 10/15/21 Lexy Betancur PA [address] [place] [phone] PCP - General Shank Cementer Hand 10/16/21 10/29/21 Darlene Negro MD [facility] [address] [place], [place] [address] PCP - General Internal Medicine 10/30/21 documented as of this encounter Additional Source Comments The information contained in this document represents components of the legal health record. It is not the complete legal health record.[facility]
--- OUTSIDE RECORDS SUMMARY | 2024-12-07 16:59 | XMS_ITS | Encounter Summary ---
Author Organization [facility] Address [address] [place] [address] Phone Care Team Providers Care Bookbinder Chief Name Role Phone Lexy Betancur Primary Care Provider +1- [phone] Lexy Betancur Primary Care Provider +1- [phone] Darlene Negro MD Primary Care Provider Encounter Details Date Type Department Care Team (Latest Contact Info) Description 09/01/2018 Transcribe Orders [facility] [address] [address] Alannah Ta PA [address] [place] [address] Iron deficiency anemia secondary to blood loss (chronic) (Primary Dx) Social History Tobacco Use Types [...] documented as of this encounter Results * Vitamin B12 (09/01/2018 3:12 PM EDT) VITAMIN B12 715 232 - 1,245 pg/mL [facility] Blood 09/01/2018 3:12 PM EDT 09/01/2018 3:17 PM EDT us Alannah MELENDEZ LAB BLOOD ORDERABLES Final Result Performing Organization Address [facility]/ZIP Co de Phone Number [address] [address] * (ABNORMAL) Basic metabolic panel (09/01/2018 3:12 PM EDT) SODIUM 144 133 - 146 mmol/L [facility] CHLORIDE 107 96 - 108 mmol/L [facility] POTASSIUM 4.6 3.3 - 5.1 mmol/L [facility] CO2 23 21 - 35 mmol/L [facility] BUN 13 6 - 19 mg/dL [facility] CREATININE 0.70 0.5 - 1.5 mg/dL [facility] GLUCOSE 120(H) 70 - 99 mg/dL [facility] CALCIUM 9.4 8.4 - 10.3 mg/dL [facility] EGFR 90 >59 mL/min/1.7 3m2 [facility] Comment:If patient is black, multiply result by 1.159. Estimated glomerular filtration rate calculated using the CKD-EPI equation. ANION GAP 19 10 - 20 mmol/L [facility] Blood 09/01/2018 3:12 PM EDT 09/01/2018 3:17 PM EDT us Alannah MELENDEZ LAB BLOOD ORDERABLES Final Result Performing Organization Address [facility]/ZIP Co de Phone Number [address] [address] * Ferritin (09/01/2018 3:12 PM EDT) FERRITIN 23 13 - 150 ug/L [facility] Blood 09/01/2018 3:12 PM EDT 09/01/2018 3:17 PM EDT Alannah MELENDEZ LAB BLOOD ORDERABLES Final Result Performing Organization Address City/[facility]/ZIP Co de Phone Number [address] [address] * (ABNORMAL) Folate (09/01/2018 3:12 PM EDT) FOLIC ACID >20.0(H) 4.2 - 19.9 ng/mL [facility] Blood 09/01/2018 3:12 PM EDT 09/01/2018 3:17 PM EDT Alannah MELENDEZ LAB BLOOD ORDERABLES Final Result Performing Organization Address [facility]/ZIP Co de Phone Number [address] [address] * (ABNORMAL) Iron and iron binding capacity (09/01/2018 3:12 PM EDT) Pathologist [facility] IRON 25(L) 30 - 160 ug/dL [facility] IRON BINDING CAPACITY 418 228 - 428 ug/dL [facility] TRANSFERRIN SATURAT. 6(L) 15 - 50 % [facility] Blood 09/01/2018 3:12 PM EDT 09/01/2018 3:17 PM EDT Alannah MELENDEZ LAB BLOOD ORDERABLES Final Result Performing Organization Address [facility] Co de Phone Number [address] [address] * (ABNORMAL) CBC and differential (09/01/2018 3:12 PM EDT) WBC 6.03 3.40 - 11.20 K/uL [facility] RBC 3.90 3.80 - 4.80 M/uL [facility] HGB 11.1(L) 12.0 - 15.0 g/dL [facility] HCT 34.7(L) 36.0 - 46.0 % [facility] PLT 420(H) 130 - 400 K/uL [facility] MCV 89.0 79.0 - 98.0 fL [facility] MCH 28.5 27.0 - 34.8 pg [facility] MCHC 32.0 31.5 - 36.0 g/dL [facility] RDW 16.7(H) 10.8 - 14.6 % [facility] MPV 9.6 9.4 - 12.4 fl [facility] NRBC 0.00 0.00 /100 WBCs [facility] ABSOLUTE NRBC 0.00 0.00 K/uL [facility] DIFF METHOD Auto [facility] NEUTS 55.2 45.30 - 77.70 % [facility] LYMPHS 33.5 12.30 - 39.70 % [facility] MONOS 6.8 4.10 - 12.80 % [facility] EOS 4.0 0 - 7.2 % [facility] BASOS 0.3 0 - 2.80 % [facility] Granulocytes, immature (%) 0.2 0.0 - 0.9 % [facility] ABSOLUTE NEUTS 3.33 1.40 - 7.70 K/uL [facility] ABSOLUTE LYMPHS 2.02 0.60 - 3.20 K/uL [facility] ABSOLUTE MONOS 0.41 0.11 - 0.59 K/uL [facility] ABSOLUTE EOS 0.24 0.01 - 0.50 K/uL [facility] ABSOLUTE BASOS 0.02 0.00 - 0.08 K/uL [facility] Granulocytes, immature 0.01 0.00 - 0.05 K/uL [facility] Blood 09/01/2018 3:12 PM EDT 09/01/2018 3:17 PM EDT us Alannah MELENDEZ LAB BLOOD ORDERABLES Final Result [facility] [address] [place] [address] documented in this encounter Visit Diagnoses Diagnosis Iron deficiency anemia secondary to blood loss (chronic)- Primary documented in this encounter Care Teams Bookbinder Chief Relationship Specialty Start Date End Date Lexy Betancur PA [address] [place] [phone] PCP - General Chief Electrician 03/29/17 10/15/21 Lexy Betancur PA [address] [place] [phone] PCP - General Chief Electrician 10/16/21 10/29/21 Darlene Negro MD [address] [place] [address] [place] [address] PCP - General Internal Medicine 10/30/21 documented as of this encounter Additional Source Comments The information contained in this document represents components of the legal health record. It is not the complete legal health record.[facility]
--- OUTSIDE RECORDS SUMMARY | 2024-12-07 16:59 | XMS_ITS | Encounter Summary ---
Author Organization [facility] Address [address] [place] [address] [place] [address] Phone Care Team Providers Care Leather Worker Name Role Phone Lexy Betancur Primary Care Provider +1- [phone] Lexy Betancur Primary Care Provider +1- [phone] Darlene Negro MD Primary Care Provider Encounter Details Date Type Department Care Team (Late st Contact Info) Description 05/08/2021 Procedure Pass [facility], Ct Scan - [address] [phone] Social History Tobacco Use Types Packs/Day Years [...] on filedocumented in this encounter Care Teams Leather Worker Relationship Specialty Start Date End Date Lexy Betancur PA [address] [place] [phone] PCP - General Blood Bank Booking Clerk 03/29/17 10/15/21 Lxey Betancur PA [address] [place] [phone] PCP - General Blood Bank Booking Clerk 10/16/21 10/29/21 Darlene Negro MD [address] [place] [address] [place] [address] PCP - General Internal Medicine 10/30/21 documented as of this encounter Additional Source Comments The information contained in this document represents components of the legal health record. It is not the complete legal health record.[facility]
--- OUTSIDE RECORDS SUMMARY | 2024-12-07 16:59 | XMS_ITS | Clinical Summary ---
Author Organization [facility] Address [address] [place] [address] Phone Care Team Providers Care Insurance Verification Specialist Name Role Phone Darlene Negro MD Primary [...] 75 mg by mouth daily. Active omega 7-dra-mcs-fish oil 1,000 mg (120 mg-180 mg) Cap Take 1 capsule by mouth daily. Active ferrous sulfate 324 mg (65 mg [place] iron) TbEC Take 324 mg by mouth [...] SIGMOIDOSCOPY 12/31/1996 VIRTUAL COLONOSCOPY 12/31/1996 OSTEOPOROSIS SCREENING INITIAL (ONE-TIME) 12/31/2016 PNEUMOCOCCAL VACCINES (50+ years) (2 of 2 - PPSV23) 09/09/2017 07/15/2017 ZOSTER VACCINES (2 of 2) 09/09/2017 07/15/2017 DIABETIC EYE EXAM 10/09/2018 URINE MICROALBUMIN/CREATININE RATIO 10/09/2018 CREATININE LEVEL 09/02/2019 09/01/2018, , 05/28/2018 INFLUENZA VACCINE (#1) 2024 , 01/21/2019, 01/16/2018, Additional history exists COVID-19 VACCINE (3 - 2024- season) 2024 06/18/2020, 05/28/2020 RSV VACCINE (1 - 1-dose [...] EDT) SODIUM 144 133 - 146 mmol/L [facility] CHLORIDE 107 96 - 108 mmol/L [facility] POTASSIUM 4.6 3.3 - 5.1 mmol/L [facility] CO2 23 21 - 35 mmol/L [facility] BUN 13 6 - 19 mg/dL [facility] CREATININE 0.70 0.5 - 1.5 mg/dL [facility] GLUCOSE 120(H) 70 - 99 mg/dL [facility] CALCIUM 9.4 8.4 - 10.3 mg/dL [facility] EGFR 90 >59 mL/min/1.7 3m2 [facility] Comment:If patient is black, multiply result by 1.159. Estimated glomerular filtration rate calculated using the CKD-EPI equation. ANION GAP 19 10 - 20 mmol/L [facility] Blood 09/01/2018 3:12 PM EDT 09/01/2018 3:17 PM EDT us Alannah MELENDEZ LAB BLOOD ORDERABLES Final Result [facility] [address] [place] [address] * ENDOSCOPY, COLON (07/17/2018 11:56 AM EDT) Narrative Transcriptions Severiano Gary MD - 07/17/2018 11:56 AM EDT Patient Name: Ritu Molinater Attending MD:: SVEERIANO GARY MD, Procedure Date: 07/17/2018 11:56 AM Date of : 1950 Age: 68 Admit Type: Outpatient Gender: Female Room: [place] [address] Referring MD: JOMAR PELLETIER MD Exam Type: [...] bowel preparation was evaluated using the BBPS ([place] Bowel Preparation Scale) with scores of: Right [...] 11:56 AM Procedure Code(s): --- Professional --- 82453, Colonoscopy, flexible; with biopsy, single or multiple --- Technical --- 78038, Colonoscopy, flexible; with biopsy, single or multiple Diagnosis Code(s): --- Professional --- D12.3, Benign neoplasm of transverse colon (hepatic flexure orsplenic flexure) K64.8, Other hemorrhoids D50.9, Iron deficiency anemia, unspecified --- Technical --- D12.3, Benign neoplasm of transverse colon (hepatic flexure orsplenic flexure) K64.8, Other hemorrhoids D50.9, Iron deficiency anemia, unspecified CPT copyright 2016 [employer]. All rights reserved. The codes documented in this report are preliminary and upon pit laborer reviewmay be revised to meet current compliance requirements. [address] [place] [address] Jomar MELENDEZ GI PROCEDURE ORDERABLES Fi nal Result from Last 3 Months or Most Recently Relevant to Health Maintenance Insurance [facility] MEDICARE REPLACEMENT MEDICARE PART A & B MEDICARE REPLACEMENT MEDICARE PART A & B MEDICARE REPLACEMENT MEDICARE PART A & B [facility] MEDICARE REPLACEMENT MEDICARE PART A & B MEDICARE REPLACEMENT MEDICARE PART A & B [facility] MEDICARE REPLACEMENT MEDICARE PART A & B MEDICARE REPLACEMENT MEDICARE PART A & [place] [address] [place] [address] MEDICARE REPLACEMENT MEDICARE PART A & B MEDICARE REPLACEMENT MEDICARE PART A & B Care Teams Insurance Verification Specialist Relationship Specialty Start Date End Date Darlene Negro MD [address] [facility] [place] [address] PCP - General Internal Medicine 10/30/21 Additional Source Comments The information contained in this document represents components of the legal health record. It is not the complete legal health record.[facility]
--- OUTSIDE RECORDS SUMMARY | 2024-12-07 16:59 | XMS_ITS | Encounter Summary ---
Author Organization [facility] Address [address] [place] [address] Phone Care Team Providers Care Escalator Attendant Name Role Phone Lexy Betancur Primary Care Provider +1- [phone] Lexy Betancur Primary Care Provider +1- [phone] Darlene Negro MD Primary Care Provider Reason for Referral * MRI/CAT Scan - Closed Specialty Diagnoses / Procedures Referred By Tr crespo Referred To Contact Radiology Diagnoses Personal history of nicotine dependence Procedures CT Chest Lung Cancer Screening Lexy Betancur PA Phone: tel: fax: Referral ID Status Reason Start Date Expiration Date Visits Re quested Visits Authorized [id number] Closed 10/10/2020 10/10/2021 1 1 Encounter Details Date Type Department Care Team (Latest Contact Info) Description 10/10/2020 Transcribe Orders Virtual Department [address] [place] [address] Lexy Betancur PA [address] [place] [phone] Personal history of nicotine dependence (Primary Dx) Social History Tobacco Use Types [...] * CT CHEST LUNG CANCER SCREENING ANNUAL (10/26/2020 2:10 PM EDT) Anatomical Region Laterality Modality Chest Computed Tomogra phy 10/26/2020 2:39 PM EDT Impressions 10/26/2020 3:04 PM EDT Pulmonary nodules as above, including new nodules. Benign appearance or behavior. Continue annual screening with LDCT in 12 months Lung-RADS Category: 2 Explanation of the Lung-RADS categories can be found at: https://www.acr.org/Quality-Safety/Resources/LungRADS This report has been forwarded to an automated communication system which will electronically notify appropriate providers of potentially important findings. Narrative 10/26/2020 3:04 PM EDT TECHNIQUE: Diagnostic CT CHEST LUNG CANCER SCREENING ANNUAL COMPARISON: Chest CT on March 11, 2019 FINDINGS: Lines/tubes: None. Lungs and Airways: Central airways are patent. Minimal peripheral bulla or paraseptal emphysema in bilateral upper lobes are unchanged. Pulmonary nodules as follows: -Right upper lobe anterior 0.9 cm groundglass nodule (4:68), unchanged -Left upper lobe along the fissure 0.4 cm (4:69), unchanged -Left upper lobe groundglass nodule 0.2 cm (4:128), new -Right middle lobe along the fissure 0.2 cm (4:176), new -Left lower lobe medial 0.8 x 0.6 cm (4:203), unchanged Pleura: The pleural spaces are clear. Heart and mediastinum: The thyroid gland is normal. No significant mediastinal, hilar or axillary lymphadenopathy is seen. The heart and pericardium are within normal limits. Scattered calcifications along the normal caliber thoracic aorta. Soft tissues: Normal. Abdomen: This study was performed without contrast and with lower than standard dose. These factors reduce the sensitivity for detection of small lesions in the upper abdomen. Given these technical limitations, no focal lesion is seen within the visualized liver, spleen, pancreas, kidneys and right adrenal gland. Calcification of the left adrenal gland is unchanged. Bones: The visualized bony thorax is within normal limits. Procedure Note Ramez Ocampo MD - 10/26/2020 TECHNIQUE: Diagnostic CT CHEST LUNG CANCER SCREENING ANNUAL COMPARISON: Chest CT on March 11, 2019 FINDINGS: Lines/tubes: None. Lungs and Airways: Central airways are patent. Minimal peripheral bulla orparaseptal emphysema in bilateral upper lobes are unchanged. Pulmonarynodules as follows: -Right upper lobe anterior 0.9 cm groundglass nodule (4:68), unchanged -Left upper lobe along the fissure 0.4 cm (4:69), unchanged -Left upper lobe groundglass nodule 0.2 cm (4:128), new -Right middle lobe along the fissure 0.2 cm (4:176), new -Left lower lobe medial 0.8 x 0.6 cm (4:203), unchanged Pleura: The pleural spaces are clear. Heart and mediastinum: The thyroid gland is normal. No significantmediastinal, hilar or axillary lymphadenopathy is seen. The heart andpericardium are within normal limits. Scattered calcifications along thenormal caliber thoracic aorta. Soft tissues: Normal. Abdomen: This study was performed without contrast and with lower thanstandard dose. These factors reduce the sensitivity for detection of smalllesions in the upper abdomen. Given these technical limitations, no focallesion is seen within the visualized liver, spleen, pancreas, kidneys andright adrenal gland. Calcification of the left adrenal gland isunchanged. Bones: The visualized bony thorax is within normal limits. IMPRESSION: Pulmonary nodules as above, including new nodules. Benign appearance orbehavior. Continue annual screening with LDCT in 12 months Lung-RADS Category: 2 Explanation of the Lung-RADS categories can be found at: https://www.acr.org/Quality-Safety/Resources/LungRADS This report has been forwarded to an automated communication system whichwill electronically notify appropriate providers of potentially importantfindings. Lexy MELENDEZ IMG CT CHEST Final Resu lt documented in this encounter Visit Diagnoses Diagnosis Personal history of nicotine dependence- Primary Personal history of nicotine dependence documented in this encounter Care Teams Escalator Attendant Relationship Specialty Start Date End Date Lexy Betancur PA [address] [place] [address] PCP - General Timber Cruiser 03/29/17 10/15/21 Lexy Betancur PA [address] [place] [address] PCP - General Timber Cruiser 10/16/21 10/29/21 Darlene Negro MD [address] [place] [address] [place] [address] PCP - General Internal Medicine 10/30/21 documented as of this encounter Additional Source Comments The information contained in this document represents components of the legal health record. It is not the complete legal health record.[facility]
--- OUTSIDE RECORDS SUMMARY | 2024-12-07 16:59 | XMS_ITS | Encounter Summary ---
Author Organization [facility] Address [address] [place] [address] Phone Care Team Providers Care Student Advisor Name Role Phone Lexy Betancur Primary Care Provider +1- [phone] Lexy Betancur Primary Care Provider +1- [phone] Darlene Negro MD Primary Care Provider Encounter Details Date Type Department Care Team (Late st Contact Info) Description 10/10/2020 Ancillary Orders Virtual Department [address] [place] [address] Lexy Betancur PA [address] [place] [address] Social History Tobacco Use Types Packs/Day Years [...] on filedocumented in this encounter Care Teams Student Advisor Relationship Specialty Start Date End Date Lexy Betancur PA [address] [place] [address] PCP - General Overhauler Helper 03/29/17 10/15/21 Lexy Betancur PA [address] [place] [address] PCP - General Overhauler Helper 10/16/21 10/29/21 Darlene Negro MD [address] [place] [address] [place] [address] PCP - General Internal Medicine 10/30/21 documented as of this encounter Additional Source Comments The information contained in this document represents components of the legal health record. It is not the complete legal health record.[facility]
--- OUTSIDE RECORDS SUMMARY | 2024-12-07 16:59 | XMS_ITS | Encounter Summary ---
Author Organization [facility] Address [address] [place] [address] Phone Care Team Providers Care Business Management Associate Name Role Phone Lexy Betancur Primary Care Provider +1- [phone] Lexy Betancur Primary Care Provider +1- [phone] Darlene Negro MD Primary Care Provider Encounter Details Date Type Department Care Team (Late st Contact Info) Description 03/28/2017 Procedure Pass [facility], Ct Scan - [address] [id number] Social History Tobacco Use Types Packs/Day Years [...] on filedocumented in this encounter Care Teams Business Management Associate Relationship Specialty Start Date End Date Lexy Betancur PA [address] [place] [phone] PCP - General State Editor 03/29/17 10/15/21 Lexy Betancur PA [address] [place] [phone] PCP - General State Editor 10/16/21 10/29/21 Darlene Negro MD [facility] [address] [place], [place] [address] PCP - General Internal Medicine 10/30/21 documented as of this encounter Additional Source Comments The information contained in this document represents components of the legal health record. It is not the complete legal health record.[facility]
--- OUTSIDE RECORDS SUMMARY | 2024-12-07 16:59 | XMS_ITS | Encounter Summary ---
Author Organization [facility] Address [address] [place] [address] [place] [address] Phone Care Team Providers Care Personal Banking Advisor Name Role Phone Lexy Betancur Primary Care Provider +1- [phone] Lexy Betancur Primary Care Provider +1- [phone] Darlene Negro MD Primary Care Provider Encounter Details Date Type Department Care Team (Late st Contact Info) Description 10/10/2020 Procedure Pass [facility], Ct Scan - [address] [address] Social History Tobacco Use Types Packs/Day Years [...] on filedocumented in this encounter Care Teams Personal Banking Advisor Relationship Specialty Start Date End Date Lexy Betancur PA [address] [place] [phone] PCP - General Vp Care Management 03/29/17 10/15/21 Lexy Betancur PA [address] [place] [phone] PCP - General Vp Care Management 10/16/21 10/29/21 Darlene Negro MD [address] [place] [address] [place] [address] PCP - General Internal Medicine 10/30/21 documented as of this encounter Additional Source Comments The information contained in this document represents components of the legal health record. It is not the complete legal health record.[facility]
== END 2024-12-07 14:37 | disposition home or self-care (01) ==
LOC: HO.CT 14:36
PROVIDERS: PCP Internal Medicine; Visit Provider Physician Assistant Medical
DX: R91.8 Other nonspecific abnormal finding of lung field (principal); Z87.891 Personal history of nicotine dependence
CPT/HCPCS: 71250

== ENCOUNTER → 2024-12-07 14:38 | Outpatient (BNV) | payer MEDICARE, SELFPAY | PROVIDERS: PCP Internal Medicine; Visit Provider Radiology Diagnostic Radiology | DX: R91.8 Other nonspecific abnormal finding of lung field (principal) | CPT/HCPCS: 71250 ==

== ENCOUNTER 2025-01-04 13:44 | Outpatient (AMB) | payer OTHER, SELFPAY ==
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
--- OUTSIDE RECORDS SUMMARY | 2025-01-04 16:11 | XMS_ITS | Encounter Summary ---
Author Organization [facility] Address [address] [place] [address] Phone Care Team Providers Care Microbiology Quality Control Technician Name Role Phone Lexy Betancur Primary Care Provider +1- [phone] Lexy Betancur Primary Care Provider +1- [phone] Darlene Negro MD Primary Care Provider Encounter Details Date Type Department Care Team (Late st Contact Info) Description 03/28/[address] [facility], Ct Scan - [address] [id number] Social History Tobacco Use Types Packs/Day Years [...] on filedocumented in this encounter Care Teams Microbiology Quality Control Technician Relationship Specialty Start Date End Date Lexy Betancur PA [address] [place] [phone] PCP - General Head Of Sales And Marketing 03/29/17 10/15/21 Lexy Betancur PA [address] [place] [phone] PCP - General Head Of Sales And Marketing 10/16/21 10/29/21 Darlene Negro MD [facility] [address] [place], [place] [address] PCP - General Internal Medicine 10/30/21 documented as of this encounter Additional Source Comments The information contained in this document represents components of the legal health record. It is not the complete legal health record.[facility]
--- OUTSIDE RECORDS SUMMARY | 2025-01-04 16:11 | XMS_ITS | Encounter Summary ---
Author Organization [facility] Address [address] [place] [address] Phone Care Team Providers Care Business Analyst Ecommerce Name Role Phone Lexy Betancur Primary Care Provider +1- [phone] Lexy Betancur Primary Care Provider +1- [phone] Darlene Negro MD Primary Care Provider Reason for Referral * MRI/CAT Scan - Closed Specialty Diagnoses / Procedures Referred By Tr crespo Referred To Contact Radiology Diagnoses Solitary pulmonary nodule Procedures CT Chest Lexy Betancur PA Phone: tel: fax: Referral ID Status Reason Start Date Expiration Date Visits Re quested Visits Authorized [id number] Closed 01/23/2018 01/23/2019 1 1 Encounter Details Date Type Department Care Team (Late st Contact Info) Description 01/23/2018 Ancillary Orders Virtual Department [address] [place] [address] Lexy Betancur PA [address] [place] [phone] Solitary pulmonary nodule Social History Tobacco Use [...] nodule documented in this encounter Care Teams Business Analyst Ecommerce Relationship Specialty Start Date End Date Lexy Betancur PA [address] [place] [address] PCP - General Certified Procedural Coder 03/29/17 10/15/21 Lexy Betancur PA [address] [place] [address] PCP - General Certified Procedural Coder 10/16/21 10/29/21 Darlene Negro MD [facility] [place] [address] PCP - General Internal Medicine 10/30/21 documented as of this encounter Additional Source Comments The information contained in this document represents components of the legal health record. It is not the complete legal health record.[facility]
--- OUTSIDE RECORDS SUMMARY | 2025-01-04 16:11 | XMS_ITS | Encounter Summary ---
Author Organization [facility] Address [address] [place] [address] Phone Care Team Providers Care Secondary School Principal Name Role Phone Lexy Betancur Primary Care Provider +1- [phone] Lexy Betancur Primary Care Provider +1- [phone] Darlene Negro MD Primary Care Provider Reason for Referral * MRI/CAT Scan - Closed Specialty Diagnoses / Procedures Referred By Tr crespo Referred To Contact Radiology Diagnoses Other nonspecific abnormal finding of lung field Procedures CT Chest Lung Cancer Screening Lexy Betancur PA Phone: tel: fax: Referral ID Status Reason Start Date Expiration Date Visits Re quested Visits Authorized [id number] Closed 05/08/2021 05/08/2022 1 1 Encounter Details Date Type Department Care Team (Latest Contact Info) Description 05/08/2021 Transcribe Orders Virtual Department [address] [place] [address] Lexy Betancur PA [address] [place] [phone] Other nonspecific abnormal finding of lung field [...] field documented in this encounter Care Teams Secondary School Principal Relationship Specialty Start Date End Date Lexy Betancur PA [address] [place] [address] PCP - General Lamination Machine Operator 03/29/17 10/15/21 Lexy Betancur PA [address] [place] [address] PCP - General Lamination Machine Operator 10/16/21 10/29/21 Darlene Negro MD [address] [place] [address] [place] [address] PCP - General Internal Medicine 10/30/21 documented as of this encounter Additional Source Comments The information contained in this document represents components of the legal health record. It is not the complete legal health record.[facility]
--- OUTSIDE RECORDS SUMMARY | 2025-01-04 16:11 | XMS_ITS | Clinical Summary ---
Author Organization [facility] Address [address] [place] [address] Phone Care Team Providers Care Aging Room Operator Name Role Phone Darlene Negro MD Primary [...] 75 mg by mouth daily. Active omega 9-qft-nch-fish oil 1,000 mg (120 mg-180 mg) Cap Take 1 capsule by mouth daily. Active ferrous sulfate 324 mg (65 mg diomede iron) TbEC Take 324 mg by mouth [...] EDT) SODIUM 144 133 - 146 mmol/L [facility] CHLORIDE 107 96 - 108 mmol/L [facility] POTASSIUM 4.6 3.3 - 5.1 mmol/L [facility] CO2 23 21 - 35 mmol/L [facility] BUN 13 6 - 19 mg/dL [facility] CREATININE 0.70 0.5 - 1.5 mg/dL [facility] GLUCOSE 120(H) 70 - 99 mg/dL [facility] CALCIUM 9.4 8.4 - 10.3 mg/dL [facility] EGFR 90 >59 mL/min/1.7 3m2 [facility] Comment:If patient is black, multiply result by 1.159. Estimated glomerular filtration rate calculated using the CKD-EPI equation. ANION GAP 19 10 - 20 mmol/L [facility] Blood 09/01/2018 3:12 PM EDT 09/01/2018 3:17 PM EDT us Alannah MELENDEZ LAB BLOOD ORDERABLES Final Result [facility] [address] [place] [address] * ENDOSCOPY, COLON (07/17/2018 11:56 AM EDT) Narrative Transcriptions Severiano Gary MD - 07/17/2018 11:56 AM EDT Patient Name: Ritu Molinater Attending MD:: SEVERIANO GARY MD, Procedure Date: 07/17/2018 11:56 AM Date of : 1950 Age: 68 Admit Type: Outpatient Gender: Female Room: [place] [address] Referring MD: JOMAR PELLETIER MD Exam Type: [...] bowel preparation was evaluated using the BBPS (Henderson Bowel Preparation Scale) with scores of: Right [...] 11:56 AM Procedure Code(s): --- Professional --- 54387, Colonoscopy, flexible; with biopsy, single or multiple --- Technical --- 49346, Colonoscopy, flexible; with biopsy, single or multiple Diagnosis Code(s): --- Professional --- D12.3, Benign neoplasm of transverse colon (hepatic flexure orsplenic flexure) K64.8, Other hemorrhoids D50.9, Iron deficiency anemia, unspecified --- Technical --- D12.3, Benign neoplasm of transverse colon (hepatic flexure orsplenic flexure) K64.8, Other hemorrhoids D50.9, Iron deficiency anemia, unspecified CPT copyright 2016 [employer]. All rights reserved. The codes documented in this report are preliminary and upon home care associate reviewmay be revised to meet current compliance requirements. [address] [place] [address] Jomar MELENDEZ GI PROCEDURE ORDERABLES Fi nal Result from Last 3 Months or Most Recently Relevant to Health Maintenance Insurance [facility] MEDICARE REPLACEMENT MEDICARE PART A & B MEDICARE REPLACEMENT MEDICARE PART A & B MEDICARE REPLACEMENT MEDICARE PART A & B [facility] MEDICARE REPLACEMENT MEDICARE PART A & B MEDICARE REPLACEMENT MEDICARE PART A & B [facility] MEDICARE REPLACEMENT MEDICARE PART A & B MEDICARE REPLACEMENT MEDICARE PART A & [place] [address] [place] [address] MEDICARE REPLACEMENT MEDICARE PART A & B MEDICARE REPLACEMENT MEDICARE PART A & B Care Teams Aging Room Operator Relationship Specialty Start Date End Date Darlene Negro MD [address] [facility] [place] [address] PCP - General Internal Medicine 10/30/21 Additional Source Comments The information contained in this document represents components of the legal health record. It is not the complete legal health record.[facility]
--- OUTSIDE RECORDS SUMMARY | 2025-01-04 16:11 | XMS_ITS | Encounter Summary ---
Author Organization [facility] Address [address] [place] [address] Phone Care Team Providers Care Stoker Erector And Servicer Name Role Phone Lexy Betancur Primary Care Provider +1- [phone] Lexy Betancur Primary Care Provider +1- [phone] Darlene Negro MD Primary Care Provider Encounter Details Date Type Department Care Team (Late st Contact Info) Description 01/23/2018 Procedure Pass [facility], Ct Scan - [address] [id number] Social History Tobacco Use Types Packs/Day Years [...] on filedocumented in this encounter Care Teams Stoker Erector And Servicer Relationship Specialty Start Date End Date Lexy Betancur PA [address] [place] [phone] PCP - General Business Performance Advisor 03/29/17 10/15/21 Lexy Betancur PA [address] [place] [phone] PCP - General Business Performance Advisor 10/16/21 10/29/21 Darlene Negro MD [facility] [address] [place], [place] [address] PCP - General Internal Medicine 10/30/21 documented as of this encounter Additional Source Comments The information contained in this document represents components of the legal health record. It is not the complete legal health record.[facility]
--- OUTSIDE RECORDS SUMMARY | 2025-01-04 16:11 | XMS_ITS | Encounter Summary ---
Author Organization [facility] Address [address] [place] [address] [place] [address] Phone Care Team Providers Care Customer Relations Representative Name Role Phone Lexy Betancur Primary Care Provider +1- [phone] Lexy Betancur Primary Care Provider +1- [phone] Darlene Negro MD Primary Care Provider Encounter Details Date Type Department Care Team (Late st Contact Info) Description 05/08/2021 Procedure Pass [facility], Ct Scan - [address] [id number] Social History Tobacco Use Types Packs/Day Years [...] on filedocumented in this encounter Care Teams Customer Relations Representative Relationship Specialty Start Date End Date Lexy Betancur PA [address] [place] [phone] PCP - General White Work Cleaner 03/29/17 10/15/21 Lexy Betancur PA [address] [place] [phone] PCP - General White Work Cleaner 10/16/21 10/29/21 Darlene Negro MD [address] [place] [address] [place] [address] PCP - General Internal Medicine 10/30/21 documented as of this encounter Additional Source Comments The information contained in this document represents components of the legal health record. It is not the complete legal health record.[facility]
--- OUTSIDE RECORDS SUMMARY | 2025-01-04 16:11 | XMS_ITS | Encounter Summary ---
Author Organization [facility] Address [address] [place] [address] Phone Care Team Providers Care Audio Installer Name Role Phone Lexy Betancur Primary Care Provider +1- [phone] Lexy Betancur Primary Care Provider +1- [phone] Darlene Negro MD Primary Care Provider Encounter Details Date Type Department Care Team (Late st Contact Info) Description 03/28/2017 Ancillary Orders Virtual Department [address] [place] [address] Lexy Betancur PA [address] [place] [address] Abnormal findings on diagnostic imaging of lung [...] months. TOTAL CTDIvol: 6.40 mGy POS - [id number] Edited by: Mariam López on 04/11/2017 12:41 [...] months. TOTAL CTDIvol: 6.40 mGy POS - [id number] Edited by: Mariam López on 04/11/2017 12:41 PM Lexy MELENDEZ IMG CT CHEST Final Resu lt documented in this encounter Visit Diagnoses Diagnosis Abnormal findings on diagnostic imaging of lung Abnormal findings on diagnostic imaging of lung documented in this encounter Care Teams Audio Installer Relationship Specialty Start Date End Date Lexy Betancur PA [address] [place] [phone] PCP - General Tool And Die Assembler 03/29/17 10/15/21 Lexy Betancur PA [address] [place] [phone] PCP - General Tool And Die Assembler 10/16/21 10/29/21 Darlene Negro MD [facility] [address] [place], [place] [address] PCP - General Internal Medicine 10/30/21 documented as of this encounter Additional Source Comments The information contained in this document represents components of the legal health record. It is not the complete legal health record.[facility]
--- OUTSIDE RECORDS SUMMARY | 2025-01-04 16:11 | XMS_ITS | Encounter Summary ---
Author Organization [facility] Address [address] [place] [address] [place] [address] Phone Care Team Providers Care Brokerage Branch Manager Name Role Phone Lexy Betancur Primary Care Provider +1- [phone] Lexy Betancur Primary Care Provider +1- [phone] Darlene Negro MD Primary Care Provider Encounter Details Date Type Department Care Team (Late st Contact Info) Description 10/10/2020 Procedure Pass [facility], Ct Scan - [address] [address] Social History Tobacco Use Types Packs/Day Years [...] on filedocumented in this encounter Care Teams Brokerage Branch Manager Relationship Specialty Start Date End Date Lexy Betancur PA [address] [place] [phone] PCP - General Legal Clerk 03/29/17 10/15/21 Lexy Betancur PA [address] [place] [phone] PCP - General Legal Clerk 10/16/21 10/29/21 Darlene Negro MD [address] [place] [address] [place] [address] PCP - General Internal Medicine 10/30/21 documented as of this encounter Additional Source Comments The information contained in this document represents components of the legal health record. It is not the complete legal health record.[facility]
--- OUTSIDE RECORDS SUMMARY | 2025-01-04 16:12 | XMS_ITS | Encounter Summary ---
Author Organization [facility] Address [address] [place] [address] Phone Care Team Providers Care Behavioral Health Assistant Name Role Phone Lexy Betancur Primary Care Provider +1- [phone] Lexy Betancur Primary Care Provider +1- [phone] Darlene Negro MD Primary Care Provider Reason for Referral * MRI/CAT Scan - Closed Specialty Diagnoses / Procedures Referred By Tr crespo Referred To Contact Radiology Diagnoses Personal history of nicotine dependence Procedures CT Chest Lung Cancer Screening Lexy Betancur PA Phone: tel: fax: Referral ID Status Reason Start Date Expiration Date Visits Re quested Visits Authorized [id number] Closed 10/10/2020 10/10/2021 1 1 Encounter Details Date Type Department Care Team (Latest Contact Info) Description 10/10/2020 Transcribe Orders Virtual Department [address] [place] [address] Lexy Betancur PA [address] [place] [phone] Personal history of nicotine dependence (Primary Dx) [...] dependence documented in this encounter Care Teams Behavioral Health Assistant Relationship Specialty Start Date End Date Lexy Betancur PA [address] [place] [phone] PCP - General Control Systems Eng 03/29/17 10/15/21 Lexy Betancur PA [address] [place] [phone] PCP - General Control Systems Eng 10/16/21 10/29/21 Darlene Negro MD [address] [place] [address] [place] [address] PCP - General Internal Medicine 10/30/21 documented as of this encounter Additional Source Comments The information contained in this document represents components of the legal health record. It is not the complete legal health record.[facility]
--- OUTSIDE RECORDS SUMMARY | 2025-01-04 16:12 | XMS_ITS | Encounter Summary ---
Author Organization [facility] Address [address] [place] [address] Phone Care Team Providers Care Reclaimer Name Role Phone Lexy Betancur Primary Care Provider +1- [phone] Lexy Betancur Primary Care Provider +1- [phone] Darlene Negro MD Primary Care Provider Encounter Details Date Type Department Care Team (Late st Contact Info) Description 07/17/2018 Procedure Pass [facility] Endoscopy Admitting Dept Virtual Department [address] [place], [place] [phone] Social History Tobacco Use Types Packs/Day Years [...] on filedocumented in this encounter Care Teams Reclaimer Relationship Specialty Start Date End Date Lexy Betancur PA [address] [place] [phone] PCP - General Optical Laboratory Mechanic 03/29/17 10/15/21 Lexy Betancur PA [address] [place] [phone] PCP - General Optical Laboratory Mechanic 10/16/21 10/29/21 Darlene Negro MD [address] [place] [address] [place] [address] PCP - General Internal Medicine 10/30/21 documented as of this encounter Additional Source Comments The information contained in this document represents components of the legal health record. It is not the complete legal health record.[facility]
--- OUTSIDE RECORDS SUMMARY | 2025-01-04 16:12 | XMS_ITS | Encounter Summary ---
Author Organization [facility] Address [address] [place] [address] Phone Care Team Providers Care Pediatric Dentist Name Role Phone Lexy Betancur Primary Care Provider +1- [phone] Lexy Betancur Primary Care Provider +1- [phone] Darlene Negro MD Primary Care Provider Encounter Details Date Type Department Care Team (Late st Contact Info) Description 10/10/2020 Ancillary Orders Virtual Department [address] [place] [address] Lexy Betancur PA [address] [place] [phone] Social History Tobacco Use Types Packs/Day Years [...] on filedocumented in this encounter Care Teams Pediatric Dentist Relationship Specialty Start Date End Date Lexy Betancur PA [address] [place] [phone] PCP - General Pediatric Dentist 03/29/17 10/15/21 Lexy Betancur PA [address] [place] [phone] PCP - General Pediatric Dentist 10/16/21 10/29/21 Darlene Negro MD [address] [place] [address] [place] [address] PCP - General Internal Medicine 10/30/21 documented as of this encounter Additional Source Comments The information contained in this document represents components of the legal health record. It is not the complete legal health record.[facility]
--- OUTSIDE RECORDS SUMMARY | 2025-01-04 16:12 | XMS_ITS | Encounter Summary ---
Author Organization [facility] Address [address] [place] [address] Phone Care Team Providers Care Wash Plant Operator Name Role Phone Lexy Betancur Primary Care Provider +1- [phone] Lexy Betancur Primary Care Provider +1- [phone] Darlene Negro MD Primary Care Provider Reason for Referral * MRI/CAT Scan - Closed Specialty Diagnoses / Procedures Referred By Tr crespo Referred To Contact Radiology Diagnoses Ex-smoker Personal history of nicotine dependence Procedures CT Chest Lung Cancer Screening Lexy Betancur PA Phone: tel: fax: Referral ID Status Reason Start Date Expiration Date Visits Re quested Visits Authorized [id number] Closed 02/18/2019 02/18/2020 1 1 Encounter Details Date Type Department Care Team (Latest Contact Info) Description 02/18/2019 Transcribe Orders Virtual Department [address] [place] [address] Lexy Betancur PA [address] [place] [phone] Ex-smoker (Primary Dx); Personal history of nicotine [...] 12 MONTHS TOTAL CTDIvol: 1.40 mGy POS [id number] Narrative 03/11/2019 2:50 PM EST HISTORY: Low [...] 12 MONTHS TOTAL CTDIvol: 1.40 mGy POS [id number] Lexy MELENDEZ IMG CT CHEST Final Resu lt documented in this encounter Visit Diagnoses Diagnosis Ex-smoker- Primary Personal history of tobacco use, presenting hazards to health Personal history of nicotine dependence Ex-smoker Personal history of tobacco use, presenting hazards to health Personal history of nicotine dependence documented in this encounter Care Teams Wash Plant Operator Relationship Specialty Start Date End Date Lexy Betancur PA [address] [place] [address] PCP - General Wood Veneer Taper 03/29/17 10/15/21 Lexy Betancur PA [address] [place] [address] PCP - General Wood Veneer Taper 10/16/21 10/29/21 Darlene Negro MD [facility] [address] [place], [place] [address] PCP - General Internal Medicine 10/30/21 documented as of this encounter Additional Source Comments The information contained in this document represents components of the legal health record. It is not the complete legal health record.[facility]
--- OUTSIDE RECORDS SUMMARY | 2025-01-04 16:12 | XMS_ITS | Encounter Summary ---
Author Organization [facility] Address [address] [place] [address] Phone Care Team Providers Care Parachute Panel Joiner Name Role Phone Lexy Betancur Primary Care Provider +1- [phone] Lexy Betancur Primary Care Provider +1- [phone] Darlene Negro MD Primary Care Provider Encounter Details Date Type Department Care Team (Latest Contact Info) Description 09/01/2018 Transcribe Orders [facility] [address] [address] Alannah Ta PA [address] [place] [address] Iron deficiency anemia secondary to blood loss [...] VITAMIN B12 715 232 - 1,245 pg/mL [facility] Blood 09/01/2018 3:12 PM EDT 09/01/2018 3:17 PM EDT us Alannah MELENDEZ LAB BLOOD ORDERABLES Final Result Performing Organization Address [facility]/ZIP Co de Phone Number [address] [address] * (ABNORMAL) Basic metabolic panel (09/01/2018 3:12 PM EDT) SODIUM 144 133 - 146 mmol/L [facility] CHLORIDE 107 96 - 108 mmol/L [facility] POTASSIUM 4.6 3.3 - 5.1 mmol/L [facility] CO2 23 21 - 35 mmol/L [facility] BUN 13 6 - 19 mg/dL [facility] CREATININE 0.70 0.5 - 1.5 mg/dL [facility] GLUCOSE 120(H) 70 - 99 mg/dL [facility] CALCIUM 9.4 8.4 - 10.3 mg/dL [facility] EGFR 90 >59 mL/min/1.7 3m2 [facility] Comment:If patient is black, multiply result by 1.159. Estimated glomerular filtration rate calculated using the CKD-EPI equation. ANION GAP 19 10 - 20 mmol/L [facility] Blood 09/01/2018 3:12 PM EDT 09/01/2018 3:17 PM EDT us Alannah MELENDEZ LAB BLOOD ORDERABLES Final Result Performing Organization Address [facility]/ZIP Co de Phone Number [address] [address] * Ferritin (09/01/2018 3:12 PM EDT) FERRITIN 23 13 - 150 ug/L [facility] Blood 09/01/2018 3:12 PM EDT 09/01/2018 3:17 PM EDT Alannah MELENDEZ LAB BLOOD ORDERABLES Final Result Performing Organization Address City/[facility]/ZIP Co de Phone Number [address] [address] * (ABNORMAL) Folate (09/01/2018 3:12 PM EDT) FOLIC ACID >20.0(H) 4.2 - 19.9 ng/mL [facility] Blood 09/01/2018 3:12 PM EDT 09/01/2018 3:17 PM EDT Alannah MELENDEZ LAB BLOOD ORDERABLES Final Result Performing Organization Address [facility]/ZIP Co de Phone Number [address] [address] * (ABNORMAL) Iron and iron binding capacity (09/01/2018 3:12 PM EDT) Pathologist [facility] IRON 25(L) 30 - 160 ug/dL [facility] IRON BINDING CAPACITY 418 228 - 428 ug/dL [facility] TRANSFERRIN SATURAT. 6(L) 15 - 50 % [facility] Blood 09/01/2018 3:12 PM EDT 09/01/2018 3:17 PM EDT Alannah MELENDEZ LAB BLOOD ORDERABLES Final Result Performing Organization Address [facility] Co de Phone Number [address] [address] * (ABNORMAL) CBC and differential (09/01/2018 3:12 PM EDT) WBC 6.03 3.40 - 11.20 K/uL [facility] RBC 3.90 3.80 - 4.80 M/uL [facility] HGB 11.1(L) 12.0 - 15.0 g/dL [facility] HCT 34.7(L) 36.0 - 46.0 % [facility] PLT 420(H) 130 - 400 K/uL [facility] MCV 89.0 79.0 - 98.0 fL [facility] MCH 28.5 27.0 - 34.8 pg [facility] MCHC 32.0 31.5 - 36.0 g/dL [facility] RDW 16.7(H) 10.8 - 14.6 % [facility] MPV 9.6 9.4 - 12.4 fl [facility] NRBC 0.00 0.00 /100 WBCs [facility] ABSOLUTE NRBC 0.00 0.00 K/uL [facility] DIFF METHOD Auto [facility] NEUTS 55.2 45.30 - 77.70 % [facility] LYMPHS 33.5 12.30 - 39.70 % [facility] MONOS 6.8 4.10 - 12.80 % [facility] EOS 4.0 0 - 7.2 % [facility] BASOS 0.3 0 - 2.80 % [facility] Granulocytes, immature (%) 0.2 0.0 - 0.9 % [facility] ABSOLUTE NEUTS 3.33 1.40 - 7.70 K/uL [facility] ABSOLUTE LYMPHS 2.02 0.60 - 3.20 K/uL [facility] ABSOLUTE MONOS 0.41 0.11 - 0.59 K/uL [facility] ABSOLUTE EOS 0.24 0.01 - 0.50 K/uL [facility] ABSOLUTE BASOS 0.02 0.00 - 0.08 K/uL [facility] Granulocytes, immature 0.01 0.00 - 0.05 K/uL [facility] Blood 09/01/2018 3:12 PM EDT 09/01/2018 3:17 PM EDT us Alannah MELENDEZ LAB BLOOD ORDERABLES Final Result 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 It is not the complete legal health record.[facility]
== END 2025-01-04 14:47 | disposition home or self-care (01) ==
LOC: HO.HOP 13:44
PROVIDERS: PCP Internal Medicine; Visit Provider Psychiatry & Neurology Psychiatry
DX: F31.81 Bipolar II disorder (principal); F43.10 Post-traumatic stress disorder, unspecified; F41.1 Generalized anxiety disorder; I10 Essential (primary) hypertension; D32.9 Benign neoplasm of meninges, unspecified
CPT/HCPCS: 90833; 99213

== ENCOUNTER 2025-01-28 13:26 | Outpatient (AMB) | payer MEDICARE, SELFPAY ==
--- NOTE | 2025-01-28 13:31 | MHC.OFFVIS ---
Intake Visit Reasons: bets Allergies bee pollen (BEE STINGS) Allergy (Severe, Verified 01/28/25 13:33) ANAPHYLAXIS Medication List - Last Reconciled 01/28/25 by Sarah Lyman CNP armodafinil 150 mg PO QAM ascorbic acid (vitamin C) 500 mg PO DAILY aspirin 81 mg PO DAILY cholecalciferol (vitamin D3) 50 mcg PO DAILY clotrimazole-betamethasone 1-0.05 % 1 appl topical BID 10 days coenzyme Q10 75 mg PO DAILY estradiol 0.01%(0.1mg/gram) 1 g vaginal 2XW ezetimibe 10 mg PO DAILY ferrous fumarate 325 mg PO DAILY FreeStyle Lite Meter (blood-glucose meter) As directed NS FreeStyle Lite Strips (blood sugar diagnostic) check fasting blood sugar once a day NS lamotrigine 150 mg PO DAILY 90 days lancets (FreeStyle Lancets) As directed once a day magnesium 250 mg PO DAILY metformin ER 500 mg PO DAILY bg-[id number]-evg-epa-fish oil-vit D3 120 mg-180 mg -1,000 unit caps PO propranolol ER 80 mg PO DAILY rosuvastatin 5 mg PO 3XW 3 months venlafaxine ER 75 mg PO DAILY vit C,K-Ad-aqgvg-lutein-zeaxan 250-90-40-1 mg (PreserVision AREDS-2) 1 tab PO BID HPI Comments Details: 75-year-old [place] woman with bipolar do, a 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 She was doing okay. Increased dose of propranolol seemed to be helping with tremors. No medication side effects. No difficulty eating, drinking, or swallowing. No falls. She was still drawing some. [facility] Medical History (Updated 11/05/24 @ 15:03 by Darlene Negro MD) Ovarian tumor Anemia MCI (mild cognitive impairment) Carpal tunnel syndrome Hip pain, bilateral Pruritic intertrigo Chronic left hip pain Benign essential tremor Macular degeneration Vulvar rash Osteopenia Postmenopausal Personal history of nicotine dependence Stenosis of right carotid artery greater than 50% Post traumatic stress disorder (PTSD) Bipolar II disorder in full remission Essential hypertension Mixed hyperlipidemia Type 2 diabetes mellitus without complication, with no history of insulin use Acquired hypothyroidism Insomnia Meningioma (~2019) Emphysema of lung Pulmonary nodules MACIEJ (obstructive sleep apnea) Surgical History Hx of endoscopy History of partial thyroidectomy History of hysterectomy History of appendectomy History of tonsillectomy History of colonoscopy Family History Father Substance use disorder Lung cancer Brother Mental health disorder Maternal Grandmother Mental health disorder Paternal Aunt No problems noted. Mother Mental health disorder Social History Household Members: Spouse Housing: Condominium Patient Tobacco Use Status: Former Tobacco user Tobacco use type: Cigarette Years Smoked: (onset 15yo, 1ppd x 51yrs, 40+PYH - quit 2016) e-Cigarette/Vaping Use: Never Used service: No Current occupational status: retired Cognitive needs: No Hearing needs: No Vision needs: Yes Female Reproductive History Menstrual Age of Menarche: 12 Review of Systems Const Denies chills, Denies daytime sleepiness, Reports difficulty sleeping, Denies fatigue, Denies fever(s), Denies frequent falls, Denies headache(s), Denies increased appetite, Denies poor appetite, Denies snoring, Denies weakness, Denies weight gain and Denies weight loss Eyes Denies loss of vision ENT Denies vertigo, Denies dizziness and Denies headache(s) Card Denies chest pain at rest, Denies chest pain with activity, Denies leg edema and Denies palpitations Resp Denies snoring GI Denies constipation, Denies heartburn, Denies diarrhea and Denies nausea Denies urinary frequency, Denies urinary incontinence and Denies urinary urgency Musc Denies abnormal gait, Denies numbness and Denies tingling Skin/Breast Denies dry skin and Denies rash Neuro Denies abnormal gait, Denies vertigo, Denies dizziness, Denies frequent falls, Denies headache(s), Denies lack of coordination, Denies loss of vision, Reports memory loss, Denies numbness, Denies restless legs, Denies seizure-like activity, Denies tingling, Denies paresthesias, Reports tremor(s) and Denies weakness Psych Denies anxiety, Denies depression, Denies auditory hallucinations, Reports memory loss, Denies visual hallucinations and Denies suicidal ideation Endo Denies fatigue and Denies palpitations Physical Exam Const Other: General Appearance:? normal, in no acute distress. Skin:? no rashes, no significant birthmarks. Heart:? S1, S2 normal, no murmurs. Lungs:? clear anteriorly and posteriorly. Extremities:? no edema. Psych:? alert, oriented, cognitive function intact, cooperative with exam. Neuro Other: Mental Status:?Normal attention, orientation, memory and affect.? Cranial Nerves:?Pupils are equal, round and reactive to light. External occular muscles are intact. Visual raines are full. Face is symmetrical. Facial sensations are normal. Tongue is midline. Palate elevates symmetrically. Shoulder shrugging is normal. Hearing to bedside conversation is normal. Sensory Exam:?....? Coordination:?No ataxia,?no titubation.? Gait Exam: Within normal limits. Cerebellar Signs:?Wmoivi-af-urzy and fxyl-sw-ywoe is normal.? Extrapyramidal System:?No tremor, rigidity with normal facial expressions.? Pronator Drift:?Not present.? Involuntary Movements:?Moderate bilateral hand tremor. Speech:?Mild speech tremor. Results Reviewed Results Reviewed: MRI brain at [facility] in July 2023: No significant change (reported) MRI brain WO at [facility] in July 2021: R peripontine mass MRI brain WO at [facility] in July 2020: R peripontine lesion with mild mass effect, no change from 2020 scan MRI brain at [facility] in July 2019: R peripontine mass MRI brain at [facility] in September 2017: large peripontine mass NCV/EMG UE 01/20/19 THIS IS AN UNREMARKABLE STUDY Assessment & Plan Assessment & Plan (1) Benign essential tremor: Code(s): G25.0 - Essential tremor Category: Medical Plan: Continue propranolol ER 80mg 1 capsule daily. (2) Meningioma: Onset Date: ~2018 Comment: (onset 10/08/2018 - s/p brain radiation), ff'd by Dr Satish Portillo at [facility], and sees Dr Poon Code(s): D32.9 - Benign neoplasm of meninges, unspecified Category: Medical Plan: . (3) MCI (mild cognitive impairment): Code(s): G31.84 - Mild cognitive impairment of uncertain or unknown etiology Category: Medical Plan: Stay physically and socially active. Plan . Medications: Refilled propranolol ER 80 mg PO DAILY 90 caps 1RF Coding Level of Care Code Est Pt Level 4 (22405) Diagnoses Benign essential tremor G25.0 Meningioma D32.9 MCI (mild cognitive impairment) G31.84
== END 2025-01-28 13:39 | disposition home or self-care (01) ==
LOC: HO.HSM 13:27
PROVIDERS: PCP Internal Medicine; Visit Provider Registered Nurse
DX: G25.0 Essential tremor (principal); D32.9 Benign neoplasm of meninges, unspecified; G31.84 Mild cognitive impairment of uncertain or unknown etiology
CPT/HCPCS: 99214

== ENCOUNTER → 2025-01-28 13:26 | Outpatient (BNVA) | payer MEDICARE, SELFPAY | PROVIDERS: PCP Internal Medicine; Visit Provider Registered Nurse | DX: G25.0 Essential tremor (principal); D32.0 Benign neoplasm of cerebral meninges; G31.84 Mild cognitive impairment of uncertain or unknown etiology; F31.9 Bipolar disorder, unspecified | CPT/HCPCS: 99212 ==